=== PATIENT | male | born 1950 | race Caucasian/White ===

== ENCOUNTER 2017-03-26 05:23 | Observation (INO) ==
--- NOTE | 2017-03-26 05:35 | Emergency Department Note ---
Disposition Clinical Impression: Transient cerebral ischemia Disposition: Admitted As Inpatient Condition: Undetermined Referrals: NO,PCP [Primary Care Provider] - Forms: ED Satisfaction Letter General Adult HPI - General Chief complaint: ED Neuro Symptoms/Deficit Stated complaint: Rt arm weakness Time Seen by Provider: 03/26/17 05:29 Source: patient Limitations: no limitations - History of Present Illness Pain Scale: 0 - Related Data Allergies Allergy/AdvReac Type Severity Reaction Status Date / Time No Known Allergies Allergy Verified 03/26/17 05:27 Past Medical History - Past Medical History Medical history: Reports: atrial fibrillation, COPD, dialysis, renal disease - Social History Smoking Status: Former smoker Smokeless Tobacco Status: No Alcohol use: Reports: rarely Drug use: Reports: none Physical Exam - General Limitations: no limitations General appearance: alert, in no apparent distress Course Vital Signs Temperature 98.8 F 03/26/17 05:24 Pulse Rate 88 03/26/17 05:24 Respiratory Rate 18 03/26/17 05:24 Blood Pressure 165/54 03/26/17 05:24 O2 Sat by Pulse Oximetry 90 03/26/17 05:24 Temperature 98.1 F 03/26/17 05:43 Pulse Rate 74 03/26/17 05:43 Respiratory Rate 18 03/26/17 05:43 Blood Pressure 165/54 03/26/17 05:24 O2 Sat by Pulse Oximetry 90 03/26/17 05:24 Oxygen Delivery Oxygen Delivery Nasal Cannula Medical Decision Making - Lab Data Result diagrams: 03/26/17 05:55 03/26/17 05:55 Lab Results 03/26/17 03/26/17 03/26/17 Range/Units 05:28 05:55 05:55 WBC 7.5 (4.3-11.1) K/mcL RBC 3.61 L (4.19-5.50) M/mcL Hgb 11.9 L (12.9-16.9) g/dL Hct 35.5 L (37.5-50.1) % MCV 98.3 (83.0-100.0) fL MCH 33.0 (28.0-33.3) pg MCHC 33.5 (31.6-35.5) g/dL RDW 13.3 (11.5-14.5) % Plt Count 190 (140-400) K/mcL MPV 9.5 (9.4-12.4) fL Immature Gran % 0.3 (0-4) % Seg Neutrophils % 63.7 % Lymphocytes % 17.9 % Monocytes % 10.9 % Eosinophils % 6.5 % Basophils % 0.7 % Neutrophils # 4.8 (1.6-8.9) K/mcL Lymphocytes # 1.3 (0.6-4.6) K/mcL Monocytes # 0.8 (0.0-1.3) K/mcL Eosinophils # 0.5 (0.0-0.6) K/mcL Basophils # 0.1 (0.0-0.2) K/mcL Immature Plt Fraction 3.2 (1.1-6.1) % PT 25.6 H (9.4-12.1) Seconds INR 2.3 APTT 47.0 H (26.0-36.0) Seconds Sodium (136-145) mEq/L Potassium (3.5-4.5) mEq/L Chloride (98-109) mEq/L Carbon Dioxide (19-29) mEq/L BUN (8-26) mg/dL Creatinine (0.72-1.25) mg/dL Est GFR ( Amer) (> 60) Est GFR (Non-Af Amer) (> 60) BUN/Creatinine Ratio (6-26) Glucose (70-99) mg/dL POC Glucose 96 H (58-89) Calculated Osmolality (280-300) Calcium (8.6-10.8) mg/dL Troponin I (0-0.03) ng/mL 03/26/17 03/26/17 Range/Units 05:55 05:55 WBC (4.3-11.1) K/mcL RBC (4.19-5.50) M/mcL Hgb (12.9-16.9) g/dL Hct (37.5-50.1) % MCV (83.0-100.0) fL MCH (28.0-33.3) pg MCHC (31.6-35.5) g/dL RDW (11.5-14.5) % Plt Count (140-400) K/mcL MPV (9.4-12.4) fL Immature Gran % (0-4) % Seg Neutrophils % % Lymphocytes % % Monocytes % % Eosinophils % % Basophils % % Neutrophils # (1.6-8.9) K/mcL Lymphocytes # (0.6-4.6) K/mcL Monocytes # (0.0-1.3) K/mcL Eosinophils # (0.0-0.6) K/mcL Basophils # (0.0-0.2) K/mcL Immature Plt Fraction (1.1-6.1) % PT (9.4-12.1) Seconds INR APTT (26.0-36.0) Seconds Sodium 136 (136-145) mEq/L Potassium 5.2 H (3.5-4.5) mEq/L Chloride 93 L (98-109) mEq/L Carbon Dioxide 29 (19-29) mEq/L BUN 45 H (8-26) mg/dL Creatinine 9.08 H (0.72-1.25) mg/dL Est GFR ( Amer) 7 L (> 60) Est GFR (Non-Af Amer) 6 L (> 60) BUN/Creatinine Ratio 5 L (6-26) Glucose 97 (70-99) mg/dL POC Glucose (58-89) Calculated Osmolality 293 (280-300) Calcium 10.1 (8.6-10.8) mg/dL Troponin I 0.05 H* (0-0.03) ng/mL Attestation Statement - Attestation Attestation: I examined this patient and my medical decision-making was reviewed with the REVIVAL CLERK/PA/Advanced Practice Nurse/Resident Physician. I agree with the documented findings, disposition and treatment plan as described except to the extent set forth below. [id number] time provided Patient noticed acute left arm weakness when he was reaching upwards in his bathroom 90 minutes prior to arrival. Symptoms have improved since that time. He has equal strength in his upper extremities at the time of my exam. AV fistula present in his right upper extremity. Stroke alert activated 05:48: NIH 1
--- NOTE | 2017-03-26 05:37 | Emergency Department Note ---
Disposition Clinical Impression: Transient cerebral ischemia Qualifiers: Transient cerebral ischemia type: unspecified Qualified Code(s): G45.9 - Transient cerebral ischemic attack, unspecified Disposition: Admitted As Inpatient Condition: Undetermined Referrals: NO,PCP [Primary Care Provider] - Forms: ED Satisfaction Letter Time of Disposition: 06:43 Neuro HPI - General Chief Complaint: ED Neuro Symptoms/Deficit Stated Complaint: Rt arm weakness Time Seen by Provider: 03/26/17 05:29 Source: patient Mode of arrival: wheelchair Limitations: no limitations Nursing Notes Reviewed: Yes Vital Signs Reviewed: Yes - History of Present Illness HPI Narrative: 66-year-old male with history of CAD, hypertension, CKD on dialysis, states that at 04 15 this morning while already awake the patient went to the bathroom and tried to raise his left upper extremity to get something off the shelf and felt his left upper extremity drop to his side. The patient also noticed that his sensation on his left upper extremity was not baseline. The patient denied any headache, facial droop, vision or hearing loss, weakness on either lower extremity. Patient has had no slurring of speech, chest pain, difficulty breathing. The patient denies any previous history of CVA. The patient currently takes warfarin. Onset of Symptoms Date: 03/26/17 Onset of Symptoms Time: 04:30 Symptom Onset Unknown: Yes Location: left arm History of same: No Severity: mild Quality: numbness Symptoms Improving: Yes Improves with: time Worsens with: none Context: sudden onset On Anticoagulants: Yes Treatments Prior to Arrival: none - Related Data Allergies/Adverse Reactions: Allergies Allergy/AdvReac Type Severity Reaction Status Date / Time No Known Allergies Allergy Verified 03/26/17 05:27 All systems ED: reviewed and negative except as stated. Constitutional: Denies: fever, chills, weakness, weight change Eyes: Denies: eye pain, eye discharge, vision change Cardiovascular: Denies: chest pain, palpitations, dyspnea on exertion, edema, syncope Respiratory: Reports: as per HPI Gastrointestinal: Denies: abdominal pain, nausea, vomiting, diarrhea, constipation, hematemesis, melena, hematochezia Genitourinary: Denies: urgency, dysuria, frequency, hematuria Musculoskeletal: Denies: back pain, neck pain, arthralgia, myalgia Integumentary: Denies: rash, abrasion, lesions Neurological: Reports: weakness, numbness. Denies: headache, paresthesias, confusion, abnormal gait, vertigo Past Medical History - Past Medical History Attestation: Yes The following information was validated with the patient. Source: patient Medical history: Reports: atrial fibrillation, COPD, dialysis, renal disease Surgical history: Reports: other (7 cardiac stents) - Social History Smoking Status: Former smoker Smokeless Tobacco Status: No Alcohol use: Reports: rarely Drug use: Reports: none Physical Exam - General Limitations: no limitations General appearance: alert, in no apparent distress - Head Head exam: atraumatic, normocephalic, normal inspection - Eye Eye exam: Present: normal appearance, PERRL, EOMI - Neck Neck exam: Present: normal inspection, full ROM, trachea midline - Chest Chest inspection: Present: normal inspection, symmetric chest wall rise - Respiratory Respiratory exam: Present: normal lung sounds bilaterally - Cardiovascular Cardiovascular exam: Present: regular rate, normal rhythm, normal heart sounds - Abdominal Exam Abdominal exam: Present: soft, Non-Tender. Absent: tenderness, distention, guarding, rebound, rigidity - Extremities Exam Extremities exam: Present: normal inspection, full ROM, other (Right upper extremity AV fistula with palpable thrill). Absent: tenderness - Neurological Exam Neurological exam: Present: alert, oriented X3 - Skin Skin exam: Present: warm, dry, intact, normal color Course - Reevaluation(s) Reevaluation #1: We spoke with [facility] stroke neurologist, Dr. Carbajal. He states that the patient is not a TPA candidate for various reasons, improvement of symptoms, anticoagulation on warfarin. The patient has an NIH of 1. We will admit the patient to the hospitalist here at [facility]. Medical management per [facility] neurologists. Time: 05:55 Vital Signs Temperature 98.8 F 03/26/17 05:24 Pulse Rate 88 03/26/17 05:24 Respiratory Rate 18 03/26/17 05:24 Blood Pressure 165/54 03/26/17 05:24 O2 Sat by Pulse Oximetry 90 03/26/17 05:24 Temperature 98.1 F 03/26/17 05:43 Pulse Rate 74 03/26/17 05:43 Respiratory Rate 18 03/26/17 05:43 Blood Pressure 165/54 03/26/17 05:24 O2 Sat by Pulse Oximetry 90 03/26/17 05:24 Oxygen Delivery Oxygen Delivery Nasal Cannula Neuro Symptoms/Deficit - MDM Narrative Medical decision making narrative: We will admit the patient to the hospitalist for further workup. The patient is due to receive dialysis today. Patient accepted by the hospitalist, Dr. Shaw. - Lab Data Lab results reviewed: Yes I reviewed the patient's lab results. Result diagrams: 03/26/17 05:55 03/26/17 05:55 Lab Results 03/26/17 03/26/17 03/26/17 Range/Units 05:28 05:55 05:55 WBC 7.5 (4.3-11.1) K/mcL RBC 3.61 L (4.19-5.50) M/mcL Hgb 11.9 L (12.9-16.9) g/dL Hct 35.5 L (37.5-50.1) % MCV 98.3 (83.0-100.0) fL MCH 33.0 (28.0-33.3) pg MCHC 33.5 (31.6-35.5) g/dL RDW 13.3 (11.5-14.5) % Plt Count 190 (140-400) K/mcL MPV 9.5 (9.4-12.4) fL Immature Gran % 0.3 (0-4) % Seg Neutrophils % 63.7 % Lymphocytes % 17.9 % Monocytes % 10.9 % Eosinophils % 6.5 % Basophils % 0.7 % Neutrophils # 4.8 (1.6-8.9) K/mcL Lymphocytes # 1.3 (0.6-4.6) K/mcL Monocytes # 0.8 (0.0-1.3) K/mcL Eosinophils # 0.5 (0.0-0.6) K/mcL Basophils # 0.1 (0.0-0.2) K/mcL Immature Plt Fraction 3.2 (1.1-6.1) % PT 25.6 H (9.4-12.1) Seconds INR 2.3 APTT 47.0 H (26.0-36.0) Seconds Sodium (136-145) mEq/L Potassium (3.5-4.5) mEq/L Chloride (98-109) mEq/L Carbon Dioxide (19-29) mEq/L BUN (8-26) mg/dL Creatinine (0.72-1.25) mg/dL Est GFR ( Amer) (> 60) Est GFR (Non-Af Amer) (> 60) BUN/Creatinine Ratio (6-26) Glucose (70-99) mg/dL POC Glucose 96 H (58-89) Calculated Osmolality (280-300) Calcium (8.6-10.8) mg/dL Troponin I (0-0.03) ng/mL 03/26/17 03/26/17 Range/Units 05:55 05:55 WBC (4.3-11.1) K/mcL RBC (4.19-5.50) M/mcL Hgb (12.9-16.9) g/dL Hct (37.5-50.1) % MCV (83.0-100.0) fL MCH (28.0-33.3) pg MCHC (31.6-35.5) g/dL RDW (11.5-14.5) % Plt Count (140-400) K/mcL MPV (9.4-12.4) fL Immature Gran % (0-4) % Seg Neutrophils % % Lymphocytes % % Monocytes % % Eosinophils % % Basophils % % Neutrophils # (1.6-8.9) K/mcL Lymphocytes # (0.6-4.6) K/mcL Monocytes # (0.0-1.3) K/mcL Eosinophils # (0.0-0.6) K/mcL Basophils # (0.0-0.2) K/mcL Immature Plt Fraction (1.1-6.1) % PT (9.4-12.1) Seconds INR APTT (26.0-36.0) Seconds Sodium 136 (136-145) mEq/L Potassium 5.2 H (3.5-4.5) mEq/L Chloride 93 L (98-109) mEq/L Carbon Dioxide 29 (19-29) mEq/L BUN 45 H (8-26) mg/dL Creatinine 9.08 H (0.72-1.25) mg/dL Est GFR ( Amer) 7 L (> 60) Est GFR (Non-Af Amer) 6 L (> 60) BUN/Creatinine Ratio 5 L (6-26) Glucose 97 (70-99) mg/dL POC Glucose (58-89) Calculated Osmolality 293 (280-300) Calcium 10.1 (8.6-10.8) mg/dL Troponin I 0.05 H* (0-0.03) ng/mL - Radiology Data Radiology results reviewed: Yes I reviewed the patient's radiology results. - EKG Data EKG attestation: Yes I reviewed and interpreted this EKG. EKG results narrative: Heart rate 72 bpm. OR interval 180 ms. QTc 455 ms. Electronic ventricular pacemaker. No acute changes noted. NIH Stroke Scale - Level of Consciousness LOC: Alert - LOC Questions LOC Questions: Answers both correctly - LOC Commands LOC Commands: Performs both correctly - Best Gaze Best Gaze: Normal - Visual Visual: No visual loss - Facial Palsy Facial Palsy: Normal - Motor Arms Motor Arm-Left: No drift for 10 seconds Motor Arm-Right: No drift for 10 seconds - Motor Legs Motor Leg-Left: No drift for 5 seconds Motor Leg-Right: No drift for 5 seconds - Limb Ataxia Limb Ataxia: Normal, No Ataxia - Sensory Sensory: Mild to moderate loss, "not as sharp" - Best Language Best Language: No aphasia - Dysarthria Dysarthria: Normal - Extinction and Inattention Extinction and Inattention: Normal - NIHSS Total Score NIHSS Total Score: 1 TPA Checklist - LKW: 3-4.5 hrs Add. Warnings/Precautions Patient/family understanding: The patient/family members have been counseled and understood the risk, benefit , and alternatives of treatment.
[2017-03-26 06:03] LABS: Basophils # 0.1 K/mcL (0.0-0.2); Basophils % 0.7 %; Eosinophils # 0.5 K/mcL (0.0-0.6); Eosinophils % 6.5 %; Hematocrit 35.5 % (37.5-50.1); Hemoglobin 11.9 g/dL (12.9-16.9); Immature Granulocytes % 0.3 % (0-4); Immature Platelets 3.2 % (1.1-6.1); Lymphocytes # 1.3 K/mcL (0.6-4.6); Lymphocytes % 17.9 %; Mean Corpuscular HGB Conc 33.5 g/dL (31.6-35.5); Mean Corpuscular Volume 98.3 fL (83.0-100.0); Mean Platelet Volume 9.5 fL (9.4-12.4); Monocytes # 0.8 K/mcL (0.0-1.3); Monocytes % 10.9 %; Neutrophils # 4.8 K/mcL (1.6-8.9); Platelet Count 190 K/mcL (140-400); Red Blood Count 3.61 M/mcL (4.19-5.50); Red Cell Distribution Width 13.3 % (11.5-14.5); Segmented Neutrophils % 63.7 %
[2017-03-26 06:08] LABS: INR 2.3
[2017-03-26 06:13] LABS: Prothrombin Time 25.6 Seconds (9.4-12.1)
[2017-03-26] MEDS ORDERED: Aspirin 325 MG TABLET PO ONE (06:16)
[2017-03-26 06:17] LABS: Calcium 10.1 mg/dL (8.6-10.8); Potassium 5.2 mEq/L (3.5-4.5)
[2017-03-26] MEDS ORDERED: Naloxone 0.4 MG/ML INJ IVP PRN (09:13)
[2017-03-26] MEDS ORDERED: 0.9 % Sodium Chloride 1,000 ML IVC SCH (09:15)
--- NOTE | 2017-03-26 09:50 | Internal Med History&Physical ---
Date of Encounter: 03/26/17 Time of Encounter: 09:46 Assessment and Plan (1) End-stage renal disease on hemodialysis Current visit: Yes Status: Acute We will consult nephrology. I discussed the case with Dr. Conway. The patient is to receive hemodialysis today. We will continue with PhosLo. (2) Transient cerebral ischemia Current visit: Yes Status: Acute Transient left upper extremity weakness and numbness, improved. He was not a TPA candidate. Neuro checks every 4 hours. Stroke protocol. PT OT and speech evaluation. Continue with aspirin and Plavix. Neurology consult. Cannot do an MRI due to pacemaker. We will obtain carotid Dopplers. We will obtain an echocardiogram. Qualifiers: Transient cerebral ischemia type: carotid artery syndrome (hemispheric) Qualified Code(s): G45.1 - Carotid artery syndrome (hemispheric) (3) Essential hypertension Current visit: Yes Status: Acute Continue with lisinopril and carvedilol. He has a duplicated and beta blockers on his home medications and therefore will hold metoprolol. (4) Coronary artery disease Current visit: Yes Status: Acute We will continue treatment with aspirin and beta sarabjit Plavix. Continue statin. Qualifiers: Coronary Disease-Associated Artery/Lesion type: [place] artery [place] vs. transplanted heart: [place] heart Associated angina: without angina Qualified Code(s): I25.10 - Atherosclerotic heart disease of [place] coronary artery without angina pectoris (5) Chronic atrial fibrillation Current visit: Yes Status: Acute Continue rate control with diltiazem. (6) Anticoagulated on Coumadin Current visit: Yes Status: Acute Monitor Daily INR. Pharmacy consult for daily warfarin dosing. Internal Medicine - H&P: HPI Chief complaint: Left arm weakness Plans for Post Hospital Care: Home History of present illness: Mr. Velasquez is a 66 year old male with multiple medical problems including hypertension, CAD, atrial fibrillation and history of DVT currently on anticoagulation with warfarin, status post pacemaker placement, end-stage renal disease on hemodialysis who presented to the hospital due to left upper extremity weakness. He noticed sudden onset left arm weakness at 4:15 this morning which she describes as trying to take off his T-shirt and noted that his left arm fell down by his waist and he could not lift it up. Within minutes he started trying to exercise it and regained some of the strength but says the left arm was still weak and he had a tingling sensation in the left upper extremity going down to the last 2 digits. He denies any associated chest pain, speech or swallowing difficulty, denies vision changes, denies nausea vomiting. His symptoms started improving within 5-10 minutes. He presented to the hospital where in the emergency department a stroke alert was called. He was evaluated by the [facility] neurologist and deemed not a good candidate for TPA. He was referred for admission. A 10 point review of systems positive as above, additionally positive for history of blood clots, minor bleeding secondary to Coumadin. The remainder of the review of systems was negative. Past medical history as above Past surgical history: Right-sided colectomy, AV fistula placement, pacemaker placement Family history: Pertinent for bone cancer in the patient's father and breast cancer in the patient's mother. Past Med Surg Social Fam HX - Past Medical History Medical history: atrial fibrillation, COPD, dialysis, renal disease Psychiatric history: no psych history - Past Surgical History Surgical History: other - Social History Smoking Status: Former smoker Smokeless Tobacco Status: No Alcohol use: rarely Drug use: none Internal Medicine - H&P: Meds Acetaminophen w/Cod 300-30 mg [Tylenol w/Codeine #3] 1 tab PO Q8HR PRN 03/26/17 [History] Aspirin [Lo-Dose Aspirin EC] 81 mg PO DAILY 03/26/17 [History] Atorvastatin Calcium [Lipitor] 80 mg PO HS 03/26/17 [History] Calcium Acetate [Phos-LO] 2,001 mg PO TIDWM 03/26/17 [History] Carvedilol [Coreg] 6.25 mg PO BIDWM 03/26/17 [History] Clopidogrel [Plavix] 75 mg PO DAILY 03/26/17 [History] Diltiazem HCl [Diltiazem 24Hr Cd] 360 mg PO DAILY 03/26/17 [History] DiphenhydraMINE [Benadryl] 25 mg PO DAILY PRN 03/26/17 [History] Docusate [Colace] 100 mg PO DAILY 03/26/17 [History] Fluticasone Propionate Nasal [Flonase] 1 spray NS DAILY 03/26/17 [History] Furosemide [Lasix] 80 mg PO DAILY 03/26/17 [History] HYDROcodone/Acet 5/325 mg [[place] 5-325 mg] 1 tab PO Q6H PRN 03/26/17 [History] Lisinopril [Zestril] 10 mg PO BID 03/26/17 [History] Metoprolol Succinate 100 mg PO DAILY 03/26/17 [History] Multivit-Min/FA/Lycopen/Lutein [Men 50 Plus Multivitamin Tab] 1 tab PO DAILY [History] Oxygen 2 l NS CONT 03/26/17 [History] Pantoprazole Sodium [Protonix] 20 mg PO DAILY 03/26/17 [History] Sorbitol Soln [Sorbitol] 30 ml MC PRN PRN 03/26/17 [History] Tiotropium [Spiriva] 1 cap IH DAILY 03/26/17 [History] Warfarin [Coumadin] 2.5 mg PO AD 03/26/17 [History] Warfarin [Coumadin] 5 mg PO AD 03/26/17 [History] Allergies No Known Allergies Allergy (Verified 03/26/17 05:27) All Systems PM: A 10-system review of systems was performed and is negative for pertinent findings except as documented above in the HPI. - Constitutional Vitals: Temp Pulse Resp BP Pulse Ox 97.6 F 69 17 152/78 97 03/26/17 07:40 03/26/17 07:40 03/26/17 07:40 03/26/17 07:40 03/26/17 07:40 General appearance: Present: A&O X 3, no acute distress - Eye Eye exam: Present: PERRL, conjuntiva pink, sclera anicteric Pupils: Present: PERRL - Neck Neck exam general surgery: Present: supple, trachea midline. Absent: lymphadenopathy - Respiratory Respiratory exam: Present: CTAB. Absent: accessory muscle use, rales, rhonchi, wheezes - Cardiovascular Cardiovascular exam: Present: RRR, +S1, +S2. Absent: diastolic murmur, gallop, rubs, systolic murmur - GI/Abdominal GI/Abdominal exam: Present: normal bowel sounds, soft, no peritoneal signs. Absent: distended, tenderness - Extremities Exam Extremities exam: Present: warm, radial pulses palpable and symetrical. Absent : calf tenderness, cyanotic, pedal edema Additional comments: Right upper extremity AV fistula with palpable thrill in the forearm - Neurological Exam Neurological exam: Present: CN II-XII intact, oriented X3, no focal deficits. Absent: pronater drift, facial droop, speech deficit - Skin Skin exam: Present: dry, intact Internal Med - H&P Results - Labs CBC & Chem 7: 03/26/17 05:55 03/26/17 05:55
[2017-03-26] MEDS ORDERED: *HR* HYDROcodone/Acet 5/325 mg TABLET PO PRN (11:16)
[2017-03-26] MEDS ORDERED: 0.9 % Sodium Chloride 250 ML IVC PRN (12:28)
--- NOTE | 2017-03-26 12:52 | Electrocardiograph Report ---
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
[2017-03-26] MEDS ORDERED: 0.9 % Sodium Chloride 1,000 ML PRIME SCH (13:00)
[2017-03-26 14:52] LABS: Hepatitis B Surface Antibody 22.61 mIU/mL; Hepatitis B Surface Antigen Nonreactive (Nonreactive)
--- NOTE | 2017-03-26 15:07 | Neurology - Consult Note ---
Date of Encounter: 03/26/17 Time of Encounter: 15:04 Assessment and Plan (1) Cerebral infarct Current Visit: Yes Status: Acute Although this gentleman has regained a significant amount of his left upper extremity strength, he is not completely back to baseline. Therefore he has likely suffered a right hemispheric cerebral infarct. The CT scan of the head however was unrevealing. He does have a history of atrial fibrillation however his INR was therapeutic upon admission. Carotid duplex Doppler studies are pending. Echocardiogram is pending. Further recommendations will be made pending his test results. Certainly management of his risk factors is paramount. I am not convinced that antiplatelet therapy in addition to anticoagulation long-term will ultimately be advantageous in this case. I will sign this patient out to the local doctor to follow up with the carotid Doppler study for the weekend. Stroke protocol orders should be implemented and followed. Qualifiers: Qualified Code(s): I63.9 - Cerebral infarction, unspecified History of Present Illness HPI: Mr. Velasquez is a 66 year old male with a known history of atrial fibrillation, renal failure and is on dialysis who is seen for neurologic consultation secondary to left upper extremity weakness. He states he awakened early this morning to come in for dialysis treatment and noticed that his left upper extremity was very weak. At the time he could not raise it above his head. He subsequently went and looked in the mirror because he thought he might have had a stroke. He did not see any facial asymmetry. His speech was not affected, he denies headache. He denied any visual changes denied any weakness of the left lower extremity. He feels as though he does have some residual paresthesias of the left hand. Upon his admission blood pressure was 165/54. His deficits lasted for about 6 hours. He is currently receiving his dialysis treatment. He is awake, alert, and oriented. He gives a lucid history of his own medical account. CT scan of the head was negative. Past Med Surg Social Fam HX - Past Medical History Medical history: atrial fibrillation, COPD, dialysis, renal disease Psychiatric history: no psych history - Past Surgical History Surgical History: other - Social History Smoking Status: Former smoker Smokeless Tobacco Status: No Alcohol use: rarely Drug use: none Medications and Allergies Acetaminophen w/Cod 300-30 mg [Tylenol w/Codeine #3] 1 tab PO Q8HR PRN 03/26/17 [History] Aspirin [Lo-Dose Aspirin EC] 81 mg PO DAILY 03/26/17 [History] Atorvastatin Calcium [Lipitor] 80 mg PO HS 03/26/17 [History] Calcium Acetate [Phos-LO] 2,001 mg PO TIDWM 03/26/17 [History] Carvedilol [Coreg] 6.25 mg PO BIDWM 03/26/17 [History] Clopidogrel [Plavix] 75 mg PO DAILY 03/26/17 [History] Diltiazem HCl [Diltiazem 24Hr Cd] 360 mg PO DAILY 03/26/17 [History] DiphenhydraMINE [Benadryl] 25 mg PO DAILY PRN 03/26/17 [History] Docusate [Colace] 100 mg PO DAILY 03/26/17 [History] Fluticasone Propionate Nasal [Flonase] 1 spray NS DAILY 03/26/17 [History] Furosemide [Lasix] 80 mg PO DAILY 03/26/17 [History] HYDROcodone/Acet 5/325 mg [[place] 5-325 mg] 1 tab PO Q6H PRN 03/26/17 [History] Lisinopril [Zestril] 10 mg PO BID 03/26/17 [History] Metoprolol Succinate 100 mg PO DAILY 03/26/17 [History] Multivit-Min/FA/Lycopen/Lutein [Men 50 Plus Multivitamin Tab] 1 tab PO DAILY [History] Oxygen 2 l NS CONT 03/26/17 [History] Pantoprazole Sodium [Protonix] 20 mg PO DAILY 03/26/17 [History] Sorbitol Soln [Sorbitol] 30 ml MC PRN PRN 03/26/17 [History] Tiotropium [Spiriva] 1 cap IH DAILY 03/26/17 [History] Warfarin [Coumadin] 2.5 mg PO AD 03/26/17 [History] Warfarin [Coumadin] 5 mg PO AD 03/26/17 [History] Allergies No Known Allergies Allergy (Verified 03/26/17 05:27) All Systems: A 10-system review of systems was performed and is negative for pertinent findings except as documented above in the HPI. Review of Systems: 10 point review of systems is consistent with a history of present illness and otherwise negative. Physical Examination - Vital Signs Vital Signs: Initial Vital Signs Temp Pulse Resp BP Pulse Ox 98.8 F 88 18 165/54 90 03/26/17 05:24 03/26/17 05:24 03/26/17 05:24 03/26/17 05:24 03/26/17 05:24 - Neurologic Motor examination - right side: 5/5: deltoids, biceps, triceps, wrist flexion, wrist extension, cook chill technician, hip flexors, tibialis Anterior, quadriceps, toe extension (EHL), plantarflexion Motor examination - left side: 45: deltoids, biceps, triceps, wrist flexion, wrist extension, cook chill technician, 5/5: hip flexors, quadriceps, tibialis Anterior, toe extension (EHL), plantarflexion Detailed sensory examination: intact Reflexes: Biceps: 1+, Triceps: 0, Brachioradialis: 1+, Patella: 1+, Achilles: 0 Mental Status Examination: awake, alert, oriented to person, oriented to place, oriented to time, follows commands appropriately, answers questions appropriately, no agnosia, no aphasia, no aproxia Cranial nerve examination: PERRL, EOMI, visual [place] intact, corneal reflexes brisk symmetrically, sensory to face intact, mastication intact, no facial asymmetry is present, no dysarthria, hearing is intact symmetrically, soft palate elevates bilaterally upon phonation, gag reflex intact, flexes SCM and trapezius muscles symmetrically with full power, tongue protrudes midline, no atrophy or facial fasiculations present Cerebellar examination: no dysmetria, performs finger to nose and heel to montano symmetrically without ataxia, no gait ataxia, no truncal ataxia, no difficulty with rapid alternating movements Results - Laboratory Findings CBC and BMP: 03/26/17 05:55 03/26/17 05:55 Abnormal lab findings: Abnormal lab results RBC 3.61 M/mcL (4.19-5.50) L 03/26/17 05:55 Hgb 11.9 g/dL (12.9-16.9) L 03/26/17 05:55 Hct 35.5 % (37.5-50.1) L 03/26/17 05:55 PT 25.6 Seconds (9.4-12.1) H 03/26/17 05:55 APTT 47.0 Seconds (26.0-36.0) H 03/26/17 05:55 Potassium 5.2 mEq/L (3.5-4.5) H 03/26/17 05:55 Chloride 93 mEq/L (98-109) L 03/26/17 05:55 BUN 45 mg/dL (8-26) H 03/26/17 05:55 Creatinine 9.08 mg/dL (0.72-1.25) H 03/26/17 05:55 Est GFR ( Amer) 7 (> 60) L 03/26/17 05:55 Est GFR (Non-Af Amer) 6 (> 60) L 03/26/17 05:55 BUN/Creatinine Ratio 5 (6-26) L 03/26/17 05:55 POC Glucose 96 (58-89) H 03/26/17 05:28 Troponin I 0.05 ng/mL (0-0.03) H* 03/26/17 10:49 Consult Discharge Plan - Plan Referrals: Micah Mello MD [Non-Partnered Physician] - 04/02/17 10:00 am
[2017-03-26] MEDS ORDERED: *HR* Warfarin 2.5 MG TABLET PO SCH (18:00)
[2017-03-26] MEDS ORDERED: Warfarin perPT PO PRN (18:00)
[2017-03-26] MEDS: Diltiazem CD (24hr) 180 MG CAPSULE PO SCH (20:23)
[2017-03-26] MEDS: Calcium Acetate 667 MG CAPSULE PO SCH ×2 (20:32→20:33)
[2017-03-27 07:09] VITALS: BP 148/73
[2017-03-27 07:33] LABS: Prothrombin Time 22.2 Seconds (9.4-12.1)
[2017-03-27 07:51] LABS: Calcium 9.7 mg/dL (8.6-10.8); Chol/HDL Ratio 3.4 (0-4.9); Potassium 4.6 mEq/L (3.5-4.5)
[2017-03-27 08:19] LABS: Basophils # 0.1 K/mcL (0.0-0.2); Basophils % 0.9 %; Eosinophils # 0.5 K/mcL (0.0-0.6); Eosinophils % 6.8 %; Hematocrit 34.1 % (37.5-50.1); Hemoglobin 11.4 g/dL (12.9-16.9); Immature Granulocytes % 0.6 % (0-4); Lymphocytes # 1.3 K/mcL (0.6-4.6); Lymphocytes % 19.4 %; Mean Corpuscular HGB Conc 33.4 g/dL (31.6-35.5); Mean Corpuscular Hemoglobin 33.1 pg (28.0-33.3); Mean Corpuscular Volume 99.1 fL (83.0-100.0); Mean Platelet Volume 10.3 fL (9.4-12.4); Monocytes # 0.9 K/mcL (0.0-1.3); Monocytes % 13.4 %; Neutrophils # 4.1 K/mcL (1.6-8.9); Platelet Count 150 K/mcL (140-400); Red Blood Count 3.44 M/mcL (4.19-5.50); Red Cell Distribution Width 13.3 % (11.5-14.5); Segmented Neutrophils % 58.9 %
--- NOTE | 2017-03-27 08:20 | Nephrology Consult Note ---
Date of Encounter: 03/27/17 Time of Encounter: 08: Assessment and Plan (1) End-stage renal disease on hemodialysis Current Visit: Yes Status: Acute Patient has end-stage renal disease. He did receive his dialysis yesterday following hospital admission. He stable from a renal perspective. Vital signs are stable. The patient seems to have recovered from his neurologic event. I suspect the patient will be discharged either today or tomorrow. (2) Essential hypertension Current Visit: Yes Status: Acute (3) Chronic atrial fibrillation Current Visit: Yes Status: Acute (4) Cerebral infarct Current Visit: Yes Status: Acute Qualifiers: Qualified Code(s): I63.9 - Cerebral infarction, unspecified History of Present Illness - History of Present Illness This is a 66-year-old male with end-stage renal disease. He receives dialysis every Wednesday in [place]. Patient reports she was taking off his T-shirt yesterday when he noticed left arm weakness. He said he worked with his arm and got some of the strength back. He also noticed some numbness in some of his fingers. He presented to the hospital. CT scan was unremarkable. Neurology saw the patient and felt that he suffered an acute CVA. He is undergoing additional evaluation including carotid studies and echocardiogram. He is on Coumadin for chronic A. fib. This morning he reports that his left arm muscle strength is back to normal. He continues to have some mild numbness of his fourth and fifth fingers. Past Med Surg Social Fam HX - Past Medical History Medical history: atrial fibrillation, COPD, dialysis, renal disease Psychiatric history: no psych history - Past Surgical History Surgical History: other - Social History Smoking Status: Former smoker Smokeless Tobacco Status: No Alcohol use: rarely Drug use: none Medications and Allergies Acetaminophen w/Cod 300-30 mg [Tylenol w/Codeine #3] 1 tab PO Q8HR PRN 03/26/17 [History] Aspirin [Lo-Dose Aspirin EC] 81 mg PO DAILY 03/26/17 [History] Atorvastatin Calcium [Lipitor] 80 mg PO HS 03/26/17 [History] Calcium Acetate [Phos-LO] 2,001 mg PO TIDWM 03/26/17 [History] Carvedilol [Coreg] 6.25 mg PO BIDWM 03/26/17 [History] Clopidogrel [Plavix] 75 mg PO DAILY 03/26/17 [History] Diltiazem HCl [Diltiazem 24Hr Cd] 360 mg PO DAILY 03/26/17 [History] DiphenhydraMINE [Benadryl] 25 mg PO DAILY PRN 03/26/17 [History] Docusate [Colace] 100 mg PO DAILY 03/26/17 [History] Fluticasone Propionate Nasal [Flonase] 1 spray NS DAILY 03/26/17 [History] Furosemide [Lasix] 80 mg PO DAILY 03/26/17 [History] HYDROcodone/Acet 5/325 mg [[place] 5-325 mg] 1 tab PO Q6H PRN 03/26/17 [History] Lisinopril [Zestril] 10 mg PO BID 03/26/17 [History] Metoprolol Succinate 100 mg PO DAILY 03/26/17 [History] Multivit-Min/FA/Lycopen/Lutein [Men 50 Plus Multivitamin Tab] 1 tab PO DAILY [History] Oxygen 2 l NS CONT 03/26/17 [History] Pantoprazole Sodium [Protonix] 20 mg PO DAILY 03/26/17 [History] Sorbitol Soln [Sorbitol] 30 ml MC PRN PRN 03/26/17 [History] Tiotropium [Spiriva] 1 cap IH DAILY 03/26/17 [History] Warfarin [Coumadin] 2.5 mg PO AD 03/26/17 [History] Warfarin [Coumadin] 5 mg PO AD 03/26/17 [History] Allergies No Known Allergies Allergy (Verified 03/26/17 05:27) Review of Systems Constitutional: as per HPI Eyes: bilateral: blurred vision (patient denies), diplopia (patient denies) Nose, mouth and throat: no dizziness, no headache(s) Cardiovascular: dyspnea on exertion, irregular heart rhythm, no chest pain, no palpitations Respiratory: dyspnea on exertion, no cough, no dyspnea Gastrointestinal: no abdominal pain, no change in bowel habits Musculoskeletal: no muscle weakness, no numbness Musculoskeletal: left: knee pain Integumentary: no hirsutism, no striae Neurological: as per HPI, numbness, weakness Psychiatric: no depression, no difficulty concentrating Endocrine: as per HPI Hematologic/Lymphatic: no easy bruising, no lymphadenopathy Exam - Vital Signs Vital signs: Initial Vital Signs Temp Pulse Resp BP Pulse Ox 98.8 F 88 18 165/54 90 03/26/17 05:24 03/26/17 05:24 03/26/17 05:24 03/26/17 05:24 03/26/17 05:24 Vital Signs - Last 8 Hours Temp Pulse Resp BP Pulse Ox 03/27/17 07:06 97.6 F 79 16 148/73 95 03/27/17 03:35 97.9 F 15 161/61 93 Intake and Output 03/26/17 03/27/17 03/27/17 23:59 07:59 15:59 Intake Total 250 / 250 Output Total 2600 / 2600 Balance -2350 / -2350 Intake: Oral 250 / 250 Output: Urine 0 / 0 Total Dialysis (HD) 2600 / 2600 Output Other: # Voids 1 Weight 102.965 kg Hemodialysis Net Fluid 2000 Removed (mL) Patient Weight 03/27/17 23:59 Weight 102.965 kg - General Appearance Exam: Patient is alert and oriented. He is in acute distress. Neck is supple. Lungs mange breath sounds otherwise clear. Heart irregular rate and rhythm. Abdomen shows normal bowel sounds of bruits masses or megaly or tenderness. Lower examination of peripheral edema. There is a functioning AV fistula in the right upper extremity. No gross motor deficits. Results - Lab Results 03/26/17 05:55 03/27/17 06:58 Most recent lab results Calcium 9.7 mg/dL (8.6-10.8) 03/27/17 06:58 Consult Discharge Plan - Plan Referrals: Micah Mello MD [Non-Partnered Physician] - 04/02/17 10:00 am
[2017-03-27] MEDS ORDERED: Aspirin Enteric Coated 81 MG Tablet PO SCH (09:00)
[2017-03-27] MEDS ORDERED: Tiotropium 18 MCG inhalation IH SCH (09:00)
[2017-03-27] MEDS: Calcium Acetate 667 MG CAPSULE PO SCH (09:48)
[2017-03-27] MEDS: Diltiazem CD (24hr) 180 MG CAPSULE PO SCH (09:48)
--- NOTE | 2017-03-27 10:34 | Neurology Progress Note ---
Date of Encounter: 03/27/17 Time of Encounter: 10:32 Assessment and Plan (1) Stroke Current Visit: Yes Status: Acute 66-year old man with prior history of hypertension, afib (on coumadin and pacemaker), CAD (on ASA and plavix, stents), DVT (on filter), hypercholesterolemia (on statin) admitted with acute-onset left sided weakness, and now with left pronator drift and left up going toe, likely suggestive of a small vessel stroke in the right hemisphere in the setting of multiple current medications to prevent stroke and control of stroke risk factors. INR was 2.3 and 2.0 in the last two days. Cholesterol was 125, trig was 145, HDL was 37. No change in medications except for addition of niacin 100 bid. Needs follow-up with outpatient neurology (stroke) and cardiology for other medication changes, if any. Eliquis? Call if questions. Qualifiers: Laterality of affected vessel: right Qualified Code(s): I63.411 - Cerebral infarction due to embolism of right middle cerebral artery Subjective Principal diagnosis: stroke Interval history: Doing well today. He is almost back to normal, he says. His strength in the left arm has improved. States that he is on coumadin, asa 81 and plavix 75 and other heart meds. His cholesterol was 125 and triglycerides were 145. He states that he is on a statin. He has a pacemaker and cannot do MRI. He had echo done yesterday, it is not read yet. He had carotid duplex yesterday - showed only non-stenotic plaques. He is back to near baseline. Objective - Constitutional Vitals: Temp Pulse Resp BP Pulse Ox 97.6 F 79 18 148/73 97 03/27/17 07:06 03/27/17 07:06 03/27/17 08:32 03/27/17 07:06 03/27/17 08:32 General appearance: Present: cooperative, A&O X 3, no acute distress, answers questions appropriately - Head Head exam: Present: atraumatic, normocephalic - Eye Eye exam: Present: PERRL, conjuntiva pink, sclera anicteric - Extremities Exam Extremities exam: Present: warm, radial pulses palpable and symetrical. Absent : calf tenderness, cyanotic, pedal edema - Neurological Exam Sensorimotor examination: Present: intact Motor Examination: Present: full strength in all major muscle groups Motor examination - right side: 02/12: deltoids, biceps, triceps, wrist flexion, wrist extension, silver miner blasting, hip flexors, tibialis Anterior, quadriceps, toe extension (EHL), plantarflexion Motor examination - left side: 02/12: deltoids (has mild left pronator drift), biceps, triceps, wrist flexion, wrist extension, hip flexors, silver miner blasting, quadriceps, tibialis Anterior, toe extension (EHL), plantarflexion Sensation intact: Present: intact Reflexes: Biceps: 1+, Triceps: 1+, Brachioradialis: 1+, Patella: 1+, Achilles: 1 + (has up going toe on the left) Mental Status Examination: Present: awake, alert, oriented to person, oriented to place, oriented to time, follows commands appropriately, answers questions appropriately, no agnosia, no aphasia, no aproxia Cranial nerve examination: Present: PERRL, EOMI, visual [place] intact, corneal reflexes brisk symmetrically, sensory to face intact, mastication intact, no facial asymmetry is present, no dysarthria, hearing is intact symmetrically, soft palate elevates bilaterally upon phonation, gag reflex intact, flexes SCM and trapezius muscles symmetrically with full power, tongue protrudes midline, no atrophy or facial fasiculations present Cerebellar examination: Present: no dysmetria, performs finger to nose and heel to montano symmetrically without ataxia, no gait ataxia, no truncal ataxia, no difficulty with rapid alternating movements Results - Laboratory Findings CBC and BMP: 03/27/17 06:58 03/27/17 06:58 Abnormal lab findings: Abnormal lab results RBC 3.44 M/mcL (4.19-5.50) L 03/27/17 06:58 Hgb 11.4 g/dL (12.9-16.9) L 03/27/17 06:58 Hct 34.1 % (37.5-50.1) L 03/27/17 06:58 PT 22.2 Seconds (9.4-12.1) H 03/27/17 06:58 APTT 47.0 Seconds (26.0-36.0) H 03/26/17 05:55 Sodium 135 mEq/L (136-145) L 03/27/17 06:58 Potassium 4.6 mEq/L (3.5-4.5) H 03/27/17 06:58 Chloride 94 mEq/L (98-109) L 03/27/17 06:58 BUN 31 mg/dL (8-26) H D 03/27/17 06:58 Creatinine 7.36 mg/dL (0.72-1.25) H 03/27/17 06:58 Est GFR ( Amer) 9 (> 60) L 03/27/17 06:58 Est GFR (Non-Af Amer) 7 (> 60) L 03/27/17 06:58 BUN/Creatinine Ratio 4 (6-26) L 03/27/17 06:58 Glucose 107 mg/dL (70-99) H 03/27/17 06:58 POC Glucose 96 (58-89) H 03/26/17 05:28 Troponin I 0.05 ng/mL (0-0.03) H* 03/26/17 16:25 HDL Cholesterol 37 mg/dL (40-59) L 03/27/17 06:58 - Diagnostic Findings Additional findings: Head CT 03/26/17 05:34 IMPRESSION: Small vessel chronic ischemic changes with no acute hemorrhage or definite evidence for acute ischemia. Stroke alert results were called by Dr. Pino Falcon MD to Nate Rojas on 03/26/2017 at 05:55. D/ / Pino Falcon MD / Pino Falcon MD Interpreting Provider: Pino Falcon MD Lab Results 03/26/17 03/26/17 03/26/17 Range/Units 05:28 05:55 05:55 WBC 7.5 (4.3-11.1) K/mcL RBC 3.61 L (4.19-5.50) M/mcL Hgb 11.9 L (12.9-16.9) g/dL Hct 35.5 L (37.5-50.1) % MCV 98.3 (83.0-100.0) fL MCH 33.0 (28.0-33.3) pg MCHC 33.5 (31.6-35.5) g/dL RDW 13.3 (11.5-14.5) % Plt Count 190 (140-400) K/mcL MPV 9.5 (9.4-12.4) fL Immature Gran % 0.3 (0-4) % Seg Neutrophils % 63.7 % Lymphocytes % 17.9 % Monocytes % 10.9 % Eosinophils % 6.5 % Basophils % 0.7 % Neutrophils # 4.8 (1.6-8.9) K/mcL Lymphocytes # 1.3 (0.6-4.6) K/mcL Monocytes # 0.8 (0.0-1.3) K/mcL Eosinophils # 0.5 (0.0-0.6) K/mcL Basophils # 0.1 (0.0-0.2) K/mcL Immature Plt Fraction 3.2 (1.1-6.1) % PT 25.6 H (9.4-12.1) Seconds INR 2.3 APTT 47.0 H (26.0-36.0) Seconds Sodium (136-145) mEq/L Potassium (3.5-4.5) mEq/L Chloride (98-109) mEq/L Carbon Dioxide (19-29) mEq/L BUN (8-26) mg/dL Creatinine (0.72-1.25) mg/dL Est GFR ( Amer) (> 60) Est GFR (Non-Af Amer) (> 60) BUN/Creatinine Ratio (6-26) Glucose (70-99) mg/dL POC Glucose 96 H (58-89) Calculated Osmolality (280-300) Calcium (8.6-10.8) mg/dL Troponin I (0-0.03) ng/mL Triglycerides (< 150) mg/dL Cholesterol (< 200) mg/dL LDL Cholesterol, Calc (0-99) mg/dL VLDL Cholesterol, Calc (< 31) mg/dL HDL Cholesterol (40-59) mg/dL Cholesterol/HDL Ratio (0-4.9) Hep Bs Antigen (Nonreactive) Hep Bs Antibody mIU/mL 03/26/17 03/26/17 03/26/17 Range/Units 05:55 05:55 10:49 WBC (4.3-11.1) K/mcL RBC (4.19-5.50) M/mcL Hgb (12.9-16.9) g/dL Hct (37.5-50.1) % MCV (83.0-100.0) fL MCH (28.0-33.3) pg MCHC (31.6-35.5) g/dL RDW (11.5-14.5) % Plt Count (140-400) K/mcL MPV (9.4-12.4) fL Immature Gran % (0-4) % Seg Neutrophils % % Lymphocytes % % Monocytes % % Eosinophils % % Basophils % % Neutrophils # (1.6-8.9) K/mcL Lymphocytes # (0.6-4.6) K/mcL Monocytes # (0.0-1.3) K/mcL Eosinophils # (0.0-0.6) K/mcL Basophils # (0.0-0.2) K/mcL Immature Plt Fraction (1.1-6.1) % PT (9.4-12.1) Seconds INR APTT (26.0-36.0) Seconds Sodium 136 (136-145) mEq/L Potassium 5.2 H (3.5-4.5) mEq/L Chloride 93 L (98-109) mEq/L Carbon Dioxide 29 (19-29) mEq/L BUN 45 H (8-26) mg/dL Creatinine 9.08 H (0.72-1.25) mg/dL Est GFR ( Amer) 7 L (> 60) Est GFR (Non-Af Amer) 6 L (> 60) BUN/Creatinine Ratio 5 L (6-26) Glucose 97 (70-99) mg/dL POC Glucose (58-89) Calculated Osmolality 293 (280-300) Calcium 10.1 (8.6-10.8) mg/dL Troponin I 0.05 H* 0.05 H* (0-0.03) ng/mL Triglycerides (< 150) mg/dL Cholesterol (< 200) mg/dL LDL Cholesterol, Calc (0-99) mg/dL VLDL Cholesterol, Calc (< 31) mg/dL HDL Cholesterol (40-59) mg/dL Cholesterol/HDL Ratio (0-4.9) Hep Bs Antigen (Nonreactive) Hep Bs Antibody mIU/mL 03/26/17 03/26/17 03/27/17 Range/Units 10:49 16:25 06:58 WBC 6.9 (4.3-11.1) K/mcL RBC 3.44 L (4.19-5.50) M/mcL Hgb 11.4 L (12.9-16.9) g/dL Hct 34.1 L (37.5-50.1) % MCV 99.1 (83.0-100.0) fL MCH 33.1 (28.0-33.3) pg MCHC 33.4 (31.6-35.5) g/dL RDW 13.3 (11.5-14.5) % Plt Count 150 (140-400) K/mcL MPV 10.3 (9.4-12.4) fL Immature Gran % 0.6 (0-4) % Seg Neutrophils % 58.9 % Lymphocytes % 19.4 % Monocytes % 13.4 % Eosinophils % 6.8 % Basophils % 0.9 % Neutrophils # 4.1 (1.6-8.9) K/mcL Lymphocytes # 1.3 (0.6-4.6) K/mcL Monocytes # 0.9 (0.0-1.3) K/mcL Eosinophils # 0.5 (0.0-0.6) K/mcL Basophils # 0.1 (0.0-0.2) K/mcL Immature Plt Fraction (1.1-6.1) % PT (9.4-12.1) Seconds INR APTT (26.0-36.0) Seconds Sodium (136-145) mEq/L Potassium (3.5-4.5) mEq/L Chloride (98-109) mEq/L Carbon Dioxide (19-29) mEq/L BUN (8-26) mg/dL Creatinine (0.72-1.25) mg/dL Est GFR ( Amer) (> 60) Est GFR (Non-Af Amer) (> 60) BUN/Creatinine Ratio (6-26) Glucose (70-99) mg/dL POC Glucose (58-89) Calculated Osmolality (280-300) Calcium (8.6-10.8) mg/dL Troponin I 0.05 H* (0-0.03) ng/mL Triglycerides (< 150) mg/dL Cholesterol (< 200) mg/dL LDL Cholesterol, Calc (0-99) mg/dL VLDL Cholesterol, Calc (< 31) mg/dL HDL Cholesterol (40-59) mg/dL Cholesterol/HDL Ratio (0-4.9) Hep Bs Antigen Nonreactive (Nonreactive) Hep Bs Antibody 22.61 mIU/mL 03/27/17 03/27/17 Range/Units 06:58 06:58 WBC (4.3-11.1) K/mcL RBC (4.19-5.50) M/mcL Hgb (12.9-16.9) g/dL Hct (37.5-50.1) % MCV (83.0-100.0) fL MCH (28.0-33.3) pg MCHC (31.6-35.5) g/dL RDW (11.5-14.5) % Plt Count (140-400) K/mcL MPV (9.4-12.4) fL Immature Gran % (0-4) % Seg Neutrophils % % Lymphocytes % % Monocytes % % Eosinophils % % Basophils % % Neutrophils # (1.6-8.9) K/mcL Lymphocytes # (0.6-4.6) K/mcL Monocytes # (0.0-1.3) K/mcL Eosinophils # (0.0-0.6) K/mcL Basophils # (0.0-0.2) K/mcL Immature Plt Fraction (1.1-6.1) % PT 22.2 H (9.4-12.1) Seconds INR 2.0 APTT (26.0-36.0) Seconds Sodium 135 L (136-145) mEq/L Potassium 4.6 H (3.5-4.5) mEq/L Chloride 94 L (98-109) mEq/L Carbon Dioxide 29 (19-29) mEq/L BUN 31 H D (8-26) mg/dL Creatinine 7.36 H (0.72-1.25) mg/dL Est GFR ( Amer) 9 L (> 60) Est GFR (Non-Af Amer) 7 L (> 60) BUN/Creatinine Ratio 4 L (6-26) Glucose 107 H (70-99) mg/dL POC Glucose (58-89) Calculated Osmolality 287 (280-300) Calcium 9.7 (8.6-10.8) mg/dL Troponin I (0-0.03) ng/mL Triglycerides 142 (< 150) mg/dL Cholesterol 125 (< 200) mg/dL LDL Cholesterol, Calc 60 (0-99) mg/dL VLDL Cholesterol, Calc 28 (< 31) mg/dL HDL Cholesterol 37 L (40-59) mg/dL Cholesterol/HDL Ratio 3.4 (0-4.9) Hep Bs Antigen (Nonreactive) Hep Bs Antibody mIU/mL Consult Discharge Plan - Plan Referrals: Micah Mello MD [Non-Partnered Physician] - 04/02/17 10:00 am
--- NOTE | 2017-03-27 12:24 | Discharge Summary ---
Date of Encounter: 03/27/17 Time of Encounter: 10:30 - Discharge Diagnosis (1) Cerebral infarct Priority: Primary Status: Suspected Comments: Unable to obtain MRI secondary to pacemaker. Symptoms consistent with acute CVA. On day of discharge, patient's left upper extremity weakness had resolved as did the numbness. Neurology recommended adding niacin to his regimen. Follow-up outpatient Qualifiers: Qualified Code(s): I63.9 - Cerebral infarction, unspecified (2) Transient cerebral ischemia Priority: Primary Status: Suspected Qualifiers: Transient cerebral ischemia type: carotid artery syndrome (hemispheric) Qualified Code(s): G45.1 - Carotid artery syndrome (hemispheric) (3) End-stage renal disease on hemodialysis Priority: Secondary Status: Chronic Comments: Follow-up outpatient (4) Essential hypertension Priority: Secondary Status: Chronic Comments: Controlled. Follow-up outpatient. (5) Coronary artery disease Priority: Secondary Status: Chronic Qualifiers: Coronary Disease-Associated Artery/Lesion type: [place] artery [place] vs. transplanted heart: [place] heart Associated angina: without angina Qualified Code(s): I25.10 - Atherosclerotic heart disease of [place] coronary artery without angina pectoris (6) Chronic atrial fibrillation Priority: Secondary Status: Chronic Comments: Rate controlled. Therapeutic on Coumadin (7) Anticoagulated on Coumadin Priority: Secondary Status: Chronic Comments: INR therapeutic throughout this admission, follows with Coumadin clinic. (8) Combined systolic and diastolic heart failure Priority: Secondary Status: Chronic Comments: Echocardiogram revealing ejection fraction of 25-30%, moderate diastolic dysfunction, severe pulmonary hypertension. Patient follows with a waste hand at [facility]. He states he thinks that these findings are consistent with his norm. No acute exacerbation, patient euvolemic on examination and denies shortness of breath. Recommend close outpatient follow- up with his primary care team (9) Chronic respiratory failure Priority: Secondary Status: Chronic Comments: On 3 L per nasal cannula continuously at home. No increased knee, no shortness of breath above his norm. Follow-up outpatient. Qualifiers: Respiratory failure complication: unspecified whether with hypoxia or hypercapnia Qualified Code(s): J96.10 - Chronic respiratory failure, unspecified whether with hypoxia or hypercapnia - Discharge Medications Prescriptions: Niacin 250 mg PO DAILY #30 tablet Home Medications: Acetaminophen w/Cod 300-30 mg [Tylenol w/Codeine #3] 1 tab PO Q8HR PRN 03/26/17 [History] Aspirin [Lo-Dose Aspirin EC] 81 mg PO DAILY 03/26/17 [History] Atorvastatin Calcium [Lipitor] 80 mg PO HS 03/26/17 [History] Calcium Acetate [Phos-LO] 2,001 mg PO TIDWM 03/26/17 [History] Carvedilol [Coreg] 6.25 mg PO BIDWM 03/26/17 [History] Clopidogrel [Plavix] 75 mg PO DAILY 03/26/17 [History] Diltiazem HCl [Diltiazem 24Hr Cd] 360 mg PO DAILY 03/26/17 [History] DiphenhydraMINE [Benadryl] 25 mg PO DAILY PRN 03/26/17 [History] Docusate [Colace] 100 mg PO DAILY 03/26/17 [History] Fluticasone Propionate Nasal [Flonase] 1 spray NS DAILY 03/26/17 [History] Furosemide [Lasix] 80 mg PO DAILY 03/26/17 [History] HYDROcodone/Acet 5/325 mg [[place] 5-325 mg] 1 tab PO Q6H PRN 03/26/17 [History] Lisinopril [Zestril] 10 mg PO BID 03/26/17 [History] Metoprolol Succinate 100 mg PO DAILY 03/26/17 [History] Multivit-Min/FA/Lycopen/Lutein [Men 50 Plus Multivitamin Tab] 1 tab PO DAILY [History] Oxygen 2 l NS CONT 03/26/17 [History] Pantoprazole Sodium [Protonix] 20 mg PO DAILY 03/26/17 [History] Sorbitol Soln [Sorbitol] 30 ml MC PRN PRN 03/26/17 [History] Tiotropium [Spiriva] 1 cap IH DAILY 03/26/17 [History] Warfarin [Coumadin] 2.5 mg PO AD 03/26/17 [History] Warfarin [Coumadin] 5 mg PO AD 03/26/17 [History] Niacin 250 mg PO DAILY #30 tablet 03/27/17 [Rx] Allergies/Adverse Reactions: Allergies No Known Allergies Allergy (Verified 03/26/17 05:27) Procedures/tests Complete & Pending: Procedures Performed prior 72 hours Category Date Time Status EV carotid duplex imaging BI Routine Y 03/26/17 11:22 Completed EV echocardiogram Routine Y 03/26/17 11:22 Completed Date of admission: 03/26/17 06:52 Primary care physician: Triston Whitehead MD Consults: 03/26/17 09:09 Consult to Neurology [CONS] Routine Consulting Provider: [facility] Reason for Consult: TIA Call Completed: No Consult to Occupational Therapy [CONS] Routine Comment: Evaluate, develop and implement POC Reason for Consult: TIA Consult to Physical Therapy [CONS] Routine Comment: Evaluate, develop and implement POC Reason for Consult: TIA Consult to Speech Therapy [CONS] Routine Comment: Evaluate, develop and implement POC Reason for Consult: TIA Call Completed: No 03/26/17 09:45 Consult to Nephrology [CONS] Routine Consulting Provider: [facility] Reason for Consult: ESRD Call Completed: Yes 03/26/17 12:30 Consult to Dialysis [CONS] ONCE Discharging clinician: Maria Alejandra Quesada Anticipated date of discharge: 03/27/17 - Patient Status Disposition: Home, Self-Care Condition: Good Functional capacity at discharge: independent ambulation Overall status at discharge: patient is back to baseline - Discharge Instructions Follow Up With: Micah Mello MD [Non-Partnered Physician] - 04/02/17 10:00 am Additional Instructions: Follow-up with primary care provider as scheduled, follow up with [facility] waste hand as needed - Diet and Activity Activity: increase activity as tolerated Diet: low fat, low cholesterol (renal diet), low salt diet Hospital course: Mr. Velasquez is a 66 year old male with past medical history of atrial fibrillation on Coumadin, COPD on home oxygen, end-stage renal disease on dialysis, heart failure, CAD, pacemaker. Patient presented to the emergency department chief complaint left upper extremity weakness. Patient stating he was taking off his T-shirt on the morning of presentation when his left arm fell down to his side and he could not lift it up. Within minutes, he started exercise that arm and was able to regain some of the strength but his left arm was still weaker than usual and he also had a tingling sensation to his left upper extremity extending down to his left fourth and fifth digits. Patient denied chest pain, speech or swallowing difficulty, vision changes, facial asymmetry. Patient stating his symptoms started to improve within 5-10 minutes. Stroke alert was called in the emergency department and per [facility] , patient was not a good candidate for TPA. Head CT negative for acute processes. Patient was admitted to the hospitalist service for further evaluation and management. Could not obtain an MRI secondary to the patient's pacemaker. Patient was admitted and observed overnight and his symptoms resolved prior to discharge and not his strength had returned to normal and he no longer had any numbness or tingling however on physical examination, he continued to have a pronator drift on the left side. Neurology was brought on board who surmised he likely had an acute CVA to the right hemisphere. Neurology recommendations were to add niacin to his regimen. Otherwise, aggressive risk factor modification. His echocardiogram revealed an ejection fraction of 25-30% with moderate diastolic dysfunction and severe pulmonary hypertension. Patient has a pacemaker in place and his waste hand is at [facility]. Did not have prior values or prior echocardiogram for comparison however patient stating that these values appear normal to him. In any event, he was not in an acute exacerbation of his heart failure and he was instructed to follow up outpatient with his primary care team. He was seen and evaluated by occupational and physical therapy as well as speech therapy all of whom presumed he had no needs. Nephrology was on board during this admission and he did receive dialysis while admitted. He was discharged home in stable condition. ITS Impressions Head CT 03/26/17 05:34 IMPRESSION: Small vessel chronic ischemic changes with no acute hemorrhage or definite evidence for acute ischemia. Stroke alert results were called by Dr. Pino Falcon MD to Nate Rojas on 03/26/2017 at 05:55. D/ / Pino Falcon MD / Pino Falcon MD Interpreting Provider: Pino Falcon MD Echocardiogram was saline contrast impressions: Technically suboptimal due to poor echocardiographic windows. Artifact noted on screening. LVEF 25-30%. Moderate global and segmental left ventricular systolic dysfunction. Atypical septal motion consistent with paced rhythm. Moderate left ventricular diastolic dysfunction. Mildly dilated right ventricle with normal-appearing function. Moderately dilated left atrium. Moderately dilated right atrium. Severe pulmonary hypertension. Estimated RVSP is 59 mmHg. Artifact noted during this study, which complicated color Doppler evaluation of the valves and agitated saline study. - Time Spent with Patient Total time spent providing and/or coordinating discharge services: - Constitutional Vitals: Temp Pulse Resp BP Pulse Ox 97.6 F 79 18 148/73 97 03/27/17 07:06 03/27/17 07:06 03/27/17 08:32 03/27/17 07:06 03/27/17 09:40 General appearance: Present: A&O X 3, pleasant, no acute distress, answers questions appropriately - Head Head exam: Present: atraumatic, normocephalic - Eye Eye exam: Present: PERRL, conjuntiva pink, sclera anicteric Pupils: Present: PERRL - Neck Neck exam general surgery: Present: supple, trachea midline. Absent: lymphadenopathy - Respiratory Respiratory exam: Present: CTAB. Absent: accessory muscle use, rales, respiratory distress, rhonchi, wheezes - Cardiovascular Cardiovascular exam: Present: RRR, +S1, +S2, systolic murmur. Absent: diastolic murmur, gallop, rubs - GI/Abdominal GI/Abdominal exam: Present: distended, normal bowel sounds, soft, no peritoneal signs. Absent: tenderness - Extremities Exam Extremities exam: Present: warm, radial pulses palpable and symetrical. Absent : calf tenderness, cyanotic, pedal edema - Neurological Exam Neurological exam: Present: alert, CN II-XII intact, normal gait, oriented X3, no focal deficits, strengths equal and symetr throughout. Absent: pronater drift, facial droop, speech deficit - Expanded Neurological Exam Neurological exam expanded: Present: protecting the airway Patient oriented to: Present: person, place, time Speech: Present: fluid speech Cranial Nerves: EOM's intact PM: Normal, gag reflex PM: Normal Upper motor neuron: pronator drift: Abnormal Left Neuro motor strength exam: LUE: 5, RUE: 5, LLE: 5, RLE: 5 Coma Scale Eye Opening: Spontaneous Coma Scale Motor Response: Obeys Commands Coma Scale Verbal Response: Oriented Coma Scale Total: 15 - Skin Skin exam: Present: dry, intact, normal color, warm
--- NOTE | 2017-03-27 13:03 | Carotid Imaging Report ---
Carotid Duplex Patient Name:Darwin Velasquez Order Number:[id number] Procedure Date:03/26/2017 Date:8Age:66 yrs Gender:Male Lt BP:129 / 60 mmHg Rt.BP:124 / 80 mmHgHeart Rate: Location:[facility] Room #: 3B34 Processing Associate:Tawnya Spivey Referring MD:Syed Reno MD back end architect:Triston Whitehead MD Reading MD:Magdy Diaz MD , FACS Primary Indications:TIA Risk Factors Yes/No Hypertension Yes Hypercholesterolemia Yes Hx of CAD/PTCA Yes Impressions: Findings: Bilateral carotid system have nonstenotic plaque. Recommendations: After imaging the patient returned to their room. Findings Carotid Duplex: Right: The right proximal common carotid artery has a PSV of 115 cm/s and a EDV of 10 cm/s. The right mid common carotid artery has a PSV of 98 cm/s and a EDV of 7 cm/s. The right distal common carotid artery has a PSV of 68 cm/s and a EDV of 9 cm/s. There is nonstenotic plaque in the right bifurcation with a PSV of 77 cm/s and a EDV of 10 cm/s. The right proximal internal carotid artery has a PSV of 83 cm/s and a EDV of 25 cm/s. The right mid internal carotid artery has a PSV of 104 cm/s and a EDV of 37 cm/s. The right eca has a PSV of 103 cm/s and a EDV of 14 cm/s. The right vertebral artery has a PSV of 48 cm/s and a EDV of 8 cm/s. The right distal internal carotid artery was not assessed. Left: The left proximal common carotid artery has a PSV of 114 cm/s and a EDV of 16 cm/s. The left mid common carotid artery has a PSV of 99 cm/s and a EDV of 12 cm/s. The left distal common carotid artery has a PSV of 109 cm/s and a EDV of 14 cm/s. There is nonstenotic plaque in the left bifurcation with a PSV of 129 cm/s and a EDV of 7 cm/s. There is nonstenotic plaque in the left proximal internal carotid artery with a PSV of 58 cm/s and a EDV of 11 cm/s. The left mid internal carotid artery has a PSV of 100 cm/s and a EDV of 21 cm/s. There is stenosis of not well visualized in the left distal internal carotid artery with a PSV of 101 cm/s and a EDV of 15 cm/s. There is nonstenotic plaque in the left eca with a PSV of 152 cm/s and a EDV of 8 cm/s. The left vertebral artery has a PSV of 57 cm/s and a EDV of 8 cm/s. The left distal internal carotid artery was not well visualized. Prior Study: No prior study available for comparison. Carotid Results Right PSV EDV Assessment Proximal CCA 115 10 Normal Mid CCA 98 7 Normal Distal CCA 68 9 Normal Bifurcation 77 10 Non Stenotic Plaque Proximal ICA 83 25 Normal Mid ICA 104 37 Normal ECA 103 14 Normal Vertebral Artery 48 8 Normal Left PSV EDV Assessment Proximal CCA 114 16 Normal Mid CCA 99 12 Normal Distal CCA 109 14 Normal Bifurcation 129 7 Non Stenotic Plaque Proximal ICA 58 11 Non Stenotic Plaque Mid ICA 100 21 Normal Distal ICA 101 15 Not Well Visualized ECA 152 8 Non Stenotic Plaque Vertebral Artery 57 8 Normal Ratio's Right ICA/CCA Ratio: 1.06 ICA/CCA Values: 104/98 Left ICA/CCA Ratio: 1.02 ICA/CCA Values: 101/99 Updated by Magdy Diaz MD, FACS on 03/27/2017 12:57:00 PM Magdy Diaz MD electronically signed on 03/27/2017 12:57:33 PM with status of Final
[2017-03-27] MEDS ORDERED: *HR* Warfarin 5 MG TABLET PO SCH (18:00)
== END 2017-03-27 13:38 | disposition home or self-care (01) ==
LOC: 3BNU 05:23 → EMEROO 05:23 → 3BNU 07:25
PROVIDERS: ADMIT Internal Medicine; ATTEND Nurse Practitioner Family

== ENCOUNTER 2018-06-04 05:34 | Inpatient (IN) ==
--- NOTE | 2018-06-04 05:41 | Emergency Department Note ---
Disposition Clinical Impression: NSTEMI (non-ST elevated myocardial infarction) Disposition: Admitted As Inpatient Condition: Undetermined General Adult HPI - General Stated complaint: "CP" Time Seen by Provider: 06/04/18 05:35 - Related Data Home Medications Medication Instructions Recorded Confirmed Acetaminophen w/Cod 300-30 mg 1 tab PO Q8HR PRN 03/26/17 03/26/17 [Tylenol w/Codeine #3] Aspirin [Lo-Dose Aspirin EC] 81 mg PO DAILY 03/26/17 03/26/17 Atorvastatin Calcium [Lipitor] 80 mg PO HS 03/26/17 03/26/17 Calcium Acetate [Phos-LO] 2,001 mg PO TIDWM 03/26/17 03/26/17 Carvedilol [Coreg] 6.25 mg PO BIDWM 03/26/17 03/26/17 Clopidogrel [Plavix] 75 mg PO DAILY 03/26/17 03/26/17 Diltiazem HCl [Diltiazem 24Hr Cd] 360 mg PO DAILY 03/26/17 03/26/17 DiphenhydraMINE [Benadryl] 25 mg PO DAILY PRN 03/26/17 03/26/17 Docusate [Colace] 100 mg PO DAILY 03/26/17 03/26/17 Fluticasone Propionate Nasal 1 spray NS DAILY 03/26/17 03/26/17 [Flonase] Furosemide [Lasix] 80 mg PO DAILY 03/26/17 03/26/17 HYDROcodone/Acet 5/325 mg [[place] 1 tab PO Q6H PRN 03/26/17 03/26/17 5-325 mg] Lisinopril [Zestril] 10 mg PO BID 03/26/17 03/26/17 Metoprolol Succinate 100 mg PO DAILY 03/26/17 03/26/17 Multivit-Min/FA/Lycopen/Lutein 1 tab PO DAILY 03/26/17 03/26/17 [Men 50 Plus Multivitamin Tab] Oxygen 2 l NS CONT 03/26/17 03/26/17 Pantoprazole Sodium [Protonix] 20 mg PO DAILY 03/26/17 03/26/17 Sorbitol Soln [Sorbitol] 30 ml MC PRN PRN 03/26/17 03/26/17 Tiotropium [Spiriva] 1 cap IH DAILY 03/26/17 03/26/17 Warfarin [Coumadin] 2.5 mg PO AD 03/26/17 03/26/17 Warfarin [Coumadin] 5 mg PO AD 03/26/17 03/26/17 Previous Rx's Medication Instructions Recorded Niacin 250 mg PO DAILY #30 tablet 03/27/17 HYDROcodone/Acet 5/325 mg [[place] 1 tab PO Q4H PRN 3 Days #15 tab 12/27/17 5-325 mg] Allergies Allergy/AdvReac Type Severity Reaction Status Date / Time No Known Allergies Allergy Verified 03/26/17 05:27 Past Medical History - Past Medical History Medical history: Reports: atrial fibrillation, COPD, dialysis, renal disease Surgical history: Reports: other Psychiatric history: Reports: no psych history - Social History Smoking Status: Former smoker Smokeless Tobacco Status: No Alcohol use: Reports: rarely Drug use: Reports: none Course Vital Signs Temperature 98.7 F 06/04/18 05:38 Pulse Rate 111 06/04/18 05:38 Respiratory Rate 20 06/04/18 05:38 Blood Pressure 110/70 06/04/18 05:38 O2 Sat by Pulse Oximetry 97 06/04/18 05:38 Temperature 98.7 F 06/04/18 05:38 Pulse Rate 111 06/04/18 05:38 Respiratory Rate 20 06/04/18 05:38 Blood Pressure 110/70 06/04/18 05:38 O2 Sat by Pulse Oximetry 97 06/04/18 05:38 Oxygen Delivery Oxygen Delivery Nasal Cannula Medical Decision Making - Lab Data Result diagrams: 06/04/18 05:50 06/04/18 05:50 Lab Results 06/04/18 06/04/18 06/04/18 Range/Units 05:50 05:50 05:50 WBC 6.8 (4.3-11.1) K/mcL RBC 3.86 L (4.19-5.50) M/mcL Hgb 12.3 L (12.9-16.9) g/dL Hct 38.3 (37.5-50.1) % MCV 99.2 (83.0-100.0) fL MCH 31.9 (28.0-33.3) pg MCHC 32.1 (31.6-35.5) g/dL RDW 15.3 H (11.5-14.5) % Plt Count 140 (140-400) K/mcL MPV 10.2 (9.4-12.4) fL Immature Gran % 0.4 (0-4) % Seg Neutrophils % 72.6 % Lymphocytes % 13.0 % Monocytes % 10.3 % Eosinophils % 2.5 % Basophils % 1.2 % Neutrophils # 4.9 (1.6-8.9) K/mcL Lymphocytes # 0.9 (0.6-4.6) K/mcL Monocytes # 0.7 (0.0-1.3) K/mcL Eosinophils # 0.2 (0.0-0.6) K/mcL Basophils # 0.1 (0.0-0.2) K/mcL PT 38.6 H (9.4-12.1) Seconds INR 3.4 Sodium 137 (136-145) mEq/L Potassium 3.7 (3.5-5.1) mEq/L Chloride 95 L (98-107) mEq/L Carbon Dioxide 30 H (23-29) mEq/L BUN 17 (8-23) mg/dL Creatinine 5.73 H (0.70-1.30) mg/dL Est GFR ( Amer) 12 L (> 60) Est GFR (Non-Af Amer) 10 L (> 60) BUN/Creatinine Ratio 3 L (6-26) Glucose 114 H (70-105) mg/dL Calculated Osmolality 286 (280-300) Calcium 9.1 (8.6-10.3) mg/dL Magnesium (1.6-2.6) mg/dL Total Bilirubin 1.2 H (0.3-1.0) mg/dL AST 26 (13-39) Units/L ALT 10 (7-52) Units/L Alkaline Phosphatase 170 H (34-104) Units/L Troponin I 0.10 H* (< 0.04) ng/mL Serum Total Protein 7.0 (6.4-8.9) g/dL Albumin 3.0 L (3.5-5.7) g/dL Globulin 4.0 H (2.4-3.5) g/dL Albumin/Globulin Ratio 0.8 L (1.1-2.2) 06/04/ Range/Units 05:50 WBC (4.3-11.1) K/mcL RBC (4.19-5.50) M/mcL Hgb (12.9-16.9) g/dL Hct (37.5-50.1) % MCV (83.0-100.0) fL MCH (28.0-33.3) pg MCHC (31.6-35.5) g/dL RDW (11.5-14.5) % Plt Count (140-400) K/mcL MPV (9.4-12.4) fL Immature Gran % (0-4) % Seg Neutrophils % % Lymphocytes % % Monocytes % % Eosinophils % % Basophils % % Neutrophils # (1.6-8.9) K/mcL Lymphocytes # (0.6-4.6) K/mcL Monocytes # (0.0-1.3) K/mcL Eosinophils # (0.0-0.6) K/mcL Basophils # (0.0-0.2) K/mcL PT (9.4-12.1) Seconds INR Sodium (136-145) mEq/L Potassium (3.5-5.1) mEq/L Chloride (98-107) mEq/L Carbon Dioxide (23-29) mEq/L BUN (8-23) mg/dL Creatinine (0.70-1.30) mg/dL Est GFR ( Amer) (> 60) Est GFR (Non-Af Amer) (> 60) BUN/Creatinine Ratio (6-26) Glucose (70-105) mg/dL Calculated Osmolality (280-300) Calcium (8.6-10.3) mg/dL Magnesium 2.2 (1.6-2.6) mg/dL Total Bilirubin (0.3-1.0) mg/dL AST (13-39) Units/L ALT (7-52) Units/L Alkaline Phosphatase (34-104) Units/L Troponin I (< 0.04) ng/mL Serum Total Protein (6.4-8.9) g/dL Albumin (3.5-5.7) g/dL Globulin (2.4-3.5) g/dL Albumin/Globulin Ratio (1.1-2.2) Critical Care Time Critical Care Time: Yes Total Critical Care Time: 30 Attestation: The high probability of a clinically significant, sudden or life threatening deterioration of the [] system(s) required my full and direct attention, intervention and personal management. The aggregate critical care time was [] minutes. This time is in addition to time spent performing reported procedures but includes the following: [] Data Review and interpretation [] Patient assessment and monitoring of vital signs [] Documentation [] Medication orders and management Attestation Statement - Attestation Attestation: I examined this patient and my medical decision-making was reviewed with the Resident Physician. I agree with the documented findings, disposition and treatment plan as described except to the extent set forth below. [id number]-[id number] time provided Patient presents to the emergency room, complaining of chest pain that radiates to both arms. He states he has a history of coronary artery disease with 6 stents. He also has a pacemaker. He takes Coumadin. He states he has not had chest pain with his previous myocardial infarctions except when he had an LAD lesion. He is oxygen dependent. He appears older than stated age but no acute distress upon arrival.
--- NOTE | 2018-06-04 06:04 | Emergency Department Note ---
Disposition Clinical Impression: NSTEMI (non-ST elevated myocardial infarction) Disposition: Admitted As Inpatient Condition: Undetermined Referrals: Micah Mello MD [Primary Care Provider] - Forms: ED Satisfaction Letter Time of Disposition: 06:54 Chest Pain HPI - General Chief Complaint: ED Chest Pain Stated Complaint: "CP" Time Seen by Provider: 06/04/18 05:35 Source: patient Mode of arrival: ambulatory Limitations: no limitations Vital Signs Reviewed: Yes Nursing Notes Reviewed: Yes - History of Present Illness HPI Narrative: 60-year-old male with history of 7 cardiac stents, history of end-stage renal disease on dialysis, [place] the emergency department with chest food. The patient stated concerns right arm radiated across his chest. The patient did have increasing shortness of breath. Patient is a COPD. The patient with chronic oxygen use. He denies any other complaints at this time. Patient is otherwise resting comfortably in the room. The patient does state however that the last time he explains chest discomfort like this he had an SC in his LAD roughly 25 years ago. Patient is not complaining of any chest pain at this time. Severity scale (1-10): 3 - Related Data Home Medications Medication Instructions Recorded Confirmed Acetaminophen w/Cod 300-30 mg 1 tab PO Q8HR PRN 03/26/17 03/26/17 [Tylenol w/Codeine #3] Aspirin [Lo-Dose Aspirin EC] 81 mg PO DAILY 03/26/17 03/26/17 Atorvastatin Calcium [Lipitor] 80 mg PO HS 03/26/17 03/26/17 Calcium Acetate [Phos-LO] 2,001 mg PO TIDWM 03/26/17 03/26/17 Carvedilol [Coreg] 6.25 mg PO BIDWM 03/26/17 03/26/17 Clopidogrel [Plavix] 75 mg PO DAILY 03/26/17 03/26/17 Diltiazem HCl [Diltiazem 24Hr Cd] 360 mg PO DAILY 03/26/17 03/26/17 DiphenhydraMINE [Benadryl] 25 mg PO DAILY PRN 03/26/17 03/26/17 Docusate [Colace] 100 mg PO DAILY 03/26/17 03/26/17 Fluticasone Propionate Nasal 1 spray NS DAILY 03/26/17 03/26/17 [Flonase] Furosemide [Lasix] 80 mg PO DAILY 03/26/17 03/26/17 HYDROcodone/Acet 5/325 mg [[place] 1 tab PO Q6H PRN 03/26/17 03/26/17 5-325 mg] Lisinopril [Zestril] 10 mg PO BID 03/26/17 03/26/17 Metoprolol Succinate 100 mg PO DAILY 03/26/17 03/26/17 Multivit-Min/FA/Lycopen/Lutein 1 tab PO DAILY 03/26/17 03/26/17 [Men 50 Plus Multivitamin Tab] Oxygen 2 l NS CONT 03/26/17 03/26/17 Pantoprazole Sodium [Protonix] 20 mg PO DAILY 03/26/17 03/26/17 Sorbitol Soln [Sorbitol] 30 ml MC PRN PRN 03/26/17 03/26/17 Tiotropium [Spiriva] 1 cap IH DAILY 03/26/17 03/26/17 Warfarin [Coumadin] 2.5 mg PO AD 03/26/17 03/26/17 Warfarin [Coumadin] 5 mg PO AD 03/26/17 03/26/17 Previous Rx's Medication Instructions Recorded Niacin 250 mg PO DAILY #30 tablet 03/27/17 HYDROcodone/Acet 5/325 mg [[place] 1 tab PO Q4H PRN 3 Days #15 tab 12/27/17 5-325 mg] Allergies Allergy/AdvReac Type Severity Reaction Status Date / Time No Known Allergies Allergy Verified 03/26/17 05:27 All systems ED: reviewed and negative except as stated. Constitutional: Denies: fever, chills, weakness ENT ED: Denies: dysphagia Cardiovascular: Reports: chest pain, palpitations Respiratory: Reports: dyspnea. Denies: cough, sputum production Gastrointestinal: Denies: abdominal pain, nausea, vomiting Genitourinary: Denies: urgency, dysuria Musculoskeletal: Denies: back pain, neck pain, arthralgia, myalgia Integumentary: Denies: rash Neurological: Denies: headache Chest Pain PMH - Past Medical History Medical history: Reports: atrial fibrillation, COPD, dialysis, renal disease Surgical history: Reports: other Psychiatric history: Reports: no psych history - Social History Smoking Status: Former smoker Alcohol use: Reports: rarely Drug use: Reports: none Physical Exam - General Limitations: no limitations General appearance: alert, in no apparent distress - Head Head exam: atraumatic, normocephalic, normal inspection - Eye Eye exam: Present: normal appearance, PERRL, EOMI - ENT ENT exam: normal exam, normal oropharynx, mucous membranes moist - Neck Neck exam: Present: normal inspection, full ROM, trachea midline - Chest Chest inspection: Present: normal inspection, symmetric chest wall rise - Respiratory Respiratory exam: Absent: respiratory distress - Cardiovascular Cardiovascular exam: Present: regular rate, normal rhythm, normal heart sounds - Abdominal Exam Abdominal exam: Present: soft, Non-Tender, scar. Absent: tenderness, distention , guarding, rebound, rigidity - Extremities Exam Extremities exam: Present: normal inspection, full ROM, other (Patient has fistula of right upper extremity. Palpable thrill noted.). Absent: tenderness , pedal edema - Neurological Exam Neurological exam: Present: alert, oriented X3 - Skin Skin exam: Present: warm, dry, intact, normal color Course Vital Signs Temperature 98.7 F 06/04/18 05:38 Pulse Rate 111 06/04/18 05:38 Respiratory Rate 20 06/04/18 05:38 Blood Pressure 110/70 06/04/18 05:38 O2 Sat by Pulse Oximetry 97 06/04/18 05:38 Temperature 98.7 F 06/04/18 05:38 Pulse Rate 111 06/04/18 05:38 Respiratory Rate 20 06/04/18 05:38 Blood Pressure 110/70 06/04/18 05:38 O2 Sat by Pulse Oximetry 97 06/04/18 05:38 Oxygen Delivery Oxygen Delivery Nasal Cannula Chest Pain - [facility] Narrative Medical decision making narrative: Patient is not complaining of any active chest pain at this time. The patient was noted to have an elevated troponin which is chronically elevated but it is more elevated than his baseline. It is 0.10. The patient was administered aspirin. He is already on warfarin therapy. The patient had a consultation called out to cardiology. The patient will be admitted to the hospital to trend his troponin having further workup. Patient made aware and agrees to plan. No further questions or concerns noted at this time. Accepted by Dr. Mcneill. - Lab Data Lab results reviewed: Yes I reviewed the patient's lab results. Result diagrams: 06/04/18 05:50 06/04/18 05:50 Lab Results 06/04/18 06/04/18 06/04/18 Range/Units 05:50 05:50 05:50 WBC 6.8 (4.3-11.1) K/mcL RBC 3.86 L (4.19-5.50) M/mcL Hgb 12.3 L (12.9-16.9) g/dL Hct 38.3 (37.5-50.1) % MCV 99.2 (83.0-100.0) fL MCH 31.9 (28.0-33.3) pg MCHC 32.1 (31.6-35.5) g/dL RDW 15.3 H (11.5-14.5) % Plt Count 140 (140-400) K/mcL MPV 10.2 (9.4-12.4) fL Immature Gran % 0.4 (0-4) % Seg Neutrophils % 72.6 % Lymphocytes % 13.0 % Monocytes % 10.3 % Eosinophils % 2.5 % Basophils % 1.2 % Neutrophils # 4.9 (1.6-8.9) K/mcL Lymphocytes # 0.9 (0.6-4.6) K/mcL Monocytes # 0.7 (0.0-1.3) K/mcL Eosinophils # 0.2 (0.0-0.6) K/mcL Basophils # 0.1 (0.0-0.2) K/mcL PT 38.6 H (9.4-12.1) Seconds INR 3.4 Sodium 137 (136-145) mEq/L Potassium 3.7 (3.5-5.1) mEq/L Chloride 95 L (98-107) mEq/L Carbon Dioxide 30 H (23-29) mEq/L BUN 17 (8-23) mg/dL Creatinine 5.73 H (0.70-1.30) mg/dL Est GFR ( Amer) 12 L (> 60) Est GFR (Non-Af Amer) 10 L (> 60) BUN/Creatinine Ratio 3 L (6-26) Glucose 114 H (70-105) mg/dL Calculated Osmolality 286 (280-300) Calcium 9.1 (8.6-10.3) mg/dL Magnesium (1.6-2.6) mg/dL Total Bilirubin 1.2 H (0.3-1.0) mg/dL AST 26 (13-39) Units/L ALT 10 (7-52) Units/L Alkaline Phosphatase 170 H (34-104) Units/L Troponin I 0.10 H* (< 0.04) ng/mL Serum Total Protein 7.0 (6.4-8.9) g/dL Albumin 3.0 L (3.5-5.7) g/dL Globulin 4.0 H (2.4-3.5) g/dL Albumin/Globulin Ratio 0.8 L (1.1-2.2) 06/04/18 Range/Units 05:50 WBC (4.3-11.1) K/mcL RBC (4.19-5.50) M/mcL Hgb (12.9-16.9) g/dL Hct (37.5-50.1) % MCV (83.0-100.0) fL MCH (28.0-33.3) pg MCHC (31.6-35.5) g/dL RDW (11.5-14.5) % Plt Count (140-400) K/mcL MPV (9.4-12.4) fL Immature Gran % (0-4) % Seg Neutrophils % % Lymphocytes % % Monocytes % % Eosinophils % % Basophils % % Neutrophils # (1.6-8.9) K/mcL Lymphocytes # (0.6-4.6) K/mcL Monocytes # (0.0-1.3) K/mcL Eosinophils # (0.0-0.6) K/mcL Basophils # (0.0-0.2) K/mcL PT (9.4-12.1) Seconds INR Sodium (136-145) mEq/L Potassium (3.5-5.1) mEq/L Chloride (98-107) mEq/L Carbon Dioxide (23-29) mEq/L BUN (8-23) mg/dL Creatinine (0.70-1.30) mg/dL Est GFR ( Amer) (> 60) Est GFR (Non-Af Amer) (> 60) BUN/Creatinine Ratio (6-26) Glucose (70-105) mg/dL Calculated Osmolality (280-300) Calcium (8.6-10.3) mg/dL Magnesium 2.2 (1.6-2.6) mg/dL Total Bilirubin (0.3-1.0) mg/dL AST (13-39) Units/L ALT (7-52) Units/L Alkaline Phosphatase (34-104) Units/L Troponin I (< 0.04) ng/mL Serum Total Protein (6.4-8.9) g/dL Albumin (3.5-5.7) g/dL Globulin (2.4-3.5) g/dL Albumin/Globulin Ratio (1.1-2.2) - Radiology Data Radiology results reviewed: Yes I reviewed the patient's radiology results. Chest X-Ray 06/04/18 05:42 IMPRESSION: Small bilateral pleural effusions with borderline edema. Bronchial wall thickening may reflect edema versus airway inflammation. Stable mild cardiomegaly. D/ / Jonas Shaver / Jonas Shaver Interpreting Provider: Jonas Shaver - EKG Data EKG attestation: Yes I reviewed and interpreted this EKG. EKG results narrative: Heart rate 90 bpm. Dual complexes noted. No ST elevation or ST depression noted.
[2018-06-04 06:13] LABS: Basophils # 0.1 K/mcL (0.0-0.2); Basophils % 1.2 %; Eosinophils # 0.2 K/mcL (0.0-0.6); Eosinophils % 2.5 %; Hematocrit 38.3 % (37.5-50.1); Hemoglobin 12.3 g/dL (12.9-16.9); Immature Granulocytes % 0.4 % (0-4); Lymphocytes # 0.9 K/mcL (0.6-4.6); Mean Corpuscular HGB Conc 32.1 g/dL (31.6-35.5); Mean Corpuscular Hemoglobin 31.9 pg (28.0-33.3); Mean Corpuscular Volume 99.2 fL (83.0-100.0); Mean Platelet Volume 10.2 fL (9.4-12.4); Monocytes # 0.7 K/mcL (0.0-1.3); Monocytes % 10.3 %; Neutrophils # 4.9 K/mcL (1.6-8.9); Platelet Count 140 K/mcL (140-400); Red Blood Count 3.86 M/mcL (4.19-5.50); Red Cell Distribution Width 15.3 % (11.5-14.5); Segmented Neutrophils % 72.6 %
[2018-06-04 06:20] LABS: INR 3.4; Prothrombin Time 38.6 Seconds (9.4-12.1)
[2018-06-04 06:34] LABS: Albumin/Globulin Ratio 0.8 (1.1-2.2); Bilirubin,Total 1.2 mg/dL (0.3-1.0); Calcium 9.1 mg/dL (8.6-10.3); Potassium 3.7 mEq/L (3.5-5.1)
[2018-06-04] MEDS ORDERED: Aspirin 325 MG TABLET PO ONE (06:40)
[2018-06-04 06:41] LABS: Troponin I 0.1 ng/mL (< 0.04)
[2018-06-04] MEDS ORDERED: Acetaminophen 325 MG TABLET PO PRN (08:24)
[2018-06-04] MEDS ORDERED: Naloxone 0.4 MG/ML INJ IVP PRN (08:24)
--- NOTE | 2018-06-04 09:52 | Internal Med History&Physical ---
Date of Encounter: 06/04/18 Time of Encounter: 09:50 Internal Medicine - H&P: HPI Chief complaint: Chest pain Admitted From: Emergency Dept Plans for Post Hospital Care: Home History of present illness: Mr. Velasquez is a 67 year old male patient with a history of coronary artery disease with 7 prior stents, cardiomyopathy with AICD and pacemaker in place, COPD who presented to the ER with complaints of chest pain. This began earlier today. The pain has now subsided. It initially began on the right side of the chest radiating to the right forearm then spread across his chest to the left side and to the left forearm. He took Vicodin at home which seemed to improve the pain. He denies any palpitations or shortness of breath. Patient reports that he has an abdominal hernia which has been getting worse but denies any pain nausea or vomiting. He has follow-up scheduled with surgery. Patient also has a Taylor filter that was placed several years back when he had a deep vein thrombosis in his lower extremities. Past Med Surg Social Fam HX - Past Medical History Attestation: Yes The following information was validated with the patient. Source: patient Medical history: atrial fibrillation, COPD, dialysis, renal disease Additional medical history: stage IV RF. dialysis m-w-f. L arm AV fistula. on 3lnc at home Psychiatric history: no psych history - Past Surgical History Surgical History: other Additional surgical history: partial colectomy - Social History Smoking Status: Former smoker Smokeless Tobacco Status: No Alcohol use: rarely Drug use: none - Additional Family History Additional family history: Family history reviewed and found to be noncontributory at this time Internal Medicine - H&P: Meds Aspirin [Lo-Dose Aspirin EC] 81 mg PO DAILY 03/26/17 [History] Atorvastatin Calcium [Lipitor] 80 mg PO HS 03/26/17 [History] Calcium Acetate [Phos-LO] 1,334 mg PO TIDWM 03/26/17 [History] Clopidogrel [Plavix] 75 mg PO DAILY 03/26/17 [History] Docusate [Colace] 100 mg PO DAILY 03/26/17 [History] HYDROcodone/Acet 5/325 mg [[place] 5-325 mg] 1 tab PO BID PRN 03/26/17 [History] Lisinopril [Zestril] 10 mg PO BID 03/26/17 [History] Multivit-Min/FA/Lycopen/Lutein [Men 50 Plus Multivitamin Tab] 1 tab PO DAILY [History] Oxygen 2 l NS CONT 03/26/17 [History] Pantoprazole Sodium [Protonix] 20 mg PO DAILY 03/26/17 [History] Tiotropium [Spiriva] 1 cap IH DAILY 03/26/17 [History] Niacin 250 mg PO DAILY #30 tablet 03/27/17 [Rx] Carvedilol 12.5 mg PO BID 06/04/18 [History] Diltiazem HCl [Diltiazem 24Hr Cd] 180 mg PO DAILY 06/04/18 [History] Warfarin Sodium 4 mg PO Q48H 06/04/18 [History] Warfarin [Coumadin] 3.5 mg PO Q48H 06/04/18 [History] 3 Allergy/AdvReac Type Severity Reaction Status Date / Time No Known Allergies Allergy Verified 03/26/17 05:27 All Systems PM: A 10-system review of systems was performed and is negative for pertinent findings except as documented above in the HPI. - Constitutional Constitutional: no chills, no fever(s), no night sweats - EENT Eyes: no change in vision, no discharge, no pain, no photophobia Ears: no ear discharge, no ear pain, no tinnitus Nose, mouth and throat: no dysphagia, no nasal discharge, no neck pain, no sore throat - Cardiovascular Cardiovascular ROS IM: chest pain, no diaphoresis, no dyspnea, no lightheadedness, no palpitations, no syncope - Respiratory Respiratory: cough, no dyspnea, no wheezing, no excessive phlegm production - Gastrointestinal Gastrointestinal: no abdominal pain, no diarrhea, no hematemesis, no hematochezia, no melena, no nausea, no vomiting - Musculoskeletal Musculoskeletal ROS IM: no numbness, no tingling - Integumentary Integumentary IM: no rash, no unusual bruising - Neurological Neurological ROS: no confusion, no convulsions, no focal weakness, no numbness, no tingling, no tremor(s) - Hematologic/Lymphatic Hematologic/Lymphatic: no easy bruising - Constitutional Vitals: Temp Pulse Resp BP Pulse Ox 98.4 F 99 17 121/76 98 06/04/18 08:40 06/04/18 08:40 06/04/18 08:40 06/04/18 08:40 06/04/18 08:40 General appearance: Present: cooperative, mild distress, A&O X 3, answers questions appropriately Exam: . - Neck Neck exam general surgery: Present: supple, trachea midline. Absent: lymphadenopathy - Respiratory Respiratory exam: Present: CTAB, prolonged expiratory phase. Absent: accessory muscle use, rales, rhonchi, wheezes - Cardiovascular Cardiovascular exam: Present: RRR, +S1, +S2. Absent: diastolic murmur, gallop, rubs, systolic murmur - GI/Abdominal GI/Abdominal exam: Present: normal bowel sounds, soft, no peritoneal signs. Absent: distended, tenderness - Extremities Exam Extremities exam: Present: warm, radial pulses palpable and symmetrical. Absent : calf tenderness, cyanotic, pedal edema - Neurological Exam Neurological exam: Present: CN II-XII intact, oriented X3, no focal deficits. Absent: facial droop, speech deficit - Skin Skin exam: Present: dry, intact Internal Med - H&P Results - Labs CBC & Chem 7: 06/04/18 05:50 06/04/18 05:50 - EKG Data EKG comments: 06/04/18 09:54 EKG not currently available to review. Reveal intact - Impressions Impressions Chest X-Ray 06/04/18 05:42 IMPRESSION: Small bilateral pleural effusions with borderline edema. Bronchial wall thickening may reflect edema versus airway inflammation. Stable mild cardiomegaly. D/ / Jonas Shaver / Jonas Shaver Interpreting Provider: Jonas Shaver - Assessment and plan (1) Chest pain Current Visit: Yes Status: Acute Assessment and plan: Atypical chest pain with mild elevation in troponin. Patient does have chronic troponin elevation. However, troponins above his baseline. Will trend. Consult cardiology for further recommendations. Patient is on Coumadin and is currently anticoagulated with an INR of 3.4. Qualifiers: Chest pain type: precordial pain Qualified Code(s): R07.2 - Precordial pain (2) Chronic atrial fibrillation Current Visit: Yes Status: Chronic Assessment and plan: Controlled heart rate. Continue home medications. Anticoagulated with Coumadin. 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 Continue home medications. Prior echo from 2016 shows EF of 25-30% . We will repeat 2-D echocardiogram Qualifiers: Heart failure chronicity: chronic Qualified Code(s): I50.42 - Chronic combined systolic (congestive) and diastolic (congestive) heart failure (5) Coronary artery disease Current Visit: Yes Status: Chronic Assessment and plan: Continue home medications. Patient is on aspirin, Plavix, statin, beta sarabjit and lisinopril. Qualifiers: Coronary Disease-Associated Artery/Lesion type: [place] artery [place] vs. transplanted heart: [place] heart Associated angina: without angina Qualified Code(s): I25.10 - Atherosclerotic heart disease of [place] coronary artery without angina pectoris (6) End-stage renal disease on hemodialysis Current Visit: Yes Status: Chronic Assessment and plan: We will consult nephrology for dialysis recommendations. Patient gets dialyzed on Wednesday and completed dialysis yesterday. (7) Essential hypertension Current Visit: Yes Status: Chronic Assessment and plan: Blood pressure is well controlled at this time. - Time Spent With Patient Total time spent is greater than 50% in coordination of care (as documented) at patient's floor/unit and/or counseling patient:
[2018-06-04] MEDS ORDERED: *HR* HYDROcodone/Acet 5/325 mg TABLET PO PRN (10:01)
--- NOTE | 2018-06-04 11:39 | Nephrology Consult Note ---
Date of Encounter: 06/04/18 Time of Encounter: 11:39 Assessment and Plan (1) End-stage renal disease on hemodialysis Current Visit: Yes Status: Chronic HD MWF. Renal vitamins. Renal dose medications. Renal diet. Additional dialysis and ultrafiltration as needed. History of Present Illness - Reason for Consult Consult date: 06/04/18 end stage renal disease - Chief Complaint esrd - History of Present Illness Mr. Lau is a 67-year-old gentleman with a history of end-stage renal disease. He presents secondary to chest pain. He last received dialysis 06/03/2018. At the time my evaluation he states he does not have chest pain nor shortness of breath. He has a significant history for coronary artery disease. Past Med Surg Social Fam HX - Past Medical History Medical history: atrial fibrillation, COPD, dialysis, renal disease Additional medical history: stage IV RF. dialysis m-w-f. L arm AV fistula. on 3lnc at home Psychiatric history: no psych history - Past Surgical History Surgical History: knee replacement, other Additional surgical history: partial colectomy, Cardiac Stents - Social History Smoking Status: Former smoker Smokeless Tobacco Status: No Alcohol use: rarely Drug use: none Medications and Allergies Aspirin [Lo-Dose Aspirin EC] 81 mg PO DAILY 03/26/17 [History] Atorvastatin Calcium [Lipitor] 80 mg PO HS 03/26/17 [History] Calcium Acetate [Phos-LO] 1,334 mg PO TIDWM 03/26/17 [History] Clopidogrel [Plavix] 75 mg PO DAILY 03/26/17 [History] Docusate [Colace] 100 mg PO DAILY 03/26/17 [History] HYDROcodone/Acet 5/325 mg [[place] 5-325 mg] 1 tab PO BID PRN 03/26/17 [History] Lisinopril [Zestril] 10 mg PO BID 03/26/17 [History] Multivit-Min/FA/Lycopen/Lutein [Men 50 Plus Multivitamin Tab] 1 tab PO DAILY [History] Oxygen 2 l NS CONT 03/26/17 [History] Pantoprazole Sodium [Protonix] 20 mg PO DAILY 03/26/17 [History] Tiotropium [Spiriva] 1 cap IH DAILY 03/26/17 [History] Niacin 250 mg PO DAILY #30 tablet 03/27/17 [Rx] Carvedilol 12.5 mg PO BID 06/04/18 [History] Diltiazem HCl [Diltiazem 24Hr Cd] 180 mg PO DAILY 06/04/18 [History] Warfarin Sodium 4 mg PO Q48H 06/04/18 [History] Warfarin [Coumadin] 3.5 mg PO Q48H 06/04/18 [History] 3 Allergy/AdvReac Type Severity Reaction Status Date / Time No Known Allergies Allergy Verified 03/26/17 05:27 Review of Systems All Systems: reviewed and no additional remarkable complaints except as stated ( As per history of present illness) Exam - Vital Signs Vital signs: Initial Vital Signs Temp Pulse Resp BP Pulse Ox 98.7 F 111 20 110/70 97 06/04/18 05:38 06/04/18 05:38 06/04/18 05:38 06/04/18 05:38 06/04/18 05:38 Vital Signs - Last 8 Hours Temp Pulse Resp BP Pulse Ox 06/04/18 10:54 98 06/04/18 08:40 98.4 F 99 17 121/76 98 Intake and Output 06/03/18 06/04/18 06/04/18 23:59 07:59 15:59 Other: Weight 97.692 kg Patient Weight 06/04/18 23:59 Weight 97.692 kg - General Appearance General appearance: well-developed, well-nourished EENT: ATNC Neck: supple Respiratory: clear Cardiology: no edema - Dialysis Access Dialysis Vascular Access: Arteriovenous Fistula thrill: Yes bruit: Yes Gastrointestinal: no tenderness Neurologic: alert and oriented x3 Musculoskeletal: no cyanosis Psychiatric: mood/affect appropriate Results - Lab Results 06/04/18 05:50 06/04/18 05:50 Most recent lab results Calcium 9.1 mg/dL (8.6-10.3) 06/04/18 05:50 Magnesium 2.2 mg/dL (1.6-2.6) 06/04/18 05:50 Consult Discharge Plan - Plan Referrals: Micah Mello MD [Primary Care Provider] -
[2018-06-04] MEDS: Aspirin Enteric Coated 81 MG Tablet PO SCH (11:57)
[2018-06-04] MEDS: Diltiazem CD (24hr) 180 MG CAPSULE PO SCH (11:58)
[2018-06-04] MEDS: Calcium Acetate 667 MG CAPSULE PO SCH ×2 (11:59→16:50)
[2018-06-04] MEDS ORDERED: Perflutren Lipid Microsphere 1.3 ML in 0.9 % Sodium Chloride 8.7 ML IVP ONE (14:37)
[2018-06-04] MEDS ORDERED: Perflutren Lipid Microsphere 2 ML VIAL ONE (14:51)
[2018-06-04] MEDS ORDERED: Warfarin perPT PO PRN (18:00)
--- NOTE | 2018-06-04 18:29 | Event Note ---
Date of Encounter: 06/04/18 Time of Encounter: 18:28 Troponins trending up. Cardiology aware. Patient is anticoagulated with Coumadin. Chest pain-free at this time.
[2018-06-05 05:08] LABS: Basophils # 0.1 K/mcL (0.0-0.2); Basophils % 0.8 %; Eosinophils # 0.2 K/mcL (0.0-0.6); Hematocrit 34.7 % (37.5-50.1); Hemoglobin 11.6 g/dL (12.9-16.9); Immature Granulocytes % 0.3 % (0-4); Lymphocytes # 1.1 K/mcL (0.6-4.6); Lymphocytes % 13.9 %; Mean Corpuscular HGB Conc 33.4 g/dL (31.6-35.5); Mean Corpuscular Hemoglobin 32.8 pg (28.0-33.3); Mean Platelet Volume 10.3 fL (9.4-12.4); Monocytes # 0.8 K/mcL (0.0-1.3); Monocytes % 9.9 %; Neutrophils # 5.4 K/mcL (1.6-8.9); Platelet Count 142 K/mcL (140-400); Red Blood Count 3.54 M/mcL (4.19-5.50); Red Cell Distribution Width 15.2 % (11.5-14.5); Segmented Neutrophils % 72.1 %
[2018-06-05 05:24] LABS: Prothrombin Time 55.4 Seconds (9.4-12.1)
[2018-06-05 05:25] LABS: INR 4.9
[2018-06-05 05:29] LABS: Calcium 8.9 mg/dL (8.6-10.3); Potassium 3.5 mEq/L (3.5-5.1)
[2018-06-05 05:30] LABS: Chol/HDL Ratio 3.2 (0-4.9)
[2018-06-05] MEDS ORDERED: *HR* Heparin 5,000 UNIT/ML VIAL SQ SCH (06:00)
--- NOTE | 2018-06-05 08:47 | Nephrology Progress Note ---
Date of Encounter: 06/05/18 Time of Encounter: 08:47 - Assessment and Plan (1) End-stage renal disease on hemodialysis Current Visit: Yes Status: Chronic HD MWF. Renal vitamins. Renal dose medications. Renal diet. Additional dialysis and ultrafiltration as needed. (2) NSTEMI (non-ST elevated myocardial infarction) Current Visit: Yes Status: Acute Per cardiology. Subjective Principal diagnosis: ESRD Interval history: Patient seen. He is asleep. Objective - Vital Signs Vital signs: Vital Signs Temp Pulse Resp BP Pulse Ox 06/05/18 07:23 98.6 F 80 18 125/70 92 06/05/18 04:40 98.1 F 85 15 115/65 97 06/04/18 20:27 97.9 F 88 18 113/98 100 Intake and Output 06/04/18 06/05/18 06/05/18 23:59 07:59 15:59 Other: Weight 98.089 kg Patient Weight 06/05/18 23:59 Weight 98.089 kg - General Appearance General appearance: Present: well-developed, well-nourished EENT: Present: ATNC Cardiology: Present: regular rate Integumentary: Present: decubiti - Lab 06/05/18 04:50 06/05/18 04:50 Most recent lab results Calcium 8.9 mg/dL (8.6-10.3) 06/05/18 04:50 Magnesium 2.2 mg/dL (1.6-2.6) 06/04/18 05:50 Consult Discharge Plan - Plan Referrals: Micah Mello MD [Primary Care Provider] -
[2018-06-05] MEDS ORDERED: Multivit/Ca/Min/Fe/FA 1 TAB TABLET PO SCH (09:00)
[2018-06-05] MEDS ORDERED: NIACIN 250 MG PO SCH (09:00)
[2018-06-05] MEDS: Tiotropium 18 MCG inhalation IH SCH (09:53)
[2018-06-05] MEDS: Diltiazem CD (24hr) 180 MG CAPSULE PO SCH (10:35)
[2018-06-05] MEDS: Aspirin Enteric Coated 81 MG Tablet PO SCH (10:35)
[2018-06-05] MEDS: Renal Vitamin 1 CAP CAPSULE PO SCH (10:37)
[2018-06-05] MEDS: Calcium Acetate 667 MG CAPSULE PO SCH ×3 (10:37→16:34)
--- NOTE | 2018-06-05 10:55 | Cardiology Consult Note ---
Addendum entered and electronically signed by Kamilla Ochoa CNP 06/05/18 12: 26: Of note, with NSTEMI would recommend starting heparin drip when INR less than 2. Original Note: <Kamilla Ochoa - Last Filed: 06/05/18 12:23> Date of Encounter: 06/05/18 Time of Encounter: 09:00 Assessment and Plan (1) NSTEMI (non-ST elevated myocardial infarction) Current Visit: Yes Status: Acute Per cardiology: -Admitted with chest pain, similar to previous angina. Reported 7 stents previously. Reports last LHC at [place] in the past 5 years, states last LHC without intervention. -Troponins 0.1, 2.35, 4.16, 3.73. -Unable to locate ECG completed in ER (not on floor, not in epiphany). Reported as no ST elevation. -Denies current chest pain. -On asa, statin, BB, plavix. Not on heparin drip due to supratherapuetic INR. -TTE with LVEF 25%, known ischemic cardiomyopathy. -Recommend LHC, risks versus benefits of LHC explained to patient and family. Patient states understanding and agreeable to proceed. Will make NPO after midnight. -Will hold coumadin in preparation for LHC, of note INR today 4.9. Would not recommend vitamin K, unless urgent need for LHC due to history of DVT. Will re- evaluate INR in am. -Of note, patient reports upcoming surgery outpatient visit for evaluation for hernia. -Will obtain records. (2) Ischemic cardiomyopathy Current Visit: Yes Status: Chronic Per cardiology: -Known ICM, Has AICD. Denies AICD shocks. -TTE this admission with LVEF 25%. Severe global LV systolic dysfunction. Mild to moderately dilated RV with mild reduction in function. Bi-atrial enlargement. Mild mitral regurgitation. Moderate tricuspid regurgitation. Severe pulmonary hypertension. Mild pulmonic regurgitation. Aneurysmal interatrial septum. The IVC is dilated. -On BB and Chandu inhibitor. -Appears mildly volume overloaded on exam. OF note, ESRD on HD. -Of note, patient does report that he makes urine daily. -Strict I/os, fluid restriction 1.5L/day, daily weights. -Appreciate nephrology assistance with volume status. -Will give IV lasix x1 now. Will start oral lasix tomorrow. (3) PAF (paroxysmal atrial fibrillation) Current Visit: Yes Status: Chronic Per cardiology: -Known PAF. -ON BB, and CCB per primary community relations director. -On coumadin for a.fib and for history of DVT, currently on hold. -HR controlled. -With ICM, would not recommend cardizem. However, patient's primary community relations director has placed patient on. Will have patient discuss with primary community relations director after discharge. -Will continue to monitor. (4) End-stage renal disease on hemodialysis Current Visit: Yes Status: Chronic Per cardiology: -Known ESRD on HD. -Management per primary and nephrology services. Discussion w patient/family: The assessment and plan as outlined above was discussed with the patient and/or family members who expressed understanding and agreement. All questions were answered. Thank you for involving us in the care of your patient. Please call with any questions. Discussed and reviewed with . History of Present Illness Consult date: 06/04/18 Requesting physician: Jaziel Bennett Consult reason: NSTEMI Chief complaint: chest pain History of present illness: Mr. Velasquez is a 67 year old male with a relevant past medical history of CAD s/p NC and multiple PCIs (reported 7 stents), ischemic cardiomyopathy, AICD, a.fib, HTN, ESRD on HD, HLD, GERD, COPD O2 dependent, DVT s/p [place] filter who presented to [facility] with complaints of chest pain radiated to both arms. Patient states pain woke him up from sleeping. Patient reports associated shortness of breath. Patient states symptoms similar to previous NC. Patient denies current chest or arm pain. Patient states breathing is back to baseline. Past Med Surg Social Fam HX - Past Medical History Attestation: Yes The following information was validated with the patient. Source: patient, old records reviewed, obtained from family Medical history: atrial fibrillation, cardiomyopathy, COPD, coronary artery disease, dialysis, GERD, hyperlipidemia, hypertension, myocardial infarction, renal disease Additional medical history: stage IV RF. dialysis m-w-f. L arm AV fistula. on 3lnc at home Psychiatric history: no psych history - Past Surgical History Surgical History: knee replacement, other Additional surgical history: partial colectomy, Cardiac Stents - Social History Smoking Status: Former smoker Smokeless Tobacco Status: No Alcohol use: rarely Drug use: none Medications and Allergies Aspirin [Lo-Dose Aspirin EC] 81 mg PO DAILY 03/26/17 [History] Atorvastatin Calcium [Lipitor] 80 mg PO HS 03/26/17 [History] Calcium Acetate [Phos-LO] 1,334 mg PO TIDWM 03/26/17 [History] Clopidogrel [Plavix] 75 mg PO DAILY 03/26/17 [History] Docusate [Colace] 100 mg PO DAILY 03/26/17 [History] HYDROcodone/Acet 5/325 mg [Seligman 5-325 mg] 1 tab PO BID PRN 03/26/17 [History] Lisinopril [Zestril] 10 mg PO BID 03/26/17 [History] Multivit-Min/FA/Lycopen/Lutein [Men 50 Plus Multivitamin Tab] 1 tab PO DAILY [History] Oxygen 2 l NS CONT 03/26/17 [History] Pantoprazole Sodium [Protonix] 20 mg PO DAILY 03/26/17 [History] Tiotropium [Spiriva] 1 cap IH DAILY 03/26/17 [History] Niacin 250 mg PO DAILY #30 tablet 03/27/17 [Rx] Carvedilol 12.5 mg PO BID 06/04/18 [History] Diltiazem HCl [Diltiazem 24Hr Cd] 180 mg PO DAILY 06/04/18 [History] Warfarin Sodium 4 mg PO Q48H 06/04/18 [History] Warfarin [Coumadin] 3.5 mg PO Q48H 06/04/18 [History] 3 Allergy/AdvReac Type Severity Reaction Status Date / Time No Known Allergies Allergy Verified 03/26/17 05:27 All Systems Review: The remainder of the systems were reviewed and are negative - Cardiovascular Cardiovascular: as per HPI, chest pain at rest, dyspnea on exertion, radiating jaw, neck or arm pain Physical Examination Vital Signs, Last 4 Hours Temp Pulse Resp BP Pulse Ox 06/05/18 07:23 98.6 F 80 18 125/70 92 General: Conversant, No Apparent Distress HEENT: Atraumatic, Normocephaly, Mucus Membranes Moist Neck: No JVD, Normal carotid pulses Cardiac: Reg Rate and Rhythm, Normal S1 and S2, No Murmur Lungs: Normal Breath Sounds, No Wheeze, Rales, Rhonchi Neuro: Alert and responsive, No focal deficits noted Abdomen: Soft, Non-Tender Skin: No rashes noted on visualized skin Musculoskeletal: No Chest Wall Tenderness Extremities: No Clubbing, No Cyanosis, Normal Pulses, Other (Mild bilateral pedal edema noted. ) Results 06/05/18 04:50 06/05/18 04:50 Lab Results Impressions Echocardiogram 06/04/18 10:15 Impressions: LVEF 25%. Severe global LV systolic dysfunction. Indeterminate diastolic function. There is no LV thrombus. Definity echo contrast was used. LV chamber size upper limits of normal. Mild to moderately dilated RV with mild reduction in function. Bi-atrial enlargement. Mild mitral regurgitation. Moderate tricuspid regurgitation. Severe pulmonary hypertension. Mild pulmonic regurgitation. A device lead was visualized in the right atrium and right ventricle. Aneurysmal interatrial septum. The IVC is dilated. Left Ventricular Wall Motion: Rest Echo Findings The apex, apical inferior, mid inferior, basal inferior, apical anterior, mid anterior, basal anterior, apical septal, mid inferior septal, basal inferior septal, apical lateral, mid anterior lateral, basal anterior lateral, mid anterior septal, mid inferior lateral, basal anterior septal and basal inferior lateral salcedo were hypokinetic. Findings: Study Quality * Technically adequate exam. ECG Findings * Paced rhythm. Left Ventricle * LVEF 25%. * Indeterminate diastolic function. * There is no LV thrombus. * Definity echo contrast was used. * LV chamber size upper limits of normal. * Normal LV wall thickness. Right Ventricle * Mildly dilated RV with mild reduction in function. * Mild to moderately dilated RV with mild reduction in function. Left Atrium * Moderately dilated left atrium. Right Atrium * Moderately dilated right atrium. Mitral Valve * Normal mitral valve structure. * No mitral stenosis. * Mild mitral annular calcification * Mild mitral regurgitation. Aortic Valve * No aortic regurgitation. * Trileaflet aortic valve. * Mildly calcified aortic valve leaflets. * No aortic stenosis. Tricuspid Valve * Normal tricuspid valve structure. * Moderate tricuspid regurgitation. * Estimated RA pressure is 20 mmHg. * Estimated RVSP is 66 mmHg. * Severe pulmonary hypertension. Pulmonic Valve * Pulmonic valve is not well visualized. * No pulmonic stenosis. * Mild pulmonic regurgitation. Pulmonary Artery * Pulmonary artery not well visualized. Aorta * Normally sized aortic root. Pericardium * There is no pericardial effusion present. Device lead * A device lead was visualized in the right atrium and right ventricle. Interatrial Septum * Aneurysmal interatrial septal. * No evidence of PFO with color flow imaging. IVC * The IVC is dilated. * < 50% respiratory change. Active Medications Acetaminophen (Tylenol) 650 mg PO Q6HR PRN PRN Reason: Mild Pain/Fever Stop: 12/04/18 08:25 Hydrocodone Bitart/Acetaminophen (Seligman 5-325 Mg) 1 tab PO BID PRN PRN Reason: Pain Stop: 12/04/18 10:02 Aspirin (Aspirin Ec) 81 mg PO DAILY [facility] Stop: 12/04/18 10:16 Last Admin: 06/05/18 10:35 Dose: 81 mg Atorvastatin Calcium (Lipitor) 80 mg PO HS [facility] Stop: 12/04/18 21:01 Last Admin: 06/04/18 20:02 Dose: 80 mg Calcium Acetate (Phos-Lo) 1,334 mg PO TIDWM [facility] Stop: 12/04/18 12:01 Last Admin: 06/05/18 10:37 Dose: Not Given Carvedilol (Coreg) 12.5 mg PO BIDWM [facility] Stop: 12/04/18 10:16 Last Admin: 06/05/18 10:37 Dose: Not Given Clopidogrel Bisulfate (Plavix) 75 mg PO DAILY [facility] Stop: 12/04/18 10:16 Last Admin: 06/05/18 10:33 Dose: 75 mg Diltiazem HCl (Cardizem Cd) 180 mg PO DAILY [facility] Stop: 12/04/18 10:16 Last Admin: 06/05/18 10:35 Dose: 180 mg Docusate Sodium (Colace) 100 mg PO DAILY [facility] PRN Reason: Protocol Stop: 12/05/18 09:01 Last Admin: 06/05/18 10:37 Dose: Not Given Guaifenesin (Robitussin/Dm) 10 ml PO Q6HR PRN PRN Reason: Cough Stop: 12/04/18 19:42 Last Admin: 06/04/18 19:57 Dose: 10 ml Lisinopril (Zestril) 10 mg PO BID [facility] PRN Reason: Protocol Stop: 12/04/18 10:16 Last Admin: 06/05/18 10:35 Dose: 10 mg Multivitamins/Calcium (Thera M Plus) 1 tab PO DAILY [facility] Stop: 12/05/18 09:01 Last Admin: 06/05/18 10:35 Dose: 1 tab Naloxone HCl (Narcan) 0.4 mg IVP Q2MIN PRN PRN Reason: SEE COMMENTS Stop: 12/04/18 08:25 Omeprazole (Prilosec) 20 mg PO DAILY@0630 [facility] Stop: 12/05/18 06:31 Last Admin: 06/05/18 05:20 Dose: 20 mg Pharmacy Profile Note (Patient Taking Own Medication) 250 each PO DAILY [facility] Stop: 12/05/18 09:01 Last Admin: 06/05/18 10:37 Dose: Not Given Tiotropium [place] (Spiriva) 18 mcg IH DAILY [facility] Stop: 12/05/18 09:01 Last Admin: 06/05/18 09:53 Dose: Not Given Vitamin B Complex/Vit C/Folic Acid (Renal Caps Softgel) 1 cap PO DAILY [facility] Stop: 12/05/18 09:01 Last Admin: 06/05/18 10:37 Dose: Not Given Laboratory Tests 06/04/18 06/04/18 06/04/18 05:50 10:12 15:54 Hgb INR Creatinine Troponin I 0.10 H* 2.35 H* 4.16 H* 06/04/18 06/05/18 06/05/18 21:54 04:50 04:50 Hgb 11.6 L INR 4.9 H* Creatinine Troponin I 3.73 H* 06/05/18 04:50 Hgb INR Creatinine 6.86 H Troponin I - Imaging and Cardiology Chest Xray: report reviewed Echo: report reviewed Cardiac cath: pending - EKG Interpretation EKG results cardiology: personally reviewed, other (Telemetry reviewed with average HR previous 12 hours noted to be 89, SR. Intermittent paced rhythm. PVCs and PACs noted.) Consult Discharge Plan - Plan Referrals: Micah Mello MD [Primary Care Provider] - <Prerna Albarran - Last Filed: 06/05/18 16:10> Date of Encounter: 06/05/18 - Attending Attestation I have personally performed a face to face evaluation on this patient. I have reviewed and agree with the care plan with DATA OFFICER. 67M presenting with chest pain and elevated troponin consistent with NSTEMI. Known ICM with stable LVEF 25% on echo done during hospitalization. Also with known RV dysfunction. Last [facility] was at [place] - patient's family said that "they couldn't fix anything." At the bedside, the patient appears comfortable in no acute distress. Vital signs are stable. Exam findings suggest volume overload. Impression and plan: 1. NSTEMI - market elevation of troponin peaking at 4.16. ECG from ER not available for review. Patient has been hemodynamically stable. We discussed consideration for pursuing a left heart catheterization. However, the patient' s family at bedside states that his last heart catheterization was done at [facility] who told him that there is nothing left to fix. We will request those records for review. In the meantime, his INR is supratherapeutic and is being held. Continue aspirin, Plavix, statin and beta sarabjit. He is not on heparin due to supratherapeutic INR. 2. Acute systolic heart failure - known ischemic cardiomyopathy mild volume overloaded on exam. He is on hemodialysis but is not and uric. We will trial dose of IV Lasix and start maintenance dosing. 3. PAF - known paroxysmal atrial fibrillation on beta sarabjit and calcium channel sarabjit per primary community relations director. Also anticoagulated with Coumadin. Assessment and Plan Discussion w patient/family: The assessment and plan as outlined above was discussed with the patient and/or family members who expressed understanding and agreement. All questions were answered. Thank you for involving us in the care of your patient. Please call with any questions. History of Present Illness History of present illness: Mr. Velasquez is a 67 year old male All Systems Review: The remainder of the systems were reviewed and are negative Physical Examination Vital Signs, Last 4 Hours Temp Pulse Resp BP Pulse Ox 06/05/18 15:48 98.8 F 85 14 99/52 96 Results 06/05/18 04:50 06/05/18 04:50 Lab Results 06/04/18 06/05/18 06/05/18 21:54 04:50 04:50 WBC 7.6 Hgb 11.6 L Hct 34.7 L Plt Count 142 INR 4.9 H* Sodium Potassium Chloride Carbon Dioxide BUN Creatinine Glucose Calcium Troponin I 3.73 H* 06/05/18 04:50 WBC Hgb Hct Plt Count INR Sodium 136 Potassium 3.5 Chloride 94 L Carbon Dioxide 31 H BUN 23 Creatinine 6.86 H Glucose 120 H Calcium 8.9 Troponin I
[2018-06-05] MEDS ORDERED: Furosemide 40 MG/4 ML VIAL IVP ONE (12:11)
--- NOTE | 2018-06-05 13:11 | Internal Med Progress Note ---
Hospitalist Progress Note - Encounter Date of Encounter: 06/05/18 Time of Encounter: 09:00 - Subjective Interval History: Reports feeling better. Chest pain is currently resolved. No shortness of breath, palpitations, dizziness or syncope. He does have some leg swelling at baseline, which usually gets worse after dialysis sessions due to prolonged sitting in chair; - Exam Vitals: Temp Pulse Resp BP Pulse Ox 98.7 F 92 18 103/63 97 06/05/18 11:25 06/05/18 11:25 06/05/18 11:25 06/05/18 11:06/05/18 11:25 Exam: General: Well-developed male sitting up in bed in no acute distress Skin: Warm and supple Chest: Normal thoracic expansion. Normal breath sounds. Clear to auscultation. Heart: Normal S1 & S2; rhythmic. No rubs or murmurs. Abdomen: Non-distended, soft and nontender, obese Extremities: B/L dependent trace edema. No calf tenderness. Normal distal pulses. Neurological: Awake, alert and oriented to person, place and time. No focal deficits. Psych: Affect appropriate. - Assessment and Plan (1) NSTEMI (non-ST elevated myocardial infarction) Current Visit: Yes Status: Acute Assessment and Plan: Patient presented with chest pain, atypical. Per ER notes, EKG showed no acute ischemic changes. Physically not available for review. Serial troponins have been elevated with maximum troponin of 4.16, currently trending down. Patient is currently chest pain-free. Anticoagulated on Coumadin with INR 4.9 today. Continue aspirin, Plavix, beta sarabjit, statin. Telemetry monitoring. Echocardiogram showed severely reduced EF of 25%, global systolic dysfunction, indeterminate diastolic function, moderate TR, severe pulmonary hypertension, no LV thrombus. Cardiology consult appreciated, achy with current management. Plan for left heart catheterization in a.m. (2) End-stage renal disease on hemodialysis Current Visit: Yes Status: Chronic Assessment and Plan: Nephrology has been consulted for dialysis needs. Plan for hemodialysis tomorrow. (3) Essential hypertension Current Visit: Yes Status: Chronic Assessment and Plan: Blood pressure well controlled. Continue current medications. (4) Coronary artery disease Current Visit: Yes Status: Chronic (5) Chronic atrial fibrillation Current Visit: Yes Status: Chronic Assessment and Plan: Currently rate controlled. Continue beta sarabjit and telemetry monitoring. Continue long-term anticoagulation with Coumadin, monitor INR closely. Will use IV heparin drip if INR is below 2. (6) Combined systolic and diastolic heart failure Current Visit: Yes Status: Chronic Assessment and Plan: Echocardiogram as mentioned above. Patient has AICD/pacemaker placement. he received IV Lasix per cardiology. Patient is on hemodialysis with plan for dialysis tomorrow. Continue current medications and telemetry monitoring. (7) Chronic respiratory failure Current Visit: Yes Status: Chronic Assessment and Plan: Noted to be on 2 L/m supplemental home oxygen due to underlying COPD and CHF. (8) COPD (chronic obstructive pulmonary disease) Current Visit: Yes Status: Chronic - Time Spent with Patient Total time spent is greater than 50% in coordination of care (as documented) at patient's floor/unit and/or counseling patient: Plan of Care Discussed with: patient Internal Medicine: Result - Labs CBC & Chem 7: 06/05/18 04:50 06/05/18 04:50 Labs: Short CBC 06/05/18 Range/Units 04:50 WBC 7.6 (4.3-11.1) K/mcL Hgb 11.6 L (12.9-16.9) g/dL Hct 34.7 L (37.5-50.1) % Plt Count 142 (140-400) K/mcL Neutrophils # 5.4 (1.6-8.9) K/mcL BMP 06/05/18 04:50 Sodium 136 Potassium 3.5 Chloride 94 L Carbon Dioxide 31 H BUN 23 Creatinine 6.86 H Glucose 120 H Calcium 8.9 Cardiac Enzymes 06/04/18 Range/Units 21:54 Troponin I 3.73 H* (< 0.04) ng/mL - ABG Interpretation ABG results: PT/INR, D-dimer PT 55.4 Seconds (9.4-12.1) H* 06/05/18 04:50 Consult Discharge Plan - Plan Referrals: Micah Mello MD [Primary Care Provider] - (4) Coronary artery disease Qualifiers: Coronary Disease-Associated Artery/Lesion type: [place] artery [place] vs. transplanted heart: [place] heart Associated angina: without angina Qualified Code(s): I25.10 - Atherosclerotic heart disease of [place] coronary artery without angina pectoris (6) Combined systolic and diastolic heart failure Qualifiers: Heart failure chronicity: chronic Qualified Code(s): I50.42 - Chronic combined systolic (congestive) and diastolic (congestive) heart failure (7) Chronic respiratory failure Qualifiers: Respiratory failure complication: hypoxia Qualified Code(s): J96.11 - Chronic respiratory failure with hypoxia (8) COPD (chronic obstructive pulmonary disease) Qualifiers: COPD type: unspecified COPD Qualified Code(s): J44.9 - Chronic obstructive pulmonary disease, unspecified
[2018-06-06 05:48] LABS: Basophils # 0.1 K/mcL (0.0-0.2); Basophils % 1.2 %; Eosinophils # 0.2 K/mcL (0.0-0.6); Eosinophils % 3.4 %; Hematocrit 31.2 % (37.5-50.1); Hemoglobin 10.2 g/dL (12.9-16.9); Immature Granulocytes % 0.3 % (0-4); Lymphocytes # 1.1 K/mcL (0.6-4.6); Mean Corpuscular HGB Conc 32.7 g/dL (31.6-35.5); Mean Corpuscular Hemoglobin 31.3 pg (28.0-33.3); Mean Corpuscular Volume 95.7 fL (83.0-100.0); Mean Platelet Volume 10.3 fL (9.4-12.4); Monocytes # 0.8 K/mcL (0.0-1.3); Monocytes % 11.4 %; Neutrophils # 4.6 K/mcL (1.6-8.9); Platelet Count 133 K/mcL (140-400); Red Blood Count 3.26 M/mcL (4.19-5.50); Red Cell Distribution Width 15.2 % (11.5-14.5); Segmented Neutrophils % 67.7 %
[2018-06-06 05:58] LABS: INR 4.4; Prothrombin Time 49.9 Seconds (9.4-12.1)
[2018-06-06 06:10] LABS: Albumin 2.6 g/dL (3.5-5.7); Calcium 8.6 mg/dL (8.6-10.3); Phosphorous 3.5 mg/dL (2.7-4.5); Potassium 3.5 mEq/L (3.5-5.1)
[2018-06-06] MEDS ORDERED: *HR* HYDROcodone/Acet 5/325 mg TABLET PO PRN (07:27)
[2018-06-06] MEDS: Tiotropium 18 MCG inhalation IH SCH ×2 (07:33→11:46)
[2018-06-06] MEDS ORDERED: 0.9 % Sodium Chloride 250 ML IVC PRN (09:14)
[2018-06-06] MEDS ORDERED: 0.9 % Sodium Chloride 2,000 ML ONE (09:14)
[2018-06-06] MEDS ORDERED: 0.9 % Sodium Chloride 1,000 ML PRIME SCH (09:15)
--- NOTE | 2018-06-06 09:39 | Nephrology Progress Note ---
Date of Encounter: 06/06/18 Time of Encounter: 09:36 - Assessment and Plan (1) End-stage renal disease on hemodialysis Current Visit: Yes Status: Chronic HD MWF with Dr. Conway. Last tx was [facility]. HD ordered for today. Renal vitamins. Renal dose medications. Renal diet. Additional dialysis and ultrafiltration as needed. (2) NSTEMI (non-ST elevated myocardial infarction) Current Visit: Yes Status: Acute Per cardiology. Pt is agreeable to [facility]. Will plan for additional UF or HD as needed. (3) Anemia Current Visit: Yes Status: Acute Goal Hgb is 10-11. Hgb is 10.2 today, stable. Qualifiers: Qualified Code(s): D64.9 - Anemia, unspecified Subjective Principal diagnosis: ESRD Interval history: Pt seen and examined, doing well. No CP/SOB at this time. Objective - Vital Signs Vital signs: Vital Signs Temp Pulse Resp BP Pulse Ox 06/06/18 07:12 98.4 F 103 18 148/78 92 06/06/18 04:07 98.9 F 94 18 96/51 97 06/06/18 01:25 98.6 F 77 18 110/61 97 06/05/18 21:51 99.3 F 83 18 104/55 94 06/05/18 15:48 98.8 F 85 14 99/52 96 06/05/18 11:25 98.7 F 92 18 103/63 97 Intake and Output 06/05/18 06/06/18 06/06/18 23:59 07:59 15:59 Intake Total 360 / 360 0 / 0 Output Total 0 / 0 Balance 360 / 360 0 / 0 Intake: Oral 360 / 360 0 / 0 Output: Urine 0 / 0 Other: Meal Dinner Percent of Meal Consumed 100% Weight 97.9 kg Patient Weight 06/06/18 23:59 Weight 97.9 kg - General Appearance General appearance: Present: well-developed, well-nourished EENT: Present: ATNC, hearing intact, vision intact Neck: Present: supple Respiratory: Present: clear Cardiology: Present: normal S1, normal S2 Dialysis Vascular Access: Arteriovenous Fistula thrill: Yes bruit: Yes Gastrointestinal: Present: normoactive bowel sounds, no tenderness, no guarding Integumentary: Present: no rash, warm and dry Neurologic: Present: alert and oriented x3 Psychiatric: Present: mood/affect appropriate, cooperative - Lab 06/06/18 05:13 06/06/18 05:13 Most recent lab results Calcium 8.6 mg/dL (8.6-10.3) 06/06/18 05:13 Phosphorus 3.5 mg/dL (2.7-4.5) 06/06/18 05:13 Magnesium 2.2 mg/dL (1.6-2.6) 06/04/18 05:50 Consult Discharge Plan - Plan Referrals: Micah Mello MD [Primary Care Provider] -
[2018-06-06] MEDS: Calcium Acetate 667 MG CAPSULE PO SCH ×3 (09:58→19:39)
[2018-06-06] MEDS: Aspirin Enteric Coated 81 MG Tablet PO SCH (10:00)
[2018-06-06] MEDS: Renal Vitamin 1 CAP CAPSULE PO SCH (10:00)
[2018-06-06] MEDS: Diltiazem CD (24hr) 180 MG CAPSULE PO SCH (10:00)
--- NOTE | 2018-06-06 10:51 | Cardiology Progress Note ---
Date of Encounter: 06/06/18 Time of Encounter: 10:00 Assessment and Plan (1) NSTEMI (non-ST elevated myocardial infarction) Current Visit: Yes Status: Acute Per cardiology: Presented with chest pain, similar to previous angina prior to PCI. Reported h/ o 7 cardiac stents. Last LHC at [place] in the past 5 years ago without intervention. Troponins 0.1, 2.35, 4.16, 3.73. ECG shows atrial fibrillation with RVR, RBBB, no acute ST changes. Repeat ECG shows AV pacing. Denies current chest pain. On asa, statin, BB, plavix. Not on heparin drip due to supratherapuetic INR. TTE with LVEF 25%, known ischemic cardiomyopathy. LHC was recommended, risks versus benefits of LHC was reviewed with patient. He is agreeable to proceed. Will hold coumadin in preparation for LHC, of note INR today 4.4. Would not recommend vitamin K, unless urgent need for LHC due to history of DVT. Will re- evaluate INR in am. Of note, patient reports upcoming surgery outpatient visit for evaluation for hernia. (2) Ischemic cardiomyopathy Current Visit: Yes Status: Chronic Per cardiology: Known ICM, s/p AICD. Denies prior AICD shocks. TTE this admission with LVEF 25%. Severe global LV systolic dysfunction. Mild to moderately dilated RV with mild reduction in function. Bi-atrial enlargement. Mild mitral regurgitation. Moderate tricuspid regurgitation. Severe pulmonary hypertension. Mild pulmonic regurgitation. Aneurysmal interatrial septum. The IVC is dilated. On BB and Chandu inhibitor. Appears mildly volume overloaded on exam. OF note, ESRD on HD. Given IV lasix yesterday with no improvement. Urinates once daily. Appreciate nephrology assistance with fluid status. Strict I/os, fluid restriction 1.5L/day, daily weights. (3) PAF (paroxysmal atrial fibrillation) Current Visit: Yes Status: Chronic Per cardiology: Known PAF. ON BB, and CCB per primary pharmacy informatics manager. On coumadin for a.fib and for history of DVT, currently on hold. HR controlled. With ICM, would not recommend cardizem. However, patient's primary pharmacy informatics manager has placed patient on. Will have patient discuss with primary pharmacy informatics manager after discharge. Discussion w patient/family: The assessment and plan as outlined above was discussed with the patient and/or family members who expressed understanding and agreement. All questions were answered. Thank you for involving us in the care of your patient. Please call with any questions. Subjective Principal diagnosis: ESRD Interval history: Mr. Velasquez is resting comfortably in bed. Continues to have abdominal bloating, cough and BLE edema. Denies chest pain. Objective Vital Signs, Last 4 Hours Temp Pulse Resp BP Pulse Ox 06/06/18 07:12 98.4 F 103 18 148/78 92 General: Conversant, No Apparent Distress HEENT: Atraumatic, Normocephaly, Mucus Membranes Moist Neck: No JVD, Normal carotid pulses Cardiac: Reg Rate and Rhythm, Normal S1 and S2, No Murmur Lungs: Normal Breath Sounds, No Wheeze, Rales, Rhonchi Neuro: Alert and responsive, No focal deficits noted Abdomen: Soft, Non-Tender Skin: No rashes noted on visualized skin Musculoskeletal: No Chest Wall Tenderness Extremities: No Clubbing, No Cyanosis, Normal Pulses, Other (1+ ankle edema) Results 06/06/18 05:13 06/06/18 05:13 Lab Results 06/06/18 06/06/18 06/06/18 05:13 05:13 05:13 WBC 6.8 Hgb 10.2 L Hct 31.2 L Plt Count 133 L INR 4.4 H* Sodium 135 L Potassium 3.5 Chloride 94 L Carbon Dioxide 30 H BUN 29 H Creatinine 7.94 H Glucose 88 Calcium 8.6 Troponin I 06/06/18 05:13 WBC Hgb Hct Plt Count INR Sodium Potassium Chloride Carbon Dioxide BUN Creatinine Glucose Calcium Troponin I 1.32 H* - Imaging and Cardiology Echo: report reviewed - EKG Interpretation EKG results cardiology: personally reviewed Consult Discharge Plan - Plan Referrals: Micha Mello MD [Primary Care Provider] -
[2018-06-06 12:02] LABS: Hepatitis B Surface Antigen Nonreactive (Nonreactive)
[2018-06-06 12:12] LABS: Hepatitis B Surface Antibody 11.73 mIU/mL
--- NOTE | 2018-06-06 12:59 | Internal Med Progress Note ---
Hospitalist Progress Note - Encounter Date of Encounter: 06/06/18 Time of Encounter: 08:40 - Subjective Interval History: Patient is sleepy but easily arousable and answers appropriately. Denies chest pain, shortness of breath, palpitations. Awaiting left heart catheterization and hemodialysis today. Has been nothing by mouth since midnight. - Exam Vitals: Temp Pulse Resp BP Pulse Ox 98.9 F 90 16 116/47 98 06/06/18 10:34 06/06/18 10:34 06/06/18 11:46 06/06/18 10:34 06/06/18 11:46 Exam: General: Well-developed male lying in bed in no acute distress Skin: Warm and supple Chest: Normal thoracic expansion. Normal breath sounds. Clear to auscultation. Heart: Normal S1 & S2; rhythmic. No rubs or murmurs. Neurological: Awake, alert and oriented to person, place and time. No focal deficits. Psych: Affect appropriate. - Assessment and Plan (1) NSTEMI (non-ST elevated myocardial infarction) Current Visit: Yes Status: Acute Assessment and Plan: Patient presented with chest pain, atypical. Per ER notes, EKG showed no acute ischemic changes. Physically not available for review. Serial troponins have been elevated with maximum troponin of 4.16, currently trending down to 1.32. Patient is currently chest pain-free. Anticoagulated on Coumadin with INR 4.4 today. Continue aspirin, Plavix, beta sarabjit, statin. Telemetry monitoring. Cardiology on board, agree with current management. Plan for left heart catheterization today; (2) End-stage renal disease on hemodialysis Current Visit: Yes Status: Chronic Assessment and Plan: Nephrology has been consulted for dialysis needs. Plan for hemodialysis today. (3) Essential hypertension Current Visit: Yes Status: Chronic (4) Coronary artery disease Current Visit: Yes Status: Chronic (5) Chronic atrial fibrillation Current Visit: Yes Status: Chronic Assessment and Plan: Currently rate controlled. Continue beta sarabjit and telemetry monitoring. Continue long-term anticoagulation with Coumadin, monitor INR closely. Will use IV heparin drip if INR is below 2. (6) Combined systolic and diastolic heart failure Current Visit: Yes Status: Chronic Assessment and Plan: Echocardiogram showed severely reduced EF of 25%, global systolic dysfunction, indeterminate diastolic function, moderate TR, severe pulmonary hypertension, no LV thrombus. Patient has AICD/pacemaker placement. Patient is on hemodialysis with plan for dialysis today. Continue current medications and telemetry monitoring. (7) Chronic respiratory failure Current Visit: Yes Status: Chronic (8) COPD (chronic obstructive pulmonary disease) Current Visit: Yes Status: Chronic - Time Spent with Patient Total time spent is greater than 50% in coordination of care (as documented) at patient's floor/unit and/or counseling patient: Plan of Care Discussed with: patient Internal Medicine: Result - Labs CBC & Chem 7: 06/06/18 05:13 06/06/18 05:13 Labs: Short CBC 06/06/18 Range/Units 05:13 WBC 6.8 (4.3-11.1) K/mcL Hgb 10.2 L (12.9-16.9) g/dL Hct 31.2 L (37.5-50.1) % Plt Count 133 L (140-400) K/mcL Neutrophils # 4.6 (1.6-8.9) K/mcL BMP 06/06/18 05:13 Sodium 135 L Potassium 3.5 Chloride 94 L Carbon Dioxide 30 H BUN 29 H Creatinine 7.94 H Glucose 88 Calcium 8.6 Cardiac Enzymes 06/06/18 Range/Units 05:13 Troponin I 1.32 H* (< 0.04) ng/mL Liver Function 06/06/18 Range/Units 05:13 Albumin 2.6 L (3.5-5.7) g/dL - ABG Interpretation ABG results: PT/INR, D-dimer PT 49.9 Seconds (9.4-12.1) H* 06/06/18 05:13 Consult Discharge Plan - Plan Referrals: Micah Mello MD [Primary Care Provider] - (4) Coronary artery disease Qualifiers: Coronary Disease-Associated Artery/Lesion type: [place] artery [place] vs. transplanted heart: [place] heart Associated angina: without angina Qualified Code(s): I25.10 - Atherosclerotic heart disease of [place] coronary artery without angina pectoris (6) Combined systolic and diastolic heart failure Qualifiers: Heart failure chronicity: chronic Qualified Code(s): I50.42 - Chronic combined systolic (congestive) and diastolic (congestive) heart failure (7) Chronic respiratory failure Qualifiers: Respiratory failure complication: hypoxia Qualified Code(s): J96.11 - Chronic respiratory failure with hypoxia (8) COPD (chronic obstructive pulmonary disease) Qualifiers: COPD type: unspecified COPD Qualified Code(s): J44.9 - Chronic obstructive pulmonary disease, unspecified
--- NOTE | 2018-06-06 17:58 | Electrocardiograph Report ---
[place] [id number] Test Date: 2018-06-04 Pat Name: Darwin Velasquez Department: EXAM2 Room: 2A24 Gender: M Rerecording Mixer: : [id number] Requested By: Kamilla Ochoa Order Number: [id number] Reading MD: Lorne Malhotra Measurements Intervals [place] Rate: 90 P: 71 WA: 33 QRS: -83 QRSD: 158 T: 100 QT: 416 QTc: 509 Interpretive Statements Atrial-ventricular dual-paced complexes Electronically Signed On 06-06-2018 17:57:18 EDT by Lorne Malhotra
[2018-06-07 05:33] LABS: INR 2.8
[2018-06-07 05:45] LABS: Albumin 2.5 g/dL (3.5-5.7); Calcium 8.5 mg/dL (8.6-10.3); Phosphorous 2.8 mg/dL (2.7-4.5); Potassium 3.7 mEq/L (3.5-5.1)
[2018-06-07] MEDS: Tiotropium 18 MCG inhalation IH SCH (07:35)
[2018-06-07] MEDS: Calcium Acetate 667 MG CAPSULE PO SCH ×4 (08:37→17:15)
[2018-06-07] MEDS: Aspirin Enteric Coated 81 MG Tablet PO SCH (08:42)
[2018-06-07] MEDS: Diltiazem CD (24hr) 180 MG CAPSULE PO SCH (08:42)
[2018-06-07] MEDS: Renal Vitamin 1 CAP CAPSULE PO SCH (08:42)
--- NOTE | 2018-06-07 09:33 | Nephrology Progress Note ---
Date of Encounter: 06/07/18 Time of Encounter: 09:31 - Assessment and Plan (1) End-stage renal disease on hemodialysis Current Visit: Yes Status: Chronic HD MWF with Dr. Conway. Last tx was yesterday, did have trouble with Fistula bleeding after treatment. Renal vitamins. Renal dose medications. Renal diet. Additional dialysis and ultrafiltration as needed. (2) NSTEMI (non-ST elevated myocardial infarction) Current Visit: Yes Status: Acute Per cardiology. Pt is agreeable to [facility]. Will plan for additional UF or HD as needed. INR was 4.4 yesterday is now 2.8. (3) Anemia Current Visit: Yes Status: Acute Goal Hgb is 10-11. No new CBC for today. Qualifiers: Qualified Code(s): D64.9 - Anemia, unspecified Subjective Principal diagnosis: ESRD Interval history: Pt seen and examined, doing well. No CP/SOB at this time. Is awaiting [facility]. Objective - Vital Signs Vital signs: Vital Signs Temp Pulse Resp BP Pulse Ox 06/07/18 08:14 98.5 F 91 16 119/74 97 06/07/18 07:38 18 90 06/07/18 05:08 98.9 F 90 16 103/58 95 06/07/18 00:28 98.2 F 85 18 95/61 95 06/06/18 19:57 99.1 F 92 18 105/59 96 06/06/18 18:30 99.0 F 20 110/60 06/06/18 16:20 119/70 06/06/18 16:05 112/71 06/06/18 15:50 135/79 06/06/18 15:35 92/60 06/06/18 15:20 97/53 06/06/18 15:05 111/72 06/06/18 14:50 111/69 06/06/18 14:35 108/75 06/06/18 14:20 126/93 06/06/18 14:05 109/61 06/06/18 13:50 114/56 06/06/18 13:35 106/59 06/06/18 13:20 101/59 06/06/18 13:05 109/58 06/06/18 12:50 98.4 F 18 127/99 06/06/18 11:46 16 98 06/06/18 10:34 98.9 F 90 16 116/47 98 Intake and Output 06/06/18 06/07/18 06/07/18 23:59 07:59 15:59 Output Total 2600 / 2600 0 / 0 Balance -2600 / -2600 0 / 0 Output: Urine 0 / 0 0 / 0 Total Dialysis (HD) Output 2600 / 2600 Other: # Voids 1 # Bowel Movements 1 Weight 98.1 kg Hemodialysis Net Fluid Removed 2000 (mL) Patient Weight 06/07/18 23:59 Weight 98.1 kg - General Appearance General appearance: Present: well-developed, well-nourished EENT: Present: ATNC, hearing intact, vision intact Neck: Present: supple Respiratory: Present: clear Cardiology: Present: no edema, normal S1, normal S2 Dialysis Vascular Access: Arteriovenous Fistula thrill: Yes bruit: Yes Gastrointestinal: Present: normoactive bowel sounds, no tenderness, no guarding Integumentary: Present: no rash, warm and dry Neurologic: Present: alert and oriented x3 Psychiatric: Present: mood/affect appropriate, cooperative - Lab 06/07/18 09:58 06/07/18 05:03 Most recent lab results Calcium 8.5 mg/dL (8.6-10.3) L 06/07/18 05:03 Phosphorus 2.8 mg/dL (2.7-4.5) 06/07/18 05:03 Magnesium 2.2 mg/dL (1.6-2.6) 06/04/18 05:50 Consult Discharge Plan - Plan Referrals: Micah Mello MD [Primary Care Provider] -
[2018-06-07 10:08] LABS: Basophils # 0.1 K/mcL (0.0-0.2); Basophils % 0.9 %; Eosinophils # 0.2 K/mcL (0.0-0.6); Hematocrit 31.1 % (37.5-50.1); Hemoglobin 10.2 g/dL (12.9-16.9); Immature Granulocytes % 0.3 % (0-4); Lymphocytes % 13.7 %; Mean Corpuscular HGB Conc 32.8 g/dL (31.6-35.5); Mean Corpuscular Hemoglobin 31.6 pg (28.0-33.3); Mean Corpuscular Volume 96.3 fL (83.0-100.0); Mean Platelet Volume 10.1 fL (9.4-12.4); Monocytes # 0.8 K/mcL (0.0-1.3); Monocytes % 12.1 %; Neutrophils # 4.9 K/mcL (1.6-8.9); Platelet Count 130 K/mcL (140-400); Red Blood Count 3.23 M/mcL (4.19-5.50); Red Cell Distribution Width 15.4 % (11.5-14.5)
--- NOTE | 2018-06-07 11:24 | Cardiology Progress Note ---
Date of Encounter: 06/07/18 Time of Encounter: 10:45 Assessment and Plan (1) NSTEMI (non-ST elevated myocardial infarction) Current Visit: Yes Status: Acute Per cardiology: -Presented with chest pain, similar to previous angina prior to PCI. Reported h /o 7 cardiac stents. Last LHC at [place] in the past 5 years ago without intervention. -Troponins 0.1, 2.35, 4.16, 3.73, 1.32. -ECG shows atrial fibrillation with RVR, RBBB, no acute ST changes. Repeat ECG shows AV pacing. -Denies current chest pain. -On asa, statin, BB, plavix. Not on heparin drip due to supratherapuetic INR. -TTE with LVEF 25%, known ischemic cardiomyopathy. -LHC was recommended, risks versus benefits of LHC was reviewed with patient. He is agreeable to proceed. -Will hold coumadin in preparation for LHC, of note INR today 2.8. Would not recommend vitamin K, unless urgent need for LHC due to history of DVT. Will re- evaluate INR in am. -Of note, patient reports upcoming surgery outpatient visit for evaluation for hernia. (2) Ischemic cardiomyopathy Current Visit: Yes Status: Chronic Per cardiology: -Known ICM, s/p AICD. Denies prior AICD shocks. -TTE this admission with LVEF 25%. Severe global LV systolic dysfunction. Mild to moderately dilated RV with mild reduction in function. Bi-atrial enlargement. Mild mitral regurgitation. Moderate tricuspid regurgitation. Severe pulmonary hypertension. Mild pulmonic regurgitation. Aneurysmal interatrial septum. The IVC is dilated. -On BB and Chandu inhibitor. -Euvolemic on exam. -Appreciate nephrology assistance with fluid status. -Strict I/os, fluid restriction 1.5L/day, daily weights. (3) PAF (paroxysmal atrial fibrillation) Current Visit: Yes Status: Chronic Per cardiology: -Known PAF. -ON BB, and CCB per primary assistant gm of content & delivery. -On coumadin for a.fib and for history of DVT, currently on hold. -HR controlled. -With ICM, would not recommend cardizem. However, patient's primary assistant gm of content & delivery has placed patient on. Will have patient discuss with primary assistant gm of content & delivery after discharge. (4) End-stage renal disease on hemodialysis Current Visit: Yes Status: Chronic Per cardiology: -Known ESRD on HD. -Management per primary and nephrology services. Discussion w patient/family: The assessment and plan as outlined above was discussed with the patient who expressed understanding and agreement. All questions were answered. Thank you for involving us in the care of your patient. Please call with any questions. Discussed and reviewed with . Subjective Principal diagnosis: NSTEMI Interval history: Patient denies chest pain. Reports shortness of breath about baseline. Objective Vital Signs, Last 4 Hours Temp Pulse Resp BP Pulse Ox 06/07/18 09:00 97 06/07/18 08:14 98.5 F 91 16 119/74 97 06/07/18 07:38 18 90 General: Conversant, No Apparent Distress HEENT: Atraumatic, Normocephaly, Mucus Membranes Moist Neck: No JVD, Normal carotid pulses Cardiac: Reg Rate and Rhythm, Normal S1 and S2, No Murmur Lungs: Normal Breath Sounds, No Wheeze, Rales, Rhonchi Neuro: Alert and responsive, No focal deficits noted Abdomen: Soft, Non-Tender Skin: No rashes noted on visualized skin Musculoskeletal: No Chest Wall Tenderness Extremities: No Clubbing, No Cyanosis, No Edema, Normal Pulses Results 06/07/18 09:58 06/07/18 05:03 Lab Results Active Medications Acetaminophen (Tylenol) 650 mg PO Q6HR PRN PRN Reason: Mild Pain/Fever Stop: 12/04/18 08:25 Hydrocodone Bitart/Acetaminophen ([place] 5-325 Mg) 1 tab PO BID PRN PRN Reason: Moderate Pain Stop: 12/04/18 10:02 Aspirin (Aspirin Ec) 81 mg PO DAILY KERRI Stop: 12/04/18 10:16 Last Admin: 06/07/18 08:42 Dose: 81 mg Atorvastatin Calcium (Lipitor) 80 mg PO HS KERRI Stop: 12/04/18 21:01 Last Admin: 06/06/18 21:04 Dose: 80 mg Calcium Acetate (Phos-Lo) 1,334 mg PO TIDWM KERRI Stop: 12/04/18 12:01 Last Admin: 06/07/18 11:09 Dose: Not Given Carvedilol (Coreg) 12.5 mg PO BIDWM KERRI Stop: 12/04/18 10:16 Last Admin: 06/07/18 08:43 Dose: Not Given Clopidogrel Bisulfate (Plavix) 75 mg PO DAILY [facility] Stop: 12/04/18 10:16 Last Admin: 06/07/18 08:42 Dose: 75 mg Diltiazem HCl (Cardizem Cd) 180 mg PO DAILY KERRI Stop: 12/04/18 10:16 Last Admin: 06/07/18 08:42 Dose: 180 mg Docusate Sodium (Colace) 100 mg PO DAILY KERRI PRN Reason: Protocol Stop: 12/05/18 09:01 Last Admin: 06/07/18 08:43 Dose: 100 mg Guaifenesin (Robitussin/Dm) 10 ml PO Q6HR PRN PRN Reason: Cough Stop: 12/04/18 19:42 Last Admin: 06/07/18 08:52 Dose: 10 ml Guaifenesin (Mucinex) 600 mg PO BID PRN PRN Reason: Congestion Stop: 12/05/18 16:58 Sodium Chloride (0.9 % Sodium Chloride) 250 mls @ 937.5 mls/hr IVC .Q16M PRN PRN Reason: Hypotension Stop: 12/06/18 09:15 Sodium Chloride (0.9 % Sodium Chloride) 1,000 mls @ 0 mls/hr PRIME .Q0M KERRI PRN Reason: As Directed Stop: 12/06/18 09:16 Lisinopril (Zestril) 10 mg PO BID KERRI PRN Reason: Protocol Stop: 12/04/18 10:16 Last Admin: 06/07/18 08:43 Dose: 10 mg Naloxone HCl (Narcan) 0.4 mg IVP Q2MIN PRN PRN Reason: SEE COMMENTS Stop: 12/04/18 08:25 Omeprazole (Prilosec) 20 mg PO DAILY@0630 [facility] Stop: 12/05/18 06:31 Last Admin: 06/07/18 06:52 Dose: 20 mg Tiotropium [place] (Spiriva) 18 mcg IH DAILY [facility] Stop: 12/05/18 09:01 Last Admin: 06/07/18 07:35 Dose: 18 mcg Vitamin B Complex/Vit C/Folic Acid (Renal Caps Softgel) 1 cap PO DAILY KERRI Stop: 12/05/18 09:01 Last Admin: 06/07/18 08:42 Dose: 1 cap Laboratory Tests 06/07/18 06/07/18 05:03 09:58 Hgb 10.2 L Plt Count 130 L INR 2.8 - Imaging and Cardiology Chest Xray: report reviewed Echo: report reviewed Cardiac cath: pending - EKG Interpretation EKG results cardiology: other (Telemetry reviewed with average HR previous 12 hours noted to be 90, SR. PVCs and PACs noted.) Consult Discharge Plan - Plan Referrals: Micah Mello MD [Primary Care Provider] -
[2018-06-07] MEDS ORDERED: Ondansetron 4 MG/2 ML VIAL IVP PRN (12:47)
--- NOTE | 2018-06-07 19:07 | Internal Med Progress Note ---
Hospitalist Progress Note - Encounter Date of Encounter: 06/07/18 Time of Encounter: 11:00 - Subjective Interval History: Patient awaiting left heart catheterization pending decrease in INR which is 2.8 today - Exam Vitals: Temp Pulse Resp BP Pulse Ox 98.8 F 91 17 99/62 99 06/07/18 18:55 06/07/18 18:55 06/07/18 18:55 06/07/18 18:55 06/07/18 18:55 Exam: Gen.: Nonacute distress, alert and oriented 3 ENT: Mucosal membranes moist Respiratory: Lungs are clear to auscultation bilaterally without any wheezing rhonchi or rales Cardiovascular: Normal S1 and S2 regular rate rhythm no murmurs rubs or gallops Abdomen: Soft, nontender and nondistended with positive bowel sounds Extremities: No lower extremity edema Skin: Normal color - Assessment and Plan (1) NSTEMI (non-ST elevated myocardial infarction) Current Visit: Yes Status: Acute Assessment and Plan: Patient presented with chest pain, atypical. Per ER notes, EKG showed no acute ischemic changes. Serial troponins have been elevated with maximum troponin of 4.16, currently trending down to 1.32. Patient is currently chest pain-free. Anticoagulated on Coumadin with INR 2.8 today. Cardiology following with recommendations for left heart catheterization once INR trends down (2) End-stage renal disease on hemodialysis Current Visit: Yes Status: Chronic Assessment and Plan: Nephrology has been consulted for dialysis needs. (3) Essential hypertension Current Visit: Yes Status: Chronic Assessment and Plan: Blood pressure well controlled. Continue current medications. (4) Coronary artery disease Current Visit: Yes Status: Chronic Assessment and Plan: Continue home medications. Patient is on aspirin, Plavix, statin, beta sarabjit and lisinopril. (5) Chronic atrial fibrillation Current Visit: Yes Status: Chronic Assessment and Plan: Currently rate controlled. Continue beta sarabjit and telemetry monitoring. Continue long-term anticoagulation with Coumadin, monitor INR closely. (6) Combined systolic and diastolic heart failure Current Visit: Yes Status: Chronic Assessment and Plan: Echocardiogram showed severely reduced EF of 25%, global systolic dysfunction, indeterminate diastolic function, moderate TR, severe pulmonary hypertension, no LV thrombus. Patient has AICD/pacemaker placement. Continue current medications and telemetry monitoring. (7) Chronic respiratory failure Current Visit: Yes Status: Chronic Assessment and Plan: Noted to be on 2 L/m supplemental home oxygen due to underlying COPD and CHF. - Time Spent with Patient Total time spent is greater than 50% in coordination of care (as documented) at patient's floor/unit and/or counseling patient: Internal Medicine: Result - Labs CBC & Chem 7: 06/07/18 09:58 06/07/18 05:03 Labs: Short CBC 06/07/18 Range/Units 09:58 WBC 7.0 (4.3-11.1) K/mcL Hgb 10.2 L (12.9-16.9) g/dL Hct 31.1 L (37.5-50.1) % Plt Count 130 L (140-400) K/mcL Neutrophils # 4.9 (1.6-8.9) K/mcL BMP 06/07/18 05:03 Sodium 136 Potassium 3.7 Chloride 98 Carbon Dioxide 31 H BUN 17 Creatinine 5.46 H Glucose 87 Calcium 8.5 L Liver Function 06/07/18 Range/Units 05:03 Albumin 2.5 L (3.5-5.7) g/dL - ABG Interpretation ABG results: PT/INR, D-dimer PT 32.0 Seconds (9.4-12.1) H 06/07/18 05:03 Consult Discharge Plan - Plan Referrals: Micah Mello MD [Primary Care Provider] - (4) Coronary artery disease Qualifiers: Coronary Disease-Associated Artery/Lesion type: [place] artery [place] vs. transplanted heart: [place] heart Associated angina: without angina Qualified Code(s): I25.10 - Atherosclerotic heart disease of [place] coronary artery without angina pectoris (6) Combined systolic and diastolic heart failure Qualifiers: Heart failure chronicity: chronic Qualified Code(s): I50.42 - Chronic combined systolic (congestive) and diastolic (congestive) heart failure (7) Chronic respiratory failure Qualifiers: Respiratory failure complication: hypoxia Qualified Code(s): J96.11 - Chronic respiratory failure with hypoxia
[2018-06-08 07:17] LABS: Basophils # 0.1 K/mcL (0.0-0.2); Basophils % 1.2 %; Eosinophils # 0.3 K/mcL (0.0-0.6); Eosinophils % 3.9 %; Hematocrit 29.8 % (37.5-50.1); Hemoglobin 9.8 g/dL (12.9-16.9); Immature Granulocytes % 0.3 % (0-4); Lymphocytes # 1.1 K/mcL (0.6-4.6); Lymphocytes % 16.2 %; Mean Corpuscular HGB Conc 32.9 g/dL (31.6-35.5); Mean Corpuscular Hemoglobin 31.7 pg (28.0-33.3); Mean Corpuscular Volume 96.4 fL (83.0-100.0); Mean Platelet Volume 10.1 fL (9.4-12.4); Monocytes # 0.8 K/mcL (0.0-1.3); Monocytes % 12.4 %; Neutrophils # 4.3 K/mcL (1.6-8.9); Platelet Count 130 K/mcL (140-400); Red Blood Count 3.09 M/mcL (4.19-5.50); Red Cell Distribution Width 15.4 % (11.5-14.5)
[2018-06-08 07:23] LABS: INR 2.2; Prothrombin Time 24.8 Seconds (9.4-12.1)
[2018-06-08] MEDS: Tiotropium 18 MCG inhalation IH SCH (07:31)
[2018-06-08 07:35] LABS: Calcium 8.9 mg/dL (8.6-10.3); Potassium 4.2 mEq/L (3.5-5.1)
[2018-06-08] MEDS ORDERED: 0.9 % Sodium Chloride 250 ML IVC PRN (07:37)
[2018-06-08] MEDS: Calcium Acetate 667 MG CAPSULE PO SCH ×3 (08:39→16:43)
[2018-06-08] MEDS: Renal Vitamin 1 CAP CAPSULE PO SCH (08:40)
[2018-06-08] MEDS: Aspirin Enteric Coated 81 MG Tablet PO SCH (08:45)
--- NOTE | 2018-06-08 11:10 | Nephrology Progress Note ---
Date of Encounter: 06/08/18 Time of Encounter: 09:25 - Assessment and Plan (1) End-stage renal disease on hemodialysis Current Visit: Yes Status: Chronic HD today (Wednesday) for clearance and volume mgt. (2) NSTEMI (non-ST elevated myocardial infarction) Current Visit: Yes Status: Acute (3) Anemia Current Visit: Yes Status: Chronic Qualifiers: Chronic kidney disease stage: on chronic dialysis Qualified Code(s): N18.6 - End stage renal disease; D63.1 - Anemia in chronic kidney disease; Z99.2 - Dependence on renal dialysis Subjective Principal diagnosis: ESRD Interval history: Pt was s/e earlier today. He did not affirm N/V/D or any new major complaints. He said his AVF has not been ozzing overnight. His brother was also present and updated. Objective - Vital Signs Vital signs: Vital Signs Temp Pulse Resp BP Pulse Ox 06/08/18 09:54 98 06/08/18 09:45 98.3 F 18 130/72 06/08/18 07:19 97.9 F 95 15 132/83 98 06/08/18 05:46 98 F 89 16 112/66 92 06/08/18 00:06 98.2 F 94 18 118/65 92 06/07/18 18:55 98.8 F 91 17 99/62 99 06/07/18 15:54 99.1 F 95 16 102/61 98 06/07/18 11:44 98.7 F 96 18 155/78 97 Intake and Output 06/07/18 06/08/18 06/08/18 23:59 07:59 15:59 Intake Total 120 / 120 0 / 0 600 / 600 Output Total 0 / 0 0 / 0 Balance 120 / 120 0 / 0 600 / 600 Intake: Oral 120 / 120 0 / 0 0 / 0 Intake, Rinseback and Flushes 600 / 600 Output: Urine 0 / 0 0 / 0 Other: Weight 98.067 kg Hemodialysis Net Fluid Removed 0 (mL) Patient Weight 06/08/18 23:59 Weight 98.067 kg - General Appearance General appearance: Present: well-developed, well-nourished, appears started age EENT: Present: ATNC, PERRL, mucous membranes moist Neck: Present: supple Respiratory: Present: clear Cardiology: Present: edema (trace ankle edema b/l ), normal S1, normal S2 Dialysis Vascular Access: Arteriovenous Fistula (RUE) thrill: Yes bruit: Yes Gastrointestinal: Present: normoactive bowel sounds, no tenderness, no guarding Integumentary: Present: no rash, warm and dry Neurologic: Present: no focal deficit, no asterixis, alert and oriented x3 Musculoskeletal: Present: no deformities, no clubbing Psychiatric: Present: mood/affect appropriate, cooperative - Lab 06/08/18 07:06 06/08/18 07:06 Most recent lab results Calcium 8.9 mg/dL (8.6-10.3) 06/08/18 07:06 Phosphorus 2.8 mg/dL (2.7-4.5) 06/07/18 05:03 Magnesium 2.2 mg/dL (1.6-2.6) 06/04/18 05:50 Consult Discharge Plan - Plan Referrals: Micah Mello MD [Primary Care Provider] -
--- NOTE | 2018-06-08 16:10 | Cardiology Progress Note ---
Date of Encounter: 06/08/18 Time of Encounter: 15:30 Assessment and Plan (1) NSTEMI (non-ST elevated myocardial infarction) Current Visit: Yes Status: Acute Per cardiology: -Presented with chest pain, similar to previous angina prior to PCI. Reported h /o 7 cardiac stents. Last LHC at [place] in the past 5 years ago without intervention. -Troponins 0.1, 2.35, 4.16, 3.73, 1.32. -ECG shows atrial fibrillation with RVR, RBBB, no acute ST changes. Repeat ECG shows AV pacing. -Denies current chest pain. -On asa, statin, BB, plavix. Not on heparin drip due to therapuetic INR. -TTE with LVEF 25%, known ischemic cardiomyopathy. -LHC was recommended, risks versus benefits of LHC was reviewed with patient. He is agreeable to proceed. -Will hold coumadin in preparation for LHC, of note INR today 2.2. Would not recommend vitamin K, unless urgent need for LHC due to history of DVT. Will re- evaluate INR in am. -Of note, patient reports upcoming surgery outpatient visit for evaluation for hernia. (2) Ischemic cardiomyopathy Current Visit: Yes Status: Chronic Per cardiology: -Known ICM, s/p AICD. Denies prior AICD shocks. -TTE this admission with LVEF 25%. Severe global LV systolic dysfunction. Mild to moderately dilated RV with mild reduction in function. Bi-atrial enlargement. Mild mitral regurgitation. Moderate tricuspid regurgitation. Severe pulmonary hypertension. Mild pulmonic regurgitation. Aneurysmal interatrial septum. The IVC is dilated. -On BB and Chandu inhibitor. -Euvolemic on exam. -Appreciate nephrology assistance with fluid status. -Strict I/os, fluid restriction 1.5L/day, daily weights. (3) PAF (paroxysmal atrial fibrillation) Current Visit: Yes Status: Chronic Per cardiology: -Known PAF. -ON BB, and CCB per primary detail manager. -On coumadin for a.fib and for history of DVT, currently on hold. -HR controlled. -With ICM, would not recommend cardizem. However, patient's primary detail manager has placed patient on. Will have patient discuss with primary detail manager after discharge. (4) End-stage renal disease on hemodialysis Current Visit: Yes Status: Chronic Per cardiology: -Known ESRD on HD. -Management per primary and nephrology services. Discussion w patient/family: The assessment and plan as outlined above was discussed with the patient who expressed understanding and agreement. All questions were answered. Thank you for involving us in the care of your patient. Please call with any questions. Discussed and reviewed with . Subjective Principal diagnosis: NSTEMI Interval history: Patient denies chest pain. Reports shortness of breath about baseline. Objective Vital Signs, Last 4 Hours Temp Resp BP 06/08/18 13:35 98.2 F 18 102/57 06/08/18 13:15 118/61 06/08/18 13:00 122/76 06/08/18 12:45 121/66 06/08/18 12:30 124/71 06/08/18 12:15 126/68 General: Conversant, No Apparent Distress HEENT: Atraumatic, Normocephaly, Mucus Membranes Moist Neck: No JVD, Normal carotid pulses Cardiac: Reg Rate and Rhythm, Normal S1 and S2, No Murmur Lungs: Normal Breath Sounds, No Wheeze, Rales, Rhonchi Neuro: Alert and responsive, No focal deficits noted Abdomen: Soft, Non-Tender Skin: No rashes noted on visualized skin Musculoskeletal: No Chest Wall Tenderness Extremities: No Clubbing, No Cyanosis, No Edema, Normal Pulses Results 06/08/18 07:06 06/08/18 07:06 Lab Results Active Medications Acetaminophen (Tylenol) 650 mg PO Q6HR PRN PRN Reason: Mild Pain/Fever Stop: 12/04/18 08:25 Hydrocodone Bitart/Acetaminophen ([place] 5-325 Mg) 1 tab PO BID PRN PRN Reason: Moderate Pain Stop: 12/04/18 10:02 Aspirin (Aspirin Ec) 81 mg PO DAILY [facility]ER[facility] Stop: 12/04/18 10:16 Last Admin: 06/08/18 08:45 Dose: 81 mg Atorvastatin Calcium (Lipitor) 80 mg PO HS [facility]ERRI Stop: 12/04/18 21:01 Last Admin: 06/07/18 21:41 Dose: 80 mg Calcium Acetate (Phos-Lo) 1,334 mg PO TIDWM KERRI Stop: 12/04/18 12:01 Last Admin: 06/08/18 11:14 Dose: Not Given Carvedilol (Coreg) 12.5 mg PO BIDWM KERRI Stop: 12/04/18 10:16 Last Admin: 06/08/18 08:39 Dose: Not Given Clopidogrel Bisulfate (Plavix) 75 mg PO DAILY [facility] Stop: 12/04/18 10:16 Last Admin: 06/08/18 08:40 Dose: 75 mg Diltiazem HCl (Cardizem Cd) 180 mg PO DAILY [facility] Stop: 12/04/18 10:16 Last Admin: 06/07/18 08:42 Dose: 180 mg Docusate Sodium (Colace) 100 mg PO DAILY [facility] PRN Reason: Protocol Stop: 12/05/18 09:01 Last Admin: 06/08/18 08:40 Dose: 100 mg Guaifenesin (Robitussin/Dm) 10 ml PO Q6HR PRN PRN Reason: Cough Stop: 12/04/18 19:42 Last Admin: 06/07/18 08:52 Dose: 10 ml Guaifenesin (Mucinex) 600 mg PO BID PRN PRN Reason: Congestion Stop: 12/05/18 16:58 Sodium Chloride (0.9 % Sodium Chloride) 250 mls @ 937.5 mls/hr IVC .Q16M PRN PRN Reason: Hypotension Stop: 12/08/18 07:38 Lisinopril (Zestril) 10 mg PO BID [facility] PRN Reason: Protocol Stop: 12/04/18 10:16 Last Admin: 06/08/18 08:39 Dose: Not Given Naloxone HCl (Narcan) 0.4 mg IVP Q2MIN PRN PRN Reason: SEE COMMENTS Stop: 12/04/18 08:25 Omeprazole (Prilosec) 20 mg PO DAILY@0630 [facility] Stop: 12/05/18 06:31 Last Admin: 06/08/18 06:26 Dose: 20 mg Ondansetron HCl (Zofran) 4 mg IVP Q4HR PRN; Protocol PRN Reason: nausea/vomiting Stop: 12/07/18 16:01 Tiotropium [place] (Spiriva) 18 mcg IH DAILYR [facility] Stop: 12/09/18 10:01 Vitamin B Complex/Vit C/Folic Acid (Renal Caps Softgel) 1 cap PO DAILY [facility] Stop: 12/05/18 09:01 Last Admin: 06/08/18 08:40 Dose: 1 cap Laboratory Tests 06/08/18 06/08/18 07:06 07:06 Hgb 9.8 L INR 2.2 - Imaging and Cardiology Chest Xray: report reviewed Echo: report reviewed Cardiac cath: pending - EKG Interpretation EKG results cardiology: other (Telemetry reviewed with average HR previous 12 hours noted to be 92, SR. Intermittent paced rhythm noted. PVCs and PACs noted.) Consult Discharge Plan - Plan Referrals: Micah Mello MD [Primary Care Provider] -
[2018-06-08] MEDS: Diltiazem CD (24hr) 180 MG CAPSULE PO SCH (16:42)
--- NOTE | 2018-06-08 17:26 | Electrocardiograph Report ---
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
--- NOTE | 2018-06-08 18:38 | Internal Med Progress Note ---
Hospitalist Progress Note - Encounter Date of Encounter: 06/08/18 Time of Encounter: 11:00 - Subjective Interval History: Patient awaiting for INR to go below 2.0 for left heart catheterization INR 2.2 this morning - Exam Vitals: Temp Pulse Resp BP Pulse Ox 98.6 F 86 19 113/69 97 06/08/18 16:28 06/08/18 16:28 06/08/18 16:28 06/08/18 16:28 06/08/18 16:28 Exam: Gen.: Nonacute distress, alert and oriented 3 ENT: Mucosal membranes moist Respiratory: Lungs are clear to auscultation bilaterally without any wheezing rhonchi or rales Cardiovascular: Normal S1 and S2 regular rate rhythm no murmurs rubs or gallops Abdomen: Soft, nontender and nondistended with positive bowel sounds Extremities: No lower extremity edema Skin: Normal color - Assessment and Plan (1) NSTEMI (non-ST elevated myocardial infarction) Current Visit: Yes Status: Acute Assessment and Plan: Patient presented with chest pain, atypical. Per ER notes, EKG showed no acute ischemic changes. Serial troponins have been elevated with maximum troponin of 4.16, currently trending down to 1.32. Patient is currently chest pain-free. Anticoagulated on Coumadin with INR 2.2 today. Cardiology following with recommendations for left heart catheterization once INR trends down below 2.0 (2) End-stage renal disease on hemodialysis Current Visit: Yes Status: Chronic Assessment and Plan: Nephrology has been consulted for dialysis needs. (3) Essential hypertension Current Visit: Yes Status: Chronic Assessment and Plan: Blood pressure well controlled. Continue current medications. (4) Coronary artery disease Current Visit: Yes Status: Chronic Assessment and Plan: Continue home medications. Patient is on aspirin, Plavix, statin, beta sarabjit and lisinopril. (5) Chronic atrial fibrillation Current Visit: Yes Status: Chronic Assessment and Plan: Currently rate controlled. Continue beta sarabjit and telemetry monitoring. Continue long-term anticoagulation with Coumadin, monitor INR closely. (6) Combined systolic and diastolic heart failure Current Visit: Yes Status: Chronic Assessment and Plan: Echocardiogram showed severely reduced EF of 25%, global systolic dysfunction, indeterminate diastolic function, moderate TR, severe pulmonary hypertension, no LV thrombus. Patient has AICD/pacemaker placement. Continue current medications and telemetry monitoring. (7) Chronic respiratory failure Current Visit: Yes Status: Chronic Assessment and Plan: Noted to be on 2 L/m supplemental home oxygen due to underlying COPD and CHF. DVT Prophylaxis: Patient's INR is therapeutic - Time Spent with Patient Total time spent is greater than 50% in coordination of care (as documented) at patient's floor/unit and/or counseling patient: Internal Medicine: Result - Labs CBC & Chem 7: 06/08/18 07:06 06/08/18 07:06 Labs: Short CBC 06/08/18 Range/Units 07:06 WBC 6.5 (4.3-11.1) K/mcL Hgb 9.8 L (12.9-16.9) g/dL Hct 29.8 L (37.5-50.1) % Plt Count 130 L (140-400) K/mcL Neutrophils # 4.3 (1.6-8.9) K/mcL BMP 06/08/18 07:06 Sodium 136 Potassium 4.2 Chloride 99 Carbon Dioxide 29 BUN 24 H Creatinine 7.03 H Glucose 84 Calcium 8.9 - ABG Interpretation ABG results: PT/INR, D-dimer PT 24.8 Seconds (9.4-12.1) H 06/08/18 07:06 Consult Discharge Plan - Plan Referrals: Micah Mello MD [Primary Care Provider] - (4) Coronary artery disease Qualifiers: Coronary Disease-Associated Artery/Lesion type: [place] artery [place] vs. transplanted heart: [place] heart Associated angina: without angina Qualified Code(s): I25.10 - Atherosclerotic heart disease of [place] coronary artery without angina pectoris (6) Combined systolic and diastolic heart failure Qualifiers: Heart failure chronicity: chronic Qualified Code(s): I50.42 - Chronic combined systolic (congestive) and diastolic (congestive) heart failure (7) Chronic respiratory failure Qualifiers: Respiratory failure complication: hypoxia Qualified Code(s): J96.11 - Chronic respiratory failure with hypoxia
[2018-06-09 05:16] LABS: Basophils # 0.1 K/mcL (0.0-0.2); Basophils % 1.5 %; Eosinophils # 0.3 K/mcL (0.0-0.6); Eosinophils % 4.8 %; Hematocrit 29.1 % (37.5-50.1); Hemoglobin 9.4 g/dL (12.9-16.9); Immature Granulocytes % 0.4 % (0-4); Lymphocytes # 0.8 K/mcL (0.6-4.6); Lymphocytes % 15.2 %; Mean Corpuscular HGB Conc 32.3 g/dL (31.6-35.5); Mean Corpuscular Hemoglobin 31.4 pg (28.0-33.3); Mean Corpuscular Volume 97.3 fL (83.0-100.0); Mean Platelet Volume 10.3 fL (9.4-12.4); Monocytes # 0.8 K/mcL (0.0-1.3); Monocytes % 14.1 %; Neutrophils # 3.4 K/mcL (1.6-8.9); Platelet Count 123 K/mcL (140-400); Red Blood Count 2.99 M/mcL (4.19-5.50); Red Cell Distribution Width 15.5 % (11.5-14.5)
[2018-06-09 05:34] LABS: Calcium 8.7 mg/dL (8.6-10.3); Potassium 3.8 mEq/L (3.5-5.1)
--- NOTE | 2018-06-09 08:27 | Nephrology Progress Note ---
Date of Encounter: 06/09/18 Time of Encounter: 08:25 - Assessment and Plan (1) End-stage renal disease on hemodialysis Current Visit: Yes Status: Chronic Plan for HD tomorrow Renal diet when diet resumed Avoid nephrotoxins if possible Patient confirms he would like to transfer to our group; requests [facility] for outpatient dialysis unit; would like MWF chair time if possible due to transportation by others; consult placed to health social work professor to get release of records and chair time (2) NSTEMI (non-ST elevated myocardial infarction) Current Visit: Yes Status: Acute Per cardiology Pt is to have heart cath-poss today (3) Anemia Current Visit: Yes Status: Chronic Hgb 9.4 Goal hgy 10-11 Transfuse per parameters Qualifiers: Anemia type: due to chronic kidney disease Chronic kidney disease stage: on chronic dialysis Qualified Code(s): N18.6 - End stage renal disease; D63.1 - Anemia in chronic kidney disease; Z99.2 - Dependence on renal dialysis Subjective Principal diagnosis: NSTEMI Interval history: Patient seen and examined. States he is doing well; does not know when they are planning the heart cath Objective - Vital Signs Vital signs: Vital Signs Temp Pulse Resp BP Pulse Ox 06/09/18 08:17 99.0 F 83 19 116/77 96 06/09/18 04:26 98.7 F 88 18 112/69 97 06/08/18 23:22 99.2 F 94 20 117/71 91 06/08/18 19:14 98.0 F 100 20 112/61 97 06/08/18 16:28 98.6 F 86 19 113/69 97 06/08/18 13:35 98.2 F 18 102/57 06/08/18 13:15 118/61 06/08/18 13:00 122/76 06/08/18 12:45 121/66 06/08/18 12:30 124/71 06/08/18 12:15 126/68 06/08/18 12:00 121/74 06/08/18 11:45 127/77 06/08/18 11:30 133/69 06/08/18 11:15 128/72 06/08/18 11:00 131/74 06/08/18 10:45 133/70 06/08/18 10:30 127/75 06/08/18 10:15 118/73 06/08/18 10:00 123/74 06/08/18 09:54 98 06/08/18 09:45 98.3 F 18 130/72 Intake and Output 06/08/18 06/09/18 06/09/18 23:59 07:59 15:59 Intake Total 120 / 120 Balance 120 / 120 Intake: Oral 120 / 120 Other: Meal Dinner Percent of Meal Consumed 25% - General Appearance General appearance: Present: well-developed, well-nourished EENT: Present: ATNC, mucous membranes moist, hearing intact, vision intact Neck: Present: supple Respiratory: Present: clear Cardiology: Present: no edema, normal S1, normal S2 Dialysis Vascular Access: Arteriovenous Fistula Gastrointestinal: Present: no tenderness, no guarding Integumentary: Present: no rash, warm and dry Neurologic: Present: alert and oriented x3 Psychiatric: Present: cooperative - Lab 06/09/18 04:00 06/09/18 04:00 Most recent lab results Calcium 8.7 mg/dL (8.6-10.3) 06/09/18 04:00 Phosphorus 2.8 mg/dL (2.7-4.5) 06/07/18 05:03 Magnesium 2.2 mg/dL (1.6-2.6) 06/04/18 05:50 Consult Discharge Plan - Plan Referrals: Micah Mello MD [Primary Care Provider] -
[2018-06-09 08:55] LABS: INR 1.7; Prothrombin Time 19.5 Seconds (9.4-12.1)
--- NOTE | 2018-06-09 09:40 | Event Note ---
Date of Encounter: 06/09/18 Time of Encounter: 09:00 - Cardiology Event Note Seen and examined. INR 1.7 today, acceptable to proceed with [facility] today, re: NSTEMI. A/R/B discussed again, he is agreeable to proceed. Discussed and reviewed with Dr. Owens.
[2018-06-09] MEDS ORDERED: ISOVUE-370 200 ML INFUS..BTL IV ONE (10:22)
[2018-06-09] MEDS ORDERED: Heparin 1,000 UNITS/500 mL 500 ML ONE (10:22)
[2018-06-09] MEDS ORDERED: 0.9 % Sodium Chloride 1,000 ML ONE ×2 (10:22→10:40)
[2018-06-09] MEDS ORDERED: Nitroglycerin 1,000 MCG/10 ML VIAL IV ONE (10:22)
[2018-06-09] MEDS ORDERED: *HR* Heparin 10,000 UNIT/10 ML VIAL ONE (10:22)
[2018-06-09] MEDS ORDERED: *HR* Midazolam HCl 2 MG/2 ML VIAL ONE (10:40)
--- NOTE | 2018-06-09 10:55 | Pre-Sedation Evaluation ---
Pre-sedation evaluation - Pre-sedation checklist Date of procedure: 06/09/18 Procedure: heart cath Recent Vitals: Last Vital Signs Temp 99.0 F 06/09/18 08:17 Pulse 83 06/09/18 08:17 Resp 19 06/09/18 08:17 BP 116/77 06/09/18 08:17 Pulse Ox 96 06/09/18 08:17 H&P (including ROS) documented in medical record: Yes Previous reaction to sedatives/anesthetics: No Dietary Status: NPO after Midnight Airway Assessment: Patient can open mouth completely, TMJ function normal Dentition: No loose teeth or bridges Possible difficult airway: No ASA Classification *see protocol: CLASS IV-Severe systemic disease/constant threat to pt's life Cardiac Registry (Cardio Only) - Functional Capacity Functional Capacity: >=4 METS with symptoms - Clincal Frailty Scale Clinical Frailty Scale: Vulnerable
[2018-06-09] MEDS: Tiotropium 18 MCG inhalation IH SCH (11:22)
--- NOTE | 2018-06-09 12:03 | Invasive Diagnostic Lab Proc ---
Name: Darwin Velasquez Date of Study: 06/09/2018 Date: 1950 Ht: 68.1in Medical Record#: [id number] Age: 67 Wt: 216.05lb Gender: Male BSA: 2.11 Order #: [id number] BMI: 32.74 Physicians Procedure Physician: 1.Tiera Owens MD, FACC Referring MD: Referring MD: Staff Name Position Time In Skylar Hood RN Monitor 11:01 AM [place] RN Special Needs Tutor 11:01 AM Xiang Soler RT (R) Scrub 11:01 AM Indications Indication Non-Stemi Procedures Performed Procedure L HRT ARTERY/VENTRICLE ANGIO Pre-Procedure Checklist Informed consent is complete signed and on chart. H&P is on chart. ID band is on and ID verified with patient. Patient NPO for procedure The procedure was described for the patient and questions were answered. Blood Pressure: 99/70 ECG is on chart. Rhythm: NSR Plan of Care Patient will tolerate the procedure without complications. Adequate level of comfort will be maintained. Hemodynamics will remain stable Patient will recover from procedure without complications. Respiratory function will be maintained. Cardiac rhythm will remain stable. Patient temperature will be maintained. Patient and/or family have verbalized understanding of the procedure. Patient Education Chief Complaint/Reason for Test: Cardiac Cath Developmental Category: Geriatric (65+ years) Developmentally Appropriate for Age: Yes Learning Barriers: None Education Needs: Procedure Education Method: Verbal Information Taught: Cardiac Cath Educational Evaluation: Able to repeat information Intravenous Access Time IV Size Location DC'd Fluid/Drip Rate Units RN 10:31 AM 20g 1 /" Patent On Arrival Lt Arm 0.9NaCl 25 ml/hr Skylar Hood RN Allergies IVP DYE (IODINE) NKA Contrast Media, Iodine Related No Known Allergies Vital Signs Time BP (mmHg) HR (bpm) O2 Sat. RR (bpm) LOC 11:00 AM / % 5 = Fully awake and oriented or at pre-proc level 11:01 AM / % 4 = Oriented but drowsy 11:16 AM / % 4 = Oriented but drowsy 11:00 AM 109 / 64 96 98 % 21 11:05 AM 99 / 70 86 95 % 24 11:10 AM 102 / 53 85 98 % 19 11:15 AM 93 / 58 86 95 % 19 11:20 AM 96 / 61 83 94 % 23 11:25 AM 105 / 61 80 99 % 23 11:30 AM 101 / 53 83 100 % 20 11:35 AM 108 / 59 77 97 % 14 11:40 AM 101 / 57 81 96 % 25 11:45 AM 109 / 58 79 100 % Procedural Medications Time Medication Dose Units Method Given By 11:00 AM Oxygen 4 L/min nasal cannula [place] RN 11:02 AM Versed 2 mg Intravenous [place] RN 11:10 AM Lidocaine 2% 10 ml Subcutaneous 1.7Bmeaghan Owens MD, FAC Vickie Score Preprocedure Postprocedure Activity 2- Moves 4 extremities sustained head lift Activity 2- Moves 4 extremities sustained head lift Circulation 2- SBP +/= 20 points of pre-anesthetic level Circulation 2- SBP +/= 20 points of pre-anesthetic level Consciousness 2- Awake and alert oriented x 3 Consciousness 2- Awake and alert oriented x 3 O2 Saturation 2- Able to maintain O2 satruation of 92% on room air O2 Saturation 2- Able to maintain O2 satruation of 92% on room air Respiratory 2- Able to deep breathe and cough well Respiratory 2- Able to deep breathe and cough well Total Score 10 Total Score 10 Contrast Agent: Isovue Diagnostic Contrast: 80 ml Total Contrast: 80 ml Fluoro Dose: 7137 mGy Procedure Log Time Note Enter By 10:33 AM CathStat 10:59 AM Vitals capture started with the following parameters, Patient=Adult, Interval=5 min, Initial Iqejpjdb=767 mmHg, Deflation Rate=5 mmHg, Cuff placed on Right Arm 11:00 AM HR=96 bpm, YNAW=409/64 mmhg, SpO2=98.0 %, Resp=21 B/min 11:00 AM Pt arrived to cork slabs sawyer 2 at 11:00 scoates 11:00 AM Physician arrived 11:00 scoates 11:00 AM Meet and greet completed scoates 11:00 AM Sign in performed according to hospital policy. scoates 11:00 AM Procedure start 11:00 scoates 11:00 AM Time: 11:00 Oxygen on at 4 L/min per nasal cannula by [place] RN scoates 11:00 AM Time: 11:00 Patient comfortable and pain free: Yes scoates 11:01 AM Time: 11:00LOC: 5 = Fully awake and oriented or at pre-proc level scoates 11:01 AM Patient charges- Angio tray pack, Navilyst 3mm J, Pulse Oximetry and ACIST tubing and transducer scoates 11:01 AM Skylar Hood RN Position: Monitor Time in: 11:01 scoates 11:01 AM [place] RN Position: Special Needs Tutor Time in: 11: scoates 11:01 AM Xiang Soler RT (R) Position: Scrub Time in: 11: scoates 11: AM Pressure channel 2 zeroed. 11:01 AM Case Delayed no, inpatient scoates 11:01 AM Hair removed from procedure site in procedure lab using clippers. Bilateral groin prepped with Chloraprep by Skylar Hood RN, then patient was draped. Skin intact. scoates 11:02 AM Clinical Presentation: Non-STEMI scoates 11:02 AM Time: 11:02 Versed 2 mg Intravenous Given by [place] RN scoates 11:05 AM HR=86 bpm, NIBP=99/70 mmhg, SpO2=95.0 %, Resp=24 B/min, Comment=nsr 11:08 AM Time out performed according to hospital policy scoates 11:10 AM HR=85 bpm, ZPJG=754/53 mmhg, SpO2=98.0 %, Resp=19 B/min, Comment=nsr 11:11 AM Time: 11:10 10 ml Lidocaine 2% to right groin Subcutaneous Given by 1.Tiera Owens MD, [facility] scoates 11:12 AM Micro-Introducer Kit utilized for sheath placement scoates 11:12 AM Access obtained by percutaneous puncture. 6Fr 11cm Cordis Isabell sheath placed in right Femoral artery. [id number] scoates 11:13 AM Recorded Pressure: LV, HR=90, Condition=Condition 1 (Left Ventricle) LV 99/4/6 11:13 AM Recorded Pressure: LV, Ao, HR=83, Condition=Condition 1 (Left Ventricle) LV 97/3/6, (Aorta) Ao 95/36/63 11:13 AM Recorded Pressure: Ao, HR=82, Condition=Condition 1 (Aorta) Ao 91/46/66 11:14 AM 5Fr FR 4 catheter inserted over the wire [facility] scoates 11:14 AM Catheter selectively placed in left ventricle scoates 11:14 AM Bolus angiogram of left Ventricle complete: hand injected ml/sec for a total of 10 mls scoates 11:15 AM RCA angiography performed in multiple views. scoates 11:15 AM Catheter removed scoates 11:15 AM HR=86 bpm, NIBP=93/58 mmhg, SpO2=95.0 %, Resp=19 B/min, EtCO2=30 mmHg, Comment=nsr 11:15 AM 5Fr FL 4 catheter inserted over the wire DNC scoates 11:15 AM Coronary Dominance: right scoates 11:15 AM Lesion found in Mid RCA. Pre Stenosis: 90 Pre ANGELITA Flow: scoates 11:15 AM Lesion found in Distal RCA. Pre Stenosis: 99 Pre ANGELITA Flow: scoates 11:15 AM Recorded Pressure: Ao, HR=85, Condition=Condition 1 (Aorta) Ao 89/36/57 11:16 AM Time: 11:00 Patient comfortable and pain free: Yes scoates 11:16 AM Time: 11:01LOC: 4 = Oriented but drowsy scoates 11:16 AM Recorded Pressure: Ao, HR=87, Condition=Condition 1 (Aorta) Ao 73/27/46 11:18 AM Catheter removed scoates 11:18 AM 5Fr FL 4 catheter inserted over the wire DNC scoates 11:18 AM LCA angiography performed in multiple views. scoates 11:20 AM HR=83 bpm, NIBP=96/61 mmhg, SpO2=94.0 %, Resp=23 B/min 11:22 AM Catheter removed scoates 11:22 AM fem artery angio hand injected with 5mls contrast scoates 11:23 AM Procedure completed at 11:22 06/09/2018 scoates 11:24 AM Lesion found in Mid LAD. Pre Stenosis: 40 Pre ANGELITA Flow: scoates 11:24 AM Mid/Distal Left Anterior Descending Coronary Artery and diagonal branches with 40% stenosis. If graft is supplying this area, 0 % stenosis scoates 11:24 AM Lesion found in 1st Marginal. Pre Stenosis: 80 Pre ANGELITA Flow: scoates 11:24 AM Circumflex, Obtuse Marginal, Left Posterior Descending, and Left Posterolateral Coronary Arteries with 80 % stenosis. If graft is supplying this area, 0 % stenosis scoates 11:25 AM HR=80 bpm, DGRU=692/61 mmhg, SpO2=99.0 %, Resp=23 B/min 11:26 AM Left Main Coronary Artery with 60% stenosis scoates 11:28 AM Arterial sheath pulled using manual compression and V+ Pad by Skylar Hood RN scoates 11:30 AM HR=83 bpm, DQPI=220/53 mmhg, MtU1=947.0 %, Resp=20 B/min 11:31 AM Time: 11:16LOC: 4 = Oriented but drowsy scoates 11:31 AM Time: 11:16 Patient comfortable and pain free: Yes scoates 11:35 AM HR=77 bpm, ZELC=545/59 mmhg, SpO2=97.0 %, Resp=14 B/min 11:40 AM HR=81 bpm, ZYHR=283/57 mmhg, SpO2=96.0 %, Resp=25 B/min 11:44 AM Arterial sheath pulled using manual compression and V+ Pad for 18 minutes by Skylar Hood RN scoates 11:45 AM HR=79 bpm, GSVS=072/58 mmhg, EqF3=273.0 % 11:45 AM Vitals capture stopped. 11:46 AM Sign out completed: Radiation Dose 623.89 mGy, 7137.11 cGy/cm2 Fluoro Time: 2.3 Isovue 370 - 200ml contrast 80 ml given by 1.Tiera Owens MD, FACC. Complications: NoneCardiac Rehab Consult needed: YesConfirmed administered medications: Yes scoates 11:47 AM Isovue 370 - 200ml,1 Bottle(s) used. scoates 11:47 AM Estimated Blood Loss: less than 20cc scoates 11:47 AM Post ECG NSR scoates 11:47 AM Post Blood Pressure 109/58 scoates 11:48 AM Information taught Cardiac Cath scoates 11:48 AM Education needs Procedure, Plan of Care, and Disease Process scoates 11:48 AM Learning barriers :Sedated scoates 11:48 AM Education Methods Verbal scoates 11:48 AM Education evaluation Not ready to learn scoates 11:48 AM Site status No bleeding/hematoma - Rt Groin as reported by Skylar Hood RN at 11:48 scoates 11:48 AM Opsite applied scoates 11:48 AM Delay to floor No scoates 11:48 AM Family placed in consult room. scoates 11:48 AM Complications: None scoates 11:50 AM Patient out of room: 11:50 scoates 11:50 AM Report given to adriana DUNN Pt taken to 2A Room #24. 11:50 scoates Complications Complication None None Hemodynamics Pressures Site Systolic/A Wave Diastolic/V Wave Mean LV 99 4 6 LV 97 3 6 AO 95 36 63 AO 91 46 66 AO 89 36 57 AO 73 27 46 Post Procedure Information Blood Pressure: 109/58 mmHg Rhythm: NSR Post procedural instructions were given Surgery consult for CABG Closure Device Time Device Success/Fail 06/09/2018 11:44:00 AM V+Pad Successful Site Checks Time Location Status Staff Sheath In? Note 11:48 AM Rt Groin No bleeding/hematoma Skylar Hood RN Pulses Time Site Pre-Procedure Post-Procedure Note Rt Radial 1+ Lt Radial 2+ Bilateral DP & PT 2+ Updated by Skylar Cifuentes RN on 06/09/2018 11:54:02 AM electronically signed on 06/09/2018 11:54:29 AM with status of Final
[2018-06-09] MEDS: Calcium Acetate 667 MG CAPSULE PO SCH ×2 (14:16→14:45)
[2018-06-09] MEDS: Renal Vitamin 1 CAP CAPSULE PO SCH (14:44)
[2018-06-09] MEDS: Diltiazem CD (24hr) 180 MG CAPSULE PO SCH (14:44)
[2018-06-09] MEDS: Aspirin Enteric Coated 81 MG Tablet PO SCH (14:45)
--- NOTE | 2018-06-09 17:13 | Cardiothoracic Consult Note ---
Date of Encounter: 06/09/18 Time of Encounter: 17:10 Assessment and Plan (1) NSTEMI (non-ST elevated myocardial infarction) Current Visit: Yes Status: Acute The assessment and plan as outlined above was discussed with the patient and/or family members who expressed understanding and agreement. All questions were answered. The patient has triple-vessel disease with left main disease with good distal vessels. However, his ejection fraction on echocardiogram was 25%. He does have severe pulmonary hypertension and moderate tricuspid valve regurgitation. He is status post pacemaker and defibrillator placement. I discussed possible coronary artery bypass grafting with the patient. The patient is opposed to surgery. I agree that he is extremely high risk. I would favor medical therapy and/or high risk angioplasty. If open heart surgery were felt to be the best and only option and the patient were to agree, I feel that this would need to be done in [place]. - History of Present Illness History of present illness: Mr. Velasquez is a 67 year old male The patient is a 67-year-old gentleman with a history of coronary artery disease who has had stents, a pacemaker and an AICD placed in the past. He also has a history of COPD. He has chronic renal disease and is on dialysis 3 days a week. He has had multiple myocardial infarctions in the past and was admitted with chest pain. Echocardiogram revealed ejection fraction of 25%. Moderate tricuspid regurgitation. Severe pulmonary hypertension. Cardiac catheterization revealed an ejection fraction of 35%. He has a 60% left main lesion. A 90% right lesion. An 80% first obtuse marginal branch of the circumflex lesion. He has good distal vessels. Past medical history includes colectomy for diverticulosis. He is also had an appendectomy. He has had at least 7 stents placed in his heart at [facility]. Past Med Surg Social Fam HX - Past Medical History Medical history: atrial fibrillation, cardiomyopathy, COPD, coronary artery disease, dialysis, GERD, hyperlipidemia, hypertension, myocardial infarction, renal disease Additional medical history: stage IV RF. dialysis m-w-f. L arm AV fistula. on 3lnc at home Psychiatric history: no psych history - Past Surgical History Surgical History: knee replacement, other Additional surgical history: partial colectomy, Cardiac Stents - Social History Smoking Status: Former smoker Smokeless Tobacco Status: No Alcohol use: rarely Drug use: none Medications and Allergies Aspirin [Lo-Dose Aspirin EC] 81 mg PO DAILY 03/26/17 [History] Atorvastatin Calcium [Lipitor] 80 mg PO HS 03/26/17 [History] Calcium Acetate [Phos-LO] 1,334 mg PO TIDWM 03/26/17 [History] Clopidogrel [Plavix] 75 mg PO DAILY 03/26/17 [History] Docusate [Colace] 100 mg PO DAILY 03/26/17 [History] HYDROcodone/Acet 5/325 mg [[place] 5-325 mg] 1 tab PO BID PRN 03/26/17 [History] Lisinopril [Zestril] 10 mg PO BID 03/26/17 [History] Multivit-Min/FA/Lycopen/Lutein [Men 50 Plus Multivitamin Tab] 1 tab PO DAILY [History] Oxygen 2 l NS CONT 03/26/17 [History] Pantoprazole Sodium [Protonix] 20 mg PO DAILY 03/26/17 [History] Tiotropium [Spiriva] 1 cap IH DAILY 03/26/17 [History] Niacin 250 mg PO DAILY #30 tablet 03/27/17 [Rx] Carvedilol 12.5 mg PO BID 06/04/18 [History] Diltiazem HCl [Diltiazem 24Hr Cd] 180 mg PO DAILY 06/04/18 [History] Warfarin Sodium 4 mg PO Q48H 06/04/18 [History] Warfarin [Coumadin] 3.5 mg PO Q48H 06/04/18 [History] 3 Allergy/AdvReac Type Severity Reaction Status Date / Time No Known Allergies Allergy Verified 03/26/17 05:27 All Systems Review: The remainder of the systems were reviewed and are negative Physical Examination Vital Signs, Last 4 Hours Temp Pulse Resp BP Pulse Ox 06/09/18 16:13 98.3 F 93 17 126/76 95 06/09/18 13:45 97.2 F L 82 18 123/71 99 06/09/18 13:15 97.2 F L 82 18 124/72 99 Pupils are equal, round and reactive to light and accommodation. No oral lesions. Neck is supple. Trachea in the midline. No thyromegaly or carotid bruits. Lungs are clear to percussion and auscultation. Heart is in a regular rate and rhythm. No murmurs, gallops or rubs. He does have a pacemaker and AICD device in place. Abdomen is benign. No tenderness, rebound or guarding. He is status post appendectomy and colectomy. Extremities have 2+ pitting edema. Cranial nerves, motor and sensory intact. Results 06/09/18 04:00 06/09/18 04:00 Lab Results, Last 24 hours 06/09/18 06/09/18 06/09/18 04:00 04:00 07:57 WBC 5.4 Hgb 9.4 L Hct 29.1 L Plt Count 123 L INR 1.7 Sodium 139 Potassium 3.8 Chloride 103 Carbon Dioxide 30 H BUN 16 Creatinine 4.78 H Glucose 79 Calcium 8.7 Consult Discharge Plan - Plan Referrals: Micah Mello MD [Primary Care Provider] -
--- NOTE | 2018-06-09 19:10 | Internal Med Progress Note ---
Hospitalist Progress Note - Encounter Date of Encounter: 06/09/18 Time of Encounter: 11:00 - Subjective Interval History: Patient awaiting for INR to go below 2.0 for left heart catheterization INR 2.2 this morning - Exam Vitals: Temp Pulse Resp BP Pulse Ox 98.3 F 93 17 126/76 95 06/09/18 16:13 06/09/18 16:13 06/09/18 16:13 06/09/18 16:13 06/09/18 16:13 Exam: Gen.: Nonacute distress, alert and oriented 3 ENT: Mucosal membranes moist Respiratory: Lungs are clear to auscultation bilaterally without any wheezing rhonchi or rales Cardiovascular: Normal S1 and S2 regular rate rhythm no murmurs rubs or gallops Abdomen: Soft, nontender and nondistended with positive bowel sounds Extremities: No lower extremity edema Skin: Normal color - Assessment and Plan (1) NSTEMI (non-ST elevated myocardial infarction) Current Visit: Yes Status: Acute Assessment and Plan: Patient presented with chest pain, atypical. Per ER notes, EKG showed no acute ischemic changes. Serial troponins have been elevated with maximum troponin of 4.16, currently trending down to 1.32. Left heart catheterization today revealed triple-vessel disease with left main disease with good distal vessels ejection fraction on echocardiogram was 25%. Discussion was held with patient by fashion journalist about CABG but patient declined. Monitor left heart catheterization site overnight with potential discharge on (2) End-stage renal disease on hemodialysis Current Visit: Yes Status: Chronic Assessment and Plan: Nephrology has been consulted for dialysis needs. (3) Essential hypertension Current Visit: Yes Status: Chronic Assessment and Plan: Blood pressure well controlled. Continue current medications. (4) Coronary artery disease Current Visit: Yes Status: Chronic Assessment and Plan: Continue home medications. Patient is on aspirin, Plavix, statin, beta sarabjit and lisinopril. (5) Chronic atrial fibrillation Current Visit: Yes Status: Chronic Assessment and Plan: Currently rate controlled. Continue beta sarabjit and telemetry monitoring. Continue long-term anticoagulation with Coumadin, monitor INR closely. (6) Combined systolic and diastolic heart failure Current Visit: Yes Status: Chronic Assessment and Plan: Echocardiogram showed severely reduced EF of 25%, global systolic dysfunction, indeterminate diastolic function, moderate TR, severe pulmonary hypertension, no LV thrombus. Patient has AICD/pacemaker placement. Continue current medications and telemetry monitoring. (7) Chronic respiratory failure Current Visit: Yes Status: Chronic Assessment and Plan: Noted to be on 2 L/m supplemental home oxygen due to underlying COPD and CHF. DVT Prophylaxis: Will restart patient's Coumadin with pharmacy to dose - Time Spent with Patient Total time spent is greater than 50% in coordination of care (as documented) at patient's floor/unit and/or counseling patient: Internal Medicine: Result - Labs CBC & Chem 7: 06/09/18 04:00 06/09/18 04:00 Labs: Short CBC 06/09/18 Range/Units 04:00 WBC 5.4 (4.3-11.1) K/mcL Hgb 9.4 L (12.9-16.9) g/dL Hct 29.1 L (37.5-50.1) % Plt Count 123 L (140-400) K/mcL Neutrophils # 3.4 (1.6-8.9) K/mcL BMP 06/09/18 04:00 Sodium 139 Potassium 3.8 Chloride 103 Carbon Dioxide 30 H BUN 16 Creatinine 4.78 H Glucose 79 Calcium 8.7 - ABG Interpretation ABG results: PT/INR, D-dimer PT 19.5 Seconds (9.4-12.1) H 06/09/18 07:57 Consult Discharge Plan - Plan Referrals: Micah Mello MD [Primary Care Provider] - (4) Coronary artery disease Qualifiers: Coronary Disease-Associated Artery/Lesion type: elim ira artery [place] vs. transplanted heart: elim ira heart Associated angina: without angina Qualified Code(s): I25.10 - Atherosclerotic heart disease of elim ira coronary artery without angina pectoris (6) Combined systolic and diastolic heart failure Qualifiers: Heart failure chronicity: chronic Qualified Code(s): I50.42 - Chronic combined systolic (congestive) and diastolic (congestive) heart failure (7) Chronic respiratory failure Qualifiers: Respiratory failure complication: hypoxia Qualified Code(s): J96.11 - Chronic respiratory failure with hypoxia
[2018-06-09] MEDS ORDERED: Warfarin perPT PO PRN (19:30)
[2018-06-09] MEDS ORDERED: *HR* Warfarin 4 MG TABLET PO ONE (19:58)
[2018-06-10 04:38] LABS: Basophils # 0.1 K/mcL (0.0-0.2); Basophils % 1.2 %; Eosinophils # 0.3 K/mcL (0.0-0.6); Eosinophils % 4.3 %; Hematocrit 29.7 % (37.5-50.1); Hemoglobin 9.5 g/dL (12.9-16.9); Immature Granulocytes % 0.3 % (0-4); Lymphocytes # 0.9 K/mcL (0.6-4.6); Lymphocytes % 14.2 %; Mean Corpuscular Hemoglobin 31.5 pg (28.0-33.3); Mean Corpuscular Volume 98.3 fL (83.0-100.0); Mean Platelet Volume 10.4 fL (9.4-12.4); Monocytes # 0.7 K/mcL (0.0-1.3); Monocytes % 11.5 %; Neutrophils # 4.2 K/mcL (1.6-8.9); Platelet Count 117 K/mcL (140-400); Red Blood Count 3.02 M/mcL (4.19-5.50); Red Cell Distribution Width 15.5 % (11.5-14.5); Segmented Neutrophils % 68.5 %
[2018-06-10 04:44] LABS: INR 1.6; Prothrombin Time 17.6 Seconds (9.4-12.1)
[2018-06-10 04:57] LABS: Calcium 8.8 mg/dL (8.6-10.3)
[2018-06-10] MEDS: Tiotropium 18 MCG inhalation IH SCH (07:50)
--- NOTE | 2018-06-10 07:57 | Event Note ---
Date of Encounter: 06/15/18 Time of Encounter: 08:00 - Cardiology Event Note Erika cardiac surgery declined patient for CABG given very high risk and recommended medical therapy, high risk PCI, or referral to tertiary center. Reviewed cardiac catheterization and echo, left main 60%, RCA 99% with left to right collaterals, EF 25%; there maybe some degree of CAD - CHF mismatch as cardiomyopathy seems somewhat disproportional to the amount of disease. ESRD patient with chronic anemia on coumadin. Left main stent would tend to require chcf DAPT. Will discuss options with patient.
[2018-06-10] MEDS ORDERED: 0.9 % Sodium Chloride 250 ML IVC PRN (08:07)
[2018-06-10] MEDS: Aspirin Enteric Coated 81 MG Tablet PO SCH (08:22)
[2018-06-10] MEDS: Calcium Acetate 667 MG CAPSULE PO SCH ×2 (08:22→13:17)
[2018-06-10] MEDS: Diltiazem CD (24hr) 180 MG CAPSULE PO SCH (08:23)
[2018-06-10] MEDS: Renal Vitamin 1 CAP CAPSULE PO SCH (08:23)
[2018-06-10] MEDS ORDERED: 0.9 % Sodium Chloride 2,000 ML ONE (09:07)
--- NOTE | 2018-06-10 10:07 | Nephrology Progress Note ---
Date of Encounter: 06/10/18 Time of Encounter: 10:04 - Assessment and Plan (1) End-stage renal disease on hemodialysis Current Visit: Yes Status: Chronic HD in progress today. Renal diet when diet resumed Avoid nephrotoxins if possible Patient confirms he would like to transfer to our group; requests [facility] for outpatient dialysis unit; would like MWF chair time if possible due to transportation by others; consult placed to social work professor to get release of records and chair time. (2) NSTEMI (non-ST elevated myocardial infarction) Current Visit: Yes Status: Acute Per cardiology LHC completed 06/09/18. Dr. Pelaez evaluated patient for possible CABG. Pt does not want to proceed with a CABG at this time. Dr. Pelaez did state he thought he should go to [facility] if OHS is needed. (3) Anemia Current Visit: Yes Status: Chronic Hgb 9.5 today. Goal Hgb 10-11 Transfuse per parameters. Qualifiers: Anemia type: due to chronic kidney disease Chronic kidney disease stage: on chronic dialysis Qualified Code(s): N18.6 - End stage renal disease; D63.1 - Anemia in chronic kidney disease; Z99.2 - Dependence on renal dialysis Subjective Principal diagnosis: NSTEMI Interval history: Pt seen and examined during HD, tolerating well. Denies CP or shortness of breath. Objective - Vital Signs Vital signs: Vital Signs Temp Pulse Resp BP Pulse Ox 06/10/18 08:01 99.3 F 86 18 119/77 97 06/10/18 07:50 14 97 06/10/18 05:10 98.7 F 90 18 149/73 98 06/09/18 23:45 98.3 F 90 18 135/97 97 06/09/18 19:25 98.3 F 89 20 119/66 98 06/09/18 16:13 98.3 F 93 17 126/76 95 06/09/18 13:45 97.2 F L 82 18 123/71 99 06/09/18 13:15 97.2 F L 82 18 124/72 99 06/09/18 12:45 97.2 F L 77 16 123/71 99 06/09/18 12:30 97.2 F L 79 18 130/74 99 06/09/18 12:12 97.7 F 87 18 134/77 95 Intake and Output 06/09/18 06/10/18 06/10/18 23:59 07:59 15:59 Intake Total 120 / 120 800 / 800 Output Total 500 / 500 Balance 120 / 120 300 / 300 Intake: Oral 120 / 120 800 / 800 Output: Urine 500 / 500 Other: Meal Dinner Percent of Meal Consumed 90% Weight 97.1 kg - General Appearance General appearance: Present: well-developed, well-nourished EENT: Present: ATNC, hearing intact, vision intact Neck: Present: supple Respiratory: Present: clear Cardiology: Present: no edema, normal S1, normal S2 Dialysis Vascular Access: Arteriovenous Fistula thrill: Yes bruit: Yes Gastrointestinal: Present: normoactive bowel sounds, no tenderness, no guarding Integumentary: Present: no rash, warm and dry Neurologic: Present: alert and oriented x3 Psychiatric: Present: mood/affect appropriate, cooperative - Lab 06/10/18 04:03 06/10/18 04:03 Most recent lab results Calcium 8.8 mg/dL (8.6-10.3) 06/10/18 04:03 Phosphorus 2.8 mg/dL (2.7-4.5) 06/07/18 05:03 Magnesium 2.2 mg/dL (1.6-2.6) 06/04/18 05:50 Consult Discharge Plan - Plan Referrals: Micah Mello MD [Primary Care Provider] -
--- NOTE | 2018-06-10 10:38 | Cardiology Progress Note ---
Date of Encounter: 06/10/18 Time of Encounter: 10:00 Assessment and Plan (1) NSTEMI (non-ST elevated myocardial infarction) Current Visit: Yes Status: Acute Per cardiology: -Presented with chest pain, similar to previous angina prior to PCI. Reported h /o 7 cardiac stents. Last [facility] at [place] in the past 5 years ago without intervention. -Troponins 0.1, 2.35, 4.16, 3.73, 1.32. -ECG shows atrial fibrillation with RVR, RBBB, no acute ST changes. Repeat ECG shows AV pacing. -Denies current chest pain. -On asa, statin, BB, plavix, and coumadin (DVT, PAF) at home. -TTE with LVEF 25%, known ischemic cardiomyopathy. [facility] 06/09/18: severe 3vCAD, EF 35%; 60% pLMCA stenosis; 40% mLAD stenosis; 80% ISR in the 1stOM; 90% in the mRCA, 99% dRCA, distal RCA has left to right collaterals CT Surgery consulted, deemed high risk candidate due to ischemic cardiomyopathy with reduced LVEF and ESRD on HD; high risk PCI of LMCA vs. medical therapy recommended. If would proceed with CABG, CT surgery has recommended to be transferred to tertiary care center, [facility] vs[facility] [place]. Of note, primary Psychological Stress Evaluator at [place]. Discussed with Dr. Owens, patient would be on triple therapy (asa, plavix, coumadin) if would proceed with LM stent which is not favorable d/t history of chronic anemia. Discussed medical therapy with patient. At this point, patient is undecided, will further discuss with Dr. Owens today to formulate plan. (2) Ischemic cardiomyopathy Current Visit: Yes Status: Chronic Per cardiology: -Known ICM, s/p AICD. Denies prior AICD shocks. -TTE this admission with LVEF 25%. Severe global LV systolic dysfunction. Mild to moderately dilated RV with mild reduction in function. Bi-atrial enlargement. Mild mitral regurgitation. Moderate tricuspid regurgitation. Severe pulmonary hypertension. Mild pulmonic regurgitation. Aneurysmal interatrial septum. The IVC is dilated. -On BB and Chandu inhibitor. -Mild volume overload upon exam (LE edema) -s/p [facility] yesterday (see above) -Appreciate nephrology assistance with fluid status. -Strict I/os, fluid restriction 1.5L/day, daily weights. (3) PAF (paroxysmal atrial fibrillation) Current Visit: Yes Status: Chronic Per cardiology: -Known PAF. -ON BB, and CCB per primary construction field engineer. -On coumadin for a.fib and for history of DVT, Coumadin restarted, goal INR 2-3 -HR controlled. -With ICM, would not recommend cardizem. However, patient's primary construction field engineer has placed patient on. Will have patient discuss with primary construction field engineer (Pete) after discharge. (4) End-stage renal disease on hemodialysis Current Visit: Yes Status: Chronic Per cardiology: -Known ESRD on HD. -HD today, appreciate Nephrology recommendations. -Management per primary and nephrology services. Discussion w patient/family: The assessment and plan as outlined above was discussed with the patient and/or family members who expressed understanding and agreement. All questions were answered. Thank you for involving us in the care of your patient. Please call with any questions. The patient will be discussed and reviewed with Dr. Owens; changes to be made accordingly. Subjective Principal diagnosis: NSTEMI Interval history: Seen and examined during hemodialysis today. No chest pain reported today or overnight. No issues with [facility] access site. No symptoms of fatigue or shortness of breath during dialysis. Long discussion regarding plan of care (see Dr. Owens's event note) Of note, patient reports depression that has had for "years," however has not discussed with HCP nor is he on medication to treat. Updated primary team, Dr. Avelar, to further evaluate. Objective Vital Signs, Last 4 Hours Temp Pulse Resp BP Pulse Ox 06/10/18 08:01 99.3 F 86 18 119/77 97 06/10/18 07:50 14 97 General: Conversant HEENT: Atraumatic, Normocephaly Cardiac: Reg Rate and Rhythm, Normal S1 and S2 Lungs: Normal Breath Sounds Neuro: Alert and responsive Abdomen: Soft Skin: No rashes noted on visualized skin Musculoskeletal: No Chest Wall Tenderness Extremities: Other (+2 pre-tibial edema) Other: right groin cath access site: dressing C/D/I, +2 distal pulses. No hematoma, oozing, or bleeding present. Results 06/10/18 04:03 06/10/18 04:03 Lab Results 06/10/18 06/10/18 06/10/18 04:03 04:03 04:03 WBC 6.1 Hgb 9.5 L Hct 29.7 L Plt Count 117 L INR 1.6 Sodium 138 Potassium 4.0 Chloride 102 Carbon Dioxide 28 BUN 23 Creatinine 6.13 H Glucose 91 Calcium 8.8 Active Medications Acetaminophen (Tylenol) 650 mg PO Q6HR PRN PRN Reason: Mild Pain/Fever Stop: 12/04/18 08:25 Hydrocodone Bitart/Acetaminophen ([place] 5-325 Mg) 1 tab PO BID PRN PRN Reason: Moderate Pain Stop: 12/04/18 10:02 Last Admin: 06/08/18 23:40 Dose: 1 tab Aspirin (Aspirin Ec) 81 mg PO DAILY [facility] Stop: 12/04/18 10:16 Last Admin: 06/10/18 08:22 Dose: 81 mg Atorvastatin Calcium (Lipitor) 80 mg PO HS [facility] Stop: 12/04/18 21:01 Last Admin: 06/09/18 21:07 Dose: 80 mg Calcium Acetate (Phos-Lo) 1,334 mg PO TIDWM [facility] Stop: 12/04/18 12:01 Last Admin: 06/10/18 08:22 Dose: 1,334 mg Carvedilol (Coreg) 12.5 mg PO BIDWM [facility] Stop: 12/04/18 10:16 Last Admin: 06/10/18 08:24 Dose: Not Given Clopidogrel Bisulfate (Plavix) 75 mg PO DAILY [facility] Stop: 12/04/18 10:16 Last Admin: 06/10/18 08:23 Dose: 75 mg Diltiazem HCl (Cardizem Cd) 180 mg PO DAILY [facility] Stop: 12/04/18 10:16 Last Admin: 06/10/18 08:23 Dose: 180 mg Docusate Sodium (Colace) 100 mg PO DAILY [facility] PRN Reason: Protocol Stop: 12/05/18 09:01 Last Admin: 06/10/18 08:22 Dose: 100 mg Guaifenesin (Robitussin/Dm) 10 ml PO Q6HR PRN PRN Reason: Cough Stop: 12/04/18 19:42 Last Admin: 06/07/18 08:52 Dose: 10 ml Guaifenesin (Mucinex) 600 mg PO BID PRN PRN Reason: Congestion Stop: 12/05/18 16:58 Sodium Chloride (0.9 % Sodium Chloride) 250 mls @ 937.5 mls/hr IVC .Q16M PRN PRN Reason: Hypotension Stop: 12/10/18 08:08 Lisinopril (Zestril) 10 mg PO BID KERRI PRN Reason: Protocol Stop: 12/04/18 10:16 Last Admin: 06/10/18 08:22 Dose: 10 mg Naloxone HCl (Narcan) 0.4 mg IVP Q2MIN PRN PRN Reason: SEE COMMENTS Stop: 12/04/18 08:25 Omeprazole (Prilosec) 20 mg PO DAILY@0630 [facility] Stop: 12/05/18 06:31 Last Admin: 06/10/18 06:14 Dose: 20 mg Ondansetron HCl (Zofran) 4 mg IVP Q4HR PRN; Protocol PRN Reason: nausea/vomiting Stop: 12/07/18 16:01 Tiotropium Matthews (Spiriva) 18 mcg IH DAILYR [facility] Stop: 12/09/18 10:01 Last Admin: 06/10/18 07:50 Dose: 18 mcg Vitamin B Complex/Vit C/Folic Acid (Renal Caps Softgel) 1 cap PO DAILY [facility] Stop: 12/05/18 09:01 Last Admin: 06/10/18 08:23 Dose: 1 cap Warfarin Sodium (Coumadin Perpt) 1 each PO DAILY@1800 PRN PRN Reason: SEE COMMENTS Stop: 12/09/18 19:31 - Imaging and Cardiology Echo: report reviewed Cardiac cath: report reviewed Other Results: 12 hour tele: avg HR=84 paced rhythm. - EKG Interpretation EKG results cardiology: personally reviewed Consult Discharge Plan - Plan Referrals: Micah Mello MD [Primary Care Provider] -
[2018-06-10 14:29] VITALS: BP 129/75
--- NOTE | 2018-06-10 14:41 | Discharge Summary ---
- NOTES TO OUTPATIENT PROVIDER Notes to Outpatient Provider: Patient to follow-up with human resources communications manager Dr. Oscar Colin as an outpatient Orders not resulted at time of discharge: Pending orders 06/11/18 04:00 PT/INR [Prothrombin Time INR] [COAG] AM 0400 06/12/18 04:00 PT/INR [Prothrombin Time INR] [COAG] AM 0400 06/13/18 04:00 PT/INR [Prothrombin Time INR] [COAG] AM 0400 06/14/18 04:00 PT/INR [Prothrombin Time INR] [COAG] AM 0400 06/15/18 04:00 PT/INR [Prothrombin Time INR] [COAG] AM 0400 06/16/18 04:00 PT/INR [Prothrombin Time INR] [COAG] AM 0400 06/17/18 04:00 PT/INR [Prothrombin Time INR] [COAG] AM 0400 06/18/18 04:00 PT/INR [Prothrombin Time INR] [COAG] AM 0400 Date of Encounter: 06/10/18 Time of Encounter: 11:00 - Discharge Diagnosis (1) NSTEMI (non-ST elevated myocardial infarction) Priority: Primary Status: Acute (2) End-stage renal disease on hemodialysis Priority: Secondary Status: Chronic (3) Essential hypertension Priority: Secondary Status: Chronic (4) Coronary artery disease Priority: Secondary Status: Chronic Qualifiers: Coronary Disease-Associated Artery/Lesion type: [place] artery [place] vs. transplanted heart: [place] heart Associated angina: without angina Qualified Code(s): I25.10 - Atherosclerotic heart disease of [place] coronary artery without angina pectoris (5) Chronic atrial fibrillation Priority: Secondary Status: Chronic (6) Combined systolic and diastolic heart failure Priority: Secondary Status: Chronic Qualifiers: Heart failure chronicity: chronic Qualified Code(s): I50.42 - Chronic combined systolic (congestive) and diastolic (congestive) heart failure (7) Chronic respiratory failure Priority: Secondary Status: Chronic Qualifiers: Respiratory failure complication: hypoxia Qualified Code(s): J96.11 - Chronic respiratory failure with hypoxia Hospital course: Patient is a 67-year-old male with past medical history significant for coronary artery disease with 7 prior stents, cardiomyopathy with AICD and pacemaker in place, COPD who presented to the ER with complaints of chest pain. In the ER, patient was found to have elevated troponins and was admitted to the medical surgical floor for ACS rule out. During patients hospital stay he was diagnosed with non-STEMI and cardiology was consulted with recommendations of left heart catheterization that revealed triple-vessel disease with left main disease with good distal vessels ejection fraction on echocardiogram was 25%. Patient was deemed as a high risk therefore patient and if he decided to go forward with CABG he will need to be transferred to [facility]. Patient discussed with human resources communications manager and declined CABG at this point. Patient will be discharged to follow-up with cardiology as an outpatient. - Time Spent with Patient Total time spent providing and/or coordinating discharge services: - Discharge Medications Home Medications: Aspirin [Lo-Dose Aspirin EC] 81 mg PO DAILY 03/26/17 [History] Atorvastatin Calcium [Lipitor] 80 mg PO HS 03/26/17 [History] Calcium Acetate [Phos-LO] 1,334 mg PO TIDWM 03/26/17 [History] Clopidogrel [Plavix] 75 mg PO DAILY 03/26/17 [History] Docusate [Colace] 100 mg PO DAILY 03/26/17 [History] HYDROcodone/Acet 5/325 mg [[place] 5-325 mg] 1 tab PO BID PRN 03/26/17 [History] Lisinopril [Zestril] 10 mg PO BID 03/26/17 [History] Multivit-Min/FA/Lycopen/Lutein [Men 50 Plus Multivitamin Tab] 1 tab PO DAILY [History] Oxygen 2 l NS CONT 03/26/17 [History] Pantoprazole Sodium [Protonix] 20 mg PO DAILY 03/26/17 [History] Tiotropium [Spiriva] 1 cap IH DAILY 03/26/17 [History] Niacin 250 mg PO DAILY #30 tablet 03/27/17 [Rx] Carvedilol 12.5 mg PO BID 06/04/18 [History] Diltiazem HCl [Diltiazem 24Hr Cd] 180 mg PO DAILY 06/04/18 [History] Warfarin Sodium 4 mg PO Q48H 06/04/18 [History] Warfarin [Coumadin] 3.5 mg PO Q48H 06/04/18 [History] Allergies/Adverse Reactions: 3 Allergy/AdvReac Type Severity Reaction Status Date / Time No Known Allergies Allergy Verified 03/26/17 05:27 Date of admission: 06/04/18 18:22 Primary care physician: Micah Mello MD Consults: 06/05/18 11:06 Consult to Cardiac Rehabilitation-Phase1 [CONS] Routine Comment: Reason for Consult: NSTEMI Call Completed: No 06/06/18 09:15 Consult to Dialysis [CONS] ONCE 06/08/18 07:37 Consult to Parks And Recreation Worker [CONS] Routine Reason for SW Consult: wants to change HD centers to [place] 06/08/18 07:45 Consult to Dialysis [CONS] ONCE 06/09/18 08:31 Consult to Parks And Recreation Worker [CONS] Stat Reason for SW Consult: Wants to transfer to our group; needs release of records and chair time at [facility]; requests MWF if poss d/t transportation 06/09/18 11:41 Consult to Cardiothoracic Surgery [CONS] Routine Consulting Provider: Cardiothoracic Surgery [place] Reason for Consult: CABG Time Notified: 11:40 Call Completed: No 06/10/18 08:15 Consult to Dialysis [CONS] ONCE - Constitutional Vitals: Temp Pulse Resp BP Pulse Ox 98.3 F 86 18 129/75 97 06/10/18 12:45 06/10/18 08:01 06/10/18 12:45 06/10/18 12:45 06/10/18 08:01 General appearance: Present: cooperative, mild distress, A&O X 3, answers questions appropriately Exam: see below - Cardiovascular Cardiovascular exam: Present: RRR, +S1, +S2. Absent: diastolic murmur, gallop, rubs, systolic murmur - Patient Status Disposition: Home, Self-Care Condition: Undetermined - Discharge Instructions Follow Up With: Micah Mello MD [Primary Care Provider] - 06/15/18 10:15 am (Please follow up as schedule....)
[2018-06-10] MEDS ORDERED: *HR* Warfarin 5 MG TABLET PO ONE (18:00)
== END 2018-06-10 17:07 | disposition home or self-care (01) | DRG 280 ==
LOC: EMEROOARM 05:34 → 2ANU 05:34 → SUATTDRO 18:22
PROVIDERS: ADMIT Internal Medicine; ATTEND Hospitalist

== ENCOUNTER 2018-06-23 09:04 | Observation (INO) ==
[2018-06-23] MEDS ORDERED: Aspirin 81 MG TAB.CHEW PO ONE (09:12)
--- NOTE | 2018-06-23 09:19 | Emergency Department Note ---
Disposition Clinical Impression: ESRD (end stage renal disease), Chronic anemia, NSTEMI (non-ST elevated myocardial infarction), Thrombocytopenia Disposition: Admitted As Inpatient Condition: Fair Referrals: Micah Mello MD [Primary Care Provider] - Forms: ED Satisfaction Letter Chest Pain HPI - General Chief Complaint: ED Chest Pain Stated Complaint: chest pain Time Seen by Provider: 06/23/18 09:12 Source: patient, EMS Limitations: no limitations - History of Present Illness HPI Narrative: 67-year-old male history of renal failure requiring dialysis, hypertension, CAD with a stent placed last week who presents to the ER via EMS from dialysis with a complaint of chest pain and shortness of breath. The patient states his chest pain started at dialysis and lasted for approximately 30-45 minutes. Describes it as a squeezing sensation in his chest. Also states he felt short of breath during that time. Symptoms abated prior to arrival. The patient did not receive anything in transit. EMS reports his heart rate did drop to as low as 24 at one point and his blood pressure was 78 systolic however he was mentating appropriately during all of that. At the time of arrival the patient voices no complaints in terms of chest pain or shortness of breath. States it was a different sensation than his chest pain that resulted in a stent one week ago. Severity scale (1-10): 0 - Related Data Home Medications Medication Instructions Recorded Confirmed Aspirin [Lo-Dose Aspirin EC] 81 mg PO DAILY 03/26/17 06/23/18 Atorvastatin Calcium [Lipitor] 80 mg PO HS 03/26/17 06/23/18 Calcium Acetate [Phos-LO] 1,334 mg PO TIDWM 03/26/17 06/23/18 Clopidogrel [Plavix] 75 mg PO DAILY 03/26/17 06/23/18 Docusate [Colace] 100 mg PO DAILY 03/26/17 06/23/18 HYDROcodone/Acet 5/325 mg [[place] 1 tab PO BID PRN 03/26/17 06/23/18 5-325 mg] Lisinopril [Zestril] 10 mg PO BID 03/26/17 06/23/18 Multivit-Min/FA/Lycopen/Lutein 1 tab PO DAILY 03/26/17 06/23/18 [Men 50 Plus Multivitamin Tab] Oxygen 2 l NS CONT 03/26/17 06/23/18 Pantoprazole Sodium [Protonix] 20 mg PO DAILY 03/26/17 06/23/18 Tiotropium [Spiriva] 1 cap IH DAILY 03/26/17 06/23/18 Carvedilol 12.5 mg PO BID 06/04/18 06/23/18 Diltiazem HCl [Diltiazem 24Hr Cd] 180 mg PO DAILY 06/04/18 06/23/18 Warfarin Sodium 4 mg PO Q48H 06/04/18 06/23/18 Warfarin [Coumadin] 3.5 mg PO Q48H 06/04/18 06/23/18 Previous Rx's Medication Instructions Recorded Niacin 250 mg PO DAILY #30 tablet 03/27/17 Allergies Allergy/AdvReac Type Severity Reaction Status Date / Time No Known Allergies Allergy Verified 03/26/17 05:27 All systems ED: reviewed and negative except as stated. Constitutional: Denies: fever, chills Cardiovascular: Reports: chest pain Respiratory: Reports: cough, dyspnea Gastrointestinal: Denies: abdominal pain, nausea, vomiting Chest Pain PMH - Past Medical History Medical history: Reports: atrial fibrillation, cardiomyopathy, COPD, coronary artery disease, dialysis, GERD, hyperlipidemia, hypertension, myocardial infarction, renal disease Surgical history: Reports: knee replacement, other Psychiatric history: Reports: no psych history - Social History Smoking Status: Former smoker Alcohol use: Reports: rarely Drug use: Reports: none Physical Exam - General Limitations: no limitations General appearance: alert, in no apparent distress - Head Head exam: atraumatic, normocephalic - Eye Eye exam: Present: normal appearance - ENT ENT exam: normal exam - Neck Neck exam: Present: normal inspection - Chest Chest inspection: Present: normal inspection, symmetric chest wall rise - Respiratory Respiratory exam: Present: other (Diminished breath sounds bilaterally) - Cardiovascular Cardiovascular exam: Present: regular rate, normal rhythm, normal heart sounds - Abdominal Exam Abdominal exam: Present: soft, Non-Tender, other (Old ventral vertical incision) . Absent: tenderness, distention, rigidity - Extremities Exam Extremities exam: Present: normal inspection, full ROM - Expanded Upper Extremity Exam Shoulder exam: Present: normal inspection, full ROM Arm exam: Present: normal inspection, full ROM Elbow exam: Present: normal inspection, full ROM Forearm/Wrist exam: Present: normal inspection, full ROM, other (Right AV fistula is patent with palpable thrill) Hand exam: Present: normal inspection, full ROM - Expanded Lower Extremity Exam Hip/Pelvis exam: Present: normal inspection, full ROM Upper leg exam: Present: normal inspection, full ROM Knee exam: Present: normal inspection, full ROM Lower leg exam: Present: normal inspection, full ROM Ankle exam: Present: normal inspection, full ROM Foot/toe exam: Present: normal inspection, full ROM - Skin Skin exam: Present: warm Course Course Narrative: Patient seen and examined at time of arrival. He is currently symptom-free. Plan for EKG, chest x-ray, labs including troponin. The patient will require admission for serial troponin testing given his recent stent placement and concerning symptoms. - Reevaluation(s) Reevaluation #1: Discussed results of imaging labs with the patient. Agreeable with admission. Plan to start him on heparin. He denies any bleeding in terms of hematuria, hematochezia, melena, hemoptysis. - Consultations Consultation #1: I spoke with the on-call soa integration developer. Discussed the patient's history as well as imaging labs and concerns for elevated troponin in the setting of renal failure. They recommend given the fact that his INR is subtherapeutic to start him on heparin. They will see the patient in consultation. Vital Signs Temperature 99.1 F 06/23/18 09:07 Pulse Rate 77 06/23/18 09:07 Respiratory Rate 18 06/23/18 09:07 Blood Pressure 102/73 06/23/18 09:07 O2 Sat by Pulse Oximetry 98 06/23/18 09:07 Temperature 99.1 F 06/23/18 09:07 Pulse Rate 77 06/23/18 09:07 Respiratory Rate 18 06/23/18 09:07 Blood Pressure 102/73 06/23/18 09:07 O2 Sat by Pulse Oximetry 98 06/23/18 09:31 Oxygen Delivery Oxygen Delivery Nasal Cannula Chest Pain - MDM Narrative Medical decision making narrative: 67-year-old male with CAD, ESRD, cardiomyopathy who presents with chest pain. Initially bradycardic and hypotensive which resolved prior to arrival. EKG is paced. Asymptomatic at this time. Labs demonstrate mostly chronic findings with an elevated troponin of 1 in the setting of renal failure. Case discussed with cardiology who recommended heparin drip. The patient is admitted to the hospitalist service with cardiology consultation. - Medical Records Medical records reviewed: Yes I reviewed the patient's medical records. The patient was recently admitted at which point he had an NSTEMI The patient had a left heart catheterization 06/09/18 with results below. * Left Main Coronary Artery There is a 60% stenosis in the Proximal LMCA. 45mm pressure drop. * Left Anterior Descending There is a 40% stenosis in the Mid LAD. * Circumflex There is a 80% in stent re- stenosis in the 1st Marginal. * Right Coronary Artery There is a 90% stenosis in the Mid RCA. There is a 99% stenosis in the Distal RCA. Distal RCA has Left to Right collaterals. Echo 06/04/18 Impressions: LVEF 25%. Severe global LV systolic dysfunction. Indeterminate diastolic function. There is no LV thrombus. Definity echo contrast was used. LV chamber size upper limits of normal. Mild to moderately dilated RV with mild reduction in function. Bi-atrial enlargement. Mild mitral regurgitation. Moderate tricuspid regurgitation. Severe pulmonary hypertension. Mild pulmonic regurgitation. A device lead was visualized in the right atrium and right ventricle. Aneurysmal interatrial septum. The IVC is dilated. He was also evaluated by cardiothoracic surgery felt to be a high risk candidate to manage medically at this time. - Lab Data Lab results reviewed: Yes I reviewed the patient's lab results. Result diagrams: 06/23/18 09:30 06/23/18 09:30 Lab Results 06/23/18 06/23/18 06/23/18 Range/Units 09:30 09:30 09:30 WBC 6.3 (4.3-11.1) K/mcL RBC 2.94 L (4.19-5.50) M/mcL Hgb 9.2 L (12.9-16.9) g/dL Hct 28.5 L (37.5-50.1) % MCV 96.9 (83.0-100.0) fL MCH 31.3 (28.0-33.3) pg MCHC 32.3 (31.6-35.5) g/dL RDW 16.8 H (11.5-14.5) % Plt Count 132 L (140-400) K/mcL MPV 10.4 (9.4-12.4) fL Immature Gran % 0.5 (0-4) % Seg Neutrophils % 67.4 % Lymphocytes % 14.8 % Monocytes % 12.6 % Eosinophils % 3.6 % Basophils % 1.1 % Neutrophils # 4.3 (1.6-8.9) K/mcL Lymphocytes # 0.9 (0.6-4.6) K/mcL Monocytes # 0.8 (0.0-1.3) K/mcL Eosinophils # 0.2 (0.0-0.6) K/mcL Basophils # 0.1 (0.0-0.2) K/mcL PT (9.4-12.1) Seconds INR Sodium 136 (136-145) mEq/L Potassium 3.5 (3.5-5.1) mEq/L Chloride 98 (98-107) mEq/L Carbon Dioxide 28 (23-29) mEq/L BUN 12 (8-23) mg/dL Creatinine 4.15 H (0.70-1.30) mg/dL Est GFR ( Amer) 17 L (> 60) Est GFR (Non-Af Amer) 14 L (> 60) BUN/Creatinine Ratio 3 L (6-26) Glucose 94 (70-105) mg/dL Calculated Osmolality 282 (280-300) Calcium 8.3 L (8.6-10.3) mg/dL Troponin I 1.00 H* (< 0.04) ng/mL B-Natriuretic Peptide 4251 H (Less than 100) pg/mL 06/23/18 Range/Units 09:30 WBC (4.3-11.1) K/mcL RBC (4.19-5.50) M/mcL Hgb (12.9-16.9) g/dL Hct (37.5-50.1) % MCV (83.0-100.0) fL MCH (28.0-33.3) pg MCHC (31.6-35.5) g/dL RDW (11.5-14.5) % Plt Count (140-400) K/mcL MPV (9.4-12.4) fL Immature Gran % (0-4) % Seg Neutrophils % % Lymphocytes % % Monocytes % % Eosinophils % % Basophils % % Neutrophils # (1.6-8.9) K/mcL Lymphocytes # (0.6-4.6) K/mcL Monocytes # (0.0-1.3) K/mcL Eosinophils # (0.0-0.6) K/mcL Basophils # (0.0-0.2) K/mcL PT 15.1 H (9.4-12.1) Seconds INR 1.3 Sodium (136-145) mEq/L Potassium (3.5-5.1) mEq/L Chloride (98-107) mEq/L Carbon Dioxide (23-29) mEq/L BUN (8-23) mg/dL Creatinine (0.70-1.30) mg/dL Est GFR ( Amer) (> 60) Est GFR (Non-Af Amer) (> 60) BUN/Creatinine Ratio (6-26) Glucose (70-105) mg/dL Calculated Osmolality (280-300) Calcium (8.6-10.3) mg/dL Troponin I (< 0.04) ng/mL B-Natriuretic Peptide (Less than 100) pg/mL - Radiology Data Radiology results reviewed: Yes I reviewed the patient's radiology results. Chest X-Ray 06/23/18 09:12 IMPRESSION: Questionable small pleural effusions with adjacent atelectasis. Stable cardiomegaly and pulmonary vascular congestion. D/ / Yuliet Red MD / Yuliet Red MD Interpreting Provider: Yuliet Red MD - EKG Data EKG attestation: Yes I reviewed and interpreted this EKG. EKG results narrative: EKG demonstrates a ventricularly paced rhythm with a rate of 72 bpm. No evidence meeting sgarbossa criteria Heart Score - Score History: Moderately Suspicious EKG: Non Specific repolarisation Disturbance Age: Greater than 65 Risk Factors: Equal/Greater than 3 risk factor or history of atherosclerotic disease () Troponin: Greater than 3x normal limit HEART Score Total: 8 S.B.A.R. - S.B.A.R. Situation: Demographics, MOA Background: Presenting Complaint, Relevant PMH, Meds, & Allergies Assessment: Vital Signs, Course and respsone to treatment, Exam Concerns, Patient/Family Expectation, Pertinant Lab Results Recommendation: Barrier(s) to disposition, Recommendation based on pending studies, treatments, or consults S.B.A.R. Report Given to: Dr. Eric Retana Repor Time: 10:52
--- NOTE | 2018-06-23 09:21 | Emergency Department Note ---
Disposition Clinical Impression: ESRD (end stage renal disease), Chronic anemia, NSTEMI (non-ST elevated myocardial infarction), Thrombocytopenia Disposition: Admitted As Inpatient Condition: Fair General Adult HPI - General Chief complaint: ED Chest Pain Stated complaint: chest pain Time Seen by Provider: 06/23/18 09:12 Source: patient, EMS Limitations: no limitations - History of Present Illness Pain Scale: 0 - Related Data Home Medications Medication Instructions Recorded Confirmed Aspirin [Lo-Dose Aspirin EC] 81 mg PO DAILY 03/26/17 06/23/18 Atorvastatin Calcium [Lipitor] 80 mg PO HS 03/26/17 06/23/18 Calcium Acetate [Phos-LO] 1,334 mg PO TIDWM 03/26/17 06/23/18 Clopidogrel [Plavix] 75 mg PO DAILY 03/26/17 06/23/18 Docusate [Colace] 100 mg PO DAILY 03/26/17 06/23/18 HYDROcodone/Acet 5/325 mg [[place] 1 tab PO BID PRN 03/26/17 06/23/18 5-325 mg] Lisinopril [Zestril] 10 mg PO BID 03/26/17 06/23/18 Multivit-Min/FA/Lycopen/Lutein 1 tab PO DAILY 03/26/17 06/23/18 [Men 50 Plus Multivitamin Tab] Oxygen 2 l NS CONT 03/26/17 06/23/18 Pantoprazole Sodium [Protonix] 20 mg PO DAILY 03/26/17 06/23/18 Tiotropium [Spiriva] 1 cap IH DAILY 03/26/17 06/23/18 Carvedilol 12.5 mg PO BID 06/04/18 06/23/18 Diltiazem HCl [Diltiazem 24Hr Cd] 180 mg PO DAILY 06/04/18 06/23/18 Warfarin Sodium 4 mg PO Q48H 06/04/18 06/23/18 Warfarin [Coumadin] 3.5 mg PO Q48H 06/04/18 06/23/18 Previous Rx's Medication Instructions Recorded Niacin 250 mg PO DAILY #30 tablet 03/27/17 Allergies Allergy/AdvReac Type Severity Reaction Status Date / Time No Known Allergies Allergy Verified 03/26/17 05:27 Past Medical History - Past Medical History Medical history: Reports: atrial fibrillation, cardiomyopathy, COPD, coronary artery disease, dialysis, GERD, hyperlipidemia, hypertension, myocardial infarction, renal disease Surgical history: Reports: knee replacement, other Psychiatric history: Reports: no psych history - Social History Smoking Status: Former smoker Smokeless Tobacco Status: No Alcohol use: Reports: rarely Drug use: Reports: none Physical Exam - General Limitations: no limitations General appearance: alert, in no apparent distress Course Vital Signs Temperature 99.1 F 06/23/18 09:07 Pulse Rate 77 06/23/18 09:07 Respiratory Rate 18 06/23/18 09:07 Blood Pressure 102/73 06/23/18 09:07 O2 Sat by Pulse Oximetry 98 06/23/18 09:07 Temperature 99.1 F 06/23/18 09:07 Pulse Rate 89 06/23/18 11:42 Respiratory Rate 18 06/23/18 11:42 Blood Pressure 115/65 06/23/18 11:42 O2 Sat by Pulse Oximetry 100 06/23/18 11:42 Oxygen Delivery Oxygen Delivery Nasal Cannula Medical Decision Making - Lab Data Result diagrams: 06/23/18 10:40 06/23/18 09:30 Lab Results 06/23/18 06/23/18 06/23/18 Range/Units 09:30 09:30 09:30 WBC 6.3 (4.3-11.1) K/mcL RBC 2.94 L (4.19-5.50) M/mcL Hgb 9.2 L (12.9-16.9) g/dL Hct 28.5 L (37.5-50.1) % MCV 96.9 (83.0-100.0) fL MCH 31.3 (28.0-33.3) pg MCHC 32.3 (31.6-35.5) g/dL RDW 16.8 H (11.5-14.5) % Plt Count 132 L (140-400) K/mcL MPV 10.4 (9.4-12.4) fL Immature Gran % 0.5 (0-4) % Seg Neutrophils % 67.4 % Lymphocytes % 14.8 % Monocytes % 12.6 % Eosinophils % 3.6 % Basophils % 1.1 % Neutrophils # 4.3 (1.6-8.9) K/mcL Lymphocytes # 0.9 (0.6-4.6) K/mcL Monocytes # 0.8 (0.0-1.3) K/mcL Eosinophils # 0.2 (0.0-0.6) K/mcL Basophils # 0.1 (0.0-0.2) K/mcL PT (9.4-12.1) Seconds INR APTT (26.0-36.0) Seconds Heparin Anti-Xa, Unfract (0.30-0.70) IU/mL Sodium 136 (136-145) mEq/L Potassium 3.5 (3.5-5.1) mEq/L Chloride 98 (98-107) mEq/L Carbon Dioxide 28 (23-29) mEq/L BUN 12 (8-23) mg/dL Creatinine 4.15 H (0.70-1.30) mg/dL Est GFR ( Amer) 17 L (> 60) Est GFR (Non-Af Amer) 14 L (> 60) BUN/Creatinine Ratio 3 L (6-26) Glucose 94 (70-105) mg/dL Calculated Osmolality 282 (280-300) Calcium 8.3 L (8.6-10.3) mg/dL Troponin I 1.00 H* (< 0.04) ng/mL B-Natriuretic Peptide 4251 H (Less than 100) pg/mL 06/23/18 06/23/18 06/23/18 Range/Units 09:30 10:40 10:40 WBC 6.6 (4.3-11.1) K/mcL RBC 2.98 L (4.19-5.50) M/mcL Hgb 9.5 L (12.9-16.9) g/dL Hct 29.7 L (37.5-50.1) % MCV 99.7 (83.0-100.0) fL MCH 31.9 (28.0-33.3) pg MCHC 32.0 (31.6-35.5) g/dL RDW 16.9 H (11.5-14.5) % Plt Count 122 L (140-400) K/mcL MPV 10.4 (9.4-12.4) fL Immature Gran % (0-4) % Seg Neutrophils % % Lymphocytes % % Monocytes % % Eosinophils % % Basophils % % Neutrophils # (1.6-8.9) K/mcL Lymphocytes # (0.6-4.6) K/mcL Monocytes # (0.0-1.3) K/mcL Eosinophils # (0.0-0.6) K/mcL Basophils # (0.0-0.2) K/mcL PT 15.1 H (9.4-12.1) Seconds INR 1.3 APTT 29.0 (26.0-36.0) Seconds Heparin Anti-Xa, Unfract 0.02 L (0.30-0.70) IU/mL Sodium (136-145) mEq/L Potassium (3.5-5.1) mEq/L Chloride (98-107) mEq/L Carbon Dioxide (23-29) mEq/L BUN (8-23) mg/dL Creatinine (0.70-1.30) mg/dL Est GFR ( Amer) (> 60) Est GFR (Non-Af Amer) (> 60) BUN/Creatinine Ratio (6-26) Glucose (70-105) mg/dL Calculated Osmolality (280-300) Calcium (8.6-10.3) mg/dL Troponin I (< 0.04) ng/mL B-Natriuretic Peptide (Less than 100) pg/mL Attestation Statement - Attestation Attestation: I examined this patient and my medical decision-making was reviewed with the [employer]/PA/Advanced Practice Nurse/Resident Physician. I agree with the documented findings, disposition and treatment plan as described except to the extent set forth below. I did see the patient immediately upon arrival and also spoke with the paramedics and the patient was at dialysis and had onset of chest pain which he states is different than the pain he had last week when he had a cardiac stent for a NSTEMI and the paramedics do tell us that at one point his heart rate went to 24 bpm and blood pressure to 78 systolic. The patient is chest pain- free at this time. Evaluation in progress including chest x-ray, labs, troponin , BNP. I did review the EKG showing a paced rhythm with a rate of 72. Pt speaking normally and in no distess w SBP 108 [id number]
[2018-06-23 09:58] LABS: Basophils # 0.1 K/mcL (0.0-0.2); Basophils % 1.1 %; Eosinophils # 0.2 K/mcL (0.0-0.6); Eosinophils % 3.6 %; Hematocrit 28.5 % (37.5-50.1); Hemoglobin 9.2 g/dL (12.9-16.9); Immature Granulocytes % 0.5 % (0-4); Lymphocytes # 0.9 K/mcL (0.6-4.6); Lymphocytes % 14.8 %; Mean Corpuscular HGB Conc 32.3 g/dL (31.6-35.5); Mean Corpuscular Hemoglobin 31.3 pg (28.0-33.3); Mean Corpuscular Volume 96.9 fL (83.0-100.0); Mean Platelet Volume 10.4 fL (9.4-12.4); Monocytes # 0.8 K/mcL (0.0-1.3); Monocytes % 12.6 %; Neutrophils # 4.3 K/mcL (1.6-8.9); Platelet Count 132 K/mcL (140-400); Red Blood Count 2.94 M/mcL (4.19-5.50); Red Cell Distribution Width 16.8 % (11.5-14.5); Segmented Neutrophils % 67.4 %
[2018-06-23 10:00] LABS: INR 1.3; Prothrombin Time 15.1 Seconds (9.4-12.1)
[2018-06-23 10:01] LABS: Calcium 8.3 mg/dL (8.6-10.3); Potassium 3.5 mEq/L (3.5-5.1)
[2018-06-23] MEDS ORDERED: *HR* Heparin 5,000 UNIT/ML VIAL IVP ONE (10:40)
[2018-06-23] MEDS ORDERED: *HR* Heparin 5,000 UNIT/ML VIAL IVP PRN ×2 (10:40)
[2018-06-23] MEDS ORDERED: Heparin 25,000 UNIT/500 ML D5W 25,000 UNIT/500 ML BAG IVC SCH (10:45)
[2018-06-23 11:04] LABS: Hematocrit 29.7 % (37.5-50.1); Hemoglobin 9.5 g/dL (12.9-16.9); Mean Corpuscular Hemoglobin 31.9 pg (28.0-33.3); Mean Corpuscular Volume 99.7 fL (83.0-100.0); Mean Platelet Volume 10.4 fL (9.4-12.4); Platelet Count 122 K/mcL (140-400); Red Blood Count 2.98 M/mcL (4.19-5.50); Red Cell Distribution Width 16.9 % (11.5-14.5)
[2018-06-23 11:10] LABS: Heparin anti-factor XA UFH 0.02 IU/mL (0.30-0.70)
--- NOTE | 2018-06-23 13:36 | Cardiology Consult Note ---
<DonKamilla - Last Filed: 06/23/18 13:47> Date of Encounter: 06/23/18 Time of Encounter: 13:00 Assessment and Plan (1) Chest pain Current Visit: No Status: Acute Per cardiology: -Admitted with chest pain, different from previous. Atypical pain, occured at rest. Resolved spontaneously. Denies exertional symptoms. -Recent PCI [facility] on Wednesday -Denies current chest pain. -Troponin elevated. -Will continue to monitor. -Will obtain records from [facility]. Qualifiers: Chest pain type: unspecified Qualified Code(s): R07.9 - Chest pain, unspecified; R07.8 - Other chest pain (2) Elevated troponin Current Visit: Yes Status: Acute Per cardiology: -Troponin 1. Recent PCI Wednesday at [facility]. -Reports some atypical chest pain. -No acute ischemic ECG changes. -On asa plavix in outpatient setting. On heparin drip. -Cuirrenlty chest pain free. -Troponin elevation may be related to recent PCI. Continue to trend. -Continue heparin drip. -Continue home meds. (3) End-stage renal disease on hemodialysis Current Visit: No Status: Chronic Per cardiology: -Known ESRD on HD. -Management per primary service. (4) Coronary artery disease Current Visit: No Status: Chronic Per cardiology: -Known CAD [facility] 06/09/18: severe 3vCAD, EF 35%; 60% pLMCA stenosis; 40% mLAD stenosis; 80% ISR in the 1stOM; 90% in the mRCA, 99% dRCA, distal RCA has left to right collaterals. -Patient was deemed not a candidate for CABG at [facility]. Patient was admitted at [facility] and underwent PCI. -Continue home meds. Qualifiers: Coronary Disease-Associated Artery/Lesion type: [place] artery [place] vs. transplanted heart: [place] heart Associated angina: without angina Qualified Code(s): I25.10 - Atherosclerotic heart disease of [place] coronary artery without angina pectoris (5) Ischemic cardiomyopathy Current Visit: No Status: Chronic Per cardiology: -Known ICM. -TTE 05/2018 with LVEF 25%. -Has AICD. -Mild pedal edema noted, states chronic. -Denies increased shortness of breath. -On BB, EDI inhibitor. -Strict i/os, fluid restriction, daily weights. (6) PAF (paroxysmal atrial fibrillation) Current Visit: No Status: Chronic Per cardiology: -Known PAF. -On BB, coumadin for anticoagulation. Currently on heparin drip due to subtherapeutic INR. -Hr controlled. -Will hold coumadin for now, continue heparin drip. Discussion w patient/family: The assessment and plan as outlined above was discussed with the patient and/or family members who expressed understanding and agreement. All questions were answered. Thank you for involving us in the care of your patient. Please call with any questions. Discussed and reviewed with . History of Present Illness Consult date: 06/23/18 Requesting physician: Frank Weir Consult reason: elevated troponin Chief complaint: chest pain History of present illness: Mr. Velasquez is a 67 year old male with a relevant past medical history of CAD s/p NH and multiple PCIs (reported 8 stents), ischemic cardiomyopathy, AICD, a.fib, HTN, ESRD on HD, HLD, GERD, COPD O2 dependent, DVT s/p Taylor filter who presented to [facility] with complaints of chest pain. Patient reports was half way through his dialysis treatment, when he had chest "cramping/squeezing." Patient states this is different from his previous NH pain. Patient denies increased shortness of breath. Patient reports recent LHC and PCI at [facility]. Patient denies current chest pain. Past Med Surg Social Fam HX - Past Medical History Attestation: Yes The following information was validated with the patient. Source: patient, old records reviewed Medical history: atrial fibrillation, cardiomyopathy, CHF, COPD, coronary artery disease, dialysis, GERD, hyperlipidemia, hypertension, myocardial infarction, renal disease Additional medical history: stage IV RF. dialysis m-w-f. L arm AV fistula. on 3lnc at home Psychiatric history: no psych history - Past Surgical History Surgical History: knee replacement, other Additional surgical history: partial colectomy, Cardiac Stents - Social History Smoking Status: Former smoker Smokeless Tobacco Status: No Alcohol use: rarely Drug use: none Medications and Allergies Aspirin [Lo-Dose Aspirin EC] 81 mg PO DAILY 03/26/17 [History] Atorvastatin Calcium [Lipitor] 80 mg PO HS 03/26/17 [History] Calcium Acetate [Phos-LO] 1,334 mg PO TIDWM 03/26/17 [History] Clopidogrel [Plavix] 75 mg PO DAILY 03/26/17 [History] Docusate [Colace] 100 mg PO DAILY 03/26/17 [History] HYDROcodone/Acet 5/325 mg [[place] 5-325 mg] 1 tab PO BID PRN 03/26/17 [History] Lisinopril [Zestril] 10 mg PO BID 03/26/17 [History] Multivit-Min/FA/Lycopen/Lutein [Men 50 Plus Multivitamin Tab] 1 tab PO DAILY [History] Oxygen 2 l NS CONT 03/26/17 [History] Pantoprazole Sodium [Protonix] 20 mg PO DAILY 03/26/17 [History] Tiotropium [Spiriva] 1 cap IH DAILY 03/26/17 [History] Niacin 250 mg PO DAILY #30 tablet 03/27/17 [Rx] Carvedilol 12.5 mg PO BID 06/04/18 [History] Diltiazem HCl [Diltiazem 24Hr Cd] 180 mg PO DAILY 06/04/18 [History] Warfarin Sodium 4 mg PO Q48H 06/04/18 [History] Warfarin [Coumadin] 3.5 mg PO Q48H 06/04/18 [History] 3 Allergy/AdvReac Type Severity Reaction Status Date / Time No Known Allergies Allergy Verified 03/26/17 05:27 All Systems Review: The remainder of the systems were reviewed and are negative - Cardiovascular Cardiovascular: as per HPI, chest pain at rest Physical Examination Vital Signs, Last 4 Hours Temp Pulse Resp BP Pulse Ox 06/23/18 12:37 98.3 F 69 17 118/70 98 06/23/18 11:42 89 18 115/65 100 General: Conversant, No Apparent Distress HEENT: Atraumatic, Normocephaly, Mucus Membranes Moist Neck: No JVD, Normal carotid pulses Cardiac: Reg Rate and Rhythm, Normal S1 and S2, No Murmur Lungs: Normal Breath Sounds, No Wheeze, Rales, Rhonchi Neuro: Alert and responsive, No focal deficits noted Abdomen: Soft, Non-Tender Skin: No rashes noted on visualized skin Musculoskeletal: No Chest Wall Tenderness Extremities: No Clubbing, No Cyanosis, Normal Pulses, Other (Mild bilateral lower extremity edema noted, non-pitting. Right arm fistula noted. ) Results 06/23/18 10:40 06/23/18 09:30 Impressions Chest X-Ray 06/23/18 09:12 IMPRESSION: Questionable small pleural effusions with adjacent atelectasis. Stable cardiomegaly and pulmonary vascular congestion. D/ / Yuliet Red MD / Yuliet Red MD Interpreting Provider: Yuliet Red MD Active Medications Heparin Sodium (Porcine) (Heparin) 4,000 unit IVP Q6HR PRN PRN Reason: SEE COMMENTS Stop: 12/23/18 10:41 Heparin Sodium (Porcine) (Heparin) 2,000 unit IVP Q6H PRN PRN Reason: SEE COMMENTS Stop: 12/23/18 10:41 Heparin Sodium/Dextrose (Heparin 25,000 Unit/500 Ml D5w) 25,000 unit in 500 mls @ 19.95 mls/hr IVC .Q24H KERRI; 10.5 UNIT/KG/HR PRN Reason: Protocol Stop: 12/23/18 10:46 Last Admin: 06/23/18 11:28 Dose: 10.5 unit/kg/hr, 19.95 mls/hr Laboratory Tests 06/23/18 06/23/18 06/23/18 09:30 09:30 09:30 Hgb 9.2 L Plt Count 132 L Creatinine 4.15 H Troponin I 1.00 H* B-Natriuretic Peptide 4251 H 06/23/18 10:40 Hgb 9.5 L Plt Count 122 L Creatinine Troponin I B-Natriuretic Peptide - Imaging and Cardiology Chest Xray: report reviewed Echo: report reviewed Cardiac cath: report reviewed - EKG Interpretation EKG results cardiology: personally reviewed (ECG with paced rhythm, HR 72.) Consult Discharge Plan - Plan Referrals: Micah Mello MD [Primary Care Provider] - <Alexandr Cabrera - Last Filed: 06/24/18 09:03> Date of Encounter: 06/24/18 - Attending Attestation Patient was seen and evaluated independently by me 06/23/18 5pm. Findings, assessment and plan were discussed at length with patient, questions answered. Agree with nurse practitioner's documentation. Addition as follows, Imp: Episode likley triggered by rapid NS bolus for hypotension during HD, trop down trending . no recurrent chest discomfort P: awaiting [facility] cath/PCI record. Alexandr Cabrera MD, PhD Assessment and Plan Discussion w patient/family: The assessment and plan as outlined above was discussed with the patient and/or family members who expressed understanding and agreement. All questions were answered. Thank you for involving us in the care of your patient. Please call with any questions. History of Present Illness History of present illness: Mr. Velasquez is a 67 year old male Past Med Surg Social Fam HX - Family History Father Race: Family Member Ethnicity: Non- Living Status: Age at : 63 Cause of : [place] cancer Hx Family Cancer: Yes (Bone) Mother Race: Family Member Ethnicity: Non- Living Status: Age at : 82 Cause of : Heart valve failure Hx Family Cardiac Disorders: Yes (HD) Hx Family Cancer: Yes (Breast) Hx Family Autoimmune Disorders: Yes (Lupus) Brother Race: Family Member Ethnicity: Non- Living Status: Still Living Hx Family Respiratory Disorders: Yes (COPD/Emphysema) Sister Race: Family Member Ethnicity: Non- Living Status: Still Living Hx Family Cardiac Disorders: Yes (Heart valve prolapse) All Systems Review: The remainder of the systems were reviewed and are negative Physical Examination Vital Signs, Last 4 Hours Temp Pulse Resp BP Pulse Ox 06/24/18 08:30 97 06/24/18 08:00 98.2 F 75 16 119/54 97 Results 06/24/18 00:01 06/24/18 00:01 Lab Results 06/23/18 06/23/18 06/24/18 15:43 21:14 00:01 WBC 5.6 Hgb 8.8 L Hct 27.0 L Plt Count 110 L Sodium Potassium Chloride Carbon Dioxide BUN Creatinine Glucose Calcium Magnesium Total Bilirubin AST ALT Alkaline Phosphatase Troponin I 0.93 H* 0.70 H* 06/24/18 00:01 WBC Hgb Hct Plt Count Sodium 134 L Potassium 4.2 Chloride 97 L Carbon Dioxide 27 BUN 17 Creatinine 5.44 H Glucose 93 Calcium 8.4 L Magnesium 1.8 Total Bilirubin 0.9 AST 18 ALT 11 Alkaline Phosphatase 138 H Troponin I
[2018-06-23] MEDS ORDERED: Naloxone 0.4 MG/ML INJ IVP PRN (14:03)
[2018-06-23] MEDS ORDERED: Acetaminophen 325 MG TABLET PO PRN (14:03)
[2018-06-23] MEDS ORDERED: *HR* HYDROcodone/Acet 5/325 mg TABLET PO PRN ×2 (14:08→14:40)
--- NOTE | 2018-06-23 14:42 | Nephrology Consult Note ---
Date of Encounter: 06/23/18 Time of Encounter: 14:38 Assessment and Plan (1) End-stage renal disease on hemodialysis Current Visit: Yes Status: Chronic End-stage renal disease, hemodialysis dependent Patient is on Wednesday schedule, last hemodialysis today but did not complete Currently biochemically stable, does not appear to be overtly fluid overloaded at this time, but does have 1-2+ bilateral lower extremity edema and BNP of 4200 We will check on the patient tomorrow for possible hemodialysis versus ultrafiltration Continue to monitor (2) Elevated troponin Current Visit: Yes Status: Acute Atypical chest pain with elevated troponin, status post left heart catheterization with PCI on Wednesday Patient has been placed on heparin drip Management per primary team and cardiology (3) Chronic anemia Current Visit: Yes Status: Acute Chronic anemia, hemoglobin 9.5 Continue to monitor transfusion parameters per primary team History of Present Illness - Reason for Consult Consult date: 06/23/18 end stage renal disease Requesting physician: Nate Keller - Chief Complaint chest pain - History of Present Illness Mr. Velasquez is a 67-year-old gentleman with history of atrial disease on hemodialysis dialysis TTS, AICD plus pacer, COPD, CAD status post 7 stents in the past and most recently left heart catheter and PCI at [facility] on this past Wednesday06/20/18 who presented to [facility] ED with chest pain during dialysis.. The patient was recently admitted to [facility] 06/04/18 for similar chest pain at which time he had a left heart catheterization which demonstrated severe left main disease requiring CABG or high risk PCI. At that time it was recommended that he be evaluated at [facility]. The patient was discharged and then did go on to be evaluated at [facility]. He apparently proceeded to be discharged home following high-risk PCI at [facility] and was having hemodialysis today at which time he had chest pain. He returned to the ED for workup. The pain occurred at rest but also resolved with rest, it was atypical in nature. He is no longer symptomatic. He was found to have elevated troponin of 1. He also had elevated BNP of 4251. His labs were otherwise stable generally. Nephrology was consulted for management of end-stage renal disease and hemodialysis. Past Med Surg Social Fam HX - Past Medical History Medical history: atrial fibrillation, cardiomyopathy, CHF, COPD, coronary artery disease, dialysis, GERD, hyperlipidemia, hypertension, myocardial infarction, renal disease Additional medical history: stage IV RF. dialysis m-w-f. L arm AV fistula. on 3lnc at home Psychiatric history: no psych history - Past Surgical History Surgical History: knee replacement, other Additional surgical history: partial colectomy, Cardiac Stents - Social History Smoking Status: Former smoker Smokeless Tobacco Status: No Alcohol use: rarely Drug use: none Medications and Allergies Aspirin [Lo-Dose Aspirin EC] 81 mg PO DAILY 03/26/17 [History] Atorvastatin Calcium [Lipitor] 80 mg PO HS 03/26/17 [History] Calcium Acetate [Phos-LO] 1,334 mg PO TIDWM 03/26/17 [History] Clopidogrel [Plavix] 75 mg PO DAILY 03/26/17 [History] Docusate [Colace] 100 mg PO DAILY 03/26/17 [History] HYDROcodone/Acet 5/325 mg [[place] 5-325 mg] 1 tab PO BID PRN 03/26/17 [History] Lisinopril [Zestril] 10 mg PO BID 03/26/17 [History] Multivit-Min/FA/Lycopen/Lutein [Men 50 Plus Multivitamin Tab] 1 tab PO DAILY [History] Oxygen 2 l NS CONT 03/26/17 [History] Pantoprazole Sodium [Protonix] 20 mg PO DAILY 03/26/17 [History] Tiotropium [Spiriva] 1 cap IH DAILY 03/26/17 [History] Niacin 250 mg PO DAILY #30 tablet 03/27/17 [Rx] Carvedilol 12.5 mg PO BID 06/04/18 [History] Diltiazem HCl [Diltiazem 24Hr Cd] 180 mg PO DAILY 06/04/18 [History] Warfarin Sodium 4 mg PO Q48H 06/04/18 [History] Warfarin [Coumadin] 3.5 mg PO Q48H 06/04/18 [History] 3 Allergy/AdvReac Type Severity Reaction Status Date / Time No Known Allergies Allergy Verified 03/26/17 05:27 Review of Systems All Systems review (narrative): Constitutional: Denies fevers, chills, weight loss, generalized fatigue Head/Neck: Denies ROBERTS, neck stiffness EENT: Denies vision changes/blurriness, rhinorrhea, congestion, sore throat Admits to chest pains and shortness of breath which resolved spontaneously Pulm: Denies SOB, cough, sputum, hemoptysis, wheezing GI: Denies abdominal pain, nausea, vomiting, diarrhea, constipation, melena, hematemasis : Denies dysuria, increased frequency, urgency, hematuria Heme: Denies ease of bleeding or bruising MSK: Denies joint pain, limited ROM Skin: Denies rashes, ulcers, color changes Neuro: Denies ROBERTS, paresthesias, focal deficits, ataxia Exam - Vital Signs Vital signs: Initial Vital Signs Temp Pulse Resp BP Pulse Ox 99.1 F 77 18 102/73 98 06/23/18 09:07 06/23/18 09:07 06/23/18 09:07 06/23/18 09:07 06/23/18 09:07 Vital Signs - Last 8 Hours Temp Pulse Resp BP Pulse Ox 06/23/18 12:37 98.3 F 69 17 118/70 98 06/23/18 11:42 89 18 115/65 100 Intake and Output 06/22/18 06/23/18 06/23/18 23:59 07:59 15:59 Other: Weight 95.1 kg Patient Weight 06/23/18 23:59 Weight 95.1 kg - General Appearance General appearance: well-developed, well-nourished, appears started age EENT: ATNC, mucous membranes moist, hearing intact, vision intact Neck: no JVD, no thyromegaly, supple Respiratory: no kyphosis, no scoliosis, clear Cardiology: no murmurs, no rub, no gallops, no edema, regular rate, regular rhythm, normal S1, normal S2 - Dialysis Access Dialysis Vascular Access: Arteriovenous Fistula thrill: Yes bruit: Yes Additional Comments: Right forearm Gastrointestinal: no tenderness, no guarding, no organomegaly, no masses Integumentary: no rash, warm and dry Neurologic: no focal deficit, alert and oriented x3 Musculoskeletal: no deformities, no erythema, no cyanosis, no clubbing Psychiatric: mood/affect appropriate, cooperative Results - Lab Results 06/23/18 10:40 06/23/18 09:30 Most recent lab results [facility] 8.3 mg/dL (8.6-10.3) L 06/23/18 09:30 Consult Discharge Plan - Plan Referrals: Micah Mello MD [Primary Care Provider] -
--- NOTE | 2018-06-23 15:36 | Electrocardiograph Report ---
[place] [id number] Test Date: 2018-06-23 Pat Name: Darwin Velasquez Department: EXAM5 Room: 2A41 Gender: M [employer] Courier: : 1950 Requested By: Frank Weir Order Number: [id number] Reading MD: Prerna Albarran Measurements Intervals [place] Rate: 72 P: 101 MA: 193 QRS: -75 QRSD: 162 T: 109 QT: 474 QTc: 519 Interpretive Statements Atrial-sensed ventricular-paced complexes Electronically Signed On 06-23-2018 15:34:12 EDT by Prerna Albarran
[2018-06-23] MEDS ORDERED: Nitroglycerin 0.4 MG TAB.SUBL SL PRN (15:48)
--- NOTE | 2018-06-23 15:51 | Internal Med History&Physical ---
<Nate Keller - Last Filed: 06/23/18 16:39> Date of Encounter: 06/23/18 Time of Encounter: 13:30 Internal Medicine - H&P: HPI Chief complaint: CP Admitted From: Emergency Dept Plans for Post Hospital Care: Home History of present illness: Mr. Velasquez is a 67 year old male w/PMH of atrial fibrillation, cardiomyopathy, COPD, CAD, ESRD on dialysis, GERD, HLD, HTN, previous ID less than 8 weeks ago presents from the ED today w/CC of CP that began while pt. was being dialyzed. Pt. reports being 2/3 done w/dialysis when he began having severe cramps in his left hand which moved to cramp in left hip area and CP that presented as severe squeezing sensation in chest. Pt. was at rest at the time. States 1992 ID was heavy pressure and this was not like it. Lasted approx. 7 minutes and then eased. Pt. reports 9 stents placed w/last one placed w/i one week @ [place] when he suffered an ID while being seen for GI bleed. Denies N/V, diaphoresis but reports SOB and dry, hacking cough (pt. takes lisinopril). Was given ASA. Pt. denies recent illness, fever, chills, nausea, vomiting, headache, changes in vision, recent unusual bleeding post-discharge from [place], abdominal pain , diarrhea, constipation, dizziness, lightheadedness, numbness, tingling, pre- syncope, or syncope. Past Med Surg Social Fam HX - Past Medical History Source: patient, old records reviewed, obtained from family Medical history: atrial fibrillation, cardiomyopathy, CHF, COPD, coronary artery disease, dialysis, GERD, hyperlipidemia, hypertension, myocardial infarction (Last ID w/i one week), renal disease Additional medical history: stage IV RF. dialysis m-w-f. L arm AV fistula. on 3lnc at home Psychiatric history: no psych history - Past Surgical History Surgical History: angioplasty/stent (x9), other Additional surgical history: partial colectomy, Cardiac Stents - Social History Smoking Status: Former smoker Packs per day: 1 PPD - Reports quitting in 1971 Smokeless Tobacco Status: No Alcohol use: rarely Drug use: none Current living situation: ECF Activity Level: Uses cane/walker Recent Out of Country Travel Within the Last 8 Weeks: No Exposure or Possible Exposure to Illness During Travel: No - Family History Father Race: Family Member Ethnicity: Non- Living Status: Age at : 63 Cause of : Shantell cancer Hx Family Cancer: Yes (Bone) Mother Race: Family Member Ethnicity: Non- Living Status: Age at : 82 Cause of : Heart valve failure Hx Family Cardiac Disorders: Yes (HD) Hx Family Cancer: Yes (Breast) Hx Family Autoimmune Disorders: Yes (Lupus) Brother Race: Family Member Ethnicity: Non- Living Status: Still Living Hx Family Respiratory Disorders: Yes (COPD/Emphysema) Sister Race: Family Member Ethnicity: Non- Living Status: Still Living Hx Family Cardiac Disorders: Yes (Heart valve prolapse) Internal Medicine - H&P: Meds Aspirin [Lo-Dose Aspirin EC] 81 mg PO DAILY 03/26/17 [History] Atorvastatin Calcium [Lipitor] 80 mg PO HS 03/26/17 [History] Calcium Acetate [Phos-LO] 1,334 mg PO TIDWM 03/26/17 [History] Clopidogrel [Plavix] 75 mg PO DAILY 03/26/17 [History] Docusate [Colace] 100 mg PO DAILY 03/26/17 [History] HYDROcodone/Acet 5/325 mg [[place] 5-325 mg] 1 tab PO BID PRN 03/26/17 [History] Lisinopril [Zestril] 10 mg PO BID 03/26/17 [History] Multivit-Min/FA/Lycopen/Lutein [Men 50 Plus Multivitamin Tab] 1 tab PO DAILY [History] Oxygen 2 l NS CONT 03/26/17 [History] Pantoprazole Sodium [Protonix] 20 mg PO DAILY 03/26/17 [History] Tiotropium [Spiriva] 1 cap IH DAILY 03/26/17 [History] Niacin 250 mg PO DAILY #30 tablet 03/27/17 [Rx] Carvedilol 12.5 mg PO BID 06/04/18 [History] Diltiazem HCl [Diltiazem 24Hr Cd] 180 mg PO DAILY 06/04/18 [History] Warfarin Sodium 4 mg PO Q48H 06/04/18 [History] Warfarin [Coumadin] 3.5 mg PO Q48H 06/04/18 [History] 3 Allergy/AdvReac Type Severity Reaction Status Date / Time No Known Allergies Allergy Verified 03/26/17 05:27 All Systems PM: A 10-system review of systems was performed and is negative for pertinent findings except as documented above in the HPI. - Constitutional Constitutional: no chills, no fever(s), no night sweats - EENT Eyes: no change in vision, no discharge, no pain, no photophobia Ears: no ear discharge, no ear pain, no tinnitus Nose, mouth and throat: no dysphagia, no nasal discharge, no neck pain, no sore throat - Breasts Breasts: as per HPI - Cardiovascular Cardiovascular ROS IM: as per HPI, chest pain, dyspnea, dyspnea on exertion, edema (Bilateral LEs), irregular heart rhythm, no diaphoresis, no lightheadedness, no palpitations, no syncope - Respiratory Respiratory: as per HPI, cough, dyspnea, dyspnea on exertion, no wheezing, no excessive phlegm production - Gastrointestinal Gastrointestinal: no abdominal pain, no diarrhea, no hematemesis, no hematochezia, no melena, no nausea, no vomiting - Genitourinary Genitourinary ROS male: as per HPI - Musculoskeletal Musculoskeletal ROS IM: no numbness, no tingling - Integumentary Integumentary IM: no rash, no unusual bruising - Neurological Neurological ROS: no confusion, no convulsions, no focal weakness, no numbness, no tingling, no tremor(s) - Psychiatric Psychiatric: as per HPI - Endocrine Endocrine IM: as per HPI - Hematologic/Lymphatic Hematologic/Lymphatic: no easy bruising - Allergic/Immunologic Allergic/Immunologic: as per HPI - Constitutional Vitals: Temp Pulse Resp BP Pulse Ox 98.3 F 69 17 118/70 98 06/23/18 12:37 06/23/18 12:37 06/23/18 12:37 06/23/18 12:37 06/23/18 12:37 General appearance: Present: cooperative, A&O X 3, pleasant, no acute distress, obese, answers questions appropriately Exam: Patient examined at bedside w/Cardiology GRICEL Ochoa. Pt. denies CP on exam, but states CP today was different from previous ID. Today's CP was severe squeezing in chest w/cramping to left hand and upper LLE. SOB. Denies N/V, diaphoresis. Reports ID <1 week ago while @ [place] for GI bleed. Stent placed. Pt. deemed not a candidate for bypass surgery. VS: 98.3F temp, HR 69, RR 17, BP 118/70, SpO2 98% on 2L via NC. Family present during exam and all questions/concerned addressed and family in agreement w/plan of care. - Head Head exam: Present: atraumatic, normocephalic - Eye Eye exam: Present: PERRL, conjuntiva pink, sclera anicteric Pupils: Present: PERRL - ENT ENT exam: Present: normal exam - Neck Neck exam general surgery: Present: normal inspection, supple, trachea midline. Absent: lymphadenopathy - Respiratory Respiratory exam: Present: CTAB. Absent: accessory muscle use, rales, rhonchi, wheezes - Cardiovascular Cardiovascular exam: Present: irregular rhythm - GI/Abdominal GI/Abdominal exam: Present: normal bowel sounds, soft, no peritoneal signs. Absent: distended, tenderness - Rectal Rectal exam: Present: deferred - Additional comments: exam deferred. - Extremities Exam Extremities exam: Present: pedal edema (1-2+ pitting edema bilaterally), warm, radial pulses palpable and symmetrical. Absent: calf tenderness, cyanotic - Back Exam Back exam: Present: normal inspection - Neurological Exam Neurological exam: Present: alert, CN II-XII intact, oriented X3, no focal deficits. Absent: pronater drift, facial droop, speech deficit - Psychiatric Psychiatric exam: Present: normal affect, normal mood - Skin Skin exam: Present: dry, intact Internal Med - H&P Results - Labs CBC & Chem 7: 06/23/18 10:40 06/23/18 09:30 - EKG Data Prior EKG available for review: yes EKG comments: 06/23/18 15:56 EKG dated 06/04/18 shows atrial-ventricular dual paced complexes. EKG dated 06/23/18 shows atrial-sensed ventricular paced complexes. Other complexes also detected. No further analysis attempted due to paced rhythm. - - Diagnostic Studies Chest x-ray Additional comments: Impressions Chest X-Ray 06/23/18 09:12 IMPRESSION: Questionable small pleural effusions with adjacent atelectasis. Stable cardiomegaly and pulmonary vascular congestion. D/ / Yuliet Red MD / Yuliet Red MD Interpreting Provider: Yuliet Red MD - Assessment and plan (1) Chest pain Current Visit: Yes Status: Acute Assessment and plan: Acute CP today while being dialyzed. Pt. reports being 2/3 done w/dialysis when he began having severe cramps in his left hand which moved to cramp in left hip area and CP that presented as severe squeezing sensation in chest. Pt. was at rest at the time. States 1993 ID was heavy pressure and this was not like it. Lasted approx. 7 minutes and then eased. Pt. reports 9 stents placed w/last one placed w/i one week @ [place] when he suffered an ID while being seen for GI bleed. Denies N/V, diaphoresis but reports SOB and dry, hacking cough (pt. takes lisinopril). Was given ASA in ED. Continue high-dose statin. Continuous cardiac telemetry. SL nitro PRN. Last Echocardiogram was on 06/04/18. Initial troponin 1.0 on admission, likely d/t angioplasty/stent placement less than one week ago. Second troponin 0.93. Will continue to trend. Patient denies chest pain on exam. Reports SOB but has history of COPD. Supplemental O2 with titration and SPO2 monitoring. Cardiology consult ordered in ED and I appreciate the consult and recommendations. Hold patient's Coumadin for current heparin gtt. Pt. discussed w/Dr. Lucas who agrees w/plan of care. Pt. is high risk for further morbidity and cardiac event based on current sx, recent ID <1 week ago, hx of recent GI bleed and now on heparin gtt, hx of blockages and stents x9, ESRD on dialysis w/GFR of 14 and creatinine of 4.15, hx ; and risk factors of atrial fibrillation on Coumadin, cardiomyopathy, CAD, HLD , HTN, and previous MIs. Observation. Qualifiers: Chest pain type: other chest pain Qualified Code(s): R07.89 - Other chest pain; R07.8 - Other chest pain (2) Recent myocardial infarction Current Visit: Yes Status: Acute Assessment and plan: Acute ID <1 week ago. Pt. reports having GI bleed and being taken to [place] when he experienced ID and had angioplasty/stent placement x1. Total stents x9. Pt. states CP atypical when compared to ID in 1992 which was severe pressure w/ radiation. Heparin gtt per Cardiology. Cardiology consulted. Continuous cardiac telemetry. Echocardiogram on 06/04/18 shows LVEF of 25%, severe global LV systolic dysfunction, indeterminate diastolic function, there is no LV thrombus , LV chamber size upper limits of normal, mild to moderately dilated RV with moderate reduction and function, biatrial enlargement, mild mitral regurgitation , moderate tricuspid regurgitation, severe pulmonary hypertension, mild pulmonic regurgitation. Device lead visualized in the right atrium and right ventricle. 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 The IVC is dilated. (3) Elevated troponin Current Visit: Yes Status: Acute Assessment and plan: Acutely elevated troponin of 1.0 on admission, likely d/t recent angioplasty/ stent placement @ [place] several days ago. Second troponin 0.93. Pt. denies CP on exam. Stated 7-minutes of severe squeezing in chest began 2/3 into dialysis. Hx. of blockages and stents x9. Heparin gtt started per Cardiology. Will hold Coumadin. Cardiology consult ordered in ED and I appreciate the consult and recommendations. Will continue to trend troponin. ASA in ED. Continue high-dose statin. Nitro SL PRN. (4) SOB (shortness of breath) Current Visit: Yes Status: Acute Assessment and plan: Acute on chronic SOB w/CP sx. Pt. has hx of COPD. No formal dx of CHF in hx, but BNP 4251. Continue pts. Spiriva. Add Xopenex IH. Supplemental O2 w/ titration and SpO2 monitoring. Falls/safety precautions and up with assist only. (5) Impaired ambulation Current Visit: Yes Status: Acute Assessment and plan: Acute on chronic impaired ambulation that pt. states is worse since being discharged from [place]. States he is unstable and must hold onto things. Falls/safety precautions and up w/assist only. PT/OT consults ordered. (6) End-stage renal disease on hemodialysis Current Visit: Yes Status: Chronic Assessment and plan: Hx of ESRD on dialysis. Pt. reports being dialyzed // and was 2/3 completed today when he began having CP. GFR 14 and creatinine 4.15. Nephrology consult ordered and discussed w/Dr. Wesley and I appreciate the consult and recommendations as always. Renal diet. Continue PhosLo. (7) HLD (hyperlipidemia) Current Visit: Yes Status: Chronic Assessment and plan: Hx of chronic HLD. Lipid panel in a.m. labs. Continue pts. Lipitor. Qualifiers: Hyperlipidemia type: pure hypercholesterolemia Qualified Code(s): E78.00 - Pure hypercholesterolemia, unspecified; E78.0 - Pure hypercholesterolemia (8) HTN (hypertension) Current Visit: Yes Status: Chronic Assessment and plan: Hx of chronic HTN. Monitor pt. and VS. tinea patient's diltiazem, carvedilol, and lisinopril. Qualifiers: Hypertension type: essential hypertension Qualified Code(s): I10 - Essential (primary) hypertension (9) Chronic anemia Current Visit: Yes Status: Chronic Assessment and plan: Hx of chronic anemia w/GI bleeding w/i past two weeks that pt. was hospitalized at [place] for. Hgb 9.2 and Hct 28.5 on admission. Monitor pt. for signs of bleeding d/t hx and current heparin gtt. Monitor H/H in f/u labs. (10) COPD (chronic obstructive pulmonary disease) Current Visit: Yes Status: Chronic Assessment and plan: Hx of chronic COPD. Stable. Supplemental O2 w/titration and SpO2 monitoring. Mucinex for cough. Xopenex IH. Pt. bringing home cough drops for cough r/t lisinopril. Pharmacy to verify. Continue patient's Spiriva. Qualifiers: COPD type: unspecified COPD Qualified Code(s): J44.9 - Chronic obstructive pulmonary disease, unspecified (11) Chronic atrial fibrillation Current Visit: Yes Status: Chronic Assessment and plan: Hx of chronic atrial fibrillation on Coumadin. Pt. has pacemaker in place. Holding Coumadin for heparin gtt d/t pts. currently-elevated troponin. Continuous cardiac telemetry. ASA daily. Continue patient's diltiazem and Plavix. (12) Coronary artery disease Current Visit: Yes Status: Chronic Assessment and plan: Hx of chronic CAD w/previous MIs (last one w/i one week) and stent placement x9. Continuous cardiac telemetry. Echocardiogram on 06/04/18 shows LVEF of 25%, severe global LV systolic dysfunction, indeterminate diastolic function, there is no LV thrombus, LV chamber size upper limits of normal, mild to moderately dilated RV with moderate reduction and function, biatrial enlargement, mild mitral regurgitation, moderate tricuspid regurgitation, severe pulmonary hypertension, mild pulmonic regurgitation. Device lead visualized in the right atrium and right ventricle. 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 The IVC is dilated. Continue pts. HTN and HLD medications and Plavix. ASA daily. Hold Coumadin d/t current heparin gtt. Qualifiers: Coronary Disease-Associated Artery/Lesion type: [place] artery [place] vs. transplanted heart: [place] heart Associated angina: without angina Qualified Code(s): I25.10 - Atherosclerotic heart disease of [place] coronary artery without angina pectoris (13) DVT prophylaxis Current Visit: Yes Status: Acute Assessment and plan: Pt. placed on heparin drip per Cardiology d/t elevated initial troponin of 1.0 on admission. Monitor pt. for signs of bleeding d/t recent GI bleeding hx. (14) Elevated brain natriuretic peptide (BNP) level Current Visit: Yes Status: Acute Assessment and plan: Hx of elevated BNP of 4251. No formal dx of CHF in PMH but Echocardiogram on shows LVEF of 25%, severe global LV systolic dysfunction, indeterminate diastolic function, there is no LV thrombus, LV chamber size upper limits of normal, mild to moderately dilated RV with moderate reduction and function, biatrial enlargement, mild mitral regurgitation, moderate tricuspid regurgitation, severe pulmonary hypertension, mild pulmonic regurgitation. Device lead visualized in the right atrium and right ventricle. 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 The IVC is dilated. Will use IV fluids judiciously d/t current pedal edema and elevated BNP as well as current renal dysfunction. Monitor I&O and daily weight. - Time Spent With Patient Total time spent is greater than 50% in coordination of care (as documented) at patient's floor/unit and/or counseling patient: Greater than 35 minutes <Tha Lucas - Last Filed: 06/23/18 20:13> Date of Encounter: 06/23/18 Internal Medicine - H&P: HPI History of present illness: Mr. Velasquez is a 67 year old male All Systems PM: A 10-system review of systems was performed and is negative for pertinent findings except as documented above in the HPI. - Constitutional Vitals: Temp Pulse Resp BP Pulse Ox 98.2 F 72 17 117/63 100 06/23/18 17:00 06/23/18 17:00 06/23/18 17:00 06/23/18 17:00 06/23/18 17:00 Internal Med - H&P Results - Labs CBC & Chem 7: 06/23/18 10:40 06/23/18 09:30 Labs: Cardiac Enzymes 06/23/18 Range/Units 15:43 Troponin I 0.93 H* (< 0.04) ng/mL - Assessment and plan (1) End-stage renal disease on hemodialysis Current Visit: Yes Status: Chronic (2) Coronary artery disease Current Visit: Yes Status: Chronic Qualifiers: Coronary Disease-Associated Artery/Lesion type: [place] artery [place] vs. transplanted heart: [place] heart Associated angina: without angina Qualified Code(s): I25.10 - Atherosclerotic heart disease of [place] coronary artery without angina pectoris (3) Chronic atrial fibrillation Current Visit: Yes Status: Chronic (4) Chest pain Current Visit: Yes Status: Acute Qualifiers: Chest pain type: other chest pain Qualified Code(s): R07.89 - Other chest pain; R07.8 - Other chest pain (5) COPD (chronic obstructive pulmonary disease) Current Visit: Yes Status: Chronic Qualifiers: COPD type: unspecified COPD Qualified Code(s): J44.9 - Chronic obstructive pulmonary disease, unspecified (6) Chronic anemia Current Visit: Yes Status: Chronic (7) Elevated troponin Current Visit: Yes Status: Acute (8) HLD (hyperlipidemia) Current Visit: Yes Status: Chronic Qualifiers: Hyperlipidemia type: pure hypercholesterolemia Qualified Code(s): E78.00 - Pure hypercholesterolemia, unspecified; E78.0 - Pure hypercholesterolemia (9) HTN (hypertension) Current Visit: Yes Status: Chronic Qualifiers: Hypertension type: essential hypertension Qualified Code(s): I10 - Essential (primary) hypertension (10) Recent myocardial infarction Current Visit: Yes Status: Acute (11) DVT prophylaxis Current Visit: Yes Status: Acute (12) SOB (shortness of breath) Current Visit: Yes Status: Acute (13) Impaired ambulation Current Visit: Yes Status: Acute (14) Elevated brain natriuretic peptide (BNP) level Current Visit: Yes Status: Acute - Time Spent With Patient Total time spent is greater than 50% in coordination of care (as documented) at patient's floor/unit and/or counseling patient: - Attending Attestation Seen and assessed. Continue managment for chest pain r/o ACS. Agree with plan per SHANK PINNER
[2018-06-23] MEDS: Levalbuterol Neb 1.25 MG/3 ML IH SCH ×2 (16:21→21:48)
[2018-06-23] MEDS: Calcium Acetate 667 MG CAPSULE PO SCH (16:51)
[2018-06-23] MEDS ORDERED: NON-FORMULARY MEDICATION 1 EACH EACH (Carvedilol [Carvedilol] 12.5 MG) PO SCH (21:00)
[2018-06-24 00:53] LABS: Basophils # 0.1 K/mcL (0.0-0.2); Basophils % 1.6 %; Eosinophils # 0.3 K/mcL (0.0-0.6); Eosinophils % 5.9 %; Hemoglobin 8.8 g/dL (12.9-16.9); Immature Granulocytes % 0.4 % (0-4); Lymphocytes # 0.9 K/mcL (0.6-4.6); Lymphocytes % 16.7 %; Mean Corpuscular HGB Conc 32.6 g/dL (31.6-35.5); Mean Corpuscular Hemoglobin 32.2 pg (28.0-33.3); Mean Corpuscular Volume 98.9 fL (83.0-100.0); Mean Platelet Volume 10.4 fL (9.4-12.4); Monocytes # 0.7 K/mcL (0.0-1.3); Monocytes % 13.3 %; Neutrophils # 3.5 K/mcL (1.6-8.9); Platelet Count 110 K/mcL (140-400); Red Blood Count 2.73 M/mcL (4.19-5.50); Red Cell Distribution Width 17.1 % (11.5-14.5); Segmented Neutrophils % 62.1 %
[2018-06-24 01:04] LABS: Albumin 2.6 g/dL (3.5-5.7); Albumin/Globulin Ratio 0.8 (1.1-2.2); Bilirubin,Total 0.9 mg/dL (0.3-1.0); Calcium 8.4 mg/dL (8.6-10.3); Chol/HDL Ratio 2.4 (0-4.9); Globulin 3.1 g/dL (2.4-3.5); Magnesium 1.8 mg/dL (1.6-2.6); Potassium 4.2 mEq/L (3.5-5.1); Total Protein 5.7 g/dL (6.4-8.9)
[2018-06-24] MEDS: [UNRECOGNIZED DRUG - REMARK] PO SCH ×5 (01:20→04:42)
[2018-06-24] MEDS: Levalbuterol Neb 1.25 MG/3 ML IH SCH ×2 (03:39→10:56)
[2018-06-24] MEDS ORDERED: Menthol 9.1 MG LOZENGE PO PRN (07:19)
[2018-06-24] MEDS ORDERED: 0.9 % Sodium Chloride 2,000 ML ONE (08:12)
[2018-06-24] MEDS: Calcium Acetate 667 MG CAPSULE PO SCH ×2 (08:22→11:50)
--- NOTE | 2018-06-24 08:25 | Nephrology Progress Note ---
Date of Encounter: 06/24/18 Time of Encounter: 09:20 - Assessment and Plan (1) End-stage renal disease on hemodialysis Current Visit: Yes Status: Chronic End-stage renal disease, hemodialysis dependent Patient is on Wednesday schedule, last hemodialysis Currently biochemically stable, does not appear to be overtly fluid overloaded at this time, but does have 1-2+ bilateral lower extremity edema and BNP of 4200 Continue to monitor Plan for hemodialysis Wednesday (2) Elevated troponin Current Visit: Yes Status: Acute Atypical chest pain with elevated troponin, status post left heart catheterization with PCI on Wednesday Patient has been placed on heparin drip Management per primary team and cardiology (3) Chronic anemia Current Visit: Yes Status: Chronic Chronic anemia, hemoglobin 8.8 Continue to monitor transfusion parameters per primary team Subjective Principal diagnosis: Chest pain Interval history: Patient is resting comfortably metatarsal examination. He has no acute complaints at this time. He says that the chest pain and pressure which brought him and are no longer occurring. Objective - Vital Signs Vital signs: Vital Signs Temp Pulse Resp BP Pulse Ox 06/24/18 08:00 98.2 F 75 16 119/54 97 06/24/18 04:06 98.1 F 78 17 105/58 92 06/24/18 03:39 16 119/68 97 06/24/18 00:55 98.2 F 76 17 119/68 97 06/24/18 00:35 96 06/23/18 21:48 16 96 06/23/18 20:19 98.3 F 80 18 106/69 98 06/23/18 17:00 98.2 F 72 17 117/63 100 06/23/18 16:25 16 98 06/23/18 12:37 98.3 F 69 17 118/70 98 06/23/18 11:42 89 18 115/65 100 Intake and Output 06/23/18 06/24/18 06/24/18 23:59 07:59 15:59 Intake Total 380 / 380 279 / 279 Balance 380 / 380 279 / 279 Intake: IV Fluids 140 / 140 279 / 279 Heparin 25,000 UNIT/500 ML D5W 140 / 140 279 / 279 25,000 unit In 500 ml @ 10.5 UNIT/KG/HR 19.95 mls/hr IVC . Q24H KERRI Rx#:[id number] Oral 240 / 240 Other: Meal Dinner Percent of Meal Consumed 100% Weight 99.1 kg Blood Glucose* 101 98 Patient Weight 06/24/18 23:59 Weight 99.1 kg - General Appearance Exam: General appearance: well-developed, well-nourished, appears started age EENT: ATNC, mucous membranes moist, hearing intact, vision intact Neck: no JVD, no thyromegaly, supple Respiratory: no kyphosis, no scoliosis, clear Cardiology: no murmurs, no rub, no gallops, no edema, regular rate, regular rhythm, normal S1, normal S2 Dialysis Vascular Access: Arteriovenous Fistula thrill: Yes bruit: Yes Additional Comments: Right forearm Gastrointestinal: no tenderness, no guarding, no organomegaly, no masses Integumentary: no rash, warm and dry Neurologic: no focal deficit, alert and oriented x3 Musculoskeletal: no deformities, no erythema, no cyanosis, no clubbing Psychiatric: mood/affect appropriate, cooperative - Lab 06/24/18 00:01 06/24/18 00:01 Most recent lab results Calcium 8.4 mg/dL (8.6-10.3) L 06/24/18 00:01 Magnesium 1.8 mg/dL (1.6-2.6) 06/24/18 00:01 Consult Discharge Plan - Plan Referrals: Micah Mello MD [Primary Care Provider] -
[2018-06-24] MEDS ORDERED: Tiotropium 18 MCG inhalation IH SCH ×2 (09:00→10:00)
[2018-06-24] MEDS ORDERED: Aspirin Enteric Coated 81 MG Tablet PO SCH (09:00)
[2018-06-24] MEDS ORDERED: Diltiazem CD (24hr) 180 MG CAPSULE PO SCH (09:00)
[2018-06-24] MEDS ORDERED: Multivit/Ca/Min/Fe/FA 1 TAB TABLET PO SCH (09:00)
--- NOTE | 2018-06-24 10:41 | Cardiology Progress Note ---
Date of Encounter: 06/24/18 Time of Encounter: 08:30 Assessment and Plan (1) Chest pain Current Visit: Yes Status: Acute Per cardiology: -Admitted with chest pain, different from previous. Atypical pain, occured at rest. Resolved spontaneously. Denies exertional symptoms. -Recent PCI [place] on Wednesday -Denies current chest pain. -Troponin elevated. -Denies chest pain overnight. Qualifiers: Chest pain type: other chest pain Qualified Code(s): R07.89 - Other chest pain; R07.8 - Other chest pain (2) Elevated troponin Current Visit: Yes Status: Acute Per cardiology: -Troponin 1, 0.93, 0.7. Recent PCI Wednesday at [place]. Patient has stent cards and noted to have left main and OM stent on 06/20/18. -Reports some atypical chest pain. -No acute ischemic ECG changes. -On asa plavix in outpatient setting. On heparin drip. -Cuirrenlty chest pain free. -Troponin elevation most likely due to recent PCI at outside hopsital. -Will stop heparin drip, resume coumadin. -Cardiology will sign off. REcommend patient follow up with primary supervisory clerk after discharge. (3) End-stage renal disease on hemodialysis Current Visit: Yes Status: Chronic Per cardiology: -Known ESRD on HD. -Management per primary service. (4) Coronary artery disease Current Visit: Yes Status: Chronic Per cardiology: -Known CAD [facility] 06/09/18: severe 3vCAD, EF 35%; 60% pLMCA stenosis; 40% mLAD stenosis; 80% ISR in the 1stOM; 90% in the mRCA, 99% dRCA, distal RCA has left to right collaterals. -Patient was deemed not a candidate for CABG at [facility]. Patient was admitted at [place] and underwent PCI. -Continue home meds. Qualifiers: Coronary Disease-Associated Artery/Lesion type: [place] artery [place] vs. transplanted heart: [place] heart Associated angina: without angina Qualified Code(s): I25.10 - Atherosclerotic heart disease of [place] coronary artery without angina pectoris (5) Ischemic cardiomyopathy Current Visit: No Status: Chronic Per cardiology: -Known ICM. -TTE 05/2018 with LVEF 25%. -Has AICD. -Mild pedal edema noted, states chronic. -Denies increased shortness of breath. -On BB, EDI inhibitor. -Strict i/os, fluid restriction, daily weights. (6) PAF (paroxysmal atrial fibrillation) Current Visit: No Status: Chronic Per cardiology: -Known PAF. -On BB, CCB, coumadin for anticoagulation. Currently on heparin drip due to subtherapeutic INR. -Hr controlled. - Will resume coumadin. -Of note, with cardiomyopathy, would not recommend CCB, however this has been ordered by his primary supervisory clerk. Recommend patient discuss with primary supervisory clerk. Discussion w patient/family: The assessment and plan as outlined above was discussed with the patient who expressed understanding and agreement. All questions were answered. Thank you for involving us in the care of your patient. Please call with any questions. Discussed and reviewed with . Subjective Principal diagnosis: Chest pain Interval history: Patient denies chest pain overnight. States he feels better today. Denies complaints. Objective Vital Signs, Last 4 Hours Temp Pulse Resp BP Pulse Ox 06/24/18 08:30 97 06/24/18 08:00 98.2 F 75 16 119/54 97 General: Conversant, No Apparent Distress HEENT: Atraumatic, Normocephaly, Mucus Membranes Moist Neck: No JVD, Normal carotid pulses Cardiac: Reg Rate and Rhythm, Normal S1 and S2, No Murmur Lungs: Other (Lung sounds diminished throughout. ) Neuro: Alert and responsive, No focal deficits noted Abdomen: Soft, Non-Tender Skin: No rashes noted on visualized skin Musculoskeletal: No Chest Wall Tenderness Extremities: No Clubbing, No Cyanosis, No Edema, Normal Pulses Results 06/24/18 00:01 06/24/18 00:01 Lab Results Active Medications Acetaminophen (Tylenol) 650 mg PO Q6HR PRN PRN Reason: Mild Pain/Fever Stop: 12/23/18 14:04 Hydrocodone Bitart/Acetaminophen ([place] 5-325 Mg) 1 tab PO BID PRN PRN Reason: Moderate Pain Stop: 12/23/18 14:09 Aspirin (Aspirin Ec) 81 mg PO DAILY KERRI Stop: 12/24/18 09:01 Last Admin: 06/24/18 08:24 Dose: 81 mg Atorvastatin Calcium (Lipitor) 80 mg PO HS KERRI Stop: 12/23/18 21:01 Last Admin: 06/23/18 22:10 Dose: 80 mg Calcium Acetate (Phos-Lo) 1,334 mg PO TIDWM [facility] Stop: 12/23/18 17:01 Last Admin: 06/24/18 08:22 Dose: Not Given Carvedilol (Coreg) 12.5 mg PO BIDWM [facility] Stop: 12/23/18 17:01 Last Admin: 06/24/18 08:24 Dose: 12.5 mg Clopidogrel Bisulfate (Plavix) 75 mg PO DAILY [facility] Stop: 12/24/18 09:01 Last Admin: 06/24/18 08:24 Dose: 75 mg Diltiazem HCl (Cardizem Cd) 180 mg PO DAILY [facility] Stop: 12/24/18 09:01 Last Admin: 06/24/18 08:24 Dose: 180 mg Docusate Sodium (Colace) 100 mg PO DAILY [facility] PRN Reason: Protocol Stop: 12/24/18 09:01 Last Admin: 06/24/18 08:23 Dose: 100 mg Guaifenesin (Mucinex) 600 mg PO BID PRN PRN Reason: Congestion Stop: 12/23/18 16:10 Levalbuterol HCl (Xopenex) 1.25 mg IH [id number] [facility] Stop: 12/23/18 16:01 Last Admin: 06/24/18 03:39 Dose: 1.25 mg Lisinopril (Zestril) 10 mg PO BID [facility] PRN Reason: Protocol Stop: 12/23/18 21:01 Last Admin: 06/24/18 08:24 Dose: 10 mg Menthol (Cough Drops) 9.1 mg PO Q2H PRN PRN Reason: Cough Stop: 12/24/18 07:20 Multivitamins/Calcium (Thera M Plus) 1 tab PO DAILY [facility] Stop: 12/24/18 09:01 Last Admin: 06/24/18 08:24 Dose: 1 tab Naloxone HCl (Narcan) 0.4 mg IVP Q2MIN PRN PRN Reason: SEE COMMENTS Stop: 12/23/18 14:04 Nitroglycerin (Nitroglycerin) 0.4 mg SL Q5MIN PRN PRN Reason: Chest Pain Stop: 12/23/18 15:49 Omeprazole (Prilosec) 20 mg PO DAILY [facility] Stop: 12/24/18 09:01 Last Admin: 06/24/18 08:24 Dose: 20 mg Tiotropium [place] (Spiriva) 18 mcg IH DAILYR [facility] Stop: 12/24/18 10:01 Warfarin Sodium (Coumadin Perpt) 1 each PO DAILY@1800 PRN PRN Reason: SEE COMMENTS Stop: 12/24/18 18:01 Laboratory Tests 06/23/18 06/23/18 06/23/18 09:30 15:43 21:14 Hgb Troponin I 1.00 H* 0.93 H* 0.70 H* 06/24/18 00:01 Hgb 8.8 L Troponin I - Imaging and Cardiology Chest Xray: report reviewed Echo: report reviewed Cardiac cath: report reviewed - EKG Interpretation EKG results cardiology: other (Telemetry reviewed with average HR previous 12 hours noted to be 76, paced rhythm. PVCs noted. One episode of PAF noted.) Consult Discharge Plan - Plan Referrals: Micah Mello MD [Primary Care Provider] -
[2018-06-24 11:16] VITALS: BP 94/57
[2018-06-24 11:22] LABS: INR 1.3; Prothrombin Time 14.6 Seconds (9.4-12.1)
--- NOTE | 2018-06-24 13:08 | Discharge Summary ---
Orders not resulted at time of discharge: Pending orders 06/25/18 04:00 Complete Blood Count [HEME] AM 0400 Comprehensive Metabolic Panel AM 0400 PT/INR [Prothrombin Time INR] [COAG] AM 0400 06/26/18 04:00 Complete Blood Count [HEME] AM 0400 Comprehensive Metabolic Panel AM 0400 PT/INR [Prothrombin Time INR] [COAG] AM 0400 06/27/18 04:00 Complete Blood Count [HEME] AM 0400 Comprehensive Metabolic Panel AM 0400 Date of Encounter: 06/24/18 Time of Encounter: 13:06 - Discharge Diagnosis (1) Chest pain Priority: Primary Status: Acute Qualifiers: Chest pain type: other chest pain Qualified Code(s): R07.89 - Other chest pain; R07.8 - Other chest pain (2) Elevated troponin Priority: Primary Status: Acute (3) Coronary artery disease Priority: Primary Status: Chronic Qualifiers: Coronary Disease-Associated Artery/Lesion type: [place] artery [place] vs. transplanted heart: [place] heart Associated angina: without angina Qualified Code(s): I25.10 - Atherosclerotic heart disease of [place] coronary artery without angina pectoris (4) Chronic atrial fibrillation Priority: Secondary Status: Chronic (5) End-stage renal disease on hemodialysis Priority: Secondary Status: Chronic (6) Chronic anemia Priority: Secondary Status: Chronic (7) COPD (chronic obstructive pulmonary disease) Priority: Secondary Status: Chronic Qualifiers: COPD type: unspecified COPD Qualified Code(s): J44.9 - Chronic obstructive pulmonary disease, unspecified (8) HTN (hypertension) Priority: Secondary Status: Chronic Qualifiers: Hypertension type: essential hypertension Qualified Code(s): I10 - Essential (primary) hypertension Hospital course: HOSPITAL COURSE: This is a 67-year-old male who gets hemodialysis. He had recently (within the last week before this admission) complicated PCI - got 9 stants at the [facility] in [facility]. We admitted him after he developed atypical chest pain, when receiving hemodialysis. It was initially severe cramps in his left hand, moving to his the left hip area and follow by a squeezing sensation in his chest. All the pain subsided in the emergency department. One can see his troponin of 1.00, 0.93 and 0.70. He had troponin of 1.32 on 06/06/18. Cardiology was consulted. They felt that his pain was not related to his heart. It was likely musculoskeletal (related to end-stage renal disease/ hemodialysis). The patient has mild anemia; hemoglobin of 8.8. It is likely due to his chronic kidney disease. CONDITION AT DISCHARGE: The patient is pain free. Denies dyspnea, coughing and wheezing. Denies abdominal pain, nausea and vomiting. Skin: Free of rash and discoloration. Respiratory: Normal breath sounds with no crackles and wheezes bilaterally. CV: Heart is regular with no gallop or murmur. GI: Abdomen is flat and soft with no palpable mass or visceromegaly. Neuro exam: There is no focal deficits. Normal speech, swallowing and gait. SEE DISCHARGE ORDERS/MEDICATIONS.. Discharge discussed with: patient, family, nurse - Time Spent with Patient Total time spent providing and/or coordinating discharge services: Greater than 30 minutes (40 minutes) - Discharge Medications Home Medications: Aspirin [Lo-Dose Aspirin EC] 81 mg PO DAILY 03/26/17 [History] Atorvastatin Calcium [Lipitor] 80 mg PO HS 03/26/17 [History] Calcium Acetate [Phos-LO] 1,334 mg PO TIDWM 03/26/17 [History] Clopidogrel [Plavix] 75 mg PO DAILY 03/26/17 [History] Docusate [Colace] 100 mg PO DAILY 03/26/17 [History] HYDROcodone/Acet 5/325 mg [[place] 5-325 mg] 1 tab PO BID PRN 03/26/17 [History] Lisinopril [Zestril] 10 mg PO BID 03/26/17 [History] Multivit-Min/FA/Lycopen/Lutein [Men 50 Plus Multivitamin Tab] 1 tab PO DAILY [History] Oxygen 2 l NS CONT 03/26/17 [History] Pantoprazole Sodium [Protonix] 20 mg PO DAILY 03/26/17 [History] Tiotropium [Spiriva] 1 cap IH DAILY 03/26/17 [History] Niacin 250 mg PO DAILY #30 tablet 03/27/17 [Rx] Carvedilol 12.5 mg PO BID 06/04/18 [History] Diltiazem HCl [Diltiazem 24Hr Cd] 180 mg PO DAILY 06/04/18 [History] Warfarin Sodium 4 mg PO Q48H 06/04/18 [History] Warfarin [Coumadin] 3.5 mg PO Q48H 06/04/18 [History] Allergies/Adverse Reactions: 3 Allergy/AdvReac Type Severity Reaction Status Date / Time No Known Allergies Allergy Verified 03/26/17 05:27 Date of admission: 06/23/18 10:59 Primary care physician: Micah Mello MD Consults: 06/23/18 14:14 Consult to Real Estate Asset Manager [CONS] Routine Reason for SW Consult: Please assess patient for possible home needs for post -discharge planning. 06/23/18 14:16 Consult to Physical Therapy [CONS] Routine Comment: Evaluate, develop and implement POC Reason for Consult: Patient reports instability and stumbling w/ambulation. Please assess patient for ambulation strength, stability , safety, and possible home assistive/ rehabilitation needs for post-discharge planning. Does patient have active BEDREST order?: No Is patient medically & hemodynamically stable?: Yes Patient assessed for mobility or mobilized this visit?: No 06/23/18 14:17 Consult to Nephrology [CONS] Routine Consulting Provider: Kidney Erika/ARIN/MEDARDO/TARIK Reason for Consult: Patient is dialyzed // and was in dialysis today when he began having CP. Pt. reports being 2/3 done when this happened. GFR 14 and creatinine is 4.15 on admission. Call Completed: Yes Discharging clinician: Kel Griggs Anticipated date of discharge: 06/24/18 - Constitutional Vitals: Temp Pulse Resp BP Pulse Ox 97.9 F 76 16 94/57 93 06/24/18 11:12 06/24/18 11:12 06/24/18 11:12 06/24/18 11:12 06/24/18 11:12 General appearance: Present: cooperative, A&O X 3, pleasant, no acute distress, answers questions appropriately Exam: xx - Patient Status Disposition: Home, Self-Care Condition: Fair Functional capacity at discharge: independent ambulation Overall status at discharge: patient is back to baseline - Discharge Instructions Follow Up With: Micah Mello MD [Primary Care Provider] - 06/29/18 2:30 pm - Diet and Activity Activity: resume usual activities as tolerated Diet: low fat, low cholesterol, low salt diet - VTE Deep Vein Thrombosis/Pulmonary Embolism Present on Admission: No
[2018-06-24] MEDS ORDERED: *HR* Warfarin 5 MG TABLET PO ONE (18:00)
[2018-06-24] MEDS ORDERED: Warfarin perPT PO PRN (18:00)
== END 2018-06-24 14:52 | disposition home or self-care (01) ==
LOC: EMEROOARM 09:04 → 2ANU 09:04 → SUATTDRO 10:59 → 2ANU 12:13
PROVIDERS: ADMIT Student in an Organized Health Care Education/Training Program; ATTEND Internal Medicine

== ENCOUNTER 2018-07-22 12:22 | Inpatient (IN) ==
--- NOTE | 2018-07-22 12:28 | Emergency Department Note ---
Disposition Clinical Impression: CHF (congestive heart failure), COPD exacerbation Disposition: Admitted As Inpatient Condition: Fair General Adult HPI - General Chief complaint: ED Chest Pain Stated complaint: tachyarrhythmia Time Seen by Provider: 07/22/18 12:24 - Related Data Home Medications Medication Instructions Recorded Confirmed Aspirin [Lo-Dose Aspirin EC] 81 mg PO DAILY 03/26/17 07/22/18 Atorvastatin Calcium [Lipitor] 80 mg PO HS 03/26/17 07/22/18 Calcium Acetate [Phos-LO] 1,334 mg PO TIDWM 03/26/17 07/22/18 Clopidogrel [Plavix] 75 mg PO DAILY 03/26/17 07/22/18 HYDROcodone/Acet 5/325 mg [[place] 1 tab PO BID PRN 03/26/17 07/22/18 5-325 mg] Lisinopril [Zestril] 10 mg PO DAILY 03/26/17 07/22/18 Multivit-Min/FA/Lycopen/Lutein 1 tab PO DAILY 03/26/17 07/22/18 [Men 50 Plus Multivitamin Tab] Oxygen 2 l NS CONT 03/26/17 07/22/18 Tiotropium [Spiriva] 1 puff IH DAILY 03/26/17 07/22/18 Carvedilol 12.5 mg PO BID 06/04/18 07/22/18 Diltiazem HCl [Diltiazem 24Hr Cd] 180 mg PO DAILY 06/04/18 07/22/18 Folic Acid/Vit B Complex and C 1 tab PO DAILY 07/22/18 07/22/18 [Dialyvite Tablet] Pantoprazole Sodium [Protonix] 40 mg PO DAILY 07/22/18 07/22/18 Sevelamer [Renvela] 800 mg PO TID 07/22/18 07/22/18 Valsartan [Valsartan] 40 mg PO BID 07/22/18 07/22/18 Allergies Allergy/AdvReac Type Severity Reaction Status Date / Time No Known Allergies Allergy Verified 03/26/17 05:27 Past Medical History - Past Medical History Medical history: Reports: atrial fibrillation, cardiomyopathy, CHF, COPD, coronary artery disease, dialysis, GERD, hyperlipidemia, hypertension, myocardial infarction (Last ME w/i one week), renal disease Surgical history: Reports: angioplasty/stent (x9), other Psychiatric history: Reports: no psych history - Social History Smoking Status: Former smoker Smokeless Tobacco Status: No Alcohol use: Reports: rarely Drug use: Reports: none Course Vital Signs Temperature 98.9 F 07/22/18 12:32 Pulse Rate 95 07/22/18 12:32 Respiratory Rate 21 07/22/18 12:32 Blood Pressure 109/86 07/22/18 12:32 O2 Sat by Pulse Oximetry 100 07/22/18 12:32 Temperature 98.9 F 07/22/18 12:32 Pulse Rate 108 07/22/18 15:21 Respiratory Rate 20 07/22/18 16:35 Blood Pressure 123/84 07/22/18 16:35 O2 Sat by Pulse Oximetry 100 07/22/18 15:21 Oxygen Delivery Oxygen Delivery Nasal Cannula Medical Decision Making - Lab Data Result diagrams: 07/22/18 12:50 07/22/18 12:50 Lab Results 07/22/18 07/22/18 07/22/18 Range/Units 12:50 12:50 12:50 WBC 6.6 (4.3-11.1) K/mcL RBC 3.50 L (4.19-5.50) M/mcL Hgb 11.1 L (12.9-16.9) g/dL Hct 34.8 L (37.5-50.1) % MCV 99.4 (83.0-100.0) fL MCH 31.7 (28.0-33.3) pg MCHC 31.9 (31.6-35.5) g/dL RDW 16.8 H (11.5-14.5) % Plt Count 143 (140-400) K/mcL MPV 10.3 (9.4-12.4) fL Immature Gran % 0.5 (0-4) % Seg Neutrophils % 72.4 % Lymphocytes % 12.4 % Monocytes % 10.9 % Eosinophils % 2.6 % Basophils % 1.2 % Neutrophils # 4.8 (1.6-8.9) K/mcL Lymphocytes # 0.8 (0.6-4.6) K/mcL Monocytes # 0.7 (0.0-1.3) K/mcL Eosinophils # 0.2 (0.0-0.6) K/mcL Basophils # 0.1 (0.0-0.2) K/mcL Sodium 136 (136-145) mEq/L Potassium 4.1 (3.5-5.1) mEq/L Chloride 98 (98-107) mEq/L Carbon Dioxide 27 (23-29) mEq/L BUN 20 (8-23) mg/dL Creatinine 5.60 H (0.70-1.30) mg/dL Est GFR ( Amer) 12 L (> 60) Est GFR (Non-Af Amer) 10 L (> 60) BUN/Creatinine Ratio 4 L (6-26) Glucose 112 H (70-105) mg/dL Calculated Osmolality 285 (280-300) Calcium 8.5 L (8.6-10.3) mg/dL Troponin I 0.05 H* (< 0.04) ng/mL B-Natriuretic Peptide > 5000 H (Less than 100) pg/mL Attestation Statement - Attestation Attestation: I examined this patient and my medical decision-making was reviewed with the Resident Physician. I agree with the documented findings, disposition and treatment plan as described except to the extent set forth below. [id number]-pdst time provided Patient arrives by private vehicle complaining of dyspnea. He had an ache in his chest at the "periphery" of his thorax which resolved after some nitroglycerin. He has a history of coronary artery disease and dialysis dependent end-stage renal disease. He is dyspneic on exam
[2018-07-22] MEDS ORDERED: predniSONE 20 MG TABLET PO ONE (12:31)
[2018-07-22] MEDS ORDERED: Ipratropium/Albuterol Neb 3 ML IH ONE (12:31)
[2018-07-22 13:08] LABS: Basophils # 0.1 K/mcL (0.0-0.2); Basophils % 1.2 %; Eosinophils # 0.2 K/mcL (0.0-0.6); Eosinophils % 2.6 %; Hematocrit 34.8 % (37.5-50.1); Hemoglobin 11.1 g/dL (12.9-16.9); Immature Granulocytes % 0.5 % (0-4); Lymphocytes # 0.8 K/mcL (0.6-4.6); Lymphocytes % 12.4 %; Mean Corpuscular HGB Conc 31.9 g/dL (31.6-35.5); Mean Corpuscular Hemoglobin 31.7 pg (28.0-33.3); Mean Corpuscular Volume 99.4 fL (83.0-100.0); Mean Platelet Volume 10.3 fL (9.4-12.4); Monocytes # 0.7 K/mcL (0.0-1.3); Monocytes % 10.9 %; Neutrophils # 4.8 K/mcL (1.6-8.9); Platelet Count 143 K/mcL (140-400); Red Cell Distribution Width 16.8 % (11.5-14.5); Segmented Neutrophils % 72.4 %
--- NOTE | 2018-07-22 13:17 | Emergency Department Note ---
Disposition Clinical Impression: COPD exacerbation CHF (congestive heart failure) Qualifiers: Heart failure type: unspecified Heart failure chronicity: acute on chronic Qualified Code(s): I50.9 - Heart failure, unspecified Disposition: Admitted As Inpatient Condition: Fair Referrals: Micah Mello MD [Primary Care Provider] - Forms: ED Satisfaction Letter General Adult HPI - General Chief complaint: ED Chest Pain Stated complaint: tachyarrhythmia Time Seen by Provider: 07/22/18 12:24 Source: patient Limitations: no limitations Nursing Notes Reviewed: Yes Vital Signs Reviewed: Yes - History of Present Illness HPI Narrative: 67-year-old male with significant past medical history of end-stage renal getting dialysis Wednesday, , Wednesday along with coronary artery disease presenting to the emergency department with chief complaint of shortness of breath. Patient states his symptoms have been progressively getting worse for the past few days. This morning he woke up around 3 AM and was having difficulty breathing. Patient normally wears 2 L nasal cannula at home. Patient states this morning when he woke he was having pleuritic pain on the bilateral sides of his chest that has now resolved after he took a Vicodin at home. Patient denies any recent fevers or increased sputum. Pain Scale: 0 - Related Data Home Medications Medication Instructions Recorded Confirmed Aspirin [Lo-Dose Aspirin EC] 81 mg PO DAILY 03/26/17 06/23/18 Atorvastatin Calcium [Lipitor] 80 mg PO HS 03/26/17 06/23/18 Calcium Acetate [Phos-LO] 1,334 mg PO TIDWM 03/26/17 06/23/18 Clopidogrel [Plavix] 75 mg PO DAILY 03/26/17 06/23/18 Docusate [Colace] 100 mg PO DAILY 03/26/17 06/23/18 HYDROcodone/Acet 5/325 mg [[place] 1 tab PO BID PRN 03/26/17 06/23/18 5-325 mg] Lisinopril [Zestril] 10 mg PO BID 03/26/17 06/23/18 Multivit-Min/FA/Lycopen/Lutein 1 tab PO DAILY 03/26/17 06/23/18 [Men 50 Plus Multivitamin Tab] Oxygen 2 l NS CONT 03/26/17 06/23/18 Pantoprazole Sodium [Protonix] 20 mg PO DAILY 03/26/17 06/23/18 Tiotropium [Spiriva] 1 cap IH DAILY 03/26/17 06/23/18 Carvedilol 12.5 mg PO BID 06/04/18 06/23/18 Diltiazem HCl [Diltiazem 24Hr Cd] 180 mg PO DAILY 06/04/18 06/23/18 Warfarin Sodium 4 mg PO Q48H 06/04/18 06/23/18 Warfarin [Coumadin] 3.5 mg PO Q48H 06/04/18 06/23/18 Previous Rx's Medication Instructions Recorded Niacin 250 mg PO DAILY #30 tablet 03/27/17 Allergies Allergy/AdvReac Type Severity Reaction Status Date / Time No Known Allergies Allergy Verified 03/26/17 05:27 All systems ED: reviewed and negative except as stated. Constitutional: Denies: fever, chills Eyes: Reports: as per HPI ENT ED: Reports: as per HPI Cardiovascular: Reports: dyspnea on exertion. Denies: palpitations Respiratory: Reports: dyspnea. Denies: hemoptysis, stridor Gastrointestinal: Denies: abdominal pain, nausea, vomiting Genitourinary: Reports: as per HPI Musculoskeletal: Reports: as per HPI Integumentary: Reports: as per HPI Neurological: Denies: numbness, paresthesias Psychiatric: Reports: as per HPI Endocrine: Reports: as per HPI Hematological/Lymphatic: Reports: as per HPI Allergic/Immunologic: Reports: as per HPI Past Medical History - Past Medical History Attestation: Yes The following information was validated with the patient. Medical history: Reports: atrial fibrillation, cardiomyopathy, CHF, COPD, coronary artery disease, dialysis, GERD, hyperlipidemia, hypertension, myocardial infarction, renal disease Surgical history: Reports: angioplasty/stent (x9), other Psychiatric history: Reports: no psych history - Social History Smoking Status: Former smoker Smokeless Tobacco Status: No Alcohol use: Reports: none Drug use: Reports: none Physical Exam - General Limitations: no limitations General appearance: alert - Head Head exam: atraumatic, normocephalic, normal inspection - Eye Eye exam: Present: normal appearance. Absent: scleral icterus, conjunctival injection - ENT ENT exam: normal exam, mucous membranes moist - Neck Neck exam: Present: normal inspection, full ROM. Absent: tenderness, meningismus - Chest Chest inspection: Present: normal inspection, symmetric chest wall rise. Absent : tenderness, rash - Respiratory Respiratory exam: Present: other (Coarse breath sounds throughout) - Cardiovascular Cardiovascular exam: Present: regular rate, normal rhythm, normal heart sounds - Abdominal Exam Abdominal exam: Present: soft, Non-Tender. Absent: distention, guarding, rebound - Extremities Exam Extremities exam: Present: other (1+ pitting edema bilateral lower extremities) - Neurological Exam Neurological exam: Present: alert, oriented X3 - Psychiatric Psychiatric exam: Present: normal affect, normal mood - Skin Skin exam: Present: warm Course Course Narrative: 67-year-old male presenting for shortness of breath. Patient's oxygen saturation stable on his 2 L nasal cannula. Patient is conversationally dyspneic. He is hemodynamically stable. Concern for fluid overload versus COPD exacerbation. We will provide him with 3 [id number] DuoNeb, steroids completed a chest x-ray basic laboratory analysis. Disposition most likely admission but pending results. Patient agrees with this plan. - Reevaluation(s) Reevaluation #1: Patient's laboratory analysis shows elevated BNP, some pulmonary edema on chest x-ray and mildly elevated troponin at 0.05 most likely due to his end-stage renal disease. At this time will plan to admit the patient for CHF and COPD. Patient is alert and oriented 3 in the room with stable vital signs. Patient agrees this plan. I spoke with the hospitalist optimization specialist Dr. Mota who agrees to accept the patient at this time. Vital Signs Temperature 98.9 F 07/22/18 12:32 Pulse Rate 95 07/22/18 12:32 Respiratory Rate 21 07/22/18 12:32 Blood Pressure 109/86 07/22/18 12:32 O2 Sat by Pulse Oximetry 100 07/22/18 12:32 Temperature 98.9 F 07/22/18 12:32 Pulse Rate 95 07/22/18 12:32 Respiratory Rate 20 07/22/18 13:23 Blood Pressure 109/86 07/22/18 12:32 O2 Sat by Pulse Oximetry 100 07/22/18 13:23 Oxygen Delivery Oxygen Delivery Nasal Cannula Medical Decision Making - Lab Data Result diagrams: 07/22/18 12:50 07/22/18 12:50 Lab Results 07/22/18 07/22/18 07/22/18 Range/Units 12:50 12:50 12:50 WBC 6.6 (4.3-11.1) K/mcL RBC 3.50 L (4.19-5.50) M/mcL Hgb 11.1 L (12.9-16.9) g/dL Hct 34.8 L (37.5-50.1) % MCV 99.4 (83.0-100.0) fL MCH 31.7 (28.0-33.3) pg MCHC 31.9 (31.6-35.5) g/dL RDW 16.8 H (11.5-14.5) % Plt Count 143 (140-400) K/mcL MPV 10.3 (9.4-12.4) fL Immature Gran % 0.5 (0-4) % Seg Neutrophils % 72.4 % Lymphocytes % 12.4 % Monocytes % 10.9 % Eosinophils % 2.6 % Basophils % 1.2 % Neutrophils # 4.8 (1.6-8.9) K/mcL Lymphocytes # 0.8 (0.6-4.6) K/mcL Monocytes # 0.7 (0.0-1.3) K/mcL Eosinophils # 0.2 (0.0-0.6) K/mcL Basophils # 0.1 (0.0-0.2) K/mcL Sodium 136 (136-145) mEq/L Potassium 4.1 (3.5-5.1) mEq/L Chloride 98 (98-107) mEq/L Carbon Dioxide 27 (23-29) mEq/L BUN 20 (8-23) mg/dL Creatinine 5.60 H (0.70-1.30) mg/dL Est GFR ( Amer) 12 L (> 60) Est GFR (Non-Af Amer) 10 L (> 60) BUN/Creatinine Ratio 4 L (6-26) Glucose 112 H (70-105) mg/dL Calculated Osmolality 285 (280-300) Calcium 8.5 L (8.6-10.3) mg/dL Troponin I 0.05 H* (< 0.04) ng/mL B-Natriuretic Peptide > 5000 H (Less than 100) pg/mL - EKG Data EKG #1 EKG attestation: Yes I reviewed and interpreted this EKG. EKG results narrative: Paced rhythm. 104 beats per minute. QRS 120, QTC 536. No sign of acute ST segment elevation or ischemia. Compared to previous EKG completed on 2017 no significant changes noted
[2018-07-22 13:30] LABS: Calcium 8.5 mg/dL (8.6-10.3); Potassium 4.1 mEq/L (3.5-5.1)
[2018-07-22 13:31] LABS: Troponin I 0.05 ng/mL (< 0.04)
[2018-07-22] MEDS ORDERED: Acetaminophen 325 MG TABLET PO PRN (14:52)
[2018-07-22] MEDS ORDERED: Naloxone 0.4 MG/ML INJ IVP PRN (14:52)
[2018-07-22] MEDS ORDERED: Ipratropium/Albuterol Neb 3 ML IH PRN (14:56)
[2018-07-22] MEDS ORDERED: *HR* HYDROcodone/Acet 5/325 mg TABLET PO PRN (14:57)
--- NOTE | 2018-07-22 15:08 | Internal Med History&Physical ---
Date of Encounter: 07/22/18 Time of Encounter: 14:30 Internal Medicine - H&P: HPI Chief complaint: Palpitation Admitted From: Home Plans for Post Hospital Care: Home History of present illness: Mr. Velasquez is a 67 year old male presented to ER for palpitation and weakness. Past medical history is significant systolic CHF with LVEF 25%, A. fib, hypertension, CAD S/P stent, COPD, end-stage renal disease on hemodialysis. Patient said this morning he has palpitation with heart rate 170s as patient checked by his own pulse oximetry monitoring. Patient said he has paroxysmal palpitation but usually resolved quickly but today the time is longer and more frequent. Patient feels weak when he has palpitation. Initially has some pleural/chest wall pain which improved after patient is taking oxycodone by himself. Patient has shortness of breath but generally at his baseline. Patient has chronic cough which is not increased. Denies fever. Denies nausea , vomiting, diaphoresis. Patient is on hemodialysis and finished his dialysis yesterday. In the emergency room, ER physician found patient has wheezing, he was treated with prednisone and nebulizer, his condition has improved. Patient was admitted for palpitation, COPD exacerbation. Past Med Surg Social Fam HX - Past Medical History Medical history: atrial fibrillation, cardiomyopathy, CHF, COPD, coronary artery disease, dialysis, GERD, hyperlipidemia, hypertension, myocardial infarction, renal disease Additional medical history: Dialysis T/TH/SAT. ESRD Psychiatric history: no psych history - Past Surgical History Surgical History: angioplasty/stent (x9), other Additional surgical history: partial colectomy, Cardiac Stents-9, AV fistula RFA - Social History Smoking Status: Former smoker Smokeless Tobacco Status: No Alcohol use: none Drug use: none - Family History Father Family Member Ethnicity: Non- Living Status: Hx Family Cancer: Yes (Bone) Mother Family Member Ethnicity: Non- Living Status: Hx Family Cardiac Disorders: Yes (HD) Hx Family Cancer: Yes (Breast) Hx Family Autoimmune Disorders: Yes (Lupus) Brother Family Member Ethnicity: Non- Living Status: Still Living Hx Family Respiratory Disorders: Yes (COPD/Emphysema) Sister Family Member Ethnicity: Non- Living Status: Still Living Hx Family Cardiac Disorders: Yes (Heart valve prolapse) Internal Medicine - H&P: Meds Aspirin [Lo-Dose Aspirin EC] 81 mg PO DAILY 06/16/17 [History] Atorvastatin Calcium [Lipitor] 80 mg PO HS 03/26/17 [History] Calcium Acetate [Phos-LO] 1,334 mg PO TIDWM 03/26/17 [History] Clopidogrel [Plavix] 75 mg PO DAILY 03/26/17 [History] HYDROcodone/Acet 5/325 mg [[place] 5-325 mg] 1 tab PO BID PRN 03/26/17 [History] Lisinopril [Zestril] 10 mg PO DAILY 03/26/17 [History] Multivit-Min/FA/Lycopen/Lutein [Men 50 Plus Multivitamin Tab] 1 tab PO DAILY [History] Oxygen 2 l NS CONT 03/26/17 [History] Tiotropium [Spiriva] 1 puff IH DAILY 03/26/17 [History] Carvedilol 12.5 mg PO BID 06/04/18 [History] Diltiazem HCl [Diltiazem 24Hr Cd] 180 mg PO DAILY 06/04/18 [History] Folic Acid/Vit B Complex and C [Dialyvite Tablet] 1 tab PO DAILY 07/22/18 [ History] Pantoprazole Sodium [Protonix] 40 mg PO DAILY 07/22/18 [History] Sevelamer [Renvela] 800 mg PO TID 07/22/18 [History] Valsartan [Valsartan] 40 mg PO BID 07/22/18 [History] 3 Allergy/AdvReac Type Severity Reaction Status Date / Time No Known Allergies Allergy Verified 03/26/17 05:27 All Systems PM: A 10-system review of systems was performed and is negative for pertinent findings except as documented above in the HPI. - Constitutional Vitals: Temp Pulse Resp BP Pulse Ox 98.9 F 99 24 116/70 100 07/22/18 12:32 07/22/18 13:58 07/22/18 13:58 07/22/18 13:58 07/22/18 13:58 General appearance: Present: A&O X 3, no acute distress, answers questions appropriately Exam: Pt is AAO x 3, in NAD HEENT: NC/AT, PERRL Neck: Supple, no JVD, no LAD Lungs: CTA b/l, no wheezes or crackles Heart: Irregular rhythm, PPM/AICD in place Abd: Soft, NT, distended Ext: No pedal edema Neuro: AAO x 3, no focal deficit. - Head Head exam: Present: atraumatic, normocephalic - Eye Eye exam: Present: PERRL, conjuntiva pink, sclera anicteric Pupils: Present: PERRL - Neck Neck exam general surgery: Present: supple, trachea midline. Absent: lymphadenopathy - Respiratory Respiratory exam: Present: CTAB. Absent: accessory muscle use, rales, rhonchi, wheezes - Cardiovascular Cardiovascular exam: Present: irregular rhythm, +S1, +S2. Absent: diastolic murmur, gallop, rubs, systolic murmur - GI/Abdominal GI/Abdominal exam: Present: normal bowel sounds, soft, no peritoneal signs. Absent: distended, tenderness - Extremities Exam Extremities exam: Present: warm, radial pulses palpable and symmetrical. Absent : calf tenderness, cyanotic, pedal edema - Neurological Exam Neurological exam: Present: CN II-XII intact, oriented X3, no focal deficits. Absent: pronater drift, facial droop, speech deficit - Skin Skin exam: Present: dry, intact Internal Med - H&P Results - Labs CBC & Chem 7: 07/22/18 12:50 07/22/18 12:50 Labs: Short CBC 07/22/18 Range/Units 12:50 WBC 6.6 (4.3-11.1) K/mcL Hgb 11.1 L (12.9-16.9) g/dL Hct 34.8 L (37.5-50.1) % Plt Count 143 (140-400) K/mcL Neutrophils # 4.8 (1.6-8.9) K/mcL BMP 07/22/18 12:50 Sodium 136 Potassium 4.1 Chloride 98 Carbon Dioxide 27 BUN 20 Creatinine 5.60 H Glucose 112 H Calcium 8.5 L Cardiac Enzymes 07/22/18 Range/Units 12:50 Troponin I 0.05 H* (< 0.04) ng/mL - Impressions ITS Impressions Chest X-Ray 07/22/18 12:31 IMPRESSION: Pulmonary vascular congestion, compatible with mild CHF. D/ / Orlando Prince MD / Orlando Prince MD Interpreting Provider: Orlando Prince MD - Assessment and plan (1) CHF (congestive heart failure) Current Visit: Yes Status: Acute Assessment and plan: No signs of significant fluid overload. Systolic CHF with EF 25%, on PPM/AICD, on BB and ARB. - Cont fluid restriction diet - Cont regular HD - Closely monitor fluid status. Qualifiers: Heart failure type: systolic Heart failure chronicity: acute on chronic Qualified Code(s): I50.23 - Acute on chronic systolic (congestive) heart failure (2) COPD exacerbation Current Visit: Yes Status: Acute Assessment and plan: Pt has wheezing upon arrive at ER, improved after treatment. - Cont Duoneb IH - Hold steroid as pt has no wheezing now. (3) DVT prophylaxis Current Visit: No Status: Acute Assessment and plan: heparin sc (4) ESRD (end stage renal disease) Current Visit: No Status: Acute Assessment and plan: Cont HD, nephro consulted. (5) Elevated brain natriuretic peptide (BNP) level Current Visit: No Status: Acute Assessment and plan: Due to systolic CHF, closely monitor fluid status and cont fluid restriction. (6) Elevated troponin Current Visit: No Status: Acute Assessment and plan: Mild elevated Troponin, no typical chest pain. - Track 3 sets of troponin - Cont cardiac monitoring. (7) Coronary artery disease Current Visit: No Status: Chronic Assessment and plan: S/P stent, Cont DAPT, BB, Statin. Qualifiers: Coronary Disease-Associated Artery/Lesion type: [place] artery [place] vs. transplanted heart: [place] heart Associated angina: without angina Qualified Code(s): I25.10 - Atherosclerotic heart disease of [place] coronary artery without angina pectoris (8) PAF (paroxysmal atrial fibrillation) Current Visit: No Status: Chronic Assessment and plan: Cont home meds cardizem for rate control. HR 90-100 now. Pt was on coumadin but he said [place] physician "take it off" last time when he had [facility] in May. (9) Palpitation Current Visit: Yes Status: Acute Assessment and plan: Most likely A Fib RVR but no evidence. - Cont cardiac monitoring. - Consult cardio as pt overall has multiple cardio issues. - Check Mg, TSH. - Time Spent With Patient Total time spent is greater than 50% in coordination of care (as documented) at patient's floor/unit and/or counseling patient: 30 min 25 - 35 minutes
[2018-07-22] MEDS ORDERED: Levalbuterol Neb 1.25 MG/3 ML IH PRN (15:24)
[2018-07-22] MEDS ORDERED: Ipratropium/Albuterol Neb 3 ML IH SCH (16:00)
[2018-07-22] MEDS: Levalbuterol Neb 1.25 MG/3 ML IH SCH ×2 (16:35→21:45)
[2018-07-22] MEDS: Calcium Acetate 667 MG CAPSULE PO SCH (19:57)
[2018-07-22] MEDS: *HR* Heparin 5,000 UNIT/ML VIAL SQ SCH (21:57)
[2018-07-23 00:57] LABS: Basophils % 0.2 %; Hemoglobin 10.3 g/dL (12.9-16.9); Immature Granulocytes % 0.6 % (0-4); Lymphocytes # 0.3 K/mcL (0.6-4.6); Lymphocytes % 4.6 %; Mean Corpuscular HGB Conc 32.2 g/dL (31.6-35.5); Mean Corpuscular Hemoglobin 31.4 pg (28.0-33.3); Mean Corpuscular Volume 97.6 fL (83.0-100.0); Mean Platelet Volume 10.2 fL (9.4-12.4); Monocytes # 0.2 K/mcL (0.0-1.3); Monocytes % 4.4 %; Neutrophils # 4.9 K/mcL (1.6-8.9); Platelet Count 114 K/mcL (140-400); Red Blood Count 3.28 M/mcL (4.19-5.50); Red Cell Distribution Width 16.4 % (11.5-14.5); Segmented Neutrophils % 90.2 %
[2018-07-23] MEDS ORDERED: Famotidine 20 MG TABLET PO ONE (00:57)
[2018-07-23 01:02] LABS: INR 1.3; Prothrombin Time 14.8 Seconds (9.4-12.1)
[2018-07-23 01:16] LABS: Magnesium 2.1 mg/dL (1.6-2.6)
[2018-07-23] MEDS ORDERED: Nitroglycerin 0.4 MG TAB.SUBL SL PRN (01:48)
[2018-07-23] MEDS: Levalbuterol Neb 1.25 MG/3 ML IH SCH ×4 (04:15→23:00)
[2018-07-23] MEDS: *HR* Heparin 5,000 UNIT/ML VIAL SQ SCH ×2 (05:00→18:27)
[2018-07-23] MEDS ORDERED: 0.9 % Sodium Chloride 250 ML IVC PRN (08:35)
--- NOTE | 2018-07-23 08:40 | Nephrology Consult Note ---
Date of Encounter: 07/23/18 Time of Encounter: 08:38 Assessment and Plan (1) ESRD (end stage renal disease) Status: Chronic ESRD on HD TTS and he is due for HD today I reviewed his labs, vitals, med list, progress notes, prior imaging and also logged into the [facility] mobile and reviewed his chronic dialysis run sheets and orders. Based upon the above review including MDM and complex E/M, I've placed HD orders for today. This also serves as a dialysis note: he was s/e during HD and tolerated it well. I will be available this weekend, but his next HD will be for Wednesday. My colleague Dr. Wesley will be on-call starting Wednesday morning. Thank you. (2) Peripheral edema Status: Acute See above regarding HD with fluid removal. I also called the outpt Dialysis unit and verbally ordered more UF with his outpt, thrice weekly HD treatments. (3) Chest pain Status: Acute As per primary Qualifiers: Chest pain type: other chest pain Qualified Code(s): R07.89 - Other chest pain; R07.8 - Other chest pain (4) Ischemic cardiomyopathy Status: Chronic As per primary History of Present Illness - Reason for Consult Consult date: 07/22/18 end stage renal disease Requesting physician: German Mota - Chief Complaint ESRD - History of Present Illness Darwin Lopez is a very pleasant 67 y/o WM gentleman with a pmh of ESRD on HD who presented with CP. 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 He has been dialyzing with [facility] in [place], [place], on TTS at 210 with a target weight near 98kg, according my my review of outside medical records. He said he has noticed more swelling recently, and had mild chest pain. Cardiology was also consulted. He did not affirm active CP at this time. He did not affirm dialysis related problems such as N/V/D, or cramping, but he did describe chronic itching (which can often occur in chronic dialysis patients.) His last dialysis was on , he said, and he stayed for a full treatment. Past Med Surg Social Fam HX - Past Medical History Medical history: atrial fibrillation, cardiomyopathy, CHF, COPD, coronary artery disease, dialysis, GERD, hyperlipidemia, hypertension, myocardial infarction, renal disease Additional medical history: Dialysis T/TH/SAT. ESRD Psychiatric history: no psych history - Past Surgical History Surgical History: angioplasty/stent, other Additional surgical history: partial colectomy, Cardiac Stents-9, AV fistula RFA - Social History Smoking Status: Former smoker Smokeless Tobacco Status: No Alcohol use: rarely Drug use: none - Family History Father Family Member Ethnicity: Non- Living Status: Hx Family Cancer: Yes ( of bone cancer) Mother Family Member Ethnicity: Non- Living Status: Hx Family Cardiac Disorders: Yes (HD) Hx Family Cancer: Yes (breast) Hx Family Autoimmune Disorders: Yes (Lupus) Brother Family Member Ethnicity: Non- Living Status: Still Living Hx Family Cardiac Disorders: Yes Hx Family Respiratory Disorders: Yes (COPD/Emphysema) Sister Family Member Ethnicity: Non- Living Status: Still Living Hx Family Cardiac Disorders: Yes (Heart valve prolapse) Medications and Allergies Aspirin [Lo-Dose Aspirin EC] 81 mg PO DAILY 03/26/17 [History] Atorvastatin Calcium [Lipitor] 80 mg PO HS 03/26/17 [History] Calcium Acetate [Phos-LO] 1,334 mg PO TIDWM 03/26/17 [History] Clopidogrel [Plavix] 75 mg PO DAILY 03/26/17 [History] HYDROcodone/Acet 5/325 mg [[place] 5-325 mg] 1 tab PO BID PRN 03/26/17 [History] Multivit-Min/FA/Lycopen/Lutein [Men 50 Plus Multivitamin Tab] 1 tab PO DAILY [History] Oxygen 2 l NS CONT 03/26/17 [History] Tiotropium [Spiriva] 1 puff IH DAILY 03/26/17 [History] Folic Acid/Vit B Complex and C [Dialyvite Tablet] 1 tab PO DAILY 07/22/18 [ History] Pantoprazole Sodium [Protonix] 40 mg PO DAILY 07/22/18 [History] Sevelamer [Renvela] 800 mg PO TID 07/22/18 [History] Valsartan 40 mg PO BID 07/22/18 [History] Carvedilol [Coreg] 25 mg PO BIDWM 30 Days #60 tablet 07/24/18 [Rx] 3 Allergy/AdvReac Type Severity Reaction Status Date / Time No Known Allergies Allergy Verified 03/26/17 05:27 Review of Systems All Systems: reviewed and no additional remarkable complaints except as stated Exam - Vital Signs Vital signs: Initial Vital Signs Temp Pulse Resp BP Pulse Ox 98.9 F 95 21 109/86 100 07/22/18 12:32 07/22/18 12:32 07/22/18 12:32 07/22/18 12:32 07/22/18 12:32 Vital Signs - Last 8 Hours Temp Pulse Resp BP Pulse Ox 07/23/18 07:20 98.2 F 86 16 116/79 98 07/23/18 04:17 20 90 07/23/18 03:58 98.7 F 91 17 122/79 90 Intake and Output 07/22/18 07/23/18 07/23/18 23:59 07:59 15:59 Intake Total 470 / 470 Output Total 0 / 0 Balance 470 / 470 Intake: Oral 470 / 470 Output: Urine 0 / 0 Other: Weight 98.883 kg - General Appearance General appearance: well-developed, well-nourished, appears started age EENT: ATNC, PERRL, mucous membranes moist Neck: supple Respiratory: course breath sounds Cardiology: edema (1+ pretibial bilateral pitting edema. ), regular rate, regular rhythm, normal S1, normal S2 - Dialysis Access Dialysis Vascular Access: Arteriovenous Fistula (right lower arm) thrill: Yes bruit: Yes Gastrointestinal: normoactive bowel sounds, no guarding, no organomegaly Integumentary: no rash, warm and dry Neurologic: no focal deficit, no asterixis, alert and oriented x3 Musculoskeletal: no deformities, no erythema, no cyanosis, no clubbing Psychiatric: mood/affect appropriate, cooperative Results - Lab Results 07/23/18 00:46 07/23/18 00:46 Most recent lab results Calcium 9.0 mg/dL (8.6-10.3) 07/23/18 00:46 Magnesium 2.1 mg/dL (1.6-2.6) 07/23/18 00:46 I reviewed his labs, vitals, imaging, progress notes, vitals and med list. I also reviewed outside med records from [facility] including dialysis run sheets on the mobile [employer] [facility]. Consult Discharge Plan - Plan Instructions: Carvedilol (By mouth), Heart Failure (DC), Chronic Obstructive Pulmonary Disease (DC) Referrals: Micah Mello MD [Primary Care Provider] - (Web request completed 07/24/2018) Prescriptions: Carvedilol [Coreg] 25 mg PO BIDWM 30 Days #60 tablet
--- NOTE | 2018-07-23 08:46 | Cardiology Consult Note ---
Date of Encounter: 07/23/18 Time of Encounter: 08:44 Assessment and Plan (1) SVT (supraventricular tachycardia) Current Visit: Yes Status: Acute ICD device check completed for complaint of elevated heart rates. Heart rates noted to be up to 170 bpm. ICD shows that this is a SVT. The last time he had atrial fibrillation was on May 15. We will increase beta sarabjit. (2) CHF (congestive heart failure) Current Visit: Yes Status: Acute Acute on chronic CHFrEF, bi ventricular failure. Last TTE LVEF 25%. Severe global LV systolic dysfunction. Indeterminate diastolic function. There is no LV thrombus. Definity echo contrast was used. LV chamber size upper limits of normal. Mild to moderately dilated RV with mild reduction in function. Bi-atrial enlargement. Mild mitral regurgitation. Moderate tricuspid regurgitation. Severe pulmonary hypertension. Mild pulmonic regurgitation. A device lead was visualized in the right atrium and right ventricle. Aneurysmal interatrial septum. The IVC is dilated. Significant fluid overload on exam. BNP greater than 5000 ml. Fluid status management per nephrology as he is on dialysis. States he has frequent admissions requiring fluid removal. Continue carvedilol and losartan. Qualifiers: Heart failure type: systolic Heart failure chronicity: acute on chronic Qualified Code(s): I50.23 - Acute on chronic systolic (congestive) heart failure (3) Coronary artery disease Current Visit: No Status: Chronic H/o known CAD [facility] 06/09/18: severe 3vCAD, EF 35%; 60% pLMCA stenosis; 40% mLAD stenosis; 80% ISR in the 1stOM; 90% in the mRCA, 99% dRCA, distal RCA has left to right collaterals. Patient was deemed not a candidate for CABG at [facility] [place]. Patient was admitted at [facility] and underwent PCI. Continue asa, plavix, statin, and bb. Qualifiers: Coronary Disease-Associated Artery/Lesion type: [place] artery [place] vs. transplanted heart: [place] heart Associated angina: without angina Qualified Code(s): I25.10 - Atherosclerotic heart disease of [place] coronary artery without angina pectoris (4) Ischemic cardiomyopathy Current Visit: No Status: Chronic (5) PAF (paroxysmal atrial fibrillation) Current Visit: No Status: Chronic H/o PAV. States HR 170s at home. ICD check completed and it shows SVT and not A. fib. Last time he had atrial fibrillation was May 15. known EF 25%. Ideally he should not be on cardizem. Increase carvedilol and wean off cardizem if able. Reports recent GI bleed. He likely will not tolerate triple therpy. Continue asa and plavix. (6) ICD (implantable cardioverter-defibrillator) in place Current Visit: Yes Status: Acute Patient has a [employer] ICD. Inpatient device check completed. Patient noted to have increased operative all suggesting fluid overload as seen on exam. The LV lead threshold is noted to be elevated. Paint Tester says this is a chronic issue and has been noticed on prior ICD checks. He is noted to have several occurrences of SVT with heart rates as high as 170 bpm. Discussion w patient/family: The assessment and plan as outlined above was discussed with the patient and/or family members who expressed understanding and agreement. All questions were answered. Thank you for involving us in the care of your patient. Please call with any questions. History of Present Illness Consult date: 07/23/18 Requesting physician: Dawood Gonzalez Consult reason: palpitations, CHF Chief complaint: Elevated HR for two days, BLE edema, SOB History of present illness: Mr. Velasquez is a 67 year old male with past medical history CAD s/p [place] and recent PCI at [facility] (reported 8 stents todal), ischemic cardiomyopathy, AICD, PAF, HTN, ESRD on HD, HLD, GERD, COPD O2 dependent, DVT s/p [place] filter who presented to [facility] [place] with complaints of elevated HR. He states he felt weak when his HR was elevated. He also c/o increasing BLE edema and weight gain. He says that since he had chest pain at dialysis a few weeks ago they are hesitant to pull off fluid. Past Med Surg Social Fam HX - Past Medical History Medical history: atrial fibrillation, cardiomyopathy, CHF, COPD, coronary artery disease, dialysis, GERD, hyperlipidemia, hypertension, myocardial infarction, renal disease Additional medical history: Dialysis T/TH/SAT. ESRD Psychiatric history: no psych history - Past Surgical History Surgical History: angioplasty/stent, other Additional surgical history: partial colectomy, Cardiac Stents-9, AV fistula RFA - Social History Smoking Status: Former smoker Smokeless Tobacco Status: No Alcohol use: rarely Drug use: none - Family History Father Family Member Ethnicity: Non- Living Status: Hx Family Cancer: Yes ( of bone cancer) Mother Family Member Ethnicity: Non- Living Status: Hx Family Cardiac Disorders: Yes (HD) Hx Family Cancer: Yes (breast) Hx Family Autoimmune Disorders: Yes (Lupus) Brother Family Member Ethnicity: Non- Living Status: Still Living Hx Family Cardiac Disorders: Yes Hx Family Respiratory Disorders: Yes (COPD/Emphysema) Sister Family Member Ethnicity: Non- Living Status: Still Living Hx Family Cardiac Disorders: Yes (Heart valve prolapse) Medications and Allergies Aspirin [Lo-Dose Aspirin EC] 81 mg PO DAILY 03/26/17 [History] Atorvastatin Calcium [Lipitor] 80 mg PO HS 03/26/17 [History] Calcium Acetate [Phos-LO] 1,334 mg PO TIDWM 03/26/17 [History] Clopidogrel [Plavix] 75 mg PO DAILY 03/26/17 [History] HYDROcodone/Acet 5/325 mg [[place] 5-325 mg] 1 tab PO BID PRN 03/26/17 [History] Lisinopril [Zestril] 10 mg PO DAILY 03/26/17 [History] Multivit-Min/FA/Lycopen/Lutein [Men 50 Plus Multivitamin Tab] 1 tab PO DAILY [History] Oxygen 2 l NS CONT 03/26/17 [History] Tiotropium [Spiriva] 1 puff IH DAILY 03/26/17 [History] Carvedilol 12.5 mg PO BID 06/04/18 [History] Diltiazem HCl [Diltiazem 24Hr Cd] 180 mg PO DAILY 06/04/18 [History] Folic Acid/Vit B Complex and C [Dialyvite Tablet] 1 tab PO DAILY 07/22/18 [ History] Pantoprazole Sodium [Protonix] 40 mg PO DAILY 07/22/18 [History] Sevelamer [Renvela] 800 mg PO TID 07/22/18 [History] Valsartan [Valsartan] 40 mg PO BID 07/22/18 [History] 3 Allergy/AdvReac Type Severity Reaction Status Date / Time No Known Allergies Allergy Verified 03/26/17 05:27 All Systems Review: The remainder of the systems were reviewed and are negative Physical Examination Vital Signs, Last 4 Hours Temp Pulse Resp BP Pulse Ox 07/23/18 07:20 98.2 F 86 16 116/79 98 Results 07/23/18 00:46 07/23/18 00:46 Lab Results 07/22/18 07/23/18 07/23/18 18:43 00:46 00:46 WBC 5.4 Hgb 10.3 L Hct 32.0 L Plt Count 114 L INR Sodium Potassium Chloride Carbon Dioxide BUN Creatinine Glucose Calcium Magnesium Troponin I 0.12 H* 0.16 H* TSH 07/23/18 07/23/18 07/23/18 00:46 00:46 00:46 WBC Hgb Hct Plt Count INR 1.3 Sodium 135 L Potassium 4.0 Chloride 98 Carbon Dioxide 27 BUN 27 H Creatinine 6.50 H Glucose 153 H Calcium 9.0 Magnesium 2.1 Troponin I TSH 3.462 Consult Discharge Plan - Plan Referrals: Micah Mello MD [Primary Care Provider] -
[2018-07-23] MEDS ORDERED: 0.9 % Sodium Chloride 1,000 ML ONE (08:58)
[2018-07-23] MEDS ORDERED: Diltiazem CD (24hr) 180 MG CAPSULE PO SCH (09:00)
[2018-07-23] MEDS ORDERED: [UNRECOGNIZED DRUG - OTHER] PO SCH (09:00)
--- NOTE | 2018-07-23 09:13 | Electrocardiograph Report ---
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
[2018-07-23] MEDS ORDERED: Tiotropium 18 MCG inhalation IH SCH (10:00)
--- NOTE | 2018-07-23 11:09 | Internal Med Progress Note ---
Hospitalist Progress Note - Encounter Date of Encounter: 07/23/18 Time of Encounter: 09:00 - Subjective Interval History: Pt denies chest pain, SOB, or further palpitation. Plan for HD today. - Exam Vitals: Temp Pulse Resp BP Pulse Ox 98.2 F 86 16 116/79 98 07/23/18 07:20 07/23/18 07:20 07/23/18 07:20 07/23/18 07:20 07/23/18 07:20 Exam: Pt is AAO x 3, in NAD HEENT: NC/AT, PERRL Neck: Supple, no JVD, no LAD Lungs: CTA b/l, no wheezes or crackles Heart: Irregular rhythm, PPM/AICD in place Abd: Soft, NT, distended Ext: Mild pedal edema Neuro: AAO x 3, no focal deficit. - Assessment and Plan (1) CHF (congestive heart failure) Current Visit: Yes Status: Acute Assessment and Plan: Has fluid overload. Systolic CHF with EF 25%, on PPM/AICD, on BB and ARB. - Cont fluid restriction diet - Cont regular HD, Will consider extra fluid removal per nephro - Closely monitor fluid status. (2) COPD exacerbation Current Visit: Yes Status: Acute Assessment and Plan: Still has no wheezing. Cont bronchodilator and home meds. (3) DVT prophylaxis Current Visit: No Status: Acute Assessment and Plan: heparin sc (4) ESRD (end stage renal disease) Current Visit: No Status: Chronic Assessment and Plan: Cont HD, nephro consulted. (5) Elevated brain natriuretic peptide (BNP) level Current Visit: No Status: Acute Assessment and Plan: Due to systolic CHF, closely monitor fluid status and cont fluid restriction. Cont HD. (6) Elevated troponin Current Visit: No Status: Acute Assessment and Plan: Mild elevated Troponin, no typical chest pain. - 3 sets of troponin 0.05-0.12-0.16, most likely demand ischemia, D/W cardio, as pt has recent LHC and stent at [facility], no further test. - Cont cardiac monitoring. (7) Coronary artery disease Current Visit: No Status: Chronic Assessment and Plan: S/P stent, Cont DAPT, BB, Statin. (8) PAF (paroxysmal atrial fibrillation) Current Visit: No Status: Chronic Assessment and Plan: Per cardio, cardizem will be switched to BB. Carvidilol dose has been increased. Cont monitoring. No AC b/o hx of GI bleed. (9) Palpitation Current Visit: Yes Status: Acute Assessment and Plan: AICD check shows SVTs. BB dose increased per cardio, cont closely monitoring. DVT Prophylaxis: Heparin SC - Time Spent with Patient Total time spent is greater than 50% in coordination of care (as documented) at patient's floor/unit and/or counseling patient: 25 - 35 minutes Plan of Care Discussed with: patient Internal Medicine: Result - Labs CBC & Chem 7: 07/23/18 00:46 07/23/18 00:46 Labs: Short CBC 07/23/18 Range/Units 00:46 WBC 5.4 (4.3-11.1) K/mcL Hgb 10.3 L (12.9-16.9) g/dL Hct 32.0 L (37.5-50.1) % Plt Count 114 L (140-400) K/mcL Neutrophils # 4.9 (1.6-8.9) K/mcL BMP 07/23/18 00:46 Sodium 135 L Potassium 4.0 Chloride 98 Carbon Dioxide 27 BUN 27 H Creatinine 6.50 H Glucose 153 H Calcium 9.0 Cardiac Enzymes 07/22/18 07/23/18 Range/Units 18:43 00:46 Troponin I 0.12 H* 0.16 H* (< 0.04) ng/mL - ABG Interpretation ABG results: PT/INR, D-dimer PT 14.8 Seconds (9.4-12.1) H 07/23/18 00:46 Consult Discharge Plan - Plan Referrals: Micah Mello MD [Primary Care Provider] - (1) CHF (congestive heart failure) Qualifiers: Heart failure type: systolic Heart failure chronicity: acute on chronic Qualified Code(s): I50.23 - Acute on chronic systolic (congestive) heart failure (7) Coronary artery disease Qualifiers: Coronary Disease-Associated Artery/Lesion type: [place] artery [place] vs. transplanted heart: [place] heart Associated angina: without angina Qualified Code(s): I25.10 - Atherosclerotic heart disease of [place] coronary artery without angina pectoris
[2018-07-23] MEDS: Calcium Acetate 667 MG CAPSULE PO SCH ×2 (16:15→16:20)
[2018-07-23] MEDS: Aspirin Enteric Coated 81 MG Tablet PO SCH (16:20)
[2018-07-23] MEDS: Valsartan 80 MG TABLET PO SCH (16:20)
[2018-07-23] MEDS: Renal Vitamin 1 CAP CAPSULE PO SCH (16:20)
[2018-07-24] MEDS: *HR* Heparin 5,000 UNIT/ML VIAL SQ SCH (05:11)
[2018-07-24] MEDS: Levalbuterol Neb 1.25 MG/3 ML IH SCH (05:46)
[2018-07-24 06:49] VITALS: BP 93/53
[2018-07-24] MEDS: Valsartan 80 MG TABLET PO SCH (08:54)
[2018-07-24] MEDS: Aspirin Enteric Coated 81 MG Tablet PO SCH (08:54)
[2018-07-24] MEDS: Renal Vitamin 1 CAP CAPSULE PO SCH (08:54)
[2018-07-24] MEDS: Calcium Acetate 667 MG CAPSULE PO SCH (08:55)
--- NOTE | 2018-07-24 09:31 | Discharge Summary ---
- NOTES TO OUTPATIENT PROVIDER Notes to Outpatient Provider: 1. Home meds changed per cardio: D/C cardizem CD po, increase carvedilol from 12.5 bid to 25 bid. Date of Encounter: 07/24/18 Time of Encounter: 09:00 - Discharge Diagnosis (1) CHF (congestive heart failure) Priority: Primary Status: Acute Qualifiers: Heart failure type: systolic Heart failure chronicity: acute on chronic Qualified Code(s): I50.23 - Acute on chronic systolic (congestive) heart failure (2) COPD exacerbation Priority: Primary Status: Acute (3) DVT prophylaxis Priority: Secondary Status: Acute (4) ESRD (end stage renal disease) Priority: Secondary Status: Chronic (5) Elevated brain natriuretic peptide (BNP) level Priority: Primary Status: Acute (6) Elevated troponin Priority: Primary Status: Acute (7) Coronary artery disease Priority: Secondary Status: Chronic Qualifiers: Coronary Disease-Associated Artery/Lesion type: [place] artery [place] vs. transplanted heart: [place] heart Associated angina: without angina Qualified Code(s): I25.10 - Atherosclerotic heart disease of [place] coronary artery without angina pectoris (8) PAF (paroxysmal atrial fibrillation) Priority: Secondary Status: Chronic (9) Palpitation Priority: Primary Status: Acute Hospital course: Mr. Velasquez is a 67 year old male present to ER for palpitation and weakness. Pt was placed on cardiac monitoring and cardio consult see pt. Pt was found SVT by AICD checking. His medication was adjusted per cardio recommendation: DC cardizem, increase carvedilol to 25 mg bid. Pt also has fluid overload for which nephrology see pt and had HD. After treatment, pt feels better, no further palpitation. HR/BP tolerate well on new meds regime. Will d/c pt home and cont f/u as outpatient. I saw and examined pt today. Pt denies chest pain or SOB. State feels much better. Vitals stable. Will d/c pt home. New prescription carvedilol 25 mg po bid given and instruct him stop taking cardizem. - Time Spent with Patient Total time spent providing and/or coordinating discharge services: 30 min Less than 30 minutes - Discharge Medications Prescriptions: Carvedilol [Coreg] 25 mg PO BIDWM 30 Days #60 tablet Home Medications: Aspirin [Lo-Dose Aspirin EC] 81 mg PO DAILY 03/26/17 [History] Atorvastatin Calcium [Lipitor] 80 mg PO HS 03/26/17 [History] Calcium Acetate [Phos-LO] 1,334 mg PO TIDWM 03/26/17 [History] Clopidogrel [Plavix] 75 mg PO DAILY 03/26/17 [History] HYDROcodone/Acet 5/325 mg [[place] 5-325 mg] 1 tab PO BID PRN 03/26/17 [History] Multivit-Min/FA/Lycopen/Lutein [Men 50 Plus Multivitamin Tab] 1 tab PO DAILY [History] Oxygen 2 l NS CONT 03/26/17 [History] Tiotropium [Spiriva] 1 puff IH DAILY 03/26/17 [History] Folic Acid/Vit B Complex and C [Dialyvite Tablet] 1 tab PO DAILY 07/22/18 [ History] Pantoprazole Sodium [Protonix] 40 mg PO DAILY 07/22/18 [History] Sevelamer [Renvela] 800 mg PO TID 07/22/18 [History] Valsartan 40 mg PO BID 07/22/18 [History] Carvedilol [Coreg] 25 mg PO BIDWM 30 Days #60 tablet 07/24/18 [Rx] Allergies/Adverse Reactions: 3 Allergy/AdvReac Type Severity Reaction Status Date / Time No Known Allergies Allergy Verified 03/26/17 05:27 Date of admission: 07/22/18 16:26 Primary care physician: Micah Mello MD Consults: 07/23/18 08:45 Consult to Dialysis [CONS] ONCE Discharging clinician: Dawood Gonzalez Anticipated date of discharge: 07/24/18 - Constitutional Vitals: Temp Pulse Resp BP Pulse Ox 97.4 F L 69 18 93/53 99 07/24/18 06:43 07/24/18 06:43 07/24/18 06:43 07/24/18 06:43 07/24/18 06:43 General appearance: Present: A&O X 3, no acute distress, answers questions appropriately Exam: in NAD - Head Head exam: Present: atraumatic, normocephalic - Eye Eye exam: Present: PERRL, conjuntiva pink, sclera anicteric Pupils: Present: PERRL - Neck Neck exam general surgery: Present: supple, trachea midline. Absent: lymphadenopathy - Respiratory Respiratory exam: Present: CTAB. Absent: accessory muscle use, rales, rhonchi, wheezes - Cardiovascular Cardiovascular exam: Present: irregular rhythm, +S1, +S2. Absent: diastolic murmur, gallop, rubs, systolic murmur - GI/Abdominal GI/Abdominal exam: Present: normal bowel sounds, soft, no peritoneal signs. Absent: distended, tenderness - Extremities Exam Extremities exam: Present: warm, radial pulses palpable and symmetrical. Absent : calf tenderness, cyanotic, pedal edema - Neurological Exam Neurological exam: Present: CN II-XII intact, oriented X3, no focal deficits. Absent: pronater drift, facial droop, speech deficit - Skin Skin exam: Present: dry, intact - Patient Status Disposition: Home, Self-Care Condition: Fair Functional capacity at discharge: independent ambulation Overall status at discharge: patient is back to baseline - Discharge Instructions Follow Up With: Micah Mello MD [Primary Care Provider] - - Diet and Activity Activity: increase activity as tolerated Diet: low fat, low cholesterol, low salt diet
== END 2018-07-24 10:21 | disposition home or self-care (01) | DRG 291 ==
LOC: EMEROOARM 12:22 → 2ANU 16:26 → SUATTDRO 16:26 → 2ANU 17:05
PROVIDERS: ADMIT Internal Medicine; ATTEND Internal Medicine

== ENCOUNTER 2018-08-04 07:11 | Inpatient (IN) ==
[2018-08-04] MEDS ORDERED: Nitroglycerin 25 MG/250 ML INFUS..BTL IVC SCH (07:30)
--- NOTE | 2018-08-04 07:31 | Emergency Department Note ---
Disposition Clinical Impression: Elevated troponin, Stable angina Chest pain Qualifiers: Chest pain type: unspecified Qualified Code(s): R07.9 - Chest pain, unspecified Disposition: Admitted As Inpatient Condition: Fair Chest Pain HPI - General Chief Complaint: ED Chest Pain Stated Complaint: Chest Pain Time Seen by Provider: 08/04/18 07:12 Source: EMS Limitations: no limitations Vital Signs Reviewed: Yes Nursing Notes Reviewed: Yes - History of Present Illness HPI Narrative: Pt is a 67 year old male who presents to the emergency department due to an acu te episode of tachycardia associated with a dull/aching pain in his chest that radiates to his jaw that he experienced during his dialysis earlier this morning. Pt state that the pain also caused some associated SOB and recently had [address] 6-8 weeks ago which makes 9 total throughout his life. Pt states history of afib, cardiomyopathy and heart failure along with copd and renal failure all of which are currently medically managed. Otherwise pt denies any feelings of nausea, lightheadness, lower extremity swelling, fevers, chillls, bodyaches or any pleuritic chest pain. Pt complaint: chest pain Onset (ago): minute(s) Duration: constant Onset: during rest Severity scale (1-10): 3 Quality: aching, dull Pain Radiation: neck Improves with: nothing Worsens with: nothing Context: other (Stent placement 6-8 weeks ago) Associated symptoms: Denies: nausea, vomiting, dyspnea, sense of impending doom, syncope, leg swelling Treatments prior to arrival chest pain: none - Related Data Home Medications Medication Instructions Recorded Confirmed RX: Aspirin [Lo-Dose Aspirin EC] 81 mg PO DAILY 03/26/17 07/22/18 RX: Atorvastatin Calcium [Lipitor] 80 mg PO HS 03/26/17 07/22/18 RX: Calcium Acetate [Phos-LO] 1,334 mg PO TIDWM 03/26/17 07/22/18 RX: Clopidogrel [Plavix] 75 mg PO DAILY 03/26/17 07/22/18 RX: HYDROcodone/Acet 5/325 mg 1 tab PO Q12H PRN 03/26/17 07/22/18 [[place] 5-325 mg] RX: Multivit-Min/FA/Lycopen/Lutein 1 tab PO DAILY 03/26/17 07/22/18 [Men 50 Plus Multivitamin Tab] RX: Oxygen 2 l NS CONT 03/26/17 07/22/18 RX: Tiotropium [Spiriva] 1 puff IH DAILY 03/26/17 07/22/18 RX: Folic Acid/Vit B Complex and C 1 tab PO DAILY 07/22/18 07/22/18 [Dialyvite Tablet] RX: Pantoprazole Sodium [Protonix] 40 mg PO DAILY 07/22/18 07/22/18 RX: Sevelamer [Renvela] 800 mg PO TID 07/22/18 07/22/18 RX: Valsartan 40 mg PO BID 07/22/18 07/22/18 Previous Rx's Medication Instructions Recorded RX: Carvedilol [Coreg] 25 mg PO BIDWM 30 Days #60 tablet 07/24/18 Allergies Allergy/AdvReac Type Severity Reaction Status Date / Time No Known Allergies Allergy Verified 03/26/17 05:27 Constitutional: Reports: as per HPI Cardiovascular: Reports: as per HPI Respiratory: Reports: as per HPI Gastrointestinal: Denies: abdominal pain, nausea, vomiting Musculoskeletal: Denies: back pain, neck pain, joint swelling Neurological: Reports: headache. Denies: weakness, numbness Psychiatric: Denies: anxiety, depression Hematological/Lymphatic: Denies: easy bleeding, easy bruising Allergic/Immunologic: Denies: facial swelling, urticaria Chest Pain PMH - Past Medical History Medical history: Reports: atrial fibrillation, cardiomyopathy, CHF, COPD, coronary artery disease, dialysis, GERD, hyperlipidemia, hypertension, myocardial infarction, renal disease Surgical history: Reports: angioplasty/stent, other Psychiatric history: Reports: no psych history - Social History Smoking Status: Former smoker Alcohol use: Reports: rarely Drug use: Reports: none Physical Exam - General Limitations: no limitations General appearance: alert, in no apparent distress - Head Head exam: atraumatic, normocephalic - Eye Eye exam: Present: normal appearance, PERRL - Chest Chest inspection: Present: normal inspection, symmetric chest wall rise - Respiratory Respiratory exam: Present: normal lung sounds bilaterally, other (Decreased lung sounds in all lung [place] ) - Cardiovascular Cardiovascular exam: Present: regular rate, irregular rhythm - Abdominal Exam Abdominal exam: Present: soft, Non-Tender, distention - Extremities Exam Extremities exam: Present: normal inspection - Expanded Lower Extremity Exam Hip/Pelvis exam: Present: normal inspection Upper leg exam: Present: normal inspection Knee exam: Present: normal inspection Lower leg exam: Present: normal inspection Ankle exam: Present: normal inspection Foot/toe exam: Present: normal inspection - Neurological Exam Neurological exam: Present: alert, oriented X3 - Psychiatric Psychiatric exam: Present: normal affect, normal mood - Skin Skin exam: Present: warm, dry, intact Course Vital Signs Temperature 98.3 F 08/04/18 07:15 Pulse Rate 85 08/04/18 07:15 Respiratory Rate 18 08/04/18 07:15 Blood Pressure 109/62 08/04/18 07:15 O2 Sat by Pulse Oximetry 100 08/04/18 07:15 Temperature 98.3 F 08/04/18 07:15 Pulse Rate 76 08/04/18 10:35 Respiratory Rate 18 08/04/18 10:35 Blood Pressure 129/63 08/04/18 10:35 O2 Sat by Pulse Oximetry 100 08/04/18 10:35 Oxygen Delivery Oxygen Delivery Nasal Cannula Chest Pain - Lab Data Result diagrams: 08/04/18 07:36 08/04/18 07:36 Lab Results 08/04/18 08/04/18 08/04/18 Range/Units 07:36 07:36 07:36 WBC 6.2 (4.3-11.1) K/mcL RBC 3.69 L (4.19-5.50) M/mcL Hgb 11.6 L (12.9-16.9) g/dL Hct 36.5 L (37.5-50.1) % MCV 98.9 (83.0-100.0) fL MCH 31.4 (28.0-33.3) pg MCHC 31.8 (31.6-35.5) g/dL RDW 16.9 H (11.5-14.5) % Plt Count 112 L (140-400) K/mcL MPV 10.7 (9.4-12.4) fL Immature Gran % 0.2 (0-4) % Seg Neutrophils % 69.3 % Lymphocytes % 12.8 % Monocytes % 12.4 % Eosinophils % 4.0 % Basophils % 1.3 % Neutrophils # 4.3 (1.6-8.9) K/mcL Lymphocytes # 0.8 (0.6-4.6) K/mcL Monocytes # 0.8 (0.0-1.3) K/mcL Eosinophils # 0.3 (0.0-0.6) K/mcL Basophils # 0.1 (0.0-0.2) K/mcL PT 14.5 H (9.4-12.1) Seconds INR 1.3 Sodium 137 (136-145) mEq/L Potassium 3.9 (3.5-5.1) mEq/L Chloride 99 (98-107) mEq/L Carbon Dioxide 28 (23-29) mEq/L BUN 23 (8-23) mg/dL Creatinine 6.16 H (0.70-1.30) mg/dL Est GFR ( Amer) 11 L (> 60) Est GFR (Non-Af Amer) 9 L (> 60) BUN/Creatinine Ratio 4 L (6-26) Glucose 100 (70-105) mg/dL Calculated Osmolality 288 (280-300) Calcium 8.6 (8.6-10.3) mg/dL Phosphorus 4.8 H (2.7-4.5) mg/dL Magnesium 2.0 (1.6-2.6) mg/dL Troponin I 0.05 H* (< 0.04) ng/mL Attestation Statement - Attestation Attestation: I, Hamzah Louis DO, examined this patient [id number] and my medical decision-making was reviewed with Juan Carlos VILA . I agree with the documented findings, disposition and treatment plan as described except to the extent set forth below. Please see my progress notes for details.
[2018-08-04] MEDS ORDERED: 0.9 % Sodium Chloride 250 ML ONE (07:49)
[2018-08-04 07:51] LABS: Basophils # 0.1 K/mcL (0.0-0.2); Basophils % 1.3 %; Eosinophils # 0.3 K/mcL (0.0-0.6); Hematocrit 36.5 % (37.5-50.1); Hemoglobin 11.6 g/dL (12.9-16.9); Immature Granulocytes % 0.2 % (0-4); Lymphocytes # 0.8 K/mcL (0.6-4.6); Lymphocytes % 12.8 %; Mean Corpuscular HGB Conc 31.8 g/dL (31.6-35.5); Mean Corpuscular Hemoglobin 31.4 pg (28.0-33.3); Mean Corpuscular Volume 98.9 fL (83.0-100.0); Mean Platelet Volume 10.7 fL (9.4-12.4); Monocytes # 0.8 K/mcL (0.0-1.3); Monocytes % 12.4 %; Neutrophils # 4.3 K/mcL (1.6-8.9); Platelet Count 112 K/mcL (140-400); Red Blood Count 3.69 M/mcL (4.19-5.50); Red Cell Distribution Width 16.9 % (11.5-14.5); Segmented Neutrophils % 69.3 %
[2018-08-04] MEDS ORDERED: Aspirin 81 MG TAB.CHEW PO STA (07:59)
[2018-08-04 08:00] LABS: INR 1.3; Prothrombin Time 14.5 Seconds (9.4-12.1)
[2018-08-04 08:07] LABS: Calcium 8.6 mg/dL (8.6-10.3); Phosphorous 4.8 mg/dL (2.7-4.5); Potassium 3.9 mEq/L (3.5-5.1)
[2018-08-04 08:12] LABS: Troponin I 0.05 ng/mL (< 0.04)
--- NOTE | 2018-08-04 08:13 | Electrocardiograph Report ---
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
--- NOTE | 2018-08-04 08:14 | Electrocardiograph Report ---
[facility] Test Date: 2018-08-04 Pat Name: Darwin Velasquez Department: EXAM4 Room: Gender: M Sccm Administrator: : 1950 Requested By: Hamzah Louis Order Number: [id number] Reading MD: Car Bell Measurements Intervals [place] Rate: 80 P: 70 RI: 190 QRS: -44 QRSD: 153 T: 132 QT: 411 QTc: 475 Interpretive Statements Atrial-sensed ventricular-paced complexes No further analysis attempted due to paced rhythm Electronically Signed On 08-04-2018 8:12:20 EDT by Car Bell
--- NOTE | 2018-08-04 10:43 | Emergency Department Note ---
Disposition Clinical Impression: Chest pain, Elevated troponin, ESRD (end stage renal disease) on dialysis Disposition: Admitted As Inpatient Condition: Fair Instructions: Chest Pain (ED) Referrals: NONE,PCP [Non-Partnered Physician] - Forms: ED Satisfaction Letter Time of Disposition: 09:09 General Adult HPI - General Chief complaint: ED Chest Pain Stated complaint: Chest Pain Time Seen by Provider: 08/04/18 07:12 Source: EMS Limitations: no limitations - History of Present Illness Pain Scale: 3 - Related Data Home Medications Medication Instructions Recorded Confirmed Aspirin [Lo-Dose Aspirin EC] 81 mg PO DAILY 03/26/17 07/22/18 Atorvastatin Calcium [Lipitor] 80 mg PO HS 03/26/17 07/22/18 Calcium Acetate [Phos-LO] 1,334 mg PO TIDWM 03/26/17 07/22/18 Clopidogrel [Plavix] 75 mg PO DAILY 03/26/17 07/22/18 HYDROcodone/Acet 5/325 mg [[place] 1 tab PO BID PRN 03/26/17 07/22/18 5-325 mg] Multivit-Min/FA/Lycopen/Lutein 1 tab PO DAILY 03/26/17 07/22/18 [Men 50 Plus Multivitamin Tab] Oxygen 2 l NS CONT 03/26/17 07/22/18 Tiotropium [Spiriva] 1 puff IH DAILY 03/26/17 07/22/18 Folic Acid/Vit B Complex and C 1 tab PO DAILY 07/22/18 07/22/18 [Dialyvite Tablet] Pantoprazole Sodium [Protonix] 40 mg PO DAILY 07/22/18 07/22/18 Sevelamer [Renvela] 800 mg PO TID 07/22/18 07/22/18 Valsartan 40 mg PO BID 07/22/18 07/22/18 Previous Rx's Medication Instructions Recorded Carvedilol [Coreg] 25 mg PO BIDWM 30 Days #60 tablet 07/24/18 Allergies Allergy/AdvReac Type Severity Reaction Status Date / Time No Known Allergies Allergy Verified 03/26/17 05:27 Constitutional: Reports: as per HPI Cardiovascular: Reports: as per HPI Respiratory: Reports: as per HPI Gastrointestinal: Denies: abdominal pain, nausea, vomiting Musculoskeletal: Denies: back pain, neck pain, joint swelling Neurological: Reports: headache. Denies: weakness, numbness Psychiatric: Denies: anxiety, depression Hematological/Lymphatic: Denies: easy bleeding, easy bruising Allergic/Immunologic: Denies: facial swelling, urticaria Past Medical History - Past Medical History Medical history: Reports: atrial fibrillation, cardiomyopathy, CHF, COPD, coronary artery disease, dialysis, GERD, hyperlipidemia, hypertension, myocardial infarction, renal disease Surgical history: Reports: angioplasty/stent, other Psychiatric history: Reports: no psych history - Social History Smoking Status: Former smoker Smokeless Tobacco Status: No Alcohol use: Reports: rarely Drug use: Reports: none Physical Exam - General Limitations: no limitations General appearance: alert, in no apparent distress Course Vital Signs Temperature 98.3 F 08/04/18 07:15 Pulse Rate 85 08/04/18 07:15 Respiratory Rate 18 08/04/18 07:15 Blood Pressure 109/62 08/04/18 07:15 O2 Sat by Pulse Oximetry 100 08/04/18 07:15 Temperature 98.3 F 08/04/18 07:15 Pulse Rate 75 08/04/18 08:52 Respiratory Rate 16 08/04/18 08:52 Blood Pressure 103/71 08/04/18 08:52 O2 Sat by Pulse Oximetry 100 08/04/18 08:52 Oxygen Delivery Oxygen Delivery Nasal Cannula Medical Decision Making - Lab Data Result diagrams: 08/04/18 07:36 08/04/18 07:36 Lab Results 08/04/18 08/04/18 08/04/18 Range/Units 07:36 07:36 07:36 WBC 6.2 (4.3-11.1) K/mcL RBC 3.69 L (4.19-5.50) M/mcL Hgb 11.6 L (12.9-16.9) g/dL Hct 36.5 L (37.5-50.1) % MCV 98.9 (83.0-100.0) fL MCH 31.4 (28.0-33.3) pg MCHC 31.8 (31.6-35.5) g/dL RDW 16.9 H (11.5-14.5) % Plt Count 112 L (140-400) K/mcL MPV 10.7 (9.4-12.4) fL Immature Gran % 0.2 (0-4) % Seg Neutrophils % 69.3 % Lymphocytes % 12.8 % Monocytes % 12.4 % Eosinophils % 4.0 % Basophils % 1.3 % Neutrophils # 4.3 (1.6-8.9) K/mcL Lymphocytes # 0.8 (0.6-4.6) K/mcL Monocytes # 0.8 (0.0-1.3) K/mcL Eosinophils # 0.3 (0.0-0.6) K/mcL Basophils # 0.1 (0.0-0.2) K/mcL PT 14.5 H (9.4-12.1) Seconds INR 1.3 Sodium 137 (136-145) mEq/L Potassium 3.9 (3.5-5.1) mEq/L Chloride 99 (98-107) mEq/L Carbon Dioxide 28 (23-29) mEq/L BUN 23 (8-23) mg/dL Creatinine 6.16 H (0.70-1.30) mg/dL Est GFR ( Amer) 11 L (> 60) Est GFR (Non-Af Amer) 9 L (> 60) BUN/Creatinine Ratio 4 L (6-26) Glucose 100 (70-105) mg/dL Calculated Osmolality 288 (280-300) Calcium 8.6 (8.6-10.3) mg/dL Phosphorus 4.8 H (2.7-4.5) mg/dL Magnesium 2.0 (1.6-2.6) mg/dL Troponin I 0.05 H* (< 0.04) ng/mL Critical Care Time Critical Care Time: Yes Total Critical Care Time: 35 Attestation: Critical care performed: Time is exclusive of separately billable procedures. Time includes: direct patient care, patient reassessment, coordination of patient care, interpretation of data (laboratory data, radiology data, and respiratory data), review of krysta landers's medical records, medical consultation and documentation of patient care. Procedures included in critical care time: Procedures excluded from critical care time: Attestation Statement - Attestation Attestation: I, Hamzah Louis DO, examined this patient [id number] and my medical decision-making was reviewed with Dr. Bulmaro Harden, Resident Physician. I agree with the documented findings, disposition and treatment plan as described except to the extent set forth below. Please see my progress notes for details. 67-year-old male presents to the emergency room for evaluation of chest discomfort and palpitations while getting dialysis morning. Patient is a long- standing history of coronary artery disease with multiple stenting in the past. He did recently have a catheterization on 06/09/18 that showed three-vessel disease that was unable to be stented her managed by vascular procedure. They are recommending three-vessel bypass medical management at that time. Patient had EKG completed after that event that shows similar morphology here today. There is concern on initial EKG about increased depressions in leads 1 and aVL along with subjective elevation in lead 3. Patient does have a ventricular pacemaker in place of this is difficult to differentiate whether or not this is J-point of flexion secondary to the pacemaker or new ischemia. Repeat EKG will be collected since initial EKG is not diagnostic. Nitroglycerin drip along with chest x-ray CBC chemistry and troponin will be added on. Patient does have hyperacute T waves in lead V2 that is different from previous EKGs. We will address for hyper uremia and ischemia at this time. Repeat EKG to be collected approximately 15 minutes after the initial. Vital signs otherwise stable. Physical exam is unremarkable lungs are clear heart is regular when he is paced and has intermittent ventricular beats with a negative presentation. Abdomen is soft nontender nondistended with no guarding no rigidity no pulsatile masses noted. Diffuse swelling is noted in the lower extremities the patient describes as being better than is typical. Fistula right arm has a clamp and placed secondary to the dialysis treatments but otherwise is unremarkable with a normal thrill through the dialysis fistula in the right arm. Patient will have detailed workup completed here today in the disposition determined. superintendent drilling and production will be contacted for recommendations considering the EKG most recent catheterization after the second EKG was collected. See detailed documentation the physical exam, medical intervention, medical decision-making disposition the resident physician's note. Aspirin will be given to the patient here today 0750 Repeat EKG shows 1 mm elevation in lead 3 and undifferentiated elevation in aVF with stable depression in leads 1 and aVL in that does appear to be more pronounced than previous. These are not diagnostic for STEMI at this point. Interventional cardiology will be contacted to make sure that the treatment course is appropriate with the previous history as well as the presenting symptoms and EKG findings here today. Dr. Melgar was paged at [phone]. [phone] Melgar agrees for medical management on the patient considering her comorbidities and recent catheterization. Patient will be admitted for continuation of care. Chest pain is 100% gone at this time with nitroglycerin. Patient will be admitted at this time the hospitalist for continuation of care cardiac consultation and determination of long-term care plans. Patient is otherwise stable. Hospitals paged. Dr. Jordan reviewed the case no other concerns or issues noted this time. Admission process to be established. Patient will be observed in emergency room until admission is completed.
--- NOTE | 2018-08-04 10:43 | Emergency Department Note ---
Disposition Clinical Impression: Elevated troponin, ESRD (end stage renal disease) on dialysis Chest pain Qualifiers: Chest pain type: unspecified Qualified Code(s): R07.9 - Chest pain, unspecified Disposition: Admitted As Inpatient Condition: Fair Instructions: Chest Pain (ED) Referrals: NONE,PCP [Non-Partnered Physician] - Forms: ED Satisfaction Letter Time of Disposition: 08:21 General Adult HPI - General Chief complaint: ED Chest Pain Stated complaint: Chest Pain Time Seen by Provider: 08/04/18 07:12 Source: patient, EMS Mode of arrival: EMS Limitations: no limitations Nursing Notes Reviewed: Yes Vital Signs Reviewed: Yes - History of Present Illness HPI Narrative: Patient is a 67-year-old male that presents emergency Department with chest pain. Patient states that he was at at dialysis and developed chest pain during his dialysis session. Patient states that he dialyzes Wednesday, and Wednesday. Patient states that he may have been on dialysis for about an hour but was unable to complete the session today. Patient states that the chest pain is located in the center of his chest was about the size of a softball. Patient denies any radiation of his pain. Patient does state that he became short of breath. Patient noted that his heart rate increased and became tachycardic into the 150s to 170s. Patient states that he can notice his fistula was pulsating. Patient states that he has had previous MIs in the past and has 9 stents placed. Pain Scale: 3 - Related Data Home Medications Medication Instructions Recorded Confirmed Aspirin [Lo-Dose Aspirin EC] 81 mg PO DAILY 03/26/17 07/22/18 Atorvastatin Calcium [Lipitor] 80 mg PO HS 03/26/17 07/22/18 Calcium Acetate [Phos-LO] 1,334 mg PO TIDWM 03/26/17 07/22/18 Clopidogrel [Plavix] 75 mg PO DAILY 03/26/17 07/22/18 HYDROcodone/Acet 5/325 mg [[place] 1 tab PO BID PRN 03/26/17 07/22/18 5-325 mg] Multivit-Min/FA/Lycopen/Lutein 1 tab PO DAILY 03/26/17 07/22/18 [Men 50 Plus Multivitamin Tab] Oxygen 2 l NS CONT 03/26/17 07/22/18 Tiotropium [Spiriva] 1 puff IH DAILY 03/26/17 07/22/18 Folic Acid/Vit B Complex and C 1 tab PO DAILY 07/22/18 07/22/18 [Dialyvite Tablet] Pantoprazole Sodium [Protonix] 40 mg PO DAILY 07/22/18 07/22/18 Sevelamer [Renvela] 800 mg PO TID 07/22/18 07/22/18 Valsartan 40 mg PO BID 07/22/18 07/22/18 Previous Rx's Medication Instructions Recorded Carvedilol [Coreg] 25 mg PO BIDWM 30 Days #60 tablet 07/24/18 Allergies Allergy/AdvReac Type Severity Reaction Status Date / Time No Known Allergies Allergy Verified 03/26/17 05:27 All systems ED: reviewed and negative except as stated. Cardiovascular: Reports: chest pain, palpitations Respiratory: Reports: dyspnea Past Medical History - Past Medical History Medical history: Reports: atrial fibrillation, cardiomyopathy, CHF, COPD, coronary artery disease, dialysis, GERD, hyperlipidemia, hypertension, myocardial infarction, renal disease Surgical history: Reports: angioplasty/stent, other Psychiatric history: Reports: no psych history - Social History Smoking Status: Former smoker Smokeless Tobacco Status: No Alcohol use: Reports: rarely Drug use: Reports: none Physical Exam - General Limitations: no limitations General appearance: alert, in no apparent distress - Head Head exam: atraumatic, normocephalic - Eye Eye exam: Present: normal appearance, EOMI - Neck Neck exam: Present: normal inspection, full ROM, trachea midline - Respiratory Respiratory exam: Present: normal lung sounds bilaterally. Absent: respiratory distress, wheezes - Cardiovascular Cardiovascular exam: Present: regular rate, irregular rhythm, normal heart sounds, +S1, +S2 - Abdominal Exam Abdominal exam: Present: soft, Non-Tender, normal bowel sounds, scar (From previous surgery ) - Extremities Exam Extremities exam: Present: other (Fistula in the right forearm.) - Neurological Exam Neurological exam: Present: alert, oriented X3 - Psychiatric Psychiatric exam: Present: normal affect, normal mood - Skin Skin exam: Present: warm, dry, intact Course Vital Signs Temperature 98.3 F 08/04/18 07:15 Pulse Rate 85 08/04/18 07:15 Respiratory Rate 18 08/04/18 07:15 Blood Pressure 109/62 08/04/18 07:15 O2 Sat by Pulse Oximetry 100 08/04/18 07:15 Temperature 98.3 F 08/04/18 07:15 Pulse Rate 75 08/04/18 08:52 Respiratory Rate 16 08/04/18 08:52 Blood Pressure 103/71 08/04/18 08:52 O2 Sat by Pulse Oximetry 100 08/04/18 08:52 Oxygen Delivery Oxygen Delivery Nasal Cannula Medical Decision Making - MDM Narrative Medical decision making narrative: Due the patient presents emergency Department with chest pain during dialysis there is concern for possible electrolyte abnormality or cardiac involvement basin the patient's presenting symptoms and significant cardiac history. We will obtain basic laboratory tests including CBC, BMP, troponin chest x-ray and EKG. The initial EKG showed concerns for possible ischemia. A repeat EKG was obtained 15 minutes later which showed some mild elevations in lead 3 and aVF. These are similar to previous EKG that was obtained on June 23 of this year. Due to having these EKG changes we will contact interventional car diologist Dr. Melgar. Dr. Melgar was paged at [phone]. The case will be discussed with Dr. Melgar. Based on the patient's symptoms and medical history the patient will need to be admitted to the hospital. The patient was in agreement with admission to the hospital prior to the diagnostic workup. Chest x-ray does show multifocal pneumonia versus edema per radiology read. This and the patient's clinical presentation if that this is more likely to be edema. Patient does not have any clinical signs of pneumonia. He is afebrile, does not have a white count, is not currently tachycardic and has otherwise had no complaints of pneumonia symptoms. Dr. Melgar called back at [phone]. We discussed the case and Dr. Melgar recommendation for her to admit the patient with a cardiology consult did not feel that this patient required emergent catheterization. The patient will be admitted to the medical service with a cardiology and nephrology consult. The patient did have an elevated troponin of 0.05 however this appears to be chronic and actually improved from previous troponin. Patient's potassiu m is not elevated. Patient does not have an elevated white count. Patient's chest pain has resolved after being started on the nitroglycerin.a bedside ultrasound was performed to evaluate there was no evidence of pericardial effusion on bedside exam. Patient does have a mild anemia however this does appear to be chronic and baseline for the patient. Patient has significant elevation in his creatinine however he has end-stage renal disease and this is chronic for him. I called and spoke the admitting hospitalist and she has accepted the patient to their service. patient will be admitted to the hospital this time for further evaluation and management. - Medical Records Medical records reviewed: Yes I reviewed the patient's medical records. - Lab Data Lab results reviewed: Yes I reviewed the patient's lab results. Result diagrams: 08/04/18 07:36 08/04/18 07:36 Lab Results 08/04/18 08/04/18 08/04/18 Range/Units 07:36 07:36 07:36 WBC 6.2 (4.3-11.1) K/mcL RBC 3.69 L (4.19-5.50) M/mcL Hgb 11.6 L (12.9-16.9) g/dL Hct 36.5 L (37.5-50.1) % MCV 98.9 (83.0-100.0) fL MCH 31.4 (28.0-33.3) pg MCHC 31.8 (31.6-35.5) g/dL RDW 16.9 H (11.5-14.5) % Plt Count 112 L (140-400) K/mcL MPV 10.7 (9.4-12.4) fL Immature Gran % 0.2 (0-4) % Seg Neutrophils % 69.3 % Lymphocytes % 12.8 % Monocytes % 12.4 % Eosinophils % 4.0 % Basophils % 1.3 % Neutrophils # 4.3 (1.6-8.9) K/mcL Lymphocytes # 0.8 (0.6-4.6) K/mcL Monocytes # 0.8 (0.0-1.3) K/mcL Eosinophils # 0.3 (0.0-0.6) K/mcL Basophils # 0.1 (0.0-0.2) K/mcL PT 14.5 H (9.4-12.1) Seconds INR 1.3 Sodium 137 (136-145) mEq/L Potassium 3.9 (3.5-5.1) mEq/L Chloride 99 (98-107) mEq/L Carbon Dioxide 28 (23-29) mEq/L BUN 23 (8-23) mg/dL Creatinine 6.16 H (0.70-1.30) mg/dL Est GFR ( Amer) 11 L (> 60) Est GFR (Non-Af Amer) 9 L (> 60) BUN/Creatinine Ratio 4 L (6-26) Glucose 100 (70-105) mg/dL Calculated Osmolality 288 (280-300) Calcium 8.6 (8.6-10.3) mg/dL Phosphorus 4.8 H (2.7-4.5) mg/dL Magnesium 2.0 (1.6-2.6) mg/dL Troponin I 0.05 H* (< 0.04) ng/mL - Radiology Data Radiology results reviewed: Yes I reviewed the patient's radiology results. Chest X-Ray 08/04/18 07:16 IMPRESSION: 1. Increased interstitial opacities and stroke cardiac opacification may represent multifocal pneumonia or edema. 2. Hypoinflated lungs. D/ / Valencia Dejesus MD / Valencia Dejesus MD Interpreting Provider: Valencia Dejesus MD - EKG Data EKG #1 EKG attestation: Yes I reviewed and interpreted this EKG. EKG results narrative: EKG at 0744 showed a paced rhythm at 80 bpm, MI interval of 190, curious duration 133, QTC of 475. There are T-wave inversions in lead 1, aVL and mild elevations in lead 3 and aVF. This is compared to previous EKG on 06/23/18 which showed slightly worsening ST elevation in lead 3 and aVF. EKG #2 EKG attestation: Yes I reviewed and interpreted this EKG. EKG results narrative: EKG at 0744 showed a paced rhythm at 80 bpm, MI interval of 190, curious duration 133, QTC of 475. There are T-wave inversions in lead 1, aVL and mild elevations in lead 3 and aVF. This is compared to previous EKG on 06/23/18 which showed slightly worsening ST elevation in lead 3 and aVF. Attestation Statement - Attestation Attestation: I, Hamzah Louis DO, examined this patient [id number] and my medical decision-making was reviewed with Dr. Bulmaro Harden, Resident Physician. I agree with the documented findings, disposition and treatment plan as described except to the extent set forth below. Please see my progress notes for details.
--- NOTE | 2018-08-04 10:56 | Internal Med History&Physical ---
Date of Encounter: 08/04/18 Time of Encounter: 10:39 Internal Medicine - H&P: HPI Chief complaint: CP History of present illness: Mr. Velasquez is a 67 year old male Patient with ESRD on HD and extensive cardiac history of previous MIs and 9 stents placement who presented to the emergency Department with chest pain that started during his dialysis session asssociated with SOB, he was evaluated by the ER and his labs revealed elevated troponin. He was admitted for further evaluation. Past Med Surg Social Fam HX - Past Medical History Medical history: atrial fibrillation, cardiomyopathy, CHF, COPD, coronary artery disease, dialysis, GERD, hyperlipidemia, hypertension, myocardial infarction, renal disease Additional medical history: Dialysis T/TH/SAT. ESRD Psychiatric history: no psych history - Past Surgical History Surgical History: angioplasty/stent, other Additional surgical history: partial colectomy, Cardiac Stents-9, AV fistula RFA - Social History Smoking Status: Former smoker Smokeless Tobacco Status: No Alcohol use: rarely Drug use: none - Family History Brother Family Member Ethnicity: Non- Living Status: Still Living Hx Family Cardiac Disorders: Yes Hx Family Respiratory Disorders: Yes (COPD/Emphysema) Father Family Member Ethnicity: Non- Living Status: Hx Family Cancer: Yes ( of bone cancer) Mother Family Member Ethnicity: Non- Living Status: Hx Family Cardiac Disorders: Yes (HD) Hx Family Cancer: Yes (breast) Hx Family Autoimmune Disorders: Yes (Lupus) Sister Family Member Ethnicity: Non- Living Status: Still Living Hx Family Cardiac Disorders: Yes (Heart valve prolapse) Internal Medicine - H&P: Meds RX: Aspirin [Lo-Dose Aspirin EC] 81 mg PO DAILY 03/26/17 [History] RX: Calcium Acetate [Phos-LO] 667 mg PO DAILY 03/26/17 [History] RX: Clopidogrel [Plavix] 75 mg PO DAILY 03/26/17 [History] RX: HYDROcodone/Acet 5/325 mg [[place] 5-325 mg] 1 tab PO Q12H PRN 03/26/17 [History] RX: Oxygen 2 l NS CONT 03/26/17 [History] RX: Tiotropium [Spiriva] 1 puff IH DAILY 03/26/17 [History] RX: Folic Acid/Vit B Complex and C [Dialyvite Tablet] 1 tab PO DAILY 07/22/18 [History] RX: Sevelamer [Renvela] 800 mg PO TIDWM 07/22/18 [History] RX: Valsartan 40 mg PO BID 07/22/18 [History] RX: Carvedilol [Coreg] 25 mg PO BIDWM 30 Days #60 tablet 07/24/18 [Rx] RX: Fluticasone Propionate Nasal [Flonase] 1 spray NS DAILY 08/04/18 [History] RX: Isosorbide MONOnitrate (24 HR) [Imdur] 30 mg PO DAILY #30 tab.er.24h 08/05/18 [Rx] Allergy/AdvReac Type Severity Reaction Status Date / Time No Known Allergies Allergy Verified 03/26/17 05:27 All Systems PM: A 10-system review of systems was performed and is negative for pertinent findings except as documented above in the HPI. - Constitutional Constitutional: no chills, no fever(s), no night sweats - Cardiovascular Cardiovascular ROS IM: chest pain, dyspnea, no diaphoresis, no lightheadedness, no palpitations, no syncope - Respiratory Respiratory: dyspnea, no cough, no wheezing, no excessive phlegm production - Gastrointestinal Gastrointestinal: no abdominal pain, no diarrhea, no hematemesis, no hematochezia, no melena, no nausea, no vomiting - Neurological Neurological ROS: no confusion, no convulsions, no focal weakness, no numbness, no tingling, no tremor(s) - Constitutional Vitals: Temp Pulse Resp BP Pulse Ox 98.3 F 76 18 129/63 100 08/04/18 07:15 08/04/18 10:35 08/04/18 10:35 08/04/18 10:35 08/04/18 10:35 General appearance: Present: A&O X 3 Exam: Gen.: Nonacute distress, alert and oriented 3 - Head Head exam: Present: atraumatic, normocephalic - Neck Neck exam general surgery: Present: supple, trachea midline. Absent: lymphadenopathy - Respiratory Respiratory exam: Present: CTAB. Absent: accessory muscle use, rales, rhonchi, wheezes - GI/Abdominal GI/Abdominal exam: Present: normal bowel sounds, soft, no peritoneal signs. Absent: distended, tenderness - Extremities Exam Extremities exam: Present: warm, radial pulses palpable and symmetrical. Absent: calf tenderness, cyanotic, pedal edema Internal Med - H&P Results - Labs CBC & Chem 7: 08/05/18 04:37 08/05/18 04:37 Labs: Short CBC 08/04/18 Range/Units 07:36 WBC 6.2 (4.3-11.1) K/mcL Hgb 11.6 L (12.9-16.9) g/dL Hct 36.5 L (37.5-50.1) % Plt Count 112 L (140-400) K/mcL Neutrophils # 4.3 (1.6-8.9) K/mcL BMP 08/04/18 07:36 Sodium 137 Potassium 3.9 Chloride 99 Carbon Dioxide 28 BUN 23 Creatinine 6.16 H Glucose 100 Calcium 8.6 Cardiac Enzymes 08/04/18 Range/Units 07:36 Troponin I 0.05 H* (< 0.04) ng/mL - Impressions ITS Impressions Chest X-Ray 08/04/18 07:16 IMPRESSION: 1. Increased interstitial opacities and stroke cardiac opacification may represent multifocal pneumonia or edema. 2. Hypoinflated lungs. D/ / Valencia Dejesus MD / Valencia Dejesus MD Interpreting Provider: Valencia Dejesus MD - Assessment and plan (1) Chest pain Status: Acute Assessment and plan: ASSESSMENT: - Chest pain most likly 2/2 due to CAD. HE has H/O CAD with PCI PLAN: - cardiac enzymes x 2 q 8 hr - EKG now and in AM - ASA - O2 by NC to keep SpO2 greater than 92% - UA - CBCD, BMP in AM - Fasting lipids - Tylenol 650 mg PO q 4-6 hr PRN headache - Heparin 5000 U SQ BID - 2D Echo - Cardiology consult Qualifiers: Chest pain type: other chest pain Qualified Code(s): R07.89 - Other chest pain; R07.8 - Other chest pain (2) End-stage renal disease on hemodialysis Status: Chronic Assessment and plan: On HD TTS, will consult nephrology (3) Essential hypertension Status: Chronic Assessment and plan: We will continue home meds (4) Coronary artery disease Status: Chronic Assessment and plan: We will continue home meds Qualifiers: Coronary Disease-Associated Artery/Lesion type: pala artery [place] vs. transplanted heart: pala heart Associated angina: angina presence unspecified Qualified Code(s): I25.10 - Atherosclerotic heart disease of pala coronary artery without angina pectoris (5) Chronic atrial fibrillation Status: Chronic Assessment and plan: The patient is not on chronic anticoagulation due to H/o GI bleed, will continue ASA and plavix (6) Anticoagulated on Coumadin Status: Chronic (7) HLD (hyperlipidemia) Status: Chronic Qualifiers: Hyperlipidemia type: pure hypercholesterolemia Qualified Code(s): E78.00 - Pure hypercholesterolemia, unspecified; E78.0 - Pure hypercholesterolemia (8) COPD exacerbation Status: Acute Assessment and plan: We will continue home meds (9) DVT prophylaxis Status: Acute - Time Spent With Patient Total time spent is greater than 50% in coordination of care (as documented) at patient's floor/unit and/or counseling patient:
[2018-08-04] MEDS ORDERED: 0.9 % Sodium Chloride 250 ML IVC PRN (10:58)
--- NOTE | 2018-08-04 11:32 | Nephrology Consult Note ---
Addendum entered and electronically signed by Juan Carlos Morales DO 08/08/18 15:10: I have personally performed a face to face evaluation on this patient. I have reviewed and agree with the care plan. History and Exam by me shows: 67 y/o WM with a pmh of ESRD on HD TTS who presented with CP. He has been developing more edema of late. He affirmed that he is anuric. We talked about dry weight and fluid removal strategies and fluid restriction with counseling for >50% of the 30 min encounter. Will reassess for another treatment tomorrow to challenge his dry weight. Thank you. Dialysis note: the pt was also seen/examined while on HD. He tolerated HD well with adequate flows and access pressures. Original Note: Date of Encounter: 08/08/18 Time of Encounter: 11:29 Assessment and Plan (1) ESRD (end stage renal disease) on dialysis Will go ahead and run patient on dialysis today since he only had 50 minutes of his treatment in the outpatient unit Normal dialysis days TTS Will need a renal diet Need strict I/Os Avoid nephrotoxins if possible (2) SOB (shortness of breath) Status: Acute see above (3) Chest pain Status: Acute per primary team Qualifiers: Chest pain type: unspecified Qualified Code(s): R07.9 - Chest pain, unspecified History of Present Illness - Reason for Consult Consult date: 08/04/18 - Chief Complaint Tachycardia, ESRD on dialysis - History of Present Illness Mr. Velasquez is a 67 year old male well known to our practice who went to his regular outpatient dialysis at [facility] this morning and after 50 minutes of dialysis became short of breath, developed chest pain and heart rate went up to 151. Prior to this he had felt fine. Nephrology has been consulted to manage his HD while hospitalized Past Med Surg Social Fam HX - Past Medical History Medical history: atrial fibrillation, cardiomyopathy, CHF, COPD, coronary artery disease, dialysis, GERD, hyperlipidemia, hypertension, myocardial infarction, renal disease Additional medical history: Dialysis T/TH/SAT. ESRD Psychiatric history: no psych history - Past Surgical History Surgical History: angioplasty/stent, other Additional surgical history: partial colectomy, Cardiac Stents-9, AV fistula RFA - Social History Smoking Status: Former smoker Smokeless Tobacco Status: No Alcohol use: rarely Drug use: none - Family History Brother Family Member Ethnicity: Non- Living Status: Still Living Hx Family Cardiac Disorders: Yes Hx Family Respiratory Disorders: Yes (COPD/Emphysema) Father Family Member Ethnicity: Non- Living Status: Hx Family Cancer: Yes ( of bone cancer) Mother Family Member Ethnicity: Non- Living Status: Hx Family Cardiac Disorders: Yes (HD) Hx Family Cancer: Yes (breast) Hx Family Autoimmune Disorders: Yes (Lupus) Sister Family Member Ethnicity: Non- Living Status: Still Living Hx Family Cardiac Disorders: Yes (Heart valve prolapse) Medications and Allergies RX: Aspirin [Lo-Dose Aspirin EC] 81 mg PO DAILY 03/26/17 [History] RX: Calcium Acetate [Phos-LO] 667 mg PO DAILY 03/26/17 [History] RX: Clopidogrel [Plavix] 75 mg PO DAILY 03/26/17 [History] RX: HYDROcodone/Acet 5/325 mg [[place] 5-325 mg] 1 tab PO Q12H PRN 03/26/17 [History] RX: Oxygen 2 l NS CONT 03/26/17 [History] RX: Tiotropium [Spiriva] 1 puff IH DAILY 03/26/17 [History] RX: Folic Acid/Vit B Complex and C [Dialyvite Tablet] 1 tab PO DAILY 07/22/18 [History] RX: Sevelamer [Renvela] 800 mg PO TIDWM 07/22/18 [History] RX: Valsartan 40 mg PO BID 07/22/18 [History] RX: Carvedilol [Coreg] 25 mg PO BIDWM 30 Days #60 tablet 07/24/18 [Rx] RX: Fluticasone Propionate Nasal [Flonase] 1 spray NS DAILY 08/04/18 [History] RX: Isosorbide MONOnitrate (24 HR) [Imdur] 30 mg PO DAILY #30 tab.er.24h 08/05/18 [Rx] Allergy/AdvReac Type Severity Reaction Status Date / Time No Known Allergies Allergy Verified 03/26/17 05:27 Review of Systems All Systems: reviewed and no additional remarkable complaints except as stated Constitutional: no chills, no fever(s), no malaise Cardiovascular: chest pain, chest pain at rest, rapid heart rate Respiratory: dyspnea Gastrointestinal: no nausea, no vomiting Neurological: no abnormal speech, no behavioral changes Exam - Vital Signs Vital signs: Initial Vital Signs Temp Pulse Resp BP Pulse Ox 98.3 F 85 18 109/62 100 08/04/18 07:15 08/04/18 07:15 08/04/18 07:15 08/04/18 07:15 08/04/18 07:15 Vital Signs - Last 8 Hours Temp Pulse Resp BP Pulse Ox 08/04/18 10:35 76 18 129/63 100 08/04/18 09:28 81 16 118/92 100 08/04/18 08:52 75 16 103/71 100 08/04/18 08:03 80 18 105/61 100 08/04/18 07:33 83 18 117/83 100 08/04/18 07:20 85 18 109/62 100 08/04/18 07:15 98.3 F 85 18 109/62 100 Intake and Output 08/03/18 08/04/18 08/04/18 23:59 07:59 15:59 Other: Weight 98.339 kg Patient Weight 08/04/18 23:59 Weight 98.339 kg - General Appearance General appearance: well-developed, well-nourished EENT: ATNC, mucous membranes moist, hearing intact, vision intact Neck: supple Respiratory: clear (appears short of breath katina with conversation) Cardiology: edema, normal S1, normal S2 Gastrointestinal: no tenderness, no guarding Integumentary: warm and dry Psychiatric: mood/affect appropriate, cooperative Results - Lab Results 08/05/18 04:37 08/05/18 04:37 Most recent lab results Calcium 8.6 mg/dL (8.6-10.3) 08/04/18 07:36 Phosphorus 4.8 mg/dL (2.7-4.5) H 08/04/18 07:36 Magnesium 2.0 mg/dL (1.6-2.6) 08/04/18 07:36 Consult Discharge Plan - Plan Instructions: Chest Pain (DC) Referrals: Micah Mello MD [Primary Care Provider] - 08/10/18 10:15 am (Follow up as scheduled) Prescriptions: RX: Isosorbide MONOnitrate (24 HR) [Imdur] 30 mg PO DAILY #30 tab.er.24h
[2018-08-04] MEDS ORDERED: Naloxone 0.4 MG/ML INJ IVP PRN (12:08)
--- NOTE | 2018-08-04 13:23 | Cardiology Consult Note ---
<AlemRandyfer Kenney - Last Filed: 08/04/18 14:02> Date of Encounter: 08/04/18 Time of Encounter: 13:22 Assessment and Plan (1) Chest pain Current Visit: Yes Status: Acute Presented with chest pain that occurred during dialysis, midsternal aching in setting of reported tachycardic with HR 150s-170s--known hx of SVT and PAF. Associated dyspnea. CP now resolved. On nitro gtt at 5mcg/min. Will stop. Known CAD with PCI to LM and OM 06/2018 at [place]. Mild chronic troponin elevation likely demand ischemia--0.05, 0.12, 0.16, 0.05. ECG no acute ischemia changes. Add Imdur 30mg daily. Do not anticipate any further inpt cardiac work-up. Will discuss and review with Dr. Meyer. Qualifiers: Chest pain type: unspecified Qualified Code(s): R07.9 - Chest pain, unspecified (2) Elevated troponin Current Visit: Yes Status: Acute Troponins 0.05, 0.12, 0.16, 0.05 in setting of ESRD on dialysis and tachycardia prior to presentation. Troponins are chronically elevated. Likely demand ischemia, nondiagnostic for ACS. Known reduced EF of 25%. CAD with recent PCI at [place]. (3) Coronary artery disease Current Visit: Yes Status: Chronic Known CAD with multiple PCIs. [facility] 06/09/18: severe 3vCAD, EF 35%; 60% pLMCA stenosis; 40% mLAD stenosis; 80% ISR in the 1stOM; 90% in the mRCA, 99% dRCA, distal RCA has left to right collaterals. Patient was deemed not a candidate for CABG at [facility]. Patient was admitted at [place] and underwent PCI to and OM 06/2018. ASA, Statin, Plavix, BB. Add Imdur 30mg daily. Qualifiers: Coronary Disease-Associated Artery/Lesion type: [place] artery [place] vs. transplanted heart: platinum heart Associated angina: angina presence unspecified Qualified Code(s): I25.10 - Atherosclerotic heart disease of [place] coronary artery without angina pectoris (4) Ischemic cardiomyopathy Current Visit: Yes Status: Chronic Known EF of 25%, ICD in place. Continue BB and ARB. Dialysis for fluid removal. (5) PAF (paroxysmal atrial fibrillation) Current Visit: Yes Status: Chronic Known hx of PAF and SVT. Currently paced. Continue BB. Reports recent GI bleed. He likely will not tolerate triple therpy. Continue asa and plavix only. Increased CVA risk not on chronic AC. Discussion w patient/family: The assessment and plan as outlined above was discussed with the patient and/or family members who expressed understanding and agreement. All questions were answered. Thank you for involving us in the care of your patient. Please call with any questions. I will discuss all the above with Dr. Meyer and make changes as necessary. History of Present Illness Consult date: 08/04/18 Requesting physician: Melanie Jordan Consult reason: chest pain, elevated troponins Chief complaint: chest pain, palpitations History of present illness: Mr. Velasquez is a 67 year old male with PMH of CAD s/p [place] and recent PCI at [place] 06/2018, ischemic cardiomyopathy, AICD, PAF, SVT, HTN, ESRD on HD, HLD, GERD, COPD O2 dependent, DVT s/p [place] filter, GI bleed who presented to [facility] with complaints of chest pain. Pt states he was at at dialysis and developed chest pain, midsternal, aching associated with shortness of breath. States his HR increased into the 150s to 170s and he had palpitations as well. Currently chest pain free. He is on a nitro gtt at 5mcg/hr, reports headache. Troponins 0.05, 0.12, 0.16, 0.05. Cardiology consulted for further recs. Prior CV testing: [facility] 06/09/18: severe 3vCAD, EF 35%; 60% pLMCA stenosis; 40% mLAD stenosis; 80% ISR in the 1stOM; 90% in the mRCA, 99% dRCA, distal RCA has left to right collaterals. -Patient was deemed not a candidate for CABG at [facility]. Patient was admitted at [place] and underwent PCI to and OM 06/2018. [facility] 06/04/18: LVEF 25%. Severe global LV systolic dysfunction. Indeterminate diastolic function. There is no LV thrombus. Definity echo contrast was used. LV chamber size upper limits of normal. Mild to moderately dilated RV with mild reduction in function. Bi-atrial enlargement. Mild mitral regurgitation. Moderate tricuspid regurgitation. Severe pulmonary hypertension. Mild pulmonic regurgitation. A device lead was visualized in the right atrium and right ventricle. Aneurysmal interatrial septum. The IVC is dilated. Past Med Surg Social Fam HX - Past Medical History Medical history: atrial fibrillation, cardiomyopathy, CHF, COPD, coronary artery disease, dialysis, GERD, hyperlipidemia, hypertension, myocardial infarction, renal disease Additional medical history: Dialysis T/TH/SAT. ESRD Psychiatric history: no psych history - Past Surgical History Surgical History: angioplasty/stent, other Additional surgical history: partial colectomy, Cardiac Stents-9, AV fistula RFA - Social History Smoking Status: Former smoker Smokeless Tobacco Status: No Alcohol use: rarely Drug use: none - Family History Brother Family Member Ethnicity: Non- Living Status: Still Living Hx Family Cardiac Disorders: Yes Hx Family Respiratory Disorders: Yes (COPD/Emphysema) Father Family Member Ethnicity: Non- Living Status: Hx Family Cancer: Yes ( of bone cancer) Mother Family Member Ethnicity: Non- Living Status: Hx Family Cardiac Disorders: Yes (HD) Hx Family Cancer: Yes (breast) Hx Family Autoimmune Disorders: Yes (Lupus) Sister Family Member Ethnicity: Non- Living Status: Still Living Hx Family Cardiac Disorders: Yes (Heart valve prolapse) Medications and Allergies RX: Aspirin [Lo-Dose Aspirin EC] 81 mg PO DAILY 03/26/17 [History] RX: Calcium Acetate [Phos-LO] 667 mg PO DAILY 03/26/17 [History] RX: Clopidogrel [Plavix] 75 mg PO DAILY 03/26/17 [History] RX: HYDROcodone/Acet 5/325 mg [[place] 5-325 mg] 1 tab PO Q12H PRN 03/26/17 [History] RX: Oxygen 2 l NS CONT 03/26/17 [History] RX: Tiotropium [Spiriva] 1 puff IH DAILY 03/26/17 [History] RX: Folic Acid/Vit B Complex and C [Dialyvite Tablet] 1 tab PO DAILY 07/22/18 [History] RX: Sevelamer [Renvela] 800 mg PO DAILY 07/22/18 [History] RX: Valsartan 40 mg PO BID 07/22/18 [History] RX: Carvedilol [Coreg] 25 mg PO BIDWM 30 Days #60 tablet 07/24/18 [Rx] Fluticasone Propionate Nasal [Flonase] 1 spray NS DAILY 08/04/18 [History] RX: Losartan [Cozaar] 25 mg PO DAILY 08/04/18 [History] Allergy/AdvReac Type Severity Reaction Status Date / Time No Known Allergies Allergy Verified 03/26/17 05:27 All Systems Review: The remainder of the systems were reviewed and are negative - Cardiovascular Cardiovascular: as per HPI, chest pain at rest, dyspnea at rest, palpitations, rapid heart rate - Respiratory Respiratory: dyspnea Physical Examination Vital Signs, Last 4 Hours Pulse Resp BP Pulse Ox 08/04/18 10:35 76 18 129/63 100 08/04/18 09:28 81 16 118/92 100 Vital Signs Temp Pulse Resp BP Pulse Ox 08/04/18 10:35 76 18 129/63 100 08/04/18 09:28 81 16 118/92 100 08/04/18 08:52 75 16 103/71 100 08/04/18 08:03 80 18 105/61 100 08/04/18 07:33 83 18 117/83 100 08/04/18 07:20 85 18 109/62 100 08/04/18 07:15 98.3 F 85 18 109/62 100 Intake and Output 08/03/18 08/04/18 08/04/18 23:59 07:59 15:59 Other: Weight 98.339 kg Patient Weight 08/04/18 23:59 Weight 98.339 kg General: Conversant, No Apparent Distress HEENT: Atraumatic, Normocephaly, Mucus Membranes Moist Neck: No JVD, Normal carotid pulses Cardiac: Reg Rate and Rhythm, Normal S1 and S2, No Murmur Lungs: Normal Breath Sounds, No Wheeze, Rales, Rhonchi Neuro: Alert and responsive, No focal deficits noted Abdomen: Soft, Non-Tender Skin: No rashes noted on visualized skin Musculoskeletal: No Chest Wall Tenderness Extremities: No Clubbing, No Cyanosis, No Edema, Normal Pulses Results 08/04/18 07:36 08/04/18 07:36 Lab Results 08/04/18 08/04/18 08/04/18 07:36 07:36 07:36 WBC 6.2 Hgb 11.6 L Hct 36.5 L Plt Count 112 L INR 1.3 Sodium 137 Potassium 3.9 Chloride 99 Carbon Dioxide 28 BUN 23 Creatinine 6.16 H Glucose 100 Calcium 8.6 Magnesium 2.0 Troponin I 0.05 H* Short CBC 08/04/18 Range/Units 07:36 WBC 6.2 (4.3-11.1) K/mcL Hgb 11.6 L (12.9-16.9) g/dL Hct 36.5 L (37.5-50.1) % Plt Count 112 L (140-400) K/mcL Neutrophils # 4.3 (1.6-8.9) K/mcL BMP 08/04/18 Range/Units 07:36 Sodium 137 (136-145) mEq/L Potassium 3.9 (3.5-5.1) mEq/L Chloride 99 (98-107) mEq/L Carbon Dioxide 28 (23-29) mEq/L BUN 23 (8-23) mg/dL Creatinine 6.16 H (0.70-1.30) mg/dL Glucose 100 (70-105) mg/dL Calcium 8.6 (8.6-10.3) mg/dL Cardiac Enzymes 08/04/18 Range/Units 07:36 Troponin I 0.05 H* (< 0.04) ng/mL Impressions Chest X-Ray 08/04/18 07:16 IMPRESSION: 1. Increased interstitial opacities and stroke cardiac opacification may represent multifocal pneumonia or edema. 2. Hypoinflated lungs. D/ / Valencia Dejesus MD / Valencia madsen MD Interpreting Provider: Valencia Dejesus MD Impressions Chest X-Ray 08/04/18 07:16 IMPRESSION: 1. Increased interstitial opacities and stroke cardiac opacification may represent multifocal pneumonia or edema. 2. Hypoinflated lungs. D/ / Valencia Dejesus MD / Valencia Dejesus MD Interpreting Provider: Valencia Dejesus MD Active Medications Nitroglycerin (Nitroglycerin Premix 25 Mg/250 Ml) 25 mg in 250 mls @ 3 mls/hr IVC .Q24H [facility]; Protocol Stop: 02/03/19 07:31 Last Admin: 08/04/18 07:53 Dose: 5 mcg/min, 3 mls/hr Sodium Chloride (0.9 % Sodium Chloride) 250 mls @ 937.5 mls/hr IVC .Q16M PRN PRN Reason: Hypotension Stop: 02/03/19 10:59 Naloxone HCl (Narcan) 0.4 mg IVP Q2MIN PRN PRN Reason: SEE COMMENTS Stop: 02/03/19 12:09 - Imaging and Cardiology Echo: report reviewed Cardiac cath: report reviewed - EKG Interpretation EKG results cardiology: personally reviewed (paced) Consult Discharge Plan - Plan Referrals: Micah Mello MD [Primary Care Provider] - <Renae Meyer - Last Filed: 08/04/18 14:49> - Attending Attestation I have personally performed a face to face evaluation on this patient. I have reviewed and agree with the care plan. History and Exam by me shows: 67-year-old male with severe coronary artery disease as described above and an ejection fraction between 25 and 30% presents from the dialysis unit with chest pain. Chest pain atypical in nature associated with tachycardia and slight elevation in troponins with a peak of 0.16. Limited options for cardiac intervention at this time, continue medical management and continue to optimize medical management. In regards to paroxysmal atrial fibrillation patient had recent GI bleed therefore triple therapy likely high risk for recurrent bleeds. Patient was previously evaluated and deemed not a candidate for triple therapy and continues on aspirin and Plavix for his recent PCI at a slightly higher risk for CVA with his atrial fibrillation not on anticoagulation. Assessment and Plan Discussion w patient/family: The assessment and plan as outlined above was discussed with the patient and/or family members who expressed understanding and agreement. All questions were answered. Thank you for involving us in the care of your patient. Please call with any questions. History of Present Illness History of present illness: Mr. Velasquez is a 67 year old male All Systems Review: The remainder of the systems were reviewed and are negative Physical Examination Vital Signs, Last 4 Hours Temp Resp BP 08/04/18 14:10 124/74 08/04/18 13:55 131/84 08/04/18 13:40 123/79 08/04/18 13:25 117/86 08/04/18 13:10 126/75 08/04/18 12:55 116/87 08/04/18 12:40 98.5 F 18 121/80 Results 08/04/18 07:36 08/04/18 07:36 Lab Results 08/04/18 08/04/18 08/04/18 07:36 07:36 07:36 WBC 6.2 Hgb 11.6 L Hct 36.5 L Plt Count 112 L INR 1.3 Sodium 137 Potassium 3.9 Chloride 99 Carbon Dioxide 28 BUN 23 Creatinine 6.16 H Glucose 100 Calcium 8.6 Magnesium 2.0 Troponin I 0.05 H* 08/04/18 12:43 WBC Hgb Hct Plt Count INR Sodium Potassium Chloride Carbon Dioxide BUN Creatinine Glucose Calcium Magnesium Troponin I 0.05 H*
[2018-08-04 13:38] LABS: Chol/HDL Ratio 2.7 (0-4.9)
[2018-08-04] MEDS: Isosorbide MONOnitrate (24 HR) 30 MG TAB.ER.24H PO SCH (16:46)
[2018-08-04] MEDS ORDERED: Perflutren Lipid Microsphere 1.3 ML in 0.9 % Sodium Chloride 8.7 ML IVP ONE (20:43)
[2018-08-04] MEDS ORDERED: *HR* HYDROcodone/Acet 5/325 mg TABLET PO PRN (22:22)
[2018-08-05 05:15] LABS: Hematocrit 33.4 % (37.5-50.1); Hemoglobin 10.9 g/dL (12.9-16.9); Mean Corpuscular HGB Conc 32.6 g/dL (31.6-35.5); Mean Corpuscular Hemoglobin 31.8 pg (28.0-33.3); Mean Corpuscular Volume 97.4 fL (83.0-100.0); Red Blood Count 3.43 M/mcL (4.19-5.50); Red Cell Distribution Width 16.5 % (11.5-14.5)
[2018-08-05 05:21] LABS: INR 1.3; Prothrombin Time 14.3 Seconds (9.4-12.1)
[2018-08-05 05:23] LABS: Activated Partial Thrombo Time 36.5 Seconds (26.0-36.0)
[2018-08-05 05:37] LABS: Albumin 2.9 g/dL (3.5-5.7); Albumin/Globulin Ratio 0.9 (1.1-2.2); Calcium 8.8 mg/dL (8.6-10.3); Globulin 3.3 g/dL (2.4-3.5); Magnesium 1.9 mg/dL (1.6-2.6); Phosphorous 4.2 mg/dL (2.7-4.5); Potassium 3.9 mEq/L (3.5-5.1); Total Protein 6.2 g/dL (6.4-8.9)
[2018-08-05] MEDS ORDERED: 0.9 % Sodium Chloride 250 ML IVC PRN (07:05)
[2018-08-05] MEDS ORDERED: 0.9 % Sodium Chloride 1,000 ML ONE (07:54)
[2018-08-05] MEDS ORDERED: Calcium Acetate 667 MG CAPSULE PO SCH ×2 (08:00→09:00)
[2018-08-05] MEDS ORDERED: Aspirin Enteric Coated 81 MG Tablet PO SCH (09:00)
[2018-08-05] MEDS ORDERED: Vitamin B Complex/Vit C/Vit E 1 EACH TABLET PO SCH (09:00)
[2018-08-05] MEDS ORDERED: Fluticasone Propionate Nasal 50 MCG/SPRAY BOTTLE NS SCH (09:00)
[2018-08-05] MEDS ORDERED: Valsartan 80 MG TABLET PO SCH (09:00)
[2018-08-05] MEDS ORDERED: VALSARTAN 40 MG PO SCH (09:00)
[2018-08-05] MEDS ORDERED: Tiotropium 18 MCG inhalation IH SCH (10:00)
--- NOTE | 2018-08-05 10:48 | Nephrology Progress Note ---
Date of Encounter: 08/05/18 Time of Encounter: 10: - Assessment and Plan (1) ESRD (end stage renal disease) on dialysis I've made arrangements to target / challenge his dry weight. HD yesterday, today and tomorrow for safe daily fluid removal, which should help with his volume status and dyspnea. He was seen while on HD Update, his weight at the end of HD was reported as 95kg. (2) SOB (shortness of breath) Status: Acute see above (3) Chest pain Status: Acute Appears to have resolved and may have been associated with his higher interdialytic weight gains. Qualifiers: Chest pain type: unspecified Qualified Code(s): R07.9 - Chest pain, unspecified Subjective Principal diagnosis: ESRD Interval history: seen while on HD. He did not affirm N/V/D or cramping or dizziness from the dialysis. Objective - Vital Signs Vital signs: Vital Signs Temp Pulse Resp BP Pulse Ox 08/05/18 09:21 99 08/05/18 07:41 98.7 F 95 18 125/73 99 08/05/18 07:33 17 99 08/05/18 04:10 99.3 F 103 17 106/73 99 08/05/18 00:06 98.7 F 67 17 117/74 99 08/04/18 19:47 99.5 F 88 18 115/67 98 08/04/18 16:29 98.3 F 80 17 136/76 98 08/04/18 16:05 97.8 F 18 96/55 08/04/18 15:40 108/67 08/04/18 15:25 131/82 08/04/18 15:10 120/79 08/04/18 14:55 127/85 08/04/18 14:40 128/79 08/04/18 14:25 123/76 08/04/18 14:10 124/74 08/04/18 13:55 131/84 08/04/18 13:40 123/79 08/04/18 13:25 117/86 08/04/18 13:10 126/75 08/04/18 12:55 116/87 08/04/18 12:40 98.5 F 18 121/80 Intake and Output 08/04/18 08/05/18 08/05/18 23:59 07:59 15:59 Intake Total 240 / 240 480 / 480 120 / 120 Output Total 2099 0 / 0 Balance -1860 / -1860 480 / 480 120 / 120 Intake: Oral 240 / 240 480 / 480 120 / 120 Output: Urine 0 / 0 Total Dialysis (HD) Output 2099 Other: Meal Dinner Breakfast Percent of Meal Consumed 75% 30% # Voids 1 Weight 105 kg 97.704 kg Hemodialysis Net Fluid Removed 1500 (mL) Patient Weight 08/05/18 23:59 Weight 97.704 kg - General Appearance General appearance: Present: well-developed, well-nourished, appears started age, obese EENT: Present: ATNC, PERRL, mucous membranes moist Neck: Present: supple Respiratory: Present: clear (with diminished bases) Cardiology: Present: edema (trace to 1+ ankle edema), normal S1, normal S2 Dialysis Vascular Access: Arteriovenous Fistula thrill: Yes bruit: Yes Gastrointestinal: Present: normoactive bowel sounds, no guarding, obese Integumentary: Present: no rash, warm and dry Neurologic: Present: no focal deficit, no asterixis, alert and oriented x3 Musculoskeletal: Present: no deformities, no erythema Psychiatric: Present: mood/affect appropriate, cooperative - Lab 08/05/18 04:37 08/05/18 04:37 Most recent lab results Calcium 8.8 mg/dL (8.6-10.3) 08/05/18 04:37 Phosphorus 4.2 mg/dL (2.7-4.5) 08/05/18 04:37 Magnesium 1.9 mg/dL (1.6-2.6) 08/05/18 04:37 Consult Discharge Plan - Plan Instructions: Chest Pain (DC) Referrals: Micah Mello MD [Primary Care Provider] - 08/10/18 10:15 am (Follow up as scheduled) Prescriptions: Isosorbide MONOnitrate (24 HR) [Imdur] 30 mg PO DAILY #30 tab.er.24h
[2018-08-05] MEDS: Isosorbide MONOnitrate (24 HR) 30 MG TAB.ER.24H PO SCH (13:37)
[2018-08-05 13:43] VITALS: BP 126/69
--- NOTE | 2018-08-05 19:22 | Discharge Summary ---
- NOTES TO OUTPATIENT PROVIDER Notes to Outpatient Provider: Follow-up with primary care provider Date of Encounter: 08/05/18 Time of Encounter: 11:00 - Discharge Diagnosis (1) End-stage renal disease on hemodialysis Priority: Primary Status: Chronic (2) Essential hypertension Priority: Secondary Status: Chronic (3) Coronary artery disease Priority: Secondary Status: Chronic Qualifiers: Coronary Disease-Associated Artery/Lesion type: [place] artery [place] vs. transplanted heart: [place] heart Associated angina: angina presence unspecified Qualified Code(s): I25.10 - Atherosclerotic heart disease of [place] coronary artery without angina pectoris (4) Chronic atrial fibrillation Priority: Secondary Status: Chronic (5) Anticoagulated on Coumadin Priority: Secondary Status: Chronic (6) Chest pain Priority: Primary Status: Acute Qualifiers: Chest pain type: other chest pain Qualified Code(s): R07.89 - Other chest pain; R07.8 - Other chest pain (7) HLD (hyperlipidemia) Priority: Secondary Status: Chronic Qualifiers: Hyperlipidemia type: pure hypercholesterolemia Qualified Code(s): E78.00 - Pure hypercholesterolemia, unspecified; E78.0 - Pure hypercholesterolemia (8) COPD exacerbation Priority: Secondary Status: Acute Hospital course: Patient is a 67-year-old male with past medical history significant for CAD s/p [place] and recent PCI at [place] 06/2018, ischemic cardiomyopathy, AICD, PAF, SVT, HTN, ESRD on HD, HLD, GERD, COPD O2 dependent, DVT s/p [place] filter, GI bleed who presented to the ER on 08/04/18 due to chest pain. In the ER, patient was found to have elevated troponin and was admitted to the medical surgical floor for ACS rule out. During patients hospital stay cardiology was consulted with recommendations for medical management with addition of Imdur to his regimen of aspirin, statin, Plavix and beta sarabjit. Patient will follow up with primary care provider. - Time Spent with Patient Total time spent providing and/or coordinating discharge services: - Discharge Medications Prescriptions: Isosorbide MONOnitrate (24 HR) [Imdur] 30 mg PO DAILY #30 tab.er.24h Home Medications: Aspirin [Lo-Dose Aspirin EC] 81 mg PO DAILY 03/26/17 [History] Calcium Acetate [Phos-LO] 667 mg PO DAILY 03/26/17 [History] Clopidogrel [Plavix] 75 mg PO DAILY 03/26/17 [History] HYDROcodone/Acet 5/325 mg [[place] 5-325 mg] 1 tab PO Q12H PRN 03/26/17 [History] Oxygen 2 l NS CONT 03/26/17 [History] Tiotropium [Spiriva] 1 puff IH DAILY 03/26/17 [History] Folic Acid/Vit B Complex and C [Dialyvite Tablet] 1 tab PO DAILY 07/22/18 [History] Sevelamer [Renvela] 800 mg PO TIDWM 07/22/18 [History] Valsartan 40 mg PO BID 07/22/18 [History] Carvedilol [Coreg] 25 mg PO BIDWM 30 Days #60 tablet 07/24/18 [Rx] Fluticasone Propionate Nasal [Flonase] 1 spray NS DAILY 08/04/18 [History] Isosorbide MONOnitrate (24 HR) [Imdur] 30 mg PO DAILY #30 tab.er.24h 08/05/18 [Rx] Allergies/Adverse Reactions: Allergy/AdvReac Type Severity Reaction Status Date / Time No Known Allergies Allergy Verified 03/26/17 05:27 Date of admission: 08/04/18 10:46 Primary care physician: Micah Mello MD Consults: 08/04/18 08:12 Consult to Cardiology [CONS] Stat Comment: Consulting Provider: Cardiology Erika Reason for Consult: chest pain. Significant cardiac history Time Notified: 08:12 Call Completed: Yes 08/04/18 08:14 Consult to Nephrology [CONS] Stat Consulting Provider: Kidney Erika/ARIN/MEDARDO/TARIK Reason for Consult: Dialysis patient Call Completed: No 08/04/18 11:00 Consult to Dialysis [CONS] ONCE 08/05/18 07:15 Consult to Dialysis [CONS] ONCE - Constitutional Vitals: Temp Pulse Resp BP Pulse Ox 98.3 F 95 17 126/69 99 08/05/18 13:40 08/05/18 07:41 08/05/18 13:40 08/05/18 13:40 08/05/18 09:21 Exam: Gen.: Nonacute distress, alert and oriented 3 Skin: Normal color - Patient Status Disposition: Home, Self-Care Condition: Fair - Discharge Instructions Instructions: Chest Pain (DC) Follow Up With: Micah Mello MD [Primary Care Provider] - 08/10/18 10:15 am (Follow up as scheduled)
== END 2018-08-05 14:42 | disposition home or self-care (01) | DRG 291 ==
LOC: EMEROOARM 07:11 → SUATTDRO 10:46 → 2ANU 10:46
PROVIDERS: ADMIT Internal Medicine Nephrology; ATTEND Hospitalist